=== PATIENT | female | born 1960 | race Caucasian/White ===

== ENCOUNTER → 2017-03-03 | Outpatient (CLI) | payer BC ==
--- NOTE | 2017-03-03 12:49 | XR ---
EXAMINATION TYPE: XR knee limited LT DATE OF EXAM: 03/03/2017 COMPARISON: NONE HISTORY: 56-year-old female acute left knee pain TECHNIQUE: 2 views FINDINGS: No acute fracture, subluxation, or dislocation seen. However, small knee joint effusion is present. E xtensor mechanism is intact. IMPRESSION: 1. No acute osseous abnormality seen. 2. However, there is a small knee joint effusion. This is nonspecific. If concern for internal derang ement, MRI can be performed.
== END | disposition home or self-care (01) ==
LOC: RADXRMAIN 10:08
PROVIDERS: ATTEND Internal Medicine
DX: M25.462 Effusion, left knee (principal); M25.562 Pain in left knee

== ENCOUNTER → 2017-07-07 | Outpatient (CLI) | payer BC | END | disposition home or self-care (01) | LOC: SLEEP 10:23 | PROVIDERS: ATTEND Internal Medicine | DX: Z53.9 Procedure and treatment not carried out, unspecified reason (principal) ==

== ENCOUNTER 2018-04-04 16:52 | Inpatient (IN) | payer BC, OTHER ==
[2018-04-04] MEDS ORDERED: NITROGLYCERIN-D5W PMX 50 MG in DEXTROSE/WATER 1 250ML.BAG IV ONE (17:01)
--- NOTE | 2018-04-04 17:03 | ED ---
General Adult HPI - General Chief complaint: Chest Pain Stated complaint: Poss STEMI Time Seen by Provider: 04/04/18 16:52 Source: patient, RN notes reviewed Mode of arrival: EMS Limitations: no limitations - History of Present Illness Initial comments: This a 57-year-old female with past medical history significant for an [place] with stents. Patient also has diabetes hypertension and high cholesterol. Patient comes in today because she's been is breathing chest pain since 3:30 70. Patient states the pain radiates to her left shoulder and arm as well as a little bit of pain in the right arm. Patient states she also some difficulty breathing and sweating. Patient denies any nausea vomiting. Patient states her nitroglycerin home didn't help the pain a little but the EMS gave her 2 more and it helped quite a bit. Patient states she also took aspirin on the way in. Patient is continuing to have chest pain at this time. Patient denies any lightheadedness dizziness or near syncopal episode. Patient denies any numbness weakness per patient denies any abdominal pain patient denies nausea vomiting diarrhea. Patient denies any back pain. - Related Data Home Medications Medication Instructions Recorded Confirmed Aspirin EC [Ecotrin Low Dose] 324 mg PO DAILY 04/04/18 04/04/18 Atorvastatin [Lipitor] 80 mg PO HS 04/04/18 04/04/18 Clopidogrel Bisulfate [Plavix] 75 mg PO DAILY 04/04/18 04/04/18 Empagliflozin [Jardiance] 10 mg PO DAILY 04/04/18 04/04/18 Insulin Aspart (Niacinamide) See Protocol SQ AC-TID 04/04/18 04/04/18 [Fiasp 100 Unit/ml Flextouch] Levothyroxine Sodium [Synthroid] 150 mcg PO DAILY 04/04/18 04/04/18 Metoprolol Tartrate [Lopressor] 25 mg PO BID 04/04/18 04/04/18 Nitroglycerin 0.1MG/Hr Patch 1 patch TRANSDERM DAILY 04/04/18 04/04/18 [Nitro-Dur 0.1MG/Hr Patch] Nitroglycerin Sl Tabs [Nitrostat] 0.4 mg SUBLINGUAL Q5M PRN 04/04/18 04/04/18 Venlafaxine HCl ER [Effexor Xr] 75 mg PO HS 04/04/18 04/04/18 amLODIPine [Norvasc] 10 mg PO DAILY 04/04/18 04/04/18 metFORMIN HCL [Glucophage] 1,000 mg PO BID 04/04/18 04/04/18 Allergies Allergy/AdvReac Type Severity Reaction Status Date / Time nickel Allergy Rash/Hives Verified 04/04/18 17:07 Review of Systems ROS Statement: Those systems with pertinent positive or pertinent negative responses have been documented in the HPI. ROS Other: All systems not noted in ROS Statement are negative. Past Medical History Past Medical History: Diabetes Mellitus, Hyperlipidemia, Hypertension, Thyroid Disorder Additional Past Medical History / Comment(s): hpv, cervical uterine ca History of Any Multi-Drug Resistant Organisms: None Reported Past Surgical History: Section, Hernia Repair, Hysterectomy Additional Past Surgical History / Comment(s): thryroidectomy Past Psychological History: Anxiety Smoking Status: Current every day smoker Past Alcohol Use History: None Reported Past Drug Use History: None Reported General Exam - General Exam Comments Initial Comments: GENERAL: Patient is well-developed and well-nourished. Patient is nontoxic and well- hydrated and is in mild distress. ENT: Neck is soft and supple. No significant lymphadenopathy is noted. Oropharynx is clear. Moist mucous membranes. Neck has full range of motion without eliciting any pain. EYES: The sclera were anicteric and conjunctiva were pink and moist. Extraocular movements were intact and pupils were equal round and reactive to light. Eyelids were unremarkable. PULMONARY: Unlabored respirations. Good breath sounds bilaterally. No audible rales rhonchi or wheezing was noted. CARDIOVASCULAR: There is a regular rate and rhythm without any murmurs gallops or rubs. ABDOMEN: Soft and nontender with normal bowel sounds. No palpable organomegaly was noted. There is no palpable pulsatile mass. SKIN: Skin is clear with no lesions or rashes and otherwise unremarkable. NEUROLOGIC: Patient is alert and oriented x3. Cranial nerves II through XII are grossly intact. Motor and sensory are also intact. Normal speech, volume and content. Symmetrical smile. MUSCULOSKELETAL: Normal extremities with adequate strength and full range of motion. No lower extremity swelling or edema. No calf tenderness. LYMPHATICS: No significant lymphadenopathy is noted PSYCHIATRIC: Normal psychiatric evaluation. Normal interpersonal interactions appears functionally intact in deals appropriately with others. No signs of depression. No signs of anxiety. Limitations: no limitations Course Vital Signs 04/04/18 04/04/18 04/04/18 16:52 16:58 17:04 Temperature 98.2 F Pulse Rate 71 72 71 Respiratory 18 18 Rate Blood Pressure 182/108 170/102 175/106 O2 Sat by Pulse 99 100 Oximetry 04/04/18 04/04/18 04/04/18 17:30 17:36 17:40 Temperature Pulse Rate 71 75 75 Respiratory 20 20 20 Rate Blood Pressure 179/106 170/83 168/88 O2 Sat by Pulse 96 98 Oximetry 04/04/18 17:44 Temperature Pulse Rate 71 Respiratory 16 Rate Blood Pressure 132/87 O2 Sat by Pulse 96 Oximetry Medical Decision Making - Medical Decision Making EKG was sent to us via the EMS and I sent that there Dr. Crespo he did not believe that this time it was concerning. I was in agreement with this. EKG shows normal sinus rhythm at 67 bpm NV interval 154 tresses 84 Q-T intervals 408 QTC is 431. EKG shows ST segment elevation in lead 3 and questionable elevation in aVF I spoke with Dr. Crespo and he agreed that that was questionable so he decided to call the team and and a STEMI was paged overhead. I started the patient on heparin. Patient also had a nitroglycerin drip. Patient received aspirin. EKG was repeated patient had a normal sinus rhythm at 72 bpm NV interval is 152 QRS is 86 QT interval 422 QTC is 462. Patient's EKG continues to show ST segment elevation in lead 3 patient also has some depression of ST segment in aVL. - Lab Data Result diagrams: 04/04/18 17:00 04/04/18 17:00 Lab Results 04/04/18 04/04/18 Range/Units 17:00 17:00 WBC 15.6 H (3.8-10.6) k/uL RBC 5.10 (3.80-5.40) m/uL Hgb 15.1 (11.4-16.0) gm/dL Hct 42.8 (34.0-46.0) % MCV 83.9 (80.0-100.0) fL MCH 29.5 (25.0-35.0) pg MCHC 35.2 (31.0-37.0) g/dL RDW 13.8 (11.5-15.5) % Plt Count 176 (150-450) k/uL Neutrophils % 60 % Lymphocytes % 31 % Monocytes % 7 % Eosinophils % 1 % Basophils % 1 % Neutrophils # 9.4 H (1.3-7.7) k/uL Lymphocytes # 4.8 (1.0-4.8) k/uL Monocytes # 1.1 H (0-1.0) k/uL Eosinophils # 0.1 (0-0.7) k/uL Basophils # 0.1 (0-0.2) k/uL Sodium 138 (137-145) mmol/L Potassium 3.9 (3.5-5.1) mmol/L Chloride 106 (98-107) mmol/L Carbon Dioxide 22 (22-30) mmol/L Anion Gap 10 mmol/L BUN 16 (7-17) mg/dL Creatinine 0.66 (0.52-1.04) mg/dL Est GFR (CKD-EPI)AfAm >90 (>60 ml/min/1.73 sqM) Est GFR (CKD-EPI)NonAf >90 (>60 ml/min/1.73 sqM) Glucose 335 H (74-99) mg/dL Calcium 9.2 (8.4-10.2) mg/dL Magnesium 1.8 (1.6-2.3) mg/dL Total Bilirubin 0.7 (0.2-1.3) mg/dL AST 27 (14-36) U/L ALT 44 (9-52) U/L Alkaline Phosphatase 122 (38-126) U/L Total Protein 7.1 (6.3-8.2) g/dL Albumin 3.8 (3.5-5.0) g/dL Critical Care Time Critical Care Time: Yes Total Critical Care Time: 35 Disposition Clinical Impression: ST elevation myocardial infarction (STEMI) Disposition: ADMITTED IP TO THIS HOSP Referrals: Marni Leon MD [Primary Care Provider] - 1-2 days Time of Disposition: 17:25
[2018-04-04 17:33] LABS: Basophils # (A) 0.1 k/uL (0-0.2); Basophils % (A) 1 %; Eosinophils # (A) 0.1 k/uL (0-0.7); Eosinophils % (A) 1 %; HCT 42.8 % (34.0-46.0); HGB 15.1 gm/dL (11.4-16.0); Lymphocytes # (A) 4.8 k/uL (1.0-4.8); Lymphocytes % (A) 31 %; MCH 29.5 pg (25.0-35.0); MCHC 35.2 g/dL (31.0-37.0); MCV 83.9 fL (80.0-100.0); Mean Platelet Volume 6.7; Monocytes # (A) 1.1 k/uL (0-1.0); Monocytes % (A) 7 %; Neutrophils # (A) 9.4 k/uL (1.3-7.7); Neutrophils % (A) 60 %; Platelet Count 176 k/uL (150-450); RDW 13.8 % (11.5-15.5); WBC 15.6 k/uL (3.8-10.6)
--- NOTE | 2018-04-04 17:35 | XR ---
EXAMINATION TYPE: XR chest 2V DATE OF EXAM: 04/04/2018 COMPARISON: Chest x-ray October 24, 2015 HISTORY: Chest pain into left arm. TECHNIQUE: Frontal and lateral views of the chest are obtained. FINDINGS: The cardiac silhouette size is now upper limits of normal with new mild to moderate centra l vascular congestion. Diminished inspiration is noted. No pleural effusion or pneumothorax is eviden t bilaterally. The osseous structures are intact. IMPRESSION: Correlate for CHF exacerbation as there is increased cardiac silhouette size with suspec karina new mild to moderate central vascular congestion though findings may be exaggerated by poor inspi ration.
[2018-04-04] MEDS ORDERED: MORPHINE SULFATE 4 MG/ML SYRINGE IM STA (17:37)
[2018-04-04 17:45] LABS: ALT 44 U/L (9-52); AST 27 U/L (14-36); Albumin 3.8 g/dL (3.5-5.0); Alkaline Phosphatase 122 U/L (38-126); Anion Gap 10 mmol/L; Blood Urea Nitrogen 16 mg/dL (7-17); Calcium 9.2 mg/dL (8.4-10.2); Carbon Dioxide 22 mmol/L (22-30); Chloride 106 mmol/L (98-107); Glucose 335 mg/dL (74-99); Magnesium 1.8 mg/dL (1.6-2.3); Potassium 3.9 mmol/L (3.5-5.1); Sodium 138 mmol/L (137-145); Total Bilirubin 0.7 mg/dL (0.2-1.3); Total Protein 7.1 g/dL (6.3-8.2)
[2018-04-04 18:00] LABS: Creatine Kinase MB 0.6 ng/mL (0.0-2.4)
[2018-04-04] MEDS ORDERED: LIDOCAINE 1% INJ 10MG/ML (20 ML MDV) ONE (18:00)
[2018-04-04] MEDS ORDERED: fentaNYL (PF) 50 MCG/ML 2 ML AMP ONE (18:00)
[2018-04-04] MEDS ORDERED: HEPARIN SODIUM 1,000 UN/ML (10ML VL) ONE (18:00)
[2018-04-04] MEDS ORDERED: MIDAZOLAM 2 MG/2 ML VIAL ONE (18:00)
[2018-04-04] MEDS ORDERED: MIDAZOLAM 2 MG/2 ML VIAL IVP ONE (18:06)
[2018-04-04] MEDS ORDERED: LIDOCAINE 1% (PF) 10MG/ML VIAL SQ ONE (18:06)
[2018-04-04] MEDS ORDERED: fentaNYL (PF) 50 MCG/ML 2 ML AMP IVP ONE (18:10)
[2018-04-04] MEDS ORDERED: SODIUM CHLORIDE 0.9% 500 ML 500 ML IV ONE (18:23)
[2018-04-04] MEDS ORDERED: BIVALIRUDIN BOLUS 250 MG/50 ML IV ONE (18:29)
[2018-04-04] MEDS ORDERED: BIVALIRUDIN 250 MG in SODIUM CHLORIDE 0.9% 50 ML IV ONE (18:30)
[2018-04-04] MEDS ORDERED: TICAGRELOR 90 MG TAB PO ONE (18:32)
[2018-04-04 18:36] LABS: Troponin I 0.054 ng/mL (0.000-0.034)
[2018-04-04] MEDS ORDERED: IOPAMIDOL-370 125ML BTL INJ ONE (18:39)
[2018-04-04] MEDS ORDERED: NITROGLYCERIN 1000MCG/10ML SYRINGE INTRACORON ONE (18:40)
[2018-04-04] MEDS ORDERED: NITROGLYCERIN SL TABS 0.4 MG TAB SUBLINGUAL PRN ×2 (18:50→18:51)
[2018-04-04] MEDS ORDERED: ATROPINE SULFATE 0.1 MG/ML 10ML SYRINGE IV PRN (18:51)
[2018-04-04] MEDS ORDERED: ZOLPIDEM 5 MG TAB PO PRN (18:51)
[2018-04-04] MEDS ORDERED: MAG HYDROX/AL HYDROX/SIMETH 30 ML CUP PO PRN (18:51)
[2018-04-04] MEDS ORDERED: RX INFO: IV CONTRAST WAS GIVEN 1 EACH MISC MISCELLANE PRN (18:51)
[2018-04-04] MEDS ORDERED: IOPAMIDOL-370 100ML BTL INJ ONE (18:58)
[2018-04-04] MEDS ORDERED: SODIUM CHLORIDE 0.9% 1,000 ML IV SCH (19:00)
--- NOTE | 2018-04-04 20:34 | CONS ---
CONSULTATION Mrs. Grant is a 57-year-old female who came to the emergency room with a complaint of chest discomfort. This patient had an episode of chest discomfort earlier this morning. She took a nitroglycerin and subsequently pain subsided. Then while she was shopping around 3:30 she started having discomfort in the chest, associated with some sweating and nausea. She took 4 nitroglycerin as the pain persisted, patient came to the emergency room. In the emergency room, patient had a pain 9/10 and the EKG was suggestive of inferior wall myocardial infarction. In view of that, the patient was advised urgent cardiac catheterization. This patient has a known history of coronary artery disease with a prior history of a stent done at [facility] about a year ago. The patient also has a history of diabetes and hypertension. The patient has been otherwise doing fairly well without any exertional chest discomfort. PAST MEDICAL HISTORY: Includes a history of diabetes. No history of any GI bleeding. 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 Blood pressure was 130/80 mmHg, heart rate is 90 per minute. HEENT examination is negative. Neck is supple. There is no increase in jugular venous pressure. Both the carotid pulses are felt. There is no bruit. Chest is symmetrical. HEART: the PMI is not felt. First and second heart sounds are heard. There is no evidence of murmur. Lungs are clinically clear to auscultation and percussion. Abdomen is soft. Liver and spleen are not enlarged. EXTREMITIES: Peripheral pulses are 2+. EKG is suggestive of minimal [address]-segment elevation in the inferior leads. FINAL IMPRESSION: 1. Acute inferior wall myocardial infarction. The patient has a prior history of stent. Details of which are not available at present. 2. The patient has a history of diabetes and hypertension. RECOMMENDATIONS: We will proceed with urgent catheterization and stent. MMODL / IJN: [id number] /
--- NOTE | 2018-04-04 20:40 | CC ---
CARDIAC CATHETERIZATION REPORT Mrs Grant is a 57-year-old female who came to the emergency room with a complaint of chest discomfort for about 3 hours. 2.5 hours prior to coming to the emergency room, patient took an aspirin at home. EKG showed mild ST-segment elevation in the inferior leads suggestive of acute ST-segment elevation myocardial infarction. In view of that, the patient was advised urgent cardiac catheterization and primary angioplasty. The patient has a prior history of a stent at [facility] about a year and half ago. Patient has a history of diabetes. She claims that she is taking her medications regularly. PROCEDURE: The right groin was prepped and draped in the usual manner and the skin was infiltrated with 2% Xylocaine. The right femoral artery was entered using Seldinger technique a #6- Latv[place] sheath was placed in. Selective coronary angiography was then performed in multiple projections and the left ventricular pressures were obtained. Moderate sedation was used. Sedation time was 20 minutes. HEMODYNAMICS: Left ventricular end-diastolic pressure is 20-22 mmHg prior to angiography. No gradient is noted across the aortic valve. SELECTIVE CORONARY ANGIOGRAPHY: Left main coronary artery is normal and patent. LAD is a good caliber blood vessel. There is a stent. There are multiple stents noted in the mid and distal LAD with a total occlusion of the distal part of the stent and distal LAD near the apex. The circumflex coronary artery is a good caliber blood vessel and gives rise to two good sized PLV branches. Beyond that the distal circumflex has a mild disease of about 40%. Right coronary artery is a good caliber blood vessel and dominant in distribution and gives rise to the PDA branch. There is a minimal irregularity noted in the right coronary artery. FINAL IMPRESSION: There is evidence of a total occlusion of the distal part of the stent in the distal LAD. There is a mild disease in the distal circumflex coronary artery about 40%. Right coronary artery is normal. RECOMMENDATIONS: We will proceed with angioplasty and stent to the distal LAD. MMODL / IJN: [id number] /
--- NOTE | 2018-04-04 20:40 | LTR ---
DATE OF SERVICE: April 04, [address] Leon: Mrs. Dea Grant presented to the emergency room at [facility] complaining of chest discomfort and was found to have an acute anterior ST-elevation myocardial infarction. She underwent heart catheterization and that revealed occluded LAD distally and she underwent successful stenting of the LAD. Thank you for allowing us to participate in her care and please do not hesitate to call if you have any questions or concerns. Sincerely, MATT / JUANN: [id number] /
[2018-04-04] MEDS: METOPROLOL TARTRATE 25 MG TAB PO SCH ×2 (20:45→23:24)
[2018-04-04] MEDS: ATORVASTATIN 80 MG TAB PO SCH (20:45)
[2018-04-04] MEDS: VENLAFAXINE HCL ER 75 MG CAP PO SCH (20:46)
[2018-04-05 06:19] LABS: HCT 42.2 % (34.0-46.0); HGB 14.5 gm/dL (11.4-16.0); MCH 29.5 pg (25.0-35.0); MCHC 34.3 g/dL (31.0-37.0); MCV 85.9 fL (80.0-100.0); Mean Platelet Volume 7.1; Platelet Count 183 k/uL (150-450); RBC 4.92 m/uL (3.80-5.40); RDW 13.9 % (11.5-15.5); WBC 16.7 k/uL (3.8-10.6)
[2018-04-05 06:28] LABS: Anion Gap 6 mmol/L; Blood Urea Nitrogen 12 mg/dL (7-17); Calcium 8.5 mg/dL (8.4-10.2); Carbon Dioxide 21 mmol/L (22-30); Chloride 110 mmol/L (98-107); Glucose 255 mg/dL (74-99); Magnesium 1.8 mg/dL (1.6-2.3); Phosphorus 3.4 mg/dL (2.5-4.5); Potassium 4.2 mmol/L (3.5-5.1); Sodium 137 mmol/L (137-145)
[2018-04-05 06:39] LABS: Partial Thromboplastin Time 23.3 sec (22.0-30.0); Prothrombin Time 10.1 sec (9.0-12.0)
[2018-04-05 06:57] LABS: Glucose,Whole Blood 272 mg/dL (75-99)
[2018-04-05] MEDS ORDERED: Magnesium Replacement Protocol 1 EACH MISC MISCELLANE PRN (06:59)
[2018-04-05] MEDS: LEVOTHYROXINE 75 MCG TAB PO SCH (07:03)
[2018-04-05] MEDS: INSULIN ASPART 100 UNIT/ML 1 ML 10 ML VIAL SQ SCH ×5 (07:06→21:30)
--- NOTE | 2018-04-05 07:30 | XR ---
EXAMINATION TYPE: XR chest 1V portable DATE OF EXAM: 04/05/2018 COMPARISON: 04/04/2018 HISTORY: Shortness of breath TECHNIQUE: Single portable view of the chest is obtained. FINDINGS: There is pulmonary venous congestion and cardiomegaly. No focal consolidation identified. Mediastinal structures are stable and grossly unremarkable. No evidence for hilar prominence. Degenerative changes dorsal spine. IMPRESSION: 1. There is pulmonary venous congestion and cardiomegaly. No focal consolidation identified.
--- NOTE | 2018-04-05 07:35 | PTCA ---
PERCUTANEOUSTRANS CORORONARY ANGIOGRAPHY PERCUTANEOUS CORONARY INTERVENTION: DATE OF SERVICE: 04/04/2018 PERFORMING PHYSICIAN: Shashi Velasquez MD, Desizing Machine Operator Head End. PROCEDURE PERFORMED: Successful stenting of the distal left anterior descending artery using 2.5 x 18 mm Xience LALI with good angiographic results and reduction of stenosis from 100% to 0%. INDICATION: This is a pleasant 57-year-old female patient who sees Dr. 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 She presented to the emergency room at [facility] with chest discomfort and underwent an EKG concerning for acute inferior ST-elevation myocardial infarction. She was seen and evaluated by Dr. Del Rio who did perform heart catheterization on the patient and that revealed occluded distal LAD just distal to the stent. The decision was made towards percutaneous coronary intervention. APPROACH: Right common femoral artery. COMPLICATION: None. LEVEL OF SEDATION: Moderate with a sedation length of 30 minutes. is 40 minutes. PROCEDURE DESCRIPTION: Diagnostic heart catheterization was performed by Dr. Rosy Del Rio. After that, we decided to intervene on the LAD. Anticoagulation was initiated using Angiomax. Subsequently, I took JL4 guide and the left main was engaged. A whisper wire was used to wire the left anterior descending artery and crossed the acute total occlusion distally. After that, I did balloon angioplasty of the LAD using 2.5 x 12 mm balloon before I deployed 2.5 x 18 mm Xience LALI where the stent was positioned under fluoroscopy guidance and deployed under 14 atmospheres for 20 seconds. I post-dilated the stent using 3 mm NC balloon which was inflated under 16 atmospheres for 20 seconds. The following angiogram showed good angiographic results and the procedure was completed without any complication. POSTPROCEDURE MANAGEMENT: 1. Dual anti-platelet therapy. 2. Risk factor modifications. 3. Follow up with the patient. MMODL / IJN: [id number] /
--- NOTE | 2018-04-05 08:14 | P.HPIM ---
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 Time she was visiting [place] when she started feeling some chest tightness while driving which progressed over few hours to more severe chest pain that is not relieved by 4 tablets of aspirin and nitro tablets. 2 she canceled the ambulance and came to the hospital. The patient describes the pain as sharp, steady on the left side radiating to both armpits and left arm and a little little bit to the stomach as well. Associated with little dyspnea. No nausea vomiting or sweating. She came to the emergency room and found to have acute anterior STEMI. Cardiology evaluated the patient and patient underwent cardiac cath which showed occluded LAD distally, patient underwent successful stenting of the LAD. Review of Systems CONSTITUTIONAL: No fever, no malaise, no fatigue. HEENT: No recent visual problems or hearing problems. Denied any sore throat. CARDIOVASCULAR: No orthopnea, PND, no palpitations, no syncope. PULMONARY: No shortness of breath, no cough, no hemoptysis. GASTROINTESTINAL: No diarrhea, no nausea, no vomiting, no abdominal pain. Normoactive bowel sounds. NEUROLOGICAL: No headaches, no weakness, no numbness. HEMATOLOGICAL: Denies any bleeding or petechiae. GENITOURINARY: Denies any burning micturition, frequency, or urgency. MUSCULOSKELETAL/RHEUMATOLOGICAL: Denies any joint pain, swelling, or any muscle pain. ENDOCRINE: Denies any polyuria or polydipsia. Past Medical History Past Medical History: Cancer, Diabetes Mellitus, Hyperlipidemia, Hypertension, Thyroid Disorder Additional Past Medical History / Comment(s): 04/04/18 stemi. other hx includes : rls, hpv, cervical uterine ca(sx only), anxiety History of Any Multi-Drug Resistant Organisms: None Reported Past Surgical History: Section, Heart Catheterization With Stent, Hernia Repair, Hysterectomy Additional Past Surgical History / Comment(s): 04/04/18 heart cath with stent to distal lad . past hx heart cath w/ stents apr 2018 at [facility] .thryroidectomy, leep rocedure, total hysterectomy, bladder supsension, rt knee sx Past Anesthesia/Blood Transfusion Reactions: No Reported Reaction Additional Past Anesthesia/Blood Transfusion Reaction / Comment(s): has never received blood. Date of Last Stent Placement:: 2016 Smoking Status: Current every day smoker - Past Family History Mother Family Medical History: Diabetes Mellitus, Hypertension Additional Family Medical History / Comment(s): diet controlled diabetic Father Family Medical History: Coronary Artery Disease (CAD), Myocardial Infarction (CO ) Additional Family Medical History / Comment(s): "at age 38 [address] bypass" then at age 48 [place] Medications and Allergies Home Medications Medication Instructions Recorded Confirmed Type Aspirin EC [Ecotrin Low Dose] 324 mg PO DAILY 04/04/18 04/04/18 History Atorvastatin [Lipitor] 80 mg PO HS 04/04/18 04/04/18 History Clopidogrel Bisulfate [Plavix] 75 mg PO DAILY 04/04/18 04/04/18 History Empagliflozin [Jardiance] 10 mg PO DAILY 04/04/18 04/04/18 History Insulin Aspart (Niacinamide) See Protocol SQ AC-TID 04/04/18 04/04/18 History [Fiasp 100 Unit/ml Flextouch] Levothyroxine Sodium [Synthroid] 150 mcg PO DAILY 04/04/18 04/04/18 History Metoprolol Tartrate [Lopressor] 25 mg PO BID 04/04/18 04/04/18 History Nitroglycerin 0.1MG/Hr Patch 1 patch TRANSDERM DAILY 04/04/18 04/04/18 History [Nitro-Dur 0.1MG/Hr Patch] Nitroglycerin Sl Tabs [Nitrostat] 0.4 mg SUBLINGUAL Q5M PRN 04/04/18 04/04/18 History Venlafaxine HCl ER [Effexor Xr] 75 mg PO HS 04/04/18 04/04/18 History amLODIPine [Norvasc] 10 mg PO DAILY 04/04/18 04/04/18 History metFORMIN HCL [Glucophage] 1,000 mg PO BID 04/04/18 04/04/18 History Allergies Allergy/AdvReac Type Severity Reaction Status Date / Time nickel Allergy Rash/Hives Verified 04/04/18 17:07 Physical Exam Vitals: Vital Signs Temp Pulse Resp BP Pulse Ox 04/05/18 06:30 50 L 16 162/92 96 04/05/18 06:00 68 17 159/94 95 04/05/18 05:30 55 L 16 95 04/05/18 05:00 61 15 157/83 95 04/05/18 04:30 54 L 17 157/94 96 04/05/18 04:00 97.8 F 57 L 16 149/87 96 04/05/18 03:30 57 L 17 148/88 97 04/05/18 03:00 55 L 17 159/85 96 04/05/18 02:30 55 L 15 173/90 96 04/05/18 02:00 54 L 18 148/87 96 04/05/18 01:30 61 16 152/87 96 04/05/18 01:00 58 L 15 156/88 96 04/05/18 00:30 61 16 158/90 96 04/05/18 00:00 98 F 51 L 18 163/96 95 04/04/18 23:30 63 18 150/91 97 04/04/18 23:00 57 L 17 145/88 96 04/04/18 22:30 58 L 17 146/86 98 04/04/18 22:23 54 L 16 146/86 98 04/04/18 22:15 60 15 134/86 98 04/04/18 22:00 56 L 16 142/82 97 04/04/18 21:45 57 L 18 153/87 97 04/04/18 21:30 61 16 144/78 97 04/04/18 21:15 58 L 16 138/81 96 04/04/18 21:00 58 L 18 152/90 93 L 04/04/18 20:45 70 18 154/96 96 04/04/18 20:30 66 16 95 04/04/18 20:15 74 18 155/90 95 04/04/18 20:00 98.3 F 75 18 140/81 95 04/04/18 19:45 70 19 155/90 94 L 04/04/18 19:30 74 18 142/76 95 04/04/18 19:18 76 17 142/76 93 L 04/04/18 17:49 71 20 155/84 97 04/04/18 17:44 71 16 132/87 96 04/04/18 17:40 75 20 168/88 98 04/04/18 17:36 75 20 170/83 04/04/18 17:30 71 20 179/106 96 04/04/18 17:25 69 18 170/135 97 04/04/18 17:13 67 18 191/104 96 04/04/18 17:04 71 18 175/106 100 04/04/18 16:58 72 170/102 04/04/18 16:52 98.2 F 71 18 182/108 99 Intake and Output 04/04/18 04/05/18 04/05/18 22:59 06:59 14:59 Intake Total 451.55 800 100 Output Total 400 Balance 51.55 800 100 Intake: IV 450 800 100 Sodium Chloride 0.9% 1, 300 800 100 000 ml @ 100 mls/hr IV . Q10H [facility] Rx#:[id number] Intake, IV Titration 1.55 Amount Nitroglycerin-D5w Pmx 50 1.55 mg In Dextrose/Water 1 250ml.bag @ 10 MCG/MIN 3 mls/hr IV .Q24H [facility] Rx#: [id number] Output: Urine 400 Other: Voiding Method Bedpan Bedpan # Voids 1 1 Weight 78.018 kg 85.3 kg GENERAL: The patient is alert and oriented x3, not in any acute distress. Well developed, well nourished. HEENT: Pupils are round and equally reacting to light. EOMI. No scleral icterus. No conjunctival pallor. Normocephalic, atraumatic. No pharyngeal erythema. No thyromegaly. CARDIOVASCULAR: S1 and S2 present. No murmurs, rubs, or gallops. PULMONARY: Chest is clear to auscultation, no wheezing or crackles. ABDOMEN: Soft, nontender, nondistended, normoactive bowel sounds. No palpable organomegaly. MUSCULOSKELETAL: No joint swelling or deformity. EXTREMITIES: No cyanosis, clubbing, or pedal edema. NEUROLOGICAL: Gross neurological examination did not reveal any focal deficits. SKIN: No rashes. Results CBC & Chem 7: 04/05/18 05:17 04/05/18 05:17 Labs: Abnormal Lab Results - Last 24 Hours (Table) 04/04/18 04/04/18 04/04/18 Range/Units 17:00 17:00 17:00 WBC 15.6 H (3.8-10.6) k/uL Neutrophils # 9.4 H (1.3-7.7) k/uL Monocytes # 1.1 H (0-1.0) k/uL Chloride (98-107) mmol/L Carbon Dioxide (22-30) mmol/L Creatinine (0.52-1.04) mg/dL Glucose 335 H (74-99) mg/dL POC Glucose (mg/dL) (75-99) mg/dL Troponin I 0.054 H* (0.000-0.034) ng/mL 04/05/18 04/05/18 04/05/18 Range/Units 05:17 05:17 06:55 WBC 16.7 H (3.8-10.6) k/uL Neutrophils # (1.3-7.7) k/uL Monocytes # (0-1.0) k/uL Chloride 110 H (98-107) mmol/L Carbon Dioxide 21 L (22-30) mmol/L Creatinine 0.42 L (0.52-1.04) mg/dL Glucose 255 H (74-99) mg/dL POC Glucose (mg/dL) 272 H (75-99) mg/dL Troponin I (0.000-0.034) ng/mL Thrombosis Risk Factor Assmnt - Choose All That Apply Each Factor Represents 1 point: Acute CO, Age 41-60 years Each Risk Factor Represents 2 Points: Central venous access Thrombosis Risk Factor Assessment Total Risk Factor Score: 4 Thrombosis Risk Factor Assessment Level: Moderate Risk Assessment and Plan Assessment: Acute anterior STEMI, status post cardiac cath: Stenting of the distal LAD 2 diabetes mellitus Essential hypertension Hyperlipidemia Hypothyroidism Plan: This is a pleasant 57 years old female who presents with acute anterior STEMI status post cardiac cath with stenting of the distal LAD. Cardiology evaluation is appreciated. Patient to continue with dual antiplatelet therapy with aspirin and Plavix. Continue with Lipitor. Pain management. Labs and medication were reviewed. Continue with the same treatment. Continue symptomatic treatment. Resume home medication. Monitor lytes and vitals. GI and DVT prophylaxis. Further recommendations based on the clinical course of the patient's Prognosis is guarded
--- NOTE | 2018-04-05 08:20 | PN ---
PROGRESS NOTE Mrs Grant is a 57-year-old female with known history of hypertension, hyperlipidemia, diabetes mellitus, prior history of coronary artery disease, status post multiple stent placement at [facility] about a year ago who presented with symptoms of chest discomfort with mild EKG changes, underwent a cardiac catheterization yesterday, was found to have totally occluded distal left anterior descending artery. She underwent stenting of that vessel. She is doing well this morning. Her breathing is stable. She denies any dizziness or palpitation. The patient has a known history of chronic tobacco use. She continued on aspirin once a day, amlodipine 10 mg daily, Brilinta 90 mg twice a day, metoprolol tartrate 25 mg twice a day. PHYSICAL EXAMINATION: Blood pressure 160/90 with a heart rate in the 60s. LUNGS: Clear. HEART: Regular rate and rhythm S1, S2. No S3. No rub. ABDOMEN: Soft, nontender. Positive bowel sounds. No organomegaly. Right groin, no hematoma. LAB DATA: Revealed a troponin presentation of 0.054. BUN and creatinine 12 and 0.42. Hemoglobin of 14.5. In summary, he had a white blood cell of 16.7. IMPRESSION: 1. Status post acute myocardial infarction and stenting of the distal left anterior descending artery. 2. Status post multiple stent in the left anterior descending artery about a year ago. 3. Chronic tobacco use. 4. Hypertension. 5. Hyperlipidemia. RECOMMENDATION: From the cardiac standpoint, I will add to her regimen an ELA inhibitor in view of her presentation, history of diabetes mellitus. Obtain echocardiogram. Follow her cardiac enzymes. Increase her activity and depending on her progress, further recommendation will be made. MMODL / IJN: [id number] /
[2018-04-05] MEDS: MAGNESIUM SULFATE-D5W PMX 1 GM in DEXTROSE/WATER 1 100ML.BAG IVPB SCH ×2 (08:57→14:54)
[2018-04-05] MEDS: LISINOPRIL 5 MG TAB PO SCH ×2 (08:58→21:22)
[2018-04-05] MEDS: METOPROLOL TARTRATE 25 MG TAB PO SCH ×2 (08:58→21:22)
[2018-04-05] MEDS: ASPIRIN 81 MG PO SCH (08:58)
[2018-04-05] MEDS: amLODIPine 10 MG TAB PO SCH (08:58)
[2018-04-05] MEDS ORDERED: NON-FORMULARY DRUG (Aspirin Ec 324 MG) PO SCH (09:00)
[2018-04-05] MEDS ORDERED: FAMOTIDINE 20 MG/2 ML VIAL IV SCH (09:00)
[2018-04-05] MEDS ORDERED: NITROGLYCERIN 0.1MG/HR PATCH TRANSDERM SCH (09:00)
[2018-04-05] MEDS: TICAGRELOR 90 MG TAB PO SCH ×2 (09:03→21:22)
[2018-04-05] MEDS: PANTOPRAZOLE 40 MG/10 ML VIAL IVP SCH (09:03)
--- NOTE | 2018-04-05 10:15 | ECHOF ---
Referral Reason:stemi MEASUREMENTS -------- HEIGHT: 162.6 cm WEIGHT: 78.0 kg BP: 148/87 RVIDd: 3.2 cm (< 3.3) IVSd: 1.5 cm (0.6 - 1.1) LVIDd: 3.8 cm (3.9 - 5.3) LVPWd: 1.2 cm (0.6 - 1.1) IVSs: 1.8 cm LVIDs: 2.6 cm LVPWs: 1.5 cm LA Diam: 3.1 cm (2.7 - 3.8) LAESV Index (A-L): 29.17 ml/m Ao Diam: 3.1 cm (2.0 - 3.7) AV Cusp: 2.0 cm (1.5 - 2.6) EPSS: 0.7 cm MV E Tate: 0.99 m/s MV DecT: 205 ms MV A Tate: 0.88 m/s MV E/A Ratio: 1.13 RAP: 5.00 mmHg RVSP: 30.59 mmHg MV EF SLOPE: 99.77 mm/s (70 - 150) MV EXCURSION: 1.64 cm (> 18.000) FINDINGS -------- Sinus rhythm. This was a technically adequate study. The left ventricular size is normal. There is moderate concentric left ventricular hypertrophy. O verall left ventricular systolic function is low-normal with, an EF between 50 - 55 %. Apical infer ior LV wall motion is hypokinetic. Apical septum LV wall motion is hypokinetic. Anterseptal Hyp okinesis The right ventricle is normal in size. LA is midly dilated 29-33ml/m2. The right atrium is normal in size. 5 ml of Lumason was utilized for enhancement of images. The aortic valve is trileaflet and appears structurally normal. The mitral valve is normal. Mild tricuspid regurgitation present. Right ventricular systolic pressure is normal at < 35 mmHg. Trace/mild (physiologic) pulmonic regurgitation. The aortic root size is normal. IVC Not well visulized. There is no pericardial effusion. CONCLUSIONS -------- 1. Sinus rhythm. 2. This was a technically adequate study. 3. The left ventricular size is normal. 4. There is moderate concentric left ventricular hypertrophy. 5. Overall left ventricular systolic function is low-normal with, an EF between 50 - 55 %. 6. Apical inferior LV wall motion is hypokinetic. 7. Apical septum LV wall motion is hypokinetic. 8. Anterseptal Hypokinesis 9. The right ventricle is normal in size. 10. LA is midly dilated 29-33ml/m2. 11. The right atrium is normal in size. 12. 5 ml of Lumason was utilized for enhancement of images. 13. The aortic valve is trileaflet and appears structurally normal. 14. The mitral valve is normal. 15. Mild tricuspid regurgitation present. 16. Right ventricular systolic pressure is normal at < 35 mmHg. 17. Trace/mild (physiologic) pulmonic regurgitation. 18. The aortic root size is normal. 19. IVC Not well visulized. 20. There is no pericardial effusion. JAVA USER INTERFACE DEVELOPER: SARINA Redmond
[2018-04-05 11:18] VITALS: BMI 32.3
[2018-04-05 11:51] LABS: Glucose,Whole Blood 325 mg/dL (75-99)
[2018-04-05] MEDS ORDERED: INSULIN ASPART 100 UNIT/ML 1 ML 10 ML VIAL SQ ONE ×2 (11:52→19:45)
[2018-04-05] MEDS: NON-FORMULARY DRUG (Empagliflozin [Jardiance] 10 MG) PO SCH (12:36)
[2018-04-05] MEDS: INSULIN DETEMIR 100 UNIT/ML 10 ML VIAL SQ SCH (12:41)
[2018-04-05 16:47] LABS: Glucose,Whole Blood 329 mg/dL (75-99)
[2018-04-05] MEDS ORDERED: INSULIN DETEMIR 100 UNIT/ML 10 ML VIAL SQ ONE (19:46)
[2018-04-05 20:15] LABS: Glucose,Whole Blood 279 mg/dL (75-99)
[2018-04-05] MEDS: ATORVASTATIN 80 MG TAB PO SCH (21:22)
[2018-04-05] MEDS: VENLAFAXINE HCL ER 75 MG CAP PO SCH (23:12)
[2018-04-06 00:03] LABS: Glucose,Whole Blood 186 mg/dL (75-99)
[2018-04-06 04:52] LABS: HCT 48.1 % (34.0-46.0); HGB 16.1 gm/dL (11.4-16.0); MCH 28.7 pg (25.0-35.0); MCHC 33.5 g/dL (31.0-37.0); MCV 85.7 fL (80.0-100.0); Mean Platelet Volume 6.4; Platelet Count 197 k/uL (150-450); RBC 5.62 m/uL (3.80-5.40); RDW 13.9 % (11.5-15.5); WBC 18.7 k/uL (3.8-10.6)
[2018-04-06 05:08] LABS: Anion Gap 7 mmol/L; Blood Urea Nitrogen 11 mg/dL (7-17); Calcium 8.9 mg/dL (8.4-10.2); Carbon Dioxide 24 mmol/L (22-30); Chloride 105 mmol/L (98-107); Glucose 216 mg/dL (74-99); Magnesium 2.1 mg/dL (1.6-2.3); Potassium 3.8 mmol/L (3.5-5.1); Sodium 136 mmol/L (137-145)
[2018-04-06] MEDS: LEVOTHYROXINE 75 MCG TAB PO SCH (07:09)
[2018-04-06 07:12] LABS: Glucose,Whole Blood 220 mg/dL (75-99)
[2018-04-06] MEDS: INSULIN ASPART 100 UNIT/ML 1 ML 10 ML VIAL SQ SCH ×4 (07:14→21:08)
--- NOTE | 2018-04-06 08:48 | PN ---
PROGRESS NOTE Mrs. Grant is a 57-year-old female who presented with an acute myocardial infarction, underwent stenting of her distal LAD. She is doing well this morning. She has no chest pain. Her breathing is stable. She denies any dizziness or palpitation. Hemodynamically, she is stable. She continued to be in sinus mechanism without any evidence of tachycardia or bradycardia. She continues on amlodipine 10 mg daily, aspirin once a day, Lipitor 80 mg daily, insulin, lisinopril 5 mg twice a day, metoprolol tartrate 25 mg twice a day, and Brilinta 90 mg twice a day. PHYSICAL EXAMINATION: Blood pressure running in the 140 and 150 with a heart in the 60s. LUNGS: Clear. HEART: Regular rate and rhythm. S1, S2. No S3. No rub. ABDOMEN: Soft, nontender. EXTREMITIES: No edema. LAB DATA: Revealed BUN and creatinine of 11 and 0.48, potassium 3.8, hemoglobin of 16.1. Her echocardiogram showed evidence of apical septal, anteroseptal and apical inferior wall hypokinesis, but her ejection fraction was estimated at 50%. IMPRESSION: 1. Status post myocardial infarction and stenting of the apical left anterior descending artery. 2. History of hypertension. 3. Prior history of stenting of the LAD. 4. History of hyperlipidemia. 5. History of chronic tobacco use. RECOMMENDATION: I will increase her level activity. I will increase the dose of Zestril to 10 mg twice a day. She should be able to be transferred to telemetry floor to increase her activity and if she remains stable, I am hopeful that she should be able to be discharged home in the next 24 to 48 hours. MMODL / IJN: [id number] /
[2018-04-06] MEDS: LISINOPRIL 10 MG TAB PO SCH ×2 (08:50→20:06)
[2018-04-06] MEDS: TICAGRELOR 90 MG TAB PO SCH ×2 (08:50→20:06)
[2018-04-06] MEDS: amLODIPine 10 MG TAB PO SCH (08:50)
[2018-04-06] MEDS: ASPIRIN 81 MG PO SCH (08:50)
[2018-04-06] MEDS: INSULIN DETEMIR 100 UNIT/ML 10 ML VIAL SQ SCH (08:51)
[2018-04-06] MEDS: METOPROLOL TARTRATE 25 MG TAB PO SCH ×2 (08:51→20:06)
[2018-04-06] MEDS: PANTOPRAZOLE 40 MG/10 ML VIAL IVP SCH (09:04)
[2018-04-06] MEDS: NON-FORMULARY DRUG (Empagliflozin [Jardiance] 10 MG) PO SCH (11:21)
[2018-04-06 12:59] LABS: Glucose,Whole Blood 417 mg/dL (75-99)
[2018-04-06 16:50] LABS: Glucose,Whole Blood 194 mg/dL (75-99)
[2018-04-06] MEDS: ATORVASTATIN 80 MG TAB PO SCH (20:06)
[2018-04-06 21:01] LABS: Glucose,Whole Blood 206 mg/dL (75-99)
[2018-04-06] MEDS: VENLAFAXINE HCL ER 75 MG CAP PO SCH (22:17)
--- NOTE | 2018-04-07 00:04 | P.PN ---
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, who presents with chest pain , she has pmh of type 2 diabetes mellitus, hypertension, hyperlipidemia, hypothyroidism, status post hysterectomy. Time she was visiting [place] when she started feeling some chest tightness while driving which progressed over few hours to more severe chest pain that is not relieved by 4 tablets of aspirin and nitro tablets. 2 she canceled the ambulance and came to the hospital. The patient describes the pain as sharp, steady on the left side radiating to both armpits and left arm and a little little bit to the stomach as well. Associated with little dyspnea. No nausea vomiting or sweating. She came to the emergency room and found to have acute anterior STEMI. Cardiology evaluated the patient and patient underwent cardiac cath which showed occluded LAD distally, patient underwent successful stenting of the LAD. 04/06/18 pt today was lying in bed comfortable , no chest pain, no dyspena, no change in urine or bowel habits , no fever. pt is status stenting , she continue with aspiring and brilinta. continue with insulin and antihypertensive therapy . pt is placed on lisinopril 10 mg daily. pt is improving Objective - Vital Signs Vital signs: Vital Signs Temp 97.7 F 04/06/18 12:00 Pulse 62 04/06/18 13:00 Resp 17 04/06/18 13:00 BP 137/85 04/06/18 12:00 Pulse Ox 95 04/06/18 12:00 Intake & Output 04/05/18 04/06/18 04/06/18 18:59 06:59 18:59 Intake Total 320 750 340 Output Total 1900 1550 1775 Balance -1580 800 -1435 Weight 85.3 kg 84 kg 84 kg Intake: IV 320 0 Sodium Chloride 0.9% 1, 320 0 000 ml @ 100 mls/hr IV . Q10H [facility] Rx#:[id number] Oral 750 340 Output: Urine 1900 1550 1775 Other: Voiding Method Toilet Toilet Toilet - Exam GENERAL: The patient is alert and oriented x3, not in any acute distress. Well developed, well nourished. HEENT: Pupils are round and equally reacting to light. EOMI. No scleral icterus. No conjunctival pallor. Normocephalic, atraumatic. No pharyngeal erythema. No thyromegaly. CARDIOVASCULAR: S1 and S2 present. No murmurs, rubs, or gallops. PULMONARY: Chest is clear to auscultation, no wheezing or crackles. ABDOMEN: Soft, nontender, nondistended, normoactive bowel sounds. No palpable organomegaly. MUSCULOSKELETAL: No joint swelling or deformity. EXTREMITIES: No cyanosis, clubbing, or pedal edema. NEUROLOGICAL: Gross neurological examination did not reveal any focal deficits. SKIN: No rashes. - Labs CBC & Chem 7: 04/06/18 04:33 04/06/18 04:33 Labs: Abnormal Lab Results - Last 24 Hours (Table) 04/05/18 04/05/18 04/05/18 Range/Units 12:55 16:45 20:14 WBC (3.8-10.6) k/uL RBC (3.80-5.40) m/uL Hgb (11.4-16.0) gm/dL Hct (34.0-46.0) % Sodium (137-145) mmol/L Creatinine (0.52-1.04) mg/dL Glucose (74-99) mg/dL POC Glucose (mg/dL) 329 H 279 H (75-99) mg/dL Troponin I 5.760 H* (0.000-0.034) ng/mL 04/06/18 04/06/18 04/06/18 Range/Units 00:01 04:33 04:33 WBC 18.7 H (3.8-10.6) k/uL RBC 5.62 H (3.80-5.40) m/uL Hgb 16.1 H (11.4-16.0) gm/dL Hct 48.1 H (34.0-46.0) % Sodium 136 L (137-145) mmol/L Creatinine 0.48 L (0.52-1.04) mg/dL Glucose 216 H (74-99) mg/dL POC Glucose (mg/dL) 186 H (75-99) mg/dL Troponin I (0.000-0.034) ng/mL 04/06/18 04/06/18 Range/Units 07:11 12:57 WBC (3.8-10.6) k/uL RBC (3.80-5.40) m/uL Hgb (11.4-16.0) gm/dL Hct (34.0-46.0) % Sodium (137-145) mmol/L Creatinine (0.52-1.04) mg/dL Glucose (74-99) mg/dL POC Glucose (mg/dL) 220 H 417 H (75-99) mg/dL Troponin I (0.000-0.034) ng/mL Assessment and Plan Assessment: Acute anterior STEMI, status post cardiac cath: Stenting of the distal LAD 2 diabetes mellitus Essential hypertension Hyperlipidemia Hypothyroidism Plan: This is a pleasant 57 years old female who presents with acute anterior STEMI status post cardiac cath with stenting of the distal LAD. Cardiology evaluation is appreciated. Patient to continue with dual antiplatelet therapy with aspirin and Plavix. Continue with Lipitor. Pain management. Labs and medication were reviewed. Continue with the same treatment. Continue symptomatic treatment. Resume home medication. Monitor lytes and vitals. GI and DVT prophylaxis. Further recommendations based on the clinical course of the patient's Prognosis is guarded
[2018-04-07 05:56] LABS: Glucose,Whole Blood 238 mg/dL (75-99)
[2018-04-07] MEDS: LEVOTHYROXINE 75 MCG TAB PO SCH (06:20)
[2018-04-07] MEDS: INSULIN ASPART 100 UNIT/ML 1 ML 10 ML VIAL SQ SCH ×2 (06:21→13:09)
[2018-04-07 06:33] LABS: Anion Gap 8 mmol/L; Blood Urea Nitrogen 14 mg/dL (7-17); Calcium 9.1 mg/dL (8.4-10.2); Carbon Dioxide 23 mmol/L (22-30); Chloride 105 mmol/L (98-107); Glucose 202 mg/dL (74-99); Potassium 3.9 mmol/L (3.5-5.1); Sodium 136 mmol/L (137-145)
[2018-04-07] MEDS ORDERED: PANTOPRAZOLE 40 MG TABLET PO SCH (07:30)
[2018-04-07] MEDS: ASPIRIN 81 MG PO SCH (08:06)
[2018-04-07] MEDS: LISINOPRIL 10 MG TAB PO SCH (08:06)
[2018-04-07] MEDS: amLODIPine 10 MG TAB PO SCH (08:06)
[2018-04-07] MEDS: TICAGRELOR 90 MG TAB PO SCH (08:06)
[2018-04-07] MEDS: METOPROLOL TARTRATE 25 MG TAB PO SCH (08:06)
[2018-04-07] MEDS: NON-FORMULARY DRUG (Empagliflozin [Jardiance] 10 MG) PO SCH (08:07)
[2018-04-07 11:13] LABS: Glucose,Whole Blood 231 mg/dL (75-99)
--- NOTE | 2018-04-07 12:04 | PN ---
PROGRESS NOTE Mrs. Grant is a 57-year-old female who presented with an acute myocardial infarction, underwent stenting of her distal LAD. She is doing well this morning, ambulating without difficulty. Denying any chest pain. Denying any dizziness, palpitation. She denies any nausea. Overall she is feeling better. She continues to be at this time on aspirin once a day, Lipitor 80 mg daily, lisinopril 10 mg twice a day, metoprolol tartrate 25 mg twice a day, Brilinta 90 mg twice a day. PHYSICAL EXAMINATION: Blood pressure 116/60 with a heart rate in the 60s. LUNGS: Clear. HEART: Regular rate and rhythm. S1, S2. No S3. No rub. ABDOMEN: Soft, nontender. EXTREMITIES: No edema. LAB DATA: Revealed BUN and creatinine 14 and 0.49. Potassium is 3.9. IMPRESSION: 1. Status post myocardial infarction and stenting of the LAD. 2. History of prior stenting in the LAD. 3. Hypertension. 4. Diabetes. RECOMMENDATION: Patient should be able to be discharged home today and followed in one week. MMODL / IJN: [id number] /
[2018-04-07 13:02] VITALS: RESP 16
[2018-04-07] MEDS: INSULIN DETEMIR 100 UNIT/ML 10 ML VIAL SQ SCH (13:05)
[2018-04-07 14:24] VITALS: BP 128/68; PULSE 16; TEMP 97
--- NOTE | 2018-04-07 14:27 | P.DS ---
Providers Date of admission: 04/04/18 18:23 Expected date of discharge: 04/07/18 Attending physician: Tyrell Montilla Consults: 04/04/18 18:51 Consult Physician Routine Consulting Provider: [facility] Consult Reason/Comments: Post Interventional patient Do you want consulting provider notified?: Already Contacted Primary care physician: Marni [facility] Course: Ms. 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 Time she was visiting [place] when she started feeling some chest tightness while driving which progressed over few hours to more severe chest pain that is not relieved by 4 tablets of aspirin and nitro tablets. She called the ambulance and came to the hospital. The patient describes the pain as sharp, steady on the left side radiating to both armpits and left arm and a little little bit to the stomach as well. Associated with little dyspnea. No nausea vomiting or sweating. She came to the emergency room and found to have acute anterior STEMI. Cardiology evaluated the patient and patient underwent cardiac cath which showed occluded LAD distally, patient underwent successful stenting of the LAD. And is lying in bed appears to be in acute distress. Patient denies having any chest pain dizziness or palpitations. She denies having nausea vomiting or abdominal pain. Patient states that she has small bruises at the site of cath. Patient denies having any pain or bleeding at the cath site. On physical examination Patient's blood pressure is 1 16 x 60 with heart rate in 60s. Saturating at 98 % on room air. Gen. examination patient appears to be no acute distress Cardiac S1-S2 heard no additional sounds Lungs clear to auscultation Abdomen soft and nontender Examination of the cath site showing small bruises, no hematoma or bleeding. DISCHARGE DIAGNOSIS Acute ST elevation [place] status post stenting of LAD Previous history of myocardial infarction and stenting to LAD Hypertension Type 2 diabetes mellitus Hyperlipidemia Hypothyroidism Plan- patient had stenting of the LAD and post cath doing fine. She has been cleared by cardiology to be discharged home. Patient has been started on Enbrel and the and also lisinopril 10 mg. She is advised to continue with 81 mg of aspirin and Plavix has been discontinued. Continue with Lipitor at 80 mg daily dose. The changes in her medication has been discussed with the patient. She is advised to follow up with her primary care physician Dr. Leon and cardiology- appointments provided. More than 35 minutes spent towards the discharge of the patient. Patient Condition at Discharge: Stable Plan - Discharge Summary Discharge Rx Participant: No New Discharge Prescriptions: New Aspirin 81 mg PO DAILY chew Lisinopril [Zestril] 10 mg PO BID #60 tab Ticagrelor [Brilinta] 90 mg PO BID #60 tab Insulin Detemir [Levemir] 15 unit SQ DAILY syr Continue Venlafaxine HCl ER [Effexor XR] 75 mg PO HS Nitroglycerin Sl Tabs [Nitrostat] 0.4 mg SUBLINGUAL Q5M PRN PRN Reason: Chest Pain Nitroglycerin 0.1MG/Hr Patch [Nitro-Dur 0.1MG/Hr Patch] 1 patch TRANSDERM DAILY Levothyroxine Sodium [Synthroid] 150 mcg PO DAILY metFORMIN HCL [Glucophage] 1,000 mg PO BID Metoprolol Tartrate [Lopressor] 25 mg PO BID Insulin Aspart (Niacinamide) [Fiasp 100 Unit/ml Flextouch] See Protocol SQ AC -TID Empagliflozin [Jardiance] 10 mg PO DAILY amLODIPine [Norvasc] 10 mg PO DAILY Atorvastatin [Lipitor] 80 mg PO HS Discontinued Clopidogrel Bisulfate [Plavix] 75 mg PO DAILY Aspirin EC [Ecotrin Low Dose] 324 mg PO DAILY Discharge Medication List Atorvastatin [Lipitor] 80 mg PO HS 04/04/18 [History] Empagliflozin [Jardiance] 10 mg PO DAILY 04/04/18 [History] Insulin Aspart (Niacinamide) [Fiasp 100 Unit/ml Flextouch] See Protocol SQ AC- TID 04/04/18 [History] Levothyroxine Sodium [Synthroid] 150 mcg PO DAILY 04/04/18 [History] Metoprolol Tartrate [Lopressor] 25 mg PO BID 04/04/18 [History] Nitroglycerin 0.1MG/Hr Patch [Nitro-Dur 0.1MG/Hr Patch] 1 patch TRANSDERM DAILY 04/04/18 [History] Nitroglycerin Sl Tabs [Nitrostat] 0.4 mg SUBLINGUAL Q5M PRN 04/04/18 [History] Venlafaxine HCl ER [Effexor XR] 75 mg PO HS 04/04/18 [History] amLODIPine [Norvasc] 10 mg PO DAILY 04/04/18 [History] metFORMIN HCL [Glucophage] 1,000 mg PO BID 04/04/18 [History] Aspirin 81 mg PO DAILY chew 04/07/18 [Rx] Insulin Detemir [Levemir] 15 unit SQ DAILY syr 04/07/18 [Rx] Lisinopril [Zestril] 10 mg PO BID #60 tab 04/07/18 [Rx] Ticagrelor [Brilinta] 90 mg PO BID #60 tab 04/07/18 [Rx] Follow up Appointment(s)/Referral(s): Marni Leon MD [Primary Care Provider] - 04/12/18 12:30 pm Nati Del Rio MD [STAFF PHYSICIAN] - 04/14/18 9:45 am (Tuesday) Patient Instructions/Handouts: *Surgery [facility] - After Heart Catheterization - Wellness Educator Instructions, Left Heart Catheterization (DC) Discharge Disposition: HOME SELF-CARE
== END 2018-04-07 16:37 | disposition home or self-care (01) | DRG 247 ==
LOC: EC 16:52 → 2SICU 18:23 → 3SCARD 04-06 19:11
PROVIDERS: ADMIT Internal Medicine; ATTEND Internal Medicine
PROC: 4A023N7 Measurement of Cardiac Sampling and Pressure, Left Heart, Percutaneous Approach (ICD-10-PCS; 2018-04-04)
PROC: 027034Z Dilation of Coronary Artery, One Artery with Drug-eluting Intraluminal Device, Percutaneous Approach (ICD-10-PCS; principal; 2018-04-04 17:49)
PROC: B211YZZ Fluoroscopy of Multiple Coronary Arteries using Other Contrast (ICD-10-PCS; 2018-04-04 17:49)
DX: I21.09 ST elevation (STEMI) myocardial infarction involving other coronary artery of anterior wall (principal); E11.9 Type 2 diabetes mellitus without complications; I25.10 Atherosclerotic heart disease of native coronary artery without angina pectoris; I10 Essential (primary) hypertension; E78.5 Hyperlipidemia, unspecified; E89.0 Postprocedural hypothyroidism; F17.210 Nicotine dependence, cigarettes, uncomplicated; Z71.6 Tobacco abuse counseling; Z79.02 Long term (current) use of antithrombotics/antiplatelets; Z79.82 Long term (current) use of aspirin; Z79.890 Hormone replacement therapy; Z79.4 Long term (current) use of insulin; Z79.899 Other long term (current) drug therapy; Z95.5 Presence of coronary angioplasty implant and graft; Z90.710 Acquired absence of both cervix and uterus; Z85.41 Personal history of malignant neoplasm of cervix uteri; Z98.891 History of uterine scar from previous surgery; Z91.048 Other nonmedicinal substance allergy status; Z82.49 Family history of ischemic heart disease and other diseases of the circulatory system; Z83.3 Family history of diabetes mellitus; F32.9 Major depressive disorder, single episode, unspecified; G25.81 Restless legs syndrome
CPT/HCPCS: 36415; 71045; 71046; 80048; 80053; 82550; 82553; 83735; 84100; 84484; 85025; 85027; 85610; 85730; 93005; 93306; 93458; 96365; 96372; 99291; C1874

== ENCOUNTER → 2019-02-21 | Outpatient (CLI) | payer OTHER ==
--- NOTE | 2019-02-21 11:59 | MR ---
MRI CERVICAL SPINE: CLINICAL HISTORY: Cervical spondylosis, lightheadedness, tremor TECHNIQUE: Multiplanar, multisequence imaging of the cervical spine and brain is performed without in travenous contrast. COMPARISON: MR cervical spine 10/20/2015 FINDINGS: Brain MRI: Corpus callosum, pituitary, cervical medullary junction, cerebellopontine angles are danae l. There is no restricted diffusion. No hemorrhage or hydrocephalus. There are normal vascular flow v oids. Brain volume is normal for age, orbits show symmetric appearance. Mild periventricular increase d signal on inversion recovery T2-weighted sequences is present. There is a focus of mixed intermedia te, increased signal on T1 and T2-weighted sequences with peripheral low attenuation compatible with vascular malformation in the left occipital lobe measuring 12 mm in dimension. Some inflammatory wolf ge noted in the maxillary sinuses, sphenoid and ethmoid air cells. 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 Sinus disease. Cervical spine MRI: Findings are similar to prior exam. There is multilevel spondylosis. Loss of disc height and signal is present especially at C5-6, C6-7. Posterior extension of endplate disc complexe s greater at C5-6 causes anterior lateral mass effect on the thecal sac, there is left greater than r ight foraminal encroachment due to uncovertebral joint hypertrophy and facet arthropathy at C5-6, C6- 7 shows posterior extension endplate disc complex causing mild anterior mass effect on the thecal sac . Mild foraminal encroachment is present. C7-T1 shows a small central disc protrusion. There is mild spinal stenosis at C5-6. Remaining levels are unremarkable. Cervical cord signal is stable. Low signal on T2, intermediate signal on T1 within the third thoracic vertebral body is a stable find ing. IMPRESSION: Stable degenerative disc disease in the cervical spine. Indeterminate signal within the t hird thoracic vertebral body, consider bone scan.
== END | disposition home or self-care (01) ==
LOC: RADMRIMAIN 09:16
PROVIDERS: ATTEND Psychiatry & Neurology Neurology
DX: M47.812 Spondylosis without myelopathy or radiculopathy, cervical region (principal); G25.2 Other specified forms of tremor
CPT/HCPCS: 70551; 72141

== ENCOUNTER 2019-08-08 07:25 | Emergency (ER) | payer OTHER ==
[2019-08-08 07:29] VITALS: TEMP 97.5
[2019-08-08] MEDS ORDERED: SODIUM CHLORIDE 0.9% 500 ML 500 ML IV STA (07:51)
[2019-08-08] MEDS ORDERED: MECLIZINE 12.5 MG TAB PO STA ×2 (07:51→09:27)
[2019-08-08] MEDS ORDERED: SODIUM CHLORIDE 0.9% 1,000 ML IV STA (07:51)
--- NOTE | 2019-08-08 07:58 | ED ---
Dizziness HPI - General Chief Complaint: Dizziness Stated Complaint: medication reaction Time Seen by Provider: 08/08/19 07:35 Source: patient, RN notes reviewed Mode of arrival: wheelchair Limitations: no limitations - History of Present Illness Initial Comments: This is a 59-year-old female history of heart disease as well as history of a brain mass which she's thinks is a meningioma who presents with complaints of dizziness which started yesterday when she woke up she had dizziness. Balanced had nausea vomiting she states is worse when she sits up or stands up versus lying down she also states she has Vital pressure-like headache. No focal weakness or arms or legs she states she just started Steglatro the day before the symptoms started. She denies any fevers chills sweats no cough rhinorrhea sore throat no dysuria hematuria patient states that she has cervical spine fusion of C5 through 7 this past fall she states that the dizziness seems to get worse with head turning and eye movement he also some blurriness of vision with moving her eyes. No other current modifying factors MD Complaint: dizziness, lightheadedness, other - Related Data Home Medications Medication Instructions Recorded Confirmed Atorvastatin [Lipitor] 80 mg PO HS 04/04/18 08/08/19 Metoprolol Tartrate [Lopressor] 25 mg PO BID 04/04/18 08/08/19 Nitroglycerin 0.1MG/Hr Patch 1 patch TRANSDERM DAILY 04/04/18 08/08/19 [Nitro-Dur 0.1MG/Hr Patch] Nitroglycerin Sl Tabs [Nitrostat] 0.4 mg SUBLINGUAL Q5M PRN 04/04/18 08/08/19 Venlafaxine HCl ER [Effexor XR] 75 mg PO DAILY 04/04/18 08/08/19 amLODIPine [Norvasc] 10 mg PO DAILY 04/04/18 08/08/19 Clopidogrel [Plavix] 75 mg PO DAILY 08/08/19 08/08/19 Ertugliflozin Pidolate [Steglatro] 15 mg PO DAILY 08/08/19 08/08/19 INSULIN LISPRO (humaLOG) [humaLOG] 15 units SQ AC-TID 08/08/19 08/08/19 Insulin Glargine/Lixisenatide 40 units SQ HS 08/08/19 08/08/19 [Soliqua 100 Unit-33 Mcg/ml Pen] Levothyroxine Sodium [Synthroid] 175 mcg PO DAILY 08/08/19 08/08/19 metFORMIN HCL [metFORMIN HCL ER] 750 mg PO BID 08/08/19 08/08/19 Previous Rx's Medication Instructions Recorded Aspirin 81 mg PO DAILY chew 04/07/18 Diazepam [Valium] 2 mg PO BID #10 tab 08/08/19 Furosemide [Lasix] 10 mg PO DAILY #7 dose 08/08/19 Meclizine [Antivert] 25 mg PO TID #20 tab 08/08/19 predniSONE [Deltasone] 20 mg PO BID #10 tab 08/08/19 Allergies Allergy/AdvReac Type Severity Reaction Status Date / Time nickel Allergy Rash/Hives Verified 08/08/19 10:11 Review of Systems ROS Statement: Those systems with pertinent positive or pertinent negative responses have been documented in the HPI. ROS Other: All systems not noted in ROS Statement are negative. Past Medical History Past Medical History: Cancer, Diabetes Mellitus, Hyperlipidemia, Hypertension, Thyroid Disorder Additional Past Medical History / Comment(s): 04/04/18 stemi. other hx includes: rls, hpv, cervical uterine ca(sx only), anxiety History of Any Multi-Drug Resistant Organisms: None Reported Past Surgical History: Section, Heart Catheterization With Stent, Hernia Repair, Hysterectomy Additional Past Surgical History / Comment(s): 04/04/18 heart cath with stent to distal lad . past hx heart cath w/ stents apr 2018 at [facility] .thryroidectomy, leep rocedure, total hysterectomy, bladder supsension, rt knee sx Past Anesthesia/Blood Transfusion Reactions: No Reported Reaction Additional Past Anesthesia/Blood Transfusion Reaction / Comment(s): has never received blood. Date of Last Stent Placement:: 04/04/18 Past Psychological History: Anxiety Smoking Status: Current every day smoker Past Alcohol Use History: None Reported Past Drug Use History: None Reported - Past Family History Mother Family Medical History: Diabetes Mellitus, Hypertension Additional Family Medical History / Comment(s): diet controlled diabetic Father Family Medical History: Coronary Artery Disease (CAD), Myocardial Infarction (IA) Additional Family Medical History / Comment(s): "at age 40 had [address] bypass" then [place] age 48 [place] General Exam - General Exam Comments Initial Comments: This is a well-developed well-nourished awake alert oriented 3 female Limitations: no limitations General appearance: alert, in no apparent distress Head exam: Present: other (Some tenderness palpation of the occipital scalp bilaterally stay down to the paraspinous muscles of the neck) Eye exam: Present: normal appearance, PERRL, EOMI. Absent: scleral icterus, conjunctival injection, periorbital swelling ENT exam: Present: mucous membranes dry Neck exam: Present: normal inspection. Absent: tenderness, meningismus, lymphadenopathy Respiratory exam: Present: normal lung sounds bilaterally. Absent: respiratory distress, wheezes, rales, rhonchi, stridor Cardiovascular Exam: Present: regular rate, normal rhythm, normal heart sounds. Absent: systolic murmur, diastolic murmur, rubs, gallop, clicks GI/Abdominal exam: Present: soft, normal bowel sounds. Absent: distended, tenderness, guarding, rebound, rigid Extremities exam: Present: normal inspection, full ROM, normal capillary refill. Absent: tenderness, pedal edema, joint swelling, calf tenderness Back exam: Present: normal inspection Neurological exam: Present: alert, oriented X3, CN II-XII intact Psychiatric exam: Present: normal affect, normal mood Skin exam: Present: warm, dry, intact, normal color. Absent: rash Course Vital Signs 08/08/19 08/08/19 07:26 09:14 Temperature 97.5 F L Pulse Rate 79 80 Respiratory 16 18 Rate Blood Pressure 159/89 147/85 O2 Sat by Pulse 99 98 Oximetry - Reevaluation(s) Reevaluation #1: 08/08/19 07:59 I did review the MRI report from 02/21/19 which does show a focus of mixed intermediate, increased signal T1 and T2-weighted sequences with peripheral low attenuation compatible with vascular malformation in the left occipital lobe measuring 12 mm in diameter additionally there is some inflammatory changes noted in the maxillary sinuses sphenoid and ethmoid air cells Reevaluation #2: 08/08/19 09:28 She states she's getting minimal no improvement thus far in her dizziness. CAT scan was reviewed no evidence of acute findings. Initial medication will be tried Medical Decision Making - Medical Decision Making Patient is feeling improved after the additional medication given the presentation is consistent with benign positional vertigo. Patient be discharged to follow-up with her doctor also referral we did discuss the findings in depth as suspected diagnosis she will follow-up with her doctor and return if is any problems. - Lab Data Result diagrams: 08/08/19 08:14 08/08/19 08:14 Lab Results 08/08/19 08/08/19 08/08/19 Range/Units 08:14 08:14 08:14 WBC 15.9 H (3.8-10.6) k/uL RBC 5.98 H (3.80-5.40) m/uL Hgb 17.5 H (11.4-16.0) gm/dL Hct 51.9 H (34.0-46.0) % MCV 86.7 (80.0-100.0) fL MCH 29.3 (25.0-35.0) pg MCHC 33.8 (31.0-37.0) g/dL RDW 13.6 (11.5-15.5) % Plt Count 222 (150-450) k/uL Neutrophils % 66 % Lymphocytes % 24 % Monocytes % 6 % Eosinophils % 1 % Basophils % 1 % Neutrophils # 10.5 H (1.3-7.7) k/uL Lymphocytes # 3.8 (1.0-4.8) k/uL Monocytes # 1.0 (0-1.0) k/uL Eosinophils # 0.2 (0-0.7) k/uL Basophils # 0.1 (0-0.2) k/uL Sodium 139 (137-145) mmol/L Potassium 4.4 (3.5-5.1) mmol/L Chloride 108 H (98-107) mmol/L Carbon Dioxide 22 (22-30) mmol/L Anion Gap 9 mmol/L BUN 14 (7-17) mg/dL Creatinine 0.51 L (0.52-1.04) mg/dL Est GFR (CKD-EPI)AfAm >90 (>60 ml/min/1.73 sqM) Est GFR (CKD-EPI)NonAf >90 (>60 ml/min/1.73 sqM) Glucose 222 H (74-99) mg/dL Calcium 9.3 (8.4-10.2) mg/dL Magnesium (1.6-2.3) mg/dL Total Bilirubin 0.6 (0.2-1.3) mg/dL AST 28 (14-36) U/L ALT 30 (4-34) U/L Alkaline Phosphatase 112 (38-126) U/L Total Protein 7.3 (6.3-8.2) g/dL Albumin 4.2 (3.5-5.0) g/dL Urine Color Yellow Urine Appearance Clear (Clear) Urine pH 5.5 (5.0-8.0) Ur Specific [place] 1.032 (1.001-1.035) Urine Protein Trace H (Negative) Urine Glucose (UA) 4+ H (Negative) Urine Ketones Negative (Negative) Urine Blood Negative (Negative) Urine Nitrite Negative (Negative) Urine Bilirubin Negative (Negative) Urine Urobilinogen <2.0 (<2.0) mg/dL Ur Leukocyte Esterase Negative (Negative) 08/08/19 Range/Units 08:14 WBC (3.8-10.6) k/uL RBC (3.80-5.40) m/uL Hgb (11.4-16.0) gm/dL Hct (34.0-46.0) % MCV (80.0-100.0) fL MCH (25.0-35.0) pg MCHC (31.0-37.0) g/dL RDW (11.5-15.5) % Plt Count (150-450) k/uL Neutrophils % % Lymphocytes % % Monocytes % % Eosinophils % % Basophils % % Neutrophils # (1.3-7.7) k/uL Lymphocytes # (1.0-4.8) k/uL Monocytes # (0-1.0) k/uL Eosinophils # (0-0.7) k/uL Basophils # (0-0.2) k/uL Sodium (137-145) mmol/L Potassium (3.5-5.1) mmol/L Chloride (98-107) mmol/L Carbon Dioxide (22-30) mmol/L Anion Gap mmol/L BUN (7-17) mg/dL Creatinine (0.52-1.04) mg/dL Est GFR (CKD-EPI)AfAm (>60 ml/min/1.73 sqM) Est GFR (CKD-EPI)NonAf (>60 ml/min/1.73 sqM) Glucose (74-99) mg/dL Calcium (8.4-10.2) mg/dL Magnesium 2.2 (1.6-2.3) mg/dL Total Bilirubin (0.2-1.3) mg/dL AST (14-36) U/L ALT (4-34) U/L Alkaline Phosphatase (38-126) U/L Total Protein (6.3-8.2) g/dL Albumin (3.5-5.0) g/dL Urine Color Urine Appearance (Clear) Urine pH (5.0-8.0) Ur Specific [place] (1.001-1.035) Urine Protein (Negative) Urine Glucose (UA) (Negative) Urine Ketones (Negative) Urine Blood (Negative) Urine Nitrite (Negative) Urine Bilirubin (Negative) Urine Urobilinogen (<2.0) mg/dL Ur Leukocyte Esterase (Negative) - EKG Data -: EKG Interpreted by Me EKG shows normal: sinus rhythm (Sinus rhythm a 67) EKG Comments: Sinus rhythm a 67 VA interval 158 QRS 86 QT since QTC 444/469 poor R-wave progression no acute ST-T wave changes - Radiology Data Radiology results: report reviewed (I did review the imaging and report no acute findings.), image reviewed Disposition Clinical Impression: Benign paroxysmal vertigo Disposition: HOME SELF-CARE Condition: Good Instructions (If sedation given, give patient instructions): Dizziness (ED), Vertigo (ED) Prescriptions: Meclizine [Antivert] 25 mg PO TID #20 tab predniSONE [Deltasone] 20 mg PO BID #10 tab Furosemide [Lasix] 10 mg PO DAILY #7 dose Diazepam [Valium] 2 mg PO BID #10 tab Is patient prescribed a controlled substance at d/c from ED?: No Referrals: Marni Leon MD [Primary Care Provider] - 1-2 days
[2019-08-08 08:40] LABS: Basophils # (A) 0.1 k/uL (0-0.2); Basophils % (A) 1 %; Eosinophils # (A) 0.2 k/uL (0-0.7); Eosinophils % (A) 1 %; HCT 51.9 % (34.0-46.0); HGB 17.5 gm/dL (11.4-16.0); Lymphocytes # (A) 3.8 k/uL (1.0-4.8); Lymphocytes % (A) 24 %; MCH 29.3 pg (25.0-35.0); MCHC 33.8 g/dL (31.0-37.0); MCV 86.7 fL (80.0-100.0); Monocytes % (A) 6 %; Neutrophils # (A) 10.5 k/uL (1.3-7.7); Neutrophils % (A) 66 %; Platelet Count 222 k/uL (150-450); RBC 5.98 m/uL (3.80-5.40); RDW 13.6 % (11.5-15.5); WBC 15.9 k/uL (3.8-10.6)
--- NOTE | 2019-08-08 08:44 | CT ---
EXAMINATION TYPE: CT brain wo con DATE OF EXAM: 08/08/2019 HISTORY: dizziness, loss of balance CT DLP: 1024.4 mGycm. Automated Exposure Control for Dose Reduction was Utilized. TECHNIQUE: CT scan of the head is performed without contrast. COMPARISON: MRI brain February 21, 2019. FINDINGS: There is no acute intracranial hemorrhage or midline shift identified. There is diffuse v entricular and sulcal prominence consistent with diffuse age-related cerebral atrophy. Barclay-white mat ter differentiation fairly well-maintained. Roughly 1 cm hypodense focus left occipital lobe axial im age 24 corresponds to susceptibility artifact from MRI suggesting vascular malformation favoring cere bral cavernous venous malformation [id number] mucosal thickening involving the sphenoid sinuses bilaterally is redemonstrated. Remainder paranasal sinuses are clear. Globes are intact bilaterally. No suspicious opacification mastoid air cells is seen bilaterally. Some vascular calcifications dist al internal carotid arteries is noted. IMPRESSION: No acute intracranial hemorrhage or midline shift. There is mild diffuse age-related ce rebral atrophy and stable roughly 1 cm left occipital cerebral cavernous venous malformation redemons trated.
[2019-08-08 08:47] LABS: Appearance,Urine Clear (Clear); Bilirubin,Urine Negative (Negative); Blood,Urine Negative (Negative); Color,Urine Yellow; Glucose,Urine (UA) 4+ (Negative); Ketones,Urine Negative (Negative); Leukocyte Esterase,Urine Negative (Negative); Nitrite,Urine Negative (Negative); PH, Urine 5.5 (5.0-8.0); Protein,Urine Trace (Negative); Specific Gravity,Urine 1.032 (1.001-1.035); Urobilinogen,Urine <2.0 mg/dL (<2.0)
[2019-08-08 08:51] LABS: ALT 30 U/L (4-34); AST 28 U/L (14-36); African American GFR (CKD) >90 (>60 ml/min/1.73 sqM); Albumin 4.2 g/dL (3.5-5.0); Alkaline Phosphatase 112 U/L (38-126); Anion Gap 9 mmol/L; Blood Urea Nitrogen 14 mg/dL (7-17); Calcium 9.3 mg/dL (8.4-10.2); Carbon Dioxide 22 mmol/L (22-30); Chloride 108 mmol/L (98-107); Glucose 222 mg/dL (74-99); Non-African American GFR(CKD) >90 (>60 ml/min/1.73 sqM); Potassium 4.4 mmol/L (3.5-5.1); Sodium 139 mmol/L (137-145); Total Bilirubin 0.6 mg/dL (0.2-1.3); Total Protein 7.3 g/dL (6.3-8.2)
[2019-08-08 09:15] VITALS: RESP 18
[2019-08-08] MEDS ORDERED: methylPREDNISolone SOD SUCCI 125 MG/2 ML VIAL IV STA (09:28)
[2019-08-08] MEDS ORDERED: LORazepam 2 MG/ML INJ IV STA (09:29)
[2019-08-08 11:01] VITALS: BP 150/81; PULSE 73
== END 2019-08-08 10:56 | disposition home or self-care (01) ==
LOC: EC 07:25
DX: H81.10 Benign paroxysmal vertigo, unspecified ear (principal); Q27.9 Congenital malformation of peripheral vascular system, unspecified; J32.4 Chronic pansinusitis; E11.9 Type 2 diabetes mellitus without complications; E78.5 Hyperlipidemia, unspecified; F41.9 Anxiety disorder, unspecified; I10 Essential (primary) hypertension; I25.2 Old myocardial infarction; G25.81 Restless legs syndrome; E07.9 Disorder of thyroid, unspecified; F17.200 Nicotine dependence, unspecified, uncomplicated; Z79.02 Long term (current) use of antithrombotics/antiplatelets; Z79.4 Long term (current) use of insulin; Z79.82 Long term (current) use of aspirin; Z79.890 Hormone replacement therapy; Z79.899 Other long term (current) drug therapy; Z91.048 Other nonmedicinal substance allergy status; Z85.41 Personal history of malignant neoplasm of cervix uteri; Z95.5 Presence of coronary angioplasty implant and graft; Z90.89 Acquired absence of other organs
CPT/HCPCS: 36415; 93005; 80053; 83735; 85025; 81003; 70450; 99284; 96374; 96375; 96361 ×3; J2060; J2930

== ENCOUNTER 2020-12-13 21:54 | Observation (INO) | payer MEDICARE, OTHER ==
[2020-12-13] MEDS ORDERED: SODIUM CHLORIDE 0.9% 1,000 ML IV STA ×2 (22:12)
[2020-12-13] MEDS ORDERED: ONDANSETRON 4 MG/2 ML VIAL IVP STA (22:12)
[2020-12-13 22:34] LABS: Basophils # (A) 0.2 k/uL (0-0.2); Basophils % (A) 1 %; Eosinophils # (A) 0.3 k/uL (0-0.7); Eosinophils % (A) 2 %; HCT 47.9 % (34.0-46.0); HGB 17.5 gm/dL (11.4-16.0); Lymphocytes # (A) 4.2 k/uL (1.0-4.8); Lymphocytes % (A) 26 %; MCH 30.4 pg (25.0-35.0); MCHC 36.4 g/dL (31.0-37.0); MCV 83.5 fL (80.0-100.0); Mean Platelet Volume 6.5; Monocytes # (A) 1.1 k/uL (0-1.0); Monocytes % (A) 7 %; Neutrophils # (A) 10.3 k/uL (1.3-7.7); Neutrophils % (A) 64 %; Platelet Count 244 k/uL (150-450); RBC 5.74 m/uL (3.80-5.40); RDW 13.3 % (11.5-15.5); WBC 16.2 k/uL (3.8-10.6)
[2020-12-13 22:43] LABS: Partial Thromboplastin Time 22.1 sec (22.0-30.0); Prothrombin Time 10.6 sec (9.0-12.0)
[2020-12-13 22:44] LABS: ALT 25 U/L (4-34); AST 26 U/L (14-36); African American GFR (CKD) >90 (>60 ml/min/1.73 sqM); Albumin 4.2 g/dL (3.5-5.0); Alkaline Phosphatase 139 U/L (38-126); Anion Gap 10 mmol/L; Blood Urea Nitrogen 14 mg/dL (7-17); Calcium 9.7 mg/dL (8.4-10.2); Carbon Dioxide 24 mmol/L (22-30); Chloride 102 mmol/L (98-107); Creatine Kinase 32 U/L (30-135); Glucose 290 mg/dL (74-99); Magnesium 1.6 mg/dL (1.6-2.3); Non-African American GFR(CKD) >90 (>60 ml/min/1.73 sqM); Phosphorus 3.6 mg/dL (2.5-4.5); Potassium 3.4 mmol/L (3.5-5.1); Sodium 136 mmol/L (137-145); Total Bilirubin 0.9 mg/dL (0.2-1.3)
--- NOTE | 2020-12-13 23:14 | XR ---
EXAMINATION TYPE: XR chest 2V DATE OF EXAM: 12/13/2020 COMPARISON: 04/05/2018 HISTORY: Weakness TECHNIQUE: FINDINGS: Heart and mediastinum are normal. There is some mild interstitial density in the lower lung brown. There is no pulmonary consolidation. There is no heart failure. There is cervical spine fusi on surgery. There are chest leads. IMPRESSION: Slight increased interstitial markings similar to old exam. No heart failure seen. No ple ural fluid.
--- NOTE | 2020-12-13 23:39 | ED ---
Nausea/Vomiting/Diarrhea HPI - General Chief complaint: Nausea/Vomiting/Diarrhea Stated complaint: N/V/D Time Seen by Provider: 12/13/20 22:12 Source: patient, RN notes reviewed, old records reviewed Mode of arrival: ambulatory Limitations: no limitations - History of Present Illness Initial comments: This is a 58-year-old female to the ER for evaluation. Patient comes in for one week of nausea and vomiting also belly pain. Weakness dehydration can eat or drink. No recent travel history or sick contacts no fevers. Patient does have a medical history diabetes heart disease. No pain currently here in the ER. MD complaint: nausea, vomiting, diarrhea -: week(s) Description of Vomiting: watery Description of Diarrhea: water Location: diffuse, RUQ Radiation: none Severity: moderate Severity scale (1-10): 6 Quality: cramping Consistency: constant Improves with: none Worsens with: none Associated Symptoms: loss of appetite, malaise, nausea/vomiting, weakness - Related Data Home Medications Medication Instructions Recorded Confirmed Atorvastatin [Lipitor] 80 mg PO HS 04/04/18 08/08/19 Metoprolol Tartrate [Lopressor] 25 mg PO BID 04/04/18 08/08/19 Nitroglycerin 0.1MG/Hr Patch 1 patch TRANSDERM DAILY 04/04/18 08/08/19 [Nitro-Dur 0.1MG/Hr Patch] Nitroglycerin Sl Tabs [Nitrostat] 0.4 mg SUBLINGUAL Q5M PRN 04/04/18 08/08/19 Venlafaxine HCl ER [Effexor XR] 75 mg PO DAILY 04/04/18 08/08/19 amLODIPine [Norvasc] 10 mg PO DAILY 04/04/18 08/08/19 Clopidogrel [Plavix] 75 mg PO DAILY 08/08/19 08/08/19 Ertugliflozin Pidolate [Steglatro] 15 mg PO DAILY 08/08/19 08/08/19 INSULIN LISPRO (humaLOG) [humaLOG] 15 units SQ AC-TID 08/08/19 08/08/19 Insulin Glargine/Lixisenatide 40 units SQ HS 08/08/19 08/08/19 [Soliqua 100 Unit-33 Mcg/ml Pen] Levothyroxine Sodium [Synthroid] 175 mcg PO DAILY 08/08/19 08/08/19 metFORMIN HCL [metFORMIN HCL ER] 750 mg PO BID 08/08/19 08/08/19 Previous Rx's Medication Instructions Recorded Aspirin 81 mg PO DAILY chew 04/07/18 Furosemide [Lasix] 10 mg PO DAILY #7 dose 08/08/19 Meclizine [Antivert] 25 mg PO TID #20 tab 08/08/19 diazePAM [Valium] 2 mg PO BID #10 tab 08/08/19 predniSONE [Deltasone] 20 mg PO BID #10 tab 08/08/19 Allergies Allergy/AdvReac Type Severity Reaction Status Date / Time nickel Allergy Rash/Hives Verified 12/13/20 22:01 Review of Systems ROS Statement: Those systems with pertinent positive or pertinent negative responses have been documented in the HPI. ROS Other: All systems not noted in ROS Statement are negative. Past Medical History Past Medical History: Coronary Artery Disease (CAD), Cancer, Diabetes Mellitus, Hyperlipidemia, Hypertension, Thyroid Disorder Additional Past Medical History / Comment(s): 04/04/18 stemi. other hx includes: rls, hpv, cervical uterine ca(sx only), anxiety History of Any Multi-Drug Resistant Organisms: None Reported Past Surgical History: Section, Heart Catheterization With Stent, He rnia Repair, Hysterectomy Additional Past Surgical History / Comment(s): 04/04/18 heart cath with stent to distal lad . past hx heart cath w/ stents apr 2018 at [facility] .thryroidectomy, leep rocedure, total hysterectomy, bladder supsension, rt knee sx Past Anesthesia/Blood Transfusion Reactions: No Reported Reaction Additional Past Anesthesia/Blood Transfusion Reaction / Comment(s): has never received blood. Date of Last Stent Placement:: 04/04/18 Past Psychological History: Anxiety Smoking Status: Current every day smoker Past Alcohol Use History: None Reported Past Drug Use History: None Reported - Past Family History Mother Family Medical History: Diabetes Mellitus, Hypertension Additional Family Medical History / Comment(s): diet controlled diabetic Father Family Medical History: Coronary Artery Disease (CAD), Myocardial Infarction ([place]) Additional Family Medical History / Comment(s): "at age 38 had [address] bypass" then at age 48 [place] General Exam Limitations: no limitations Course Vital Signs 07/10/21 07/10/21 07/11/21 21:57 23:01 00:55 Temperature 98.0 F Pulse Rate 84 71 80 Respiratory 16 18 16 Rate Blood Pressure 166/81 136/83 128/72 O2 Sat by Pulse 97 96 96 Oximetry - Reevaluation(s) Reevaluation #1: 12/14/20 01:29 Medical records reviewed Reevaluation #2: 12/14/20 01:29 Patient does have persistent nausea vomiting here in the ER Reevaluation #3: 12/14/20 01:29 Patient feels improved although still weak and dizzy Reevaluation #4: 12/14/20 01:29 Spoke with patient regarding findings, questions answered Medical Decision Making - Medical Decision Making 60 female to the ER for evaluation patient will place observation for persistent symptoms of nausea vomiting and diarrhea. Elevated white count dehydration. Electrolyte - Lab Data Result diagrams: 12/13/20 22:22 12/13/20 22:22 Lab Results 12/13/20 12/13/20 12/13/20 Range/Units 22:22 22:22 22:22 WBC 16.2 H (3.8-10.6) k/uL RBC 5.74 H (3.80-5.40) m/uL Hgb 17.5 H (11.4-16.0) gm/dL Hct 47.9 H (34.0-46.0) % MCV 83.5 (80.0-100.0) fL MCH 30.4 (25.0-35.0) pg MCHC 36.4 (31.0-37.0) g/dL RDW 13.3 (11.5-15.5) % Plt Count 244 (150-450) k/uL MPV 6.5 Neutrophils % 64 % Lymphocytes % 26 % Monocytes % 7 % Eosinophils % 2 % Basophils % 1 % Neutrophils # 10.3 H (1.3-7.7) k/uL Lymphocytes # 4.2 (1.0-4.8) k/uL Monocytes # 1.1 H (0-1.0) k/uL Eosinophils # 0.3 (0-0.7) k/uL Basophils # 0.2 (0-0.2) k/uL PT 10.6 (9.0-12.0) sec INR 1.0 (<1.2) APTT 22.1 (22.0-30.0) sec Sodium 136 L (137-145) mmol/L Potassium 3.4 L (3.5-5.1) mmol/L Chloride 102 (98-107) mmol/L Carbon Dioxide 24 (22-30) mmol/L Anion Gap 10 mmol/L BUN 14 (7-17) mg/dL Creatinine 0.71 (0.52-1.04) mg/dL Est GFR (CKD-EPI)AfAm >90 (>60 ml/min/1.73 sqM) Est GFR (CKD-EPI)NonAf >90 (>60 ml/min/1.73 sqM) Glucose 290 H (74-99) mg/dL Lactic Ac Sepsis Rflx Plasma Lactic Acid Javier (0.7-2.0) mmol/L Calcium 9.7 (8.4-10.2) mg/dL Phosphorus 3.6 (2.5-4.5) mg/dL Magnesium 1.6 (1.6-2.3) mg/dL Total Bilirubin 0.9 (0.2-1.3) mg/dL AST 26 (14-36) U/L ALT 25 (4-34) U/L Alkaline Phosphatase 139 H (38-126) U/L Creatine Kinase 32 (30-135) U/L Troponin I (0.000-0.034) ng/mL Total Protein 7.0 (6.3-8.2) g/dL Albumin 4.2 (3.5-5.0) g/dL Urine Color Urine Appearance (Clear) Urine pH (5.0-8.0) Ur Specific [place] (1.001-1.035) Urine Protein (Negative) Urine Glucose (UA) (Negative) Urine Ketones (Negative) Urine Blood (Negative) Urine Nitrite (Negative) Urine Bilirubin (Negative) Urine Urobilinogen (<2.0) mg/dL Ur Leukocyte Esterase (Negative) Urine RBC (0-5) /hpf Urine WBC (0-5) /hpf Ur Squamous Epith Cells (0-4) /hpf Urine Bacteria (None) /hpf Hyaline Casts (0-2) /lpf Urine Mucus (None) /hpf 12/13/20 12/13/20 12/13/20 Range/Units 22:22 22:22 22:49 WBC (3.8-10.6) k/uL RBC (3.80-5.40) m/uL Hgb (11.4-16.0) gm/dL Hct (34.0-46.0) % MCV (80.0-100.0) fL MCH (25.0-35.0) pg MCHC (31.0-37.0) g/dL RDW (11.5-15.5) % Plt Count (150-450) k/uL MPV Neutrophils % % Lymphocytes % % Monocytes % % Eosinophils % % Basophils % % Neutrophils # (1.3-7.7) k/uL Lymphocytes # (1.0-4.8) k/uL Monocytes # (0-1.0) k/uL Eosinophils # (0-0.7) k/uL Basophils # (0-0.2) k/uL PT (9.0-12.0) sec INR (<1.2) APTT (22.0-30.0) sec Sodium (137-145) mmol/L Potassium (3.5-5.1) mmol/L Chloride (98-107) mmol/L Carbon Dioxide (22-30) mmol/L Anion Gap mmol/L BUN (7-17) mg/dL Creatinine (0.52-1.04) mg/dL Est GFR (CKD-EPI)AfAm (>60 ml/min/1.73 sqM) Est GFR (CKD-EPI)NonAf (>60 ml/min/1.73 sqM) Glucose (74-99) mg/dL Lactic Ac Sepsis Rflx Y Plasma Lactic Acid Javier 2.1 H* (0.7-2.0) mmol/L Calcium (8.4-10.2) mg/dL Phosphorus (2.5-4.5) mg/dL Magnesium (1.6-2.3) mg/dL Total Bilirubin (0.2-1.3) mg/dL AST (14-36) U/L ALT (4-34) U/L Alkaline Phosphatase (38-126) U/L Creatine Kinase (30-135) U/L Troponin I <0.012 (0.000-0.034) ng/mL Total Protein (6.3-8.2) g/dL Albumin (3.5-5.0) g/dL Urine Color Urine Appearance (Clear) Urine pH (5.0-8.0) Ur Specific [place] (1.001-1.035) Urine Protein (Negative) Urine Glucose (UA) (Negative) Urine Ketones (Negative) Urine Blood (Negative) Urine Nitrite (Negative) Urine Bilirubin (Negative) Urine Urobilinogen (<2.0) mg/dL Ur Leukocyte Esterase (Negative) Urine RBC (0-5) /hpf Urine WBC (0-5) /hpf Ur Squamous Epith Cells (0-4) /hpf Urine Bacteria (None) /hpf Hyaline Casts (0-2) /lpf Urine Mucus (None) /hpf 12/14/20 12/14/20 Range/Units 00:13 01:01 WBC (3.8-10.6) k/uL RBC (3.80-5.40) m/uL Hgb (11.4-16.0) gm/dL Hct (34.0-46.0) % MCV (80.0-100.0) fL MCH (25.0-35.0) pg MCHC (31.0-37.0) g/dL RDW (11.5-15.5) % Plt Count (150-450) k/uL MPV Neutrophils % % Lymphocytes % % Monocytes % % Eosinophils % % Basophils % % Neutrophils # (1.3-7.7) k/uL Lymphocytes # (1.0-4.8) k/uL Monocytes # (0-1.0) k/uL Eosinophils # (0-0.7) k/uL Basophils # (0-0.2) k/uL PT (9.0-12.0) sec INR (<1.2) APTT (22.0-30.0) sec Sodium (137-145) mmol/L Potassium (3.5-5.1) mmol/L Chloride (98-107) mmol/L Carbon Dioxide (22-30) mmol/L Anion Gap mmol/L BUN (7-17) mg/dL Creatinine (0.52-1.04) mg/dL Est GFR (CKD-EPI)AfAm (>60 ml/min/1.73 sqM) Est GFR (CKD-EPI)NonAf (>60 ml/min/1.73 sqM) Glucose (74-99) mg/dL Lactic Ac Sepsis Rflx Plasma Lactic Acid Javier 1.0 (0.7-2.0) mmol/L Calcium (8.4-10.2) mg/dL Phosphorus (2.5-4.5) mg/dL Magnesium (1.6-2.3) mg/dL Total Bilirubin (0.2-1.3) mg/dL AST (14-36) U/L ALT (4-34) U/L Alkaline Phosphatase (38-126) U/L Creatine Kinase (30-135) U/L Troponin I (0.000-0.034) ng/mL Total Protein (6.3-8.2) g/dL Albumin (3.5-5.0) g/dL Urine Color Yellow Urine Appearance Cloudy H (Clear) Urine pH 5.5 (5.0-8.0) Ur Specific [place] 1.014 (1.001-1.035) Urine Protein 2+ H (Negative) Urine Glucose (UA) 3+ H (Negative) Urine Ketones Negative (Negative) Urine Blood Negative (Negative) Urine Nitrite Negative (Negative) Urine Bilirubin Negative (Negative) Urine Urobilinogen <2.0 (<2.0) mg/dL Ur Leukocyte Esterase Negative (Negative) Urine RBC 2 (0-5) /hpf Urine WBC 13 H (0-5) /hpf Ur Squamous Epith Cells 7 H (0-4) /hpf Urine Bacteria Many H (None) /hpf Hyaline Casts 16 H (0-2) /lpf Urine Mucus Moderate H (None) /hpf - EKG Data -: EKG Interpreted by Me (EKG shows sinus rhythm 81 OH 144 QRS 82 QTC 473) Disposition Clinical Impression: Dehydration, Gastroenteritis, Hypokalemia Disposition: ADMITTED IP TO THIS HOSP Condition: Fair Is patient prescribed a controlled substance at d/c from ED?: No Referrals: Marni Leon MD [Primary Care Provider] - 1-2 days
--- NOTE | 2020-12-13 23:50 | US ---
EXAMINATION TYPE: US gallbladder DATE OF EXAM: 12/13/2020 COMPARISON: NONE CLINICAL HISTORY: nv. Abdomen pain and N/V/D x 2 weeks EXAM MEASUREMENTS: Liver Length: 18.2 cm Gallbladder Wall: 0.2 cm CBD: 0.4 cm Right Kidney: 10.7 x 5.1 x 4.7 cm Difficult and limited study due to patient body habitus Pancreas: visualized portions wnl, mostly obscured by overlying midline bowel gas Liver: mildly enlarged, attenuating, mildly heterogeneous Gallbladder: wnl Evidence for sonographic Melendez's sign: no CBD: visualized portions wnl, partially obscured by overlying bowel gas Right Kidney: wnl IMPRESSION: No gallstones or dilated ducts. no focal liver defect.
[2020-12-14 00:49] LABS: Appearance,Urine Cloudy (Clear); Bacteria,Urine Many /hpf; Bilirubin,Urine Negative (Negative); Blood,Urine Negative (Negative); Color,Urine Yellow; Glucose,Urine (UA) 3+ (Negative); Hyaline Casts,Urine 16 /lpf (0-2); Ketones,Urine Negative (Negative); Leukocyte Esterase,Urine Negative (Negative); Mucus,Urine Moderate /hpf; Nitrite,Urine Negative (Negative); PH, Urine 5.5 (5.0-8.0); Protein,Urine 2+ (Negative); RBC,Urine 2 /hpf (0-5); Specific Gravity,Urine 1.014 (1.001-1.035); Squamous Epithelial Cell,Urine 7 /hpf (0-4); Urobilinogen,Urine <2.0 mg/dL (<2.0); WBC,Urine 13 /hpf (0-5)
--- NOTE | 2020-12-14 01:13 | CT ---
EXAMINATION TYPE: CT abdomen pelvis w con DATE OF EXAM: 12/14/2020 COMPARISON: None HISTORY: Abdomainl pain NVD CT DLP: 940.1 mGycm Automated exposure control for dose reduction was used. CONTRAST: Performed with IV Contrast, patient injected with 100 mL of Isovue 300. Images obtained from the diaphragm to the floor the pelvis with IV contrast. Lung bases are clear. There is no pleural effusion. There is some fatty infiltration of the liver. Sp lilian is intact. Liver has normal size. There is no focal liver defect. There is no pancreatic mass. S tomach appears intact. Gallbladder has normal size. There is no adrenal mass. Kidneys show satisfactory contrast opacification. There is no hydronephrosi s. Ureters are not dilated. Delayed images show normal renal excretion. There is no retroperitoneal a denopathy. Bladder distends smoothly. There is no inguinal hernia. Appendix appears normal. There are some sigmoid diverticula. I see no sign of diverticulitis. There is no free fluid in the pelvis. The re is no evidence of pelvic mass. There is hysterectomy. There are anterior right sided surgical clip s, consistent with hernia surgery. The lumbar vertebra have normal alignment. There is no compression fracture. The bony pelvis is intac t. The hip joints are intact. There is no hip dysplasia. IMPRESSION: Normal appendix. Mild fatty infiltration of the liver. There is some sigmoid diverticulosis without d iverticulitis.
[2020-12-14] MEDS ORDERED: MORPHINE SULFATE 4 MG/ML SYRINGE IV PRN (01:27)
[2020-12-14] MEDS ORDERED: ONDANSETRON 4 MG/2 ML VIAL IVP PRN (01:27)
[2020-12-14] MEDS ORDERED: NALOXONE 0.4 MG/ML 1 ML VIAL IV PRN (01:27)
[2020-12-14] MEDS: SODIUM CHLORIDE 0.9% 1,000 ML IV SCH ×2 (01:38→08:07)
[2020-12-14] MEDS ORDERED: PROCHLORPERAZINE 5 MG TAB PO PRN (01:45)
[2020-12-14] MEDS ORDERED: POTASSIUM BICARBONATE/CIT AC 20 MEQ TABLET.EFF PO ONE (01:45)
[2020-12-14] MEDS ORDERED: ACETAMINOPHEN TAB 325 MG TAB PO PRN (03:27)
[2020-12-14 07:25] VITALS: RESP 16
[2020-12-14] MEDS ORDERED: PANTOPRAZOLE 40 MG/10 ML VIAL IV SCH (09:00)
[2020-12-14] MEDS ORDERED: NITROGLYCERIN SL TABS 0.4 MG TAB SUBLINGUAL PRN (11:34)
[2020-12-14] MEDS ORDERED: SODIUM CHLORIDE 0.9% 1,000 ML with POTASSIUM CHLORIDE 20 MEQ IV SCH ×2 (11:45)
[2020-12-14 12:01] LABS: Glucose,Whole Blood 175 mg/dL (75-99)
[2020-12-14] MEDS: NON FORMULARY DRUG (Semaglutide [Rybelsus] 3 MG Tablet) PO SCH (13:00)
[2020-12-14] MEDS: INSULIN ASPART (NovoLOG) 100 UNIT/ML VIAL SQ SCH ×3 (13:06→20:23)
[2020-12-14] MEDS: CLOPIDOGREL 75 MG TAB PO SCH (13:06)
[2020-12-14] MEDS: GABAPENTIN 300 MG CAP PO SCH ×3 (13:06→20:25)
[2020-12-14] MEDS: LEVOTHYROXINE 100 MCG TAB PO SCH (13:06)
[2020-12-14] MEDS: METOPROLOL TARTRATE 25 MG TAB PO SCH ×2 (13:07→20:27)
[2020-12-14] MEDS: LEVOTHYROXINE 75 MCG TAB PO SCH (13:11)
--- NOTE | 2020-12-14 13:21 | P.HPIM ---
History of Present Illness Patient wasn't a 60-year-old female came in with a comments of epigastric abdominal pain. Patient is not clearly able to characterize the pain associated nausea and vomiting. Patient had occasional diarrhea only 1 episode a day pa tient last bowel movement was about the today's ago. Patient denied any recent sick contacts denied any food poisoning. Patient was treated for gastritis or peptic ulcer disease in the past with some improvement in symptoms. Patient ER found to have a elevated white blood cell count 16,200 CT of the abdomen and pelvis did not show any significant abnormality. Patient lipase was within normal limits. Troponins were negative magnesium is low at 1.6 which will be replaced. Doesn't epigastric abdominal pain improved but patient has bilateral lower abdominal cramping. REVIEW OF SYSTEMS: CONSTITUTIONAL: No fever, no malaise, no fatigue. HEENT: No recent visual problems or hearing problems. Denied any sore throat. CARDIOVASCULAR: No chest pain, orthopnea, PND, no palpitations, no syncope. PULMONARY: No shortness of breath, no cough, no hemoptysis. GASTROINTESTINAL: As mentioned in HPI NEUROLOGICAL: No headaches, no weakness, no numbness. HEMATOLOGICAL: Denies any bleeding or petechiae. GENITOURINARY: Denies any burning micturition, frequency, or urgency. MUSCULOSKELETAL/RHEUMATOLOGICAL: Denies any joint pain, swelling, or any muscle pain. ENDOCRINE: Denies any polyuria or polydipsia. The rest of the 14-point review of systems is negative. PHYSICAL EXAMINATION: GENERAL: The patient is alert and oriented x3, not in any acute distress. Well developed, well nourished. HEENT: Pupils are round and equally reacting to light. EOMI. No scleral icterus. No conjunctival pallor. Normocephalic, atraumatic. No pharyngeal erythema. No thyromegaly. CARDIOVASCULAR: S1 and S2 present. No murmurs, rubs, or gallops. PULMONARY: Chest is clear to auscultation, no wheezing or crackles. ABDOMEN: Soft, nontender, nondistended, normoactive bowel sounds. No palpable organomegaly. MUSCULOSKELETAL: No joint swelling or deformity. EXTREMITIES: No cyanosis, clubbing, or pedal edema. NEUROLOGICAL: Gross neurological examination did not reveal any focal deficits. SKIN: No rashes. Assessment and plan -Epigastric abdominal pain: Probably peptic ulcer disease, patient will be started on Protonix IV twice a day considering that patient was treated for peptic ulcer disease in the past with only marginal improvement in her symptoms patient may benefit from upper GI endoscopy either outpatient or inpatient, gastroneurology will be consulted -Leukocytosis reactive in nature -Lactic acidosis secondary to dehydration and metformin and metformin is being held -Mild hypovolemic hyponatremia which is on IV fluids -Mild dehydration secondary to poor by mouth intake from nausea -Hypokalemia secondary to poor. Intake potassium will be replaced -Hypoglycemia magnesium will be replaced as well -Type 2 diabetes mellitus with uncontrolled elevated blood sugars patient will b e resumed on home regimen along with sliding scale hold off on metformin -Coronary artery disease with the cardiac catheterization and stents in the past -Hyperlipidemia -Hypertension -Hypothyroidism -Anxiety disorder -Continue nicotine use: Counseling was provided DVT prophylaxis: Early ambulation Past Medical History Past Medical History: Coronary Artery Disease (CAD), Cancer, Diabetes Mellitus, Hyperlipidemia, Hypertension, Thyroid Disorder Additional Past Medical History / Comment(s): 04/04/18 stemi. other hx includes: rls, hpv, cervical uterine ca(sx only), anxiety History of Any Multi-Drug Resistant Organisms: None Reported Past Surgical History: Section, Heart Catheterization With Stent, Hernia Repair, Hysterectomy Additional Past Surgical History / Comment(s): 04/04/18 heart cath with stent to distal lad . past hx heart cath w/ stents apr 2018 at [facility] .thryroidectomy, leep rocedure, total hysterectomy, bladder supsension, rt knee sx Past Anesthesia/Blood Transfusion Reactions: No Reported Reaction Additional Past Anesthesia/Blood Transfusion Reaction / Comment(s): has never received blood. Date of Last Stent Placement:: 04/04/18 Past Psychological History: Anxiety Smoking Status: Current every day smoker Past Alcohol Use History: None Reported Additional Past Alcohol Use History / Comment(s): started smoking at age 23,smokes 1 ppd Past Drug Use History: None Reported - Past Family History Mother Family Medical History: Diabetes Mellitus, Hypertension Additional Family Medical History / Comment(s): diet controlled diabetic Father Family Medical History: Coronary Artery Disease (CAD), Myocardial Infarction ([place]) Additional Family Medical History / Comment(s): "at age 40 had [address] bypass" then [place] age 48 [place] Medications and Allergies Home Medications Medication Instructions Recorded Confirmed Type Atorvastatin [Lipitor] 80 mg PO HS 04/04/18 12/14/20 History Metoprolol Tartrate [Lopressor] 25 mg PO BID 04/04/18 12/14/20 History Nitroglycerin 0.1MG/Hr Patch 1 patch TRANSDERM DAILY 04/04/18 12/14/20 History [Nitro-Dur 0.1MG/Hr Patch] Nitroglycerin Sl Tabs [Nitrostat] 0.4 mg SUBLINGUAL Q5M PRN 04/04/18 12/14/20 History Venlafaxine HCl ER [Effexor XR] 75 mg PO DAILY 04/04/18 12/14/20 History amLODIPine [Norvasc] 10 mg PO DAILY 04/04/18 12/14/20 History Aspirin 81 mg PO DAILY chew 04/07/18 12/14/20 Rx Clopidogrel [Plavix] 75 mg PO DAILY 08/08/19 12/14/20 History Levothyroxine Sodium [Synthroid] 175 mcg PO DAILY 08/08/19 12/14/20 History metFORMIN HCL [metFORMIN HCL ER] 750 mg PO BID 08/08/19 12/14/20 History Gabapentin [Neurontin] 300 mg PO QID 12/14/20 12/14/20 History Insulin Glargine [Lantus] 30 unit SQ HS 12/14/20 12/14/20 History Pantoprazole Sodium [Protonix] 40 mg PO DAILY 12/14/20 12/14/20 History Semaglutide [Rybelsus] 3 mg PO DAILY 12/14/20 12/14/20 History Allergies Allergy/AdvReac Type Severity Reaction Status Date / Time nickel Allergy Rash/Hives Verified 12/14/20 10:29 Physical Exam Vitals: Vital Signs Temp Pulse Pulse Resp BP BP Pulse Ox 12/14/20 06:55 98.0 F 71 16 131/73 97 12/14/20 03:05 70 18 12/14/20 01:58 97.7 F 70 18 168/80 96 12/14/20 00:55 80 16 128/72 96 12/13/20 23:01 71 18 136/83 96 12/13/20 21:57 98.0 F 84 16 166/81 97 Intake and Output 12/13/20 12/14/20 12/14/20 22:59 06:59 14:59 Other: Voiding Method Toilet # Voids 2 Weight 74.843 kg 74.843 kg Results CBC & Chem 7: 12/13/20 22:22 12/13/20 22:22 Labs: Abnormal Lab Results - Last 24 Hours (Table) 12/13/20 12/13/20 12/13/20 Range/Units 22:22 22:22 22:22 WBC 16.2 H (3.8-10.6) k/uL RBC 5.74 H (3.80-5.40) m/uL Hgb 17.5 H (11.4-16.0) gm/dL Hct 47.9 H (34.0-46.0) % Neutrophils # 10.3 H (1.3-7.7) k/uL Monocytes # 1.1 H (0-1.0) k/uL Sodium 136 L (137-145) mmol/L Potassium 3.4 L (3.5-5.1) mmol/L Glucose 290 H (74-99) mg/dL POC Glucose (mg/dL) (75-99) mg/dL Plasma Lactic Acid Javier 2.1 H* (0.7-2.0) mmol/L Alkaline Phosphatase 139 H (38-126) U/L Urine Appearance (Clear) Urine Protein (Negative) Urine Glucose (UA) (Negative) Urine WBC (0-5) /hpf Ur Squamous Epith Cells (0-4) /hpf Urine Bacteria (None) /hpf Hyaline Casts (0-2) /lpf Urine Mucus (None) /hpf 12/14/20 12/14/20 Range/Units 00:13 12:00 WBC (3.8-10.6) k/uL RBC (3.80-5.40) m/uL Hgb (11.4-16.0) gm/dL Hct (34.0-46.0) % Neutrophils # (1.3-7.7) k/uL Monocytes # (0-1.0) k/uL Sodium (137-145) mmol/L Potassium (3.5-5.1) mmol/L Glucose (74-99) mg/dL POC Glucose (mg/dL) 175 H (75-99) mg/dL Plasma Lactic Acid Javier (0.7-2.0) mmol/L Alkaline Phosphatase (38-126) U/L Urine Appearance Cloudy H (Clear) Urine Protein 2+ H (Negative) Urine Glucose (UA) 3+ H (Negative) Urine WBC 13 H (0-5) /hpf Ur Squamous Epith Cells 7 H (0-4) /hpf Urine Bacteria Many H (None) /hpf Hyaline Casts 16 H (0-2) /lpf Urine Mucus Moderate H (None) /hpf Thrombosis Risk Factor Assmnt - Choose All That Apply Each Factor Represents 1 point: Obesity (BMI >25) Each Risk Factor Represents 2 Points: Age 61-74 years Other congenital or acquired thrombophilia - If yes, enter type in comment: No Thrombosis Risk Factor Assessment Total Risk Factor Score: 3 Thrombosis Risk Factor Assessment Level: Moderate Risk
[2020-12-14] MEDS: 0.9% NACL WITH KCL 20 MEQ/L 1,000 ML IV SCH ×2 (13:38→23:19)
[2020-12-14] MEDS: MAGNESIUM SULFATE-D5W PMX 1 GM in DEXTROSE/WATER 1 100ML.BAG IVPB SCH ×2 (13:40→14:53)
[2020-12-14 14:16] LABS: Hemoglobin A1C 13.1 % (4.0-6.0)
[2020-12-14 17:12] LABS: Glucose,Whole Blood 202 mg/dL (75-99)
[2020-12-14 20:17] LABS: Glucose,Whole Blood 266 mg/dL (75-99)
[2020-12-14] MEDS: PANTOPRAZOLE 40 MG/10 ML VIAL IV SCH (20:24)
[2020-12-14] MEDS ORDERED: ATORVASTATIN 80 MG TAB PO SCH (21:00)
[2020-12-14] MEDS ORDERED: INSULIN DETEMIR (LEVEMIR) 100 UNIT/ML SYR SQ SCH (21:00)
[2020-12-15] MEDS: LEVOTHYROXINE 75 MCG TAB PO SCH (05:27)
[2020-12-15] MEDS: LEVOTHYROXINE 100 MCG TAB PO SCH (05:27)
[2020-12-15 05:41] LABS: Basophils # (A) 0.1 k/uL (0-0.2); Basophils % (A) 1 %; Eosinophils # (A) 0.2 k/uL (0-0.7); Eosinophils % (A) 2 %; HGB 15.7 gm/dL (11.4-16.0); Lymphocytes # (A) 3.8 k/uL (1.0-4.8); Lymphocytes % (A) 28 %; MCH 28.9 pg (25.0-35.0); MCV 84.8 fL (80.0-100.0); Mean Platelet Volume 6.4; Monocytes # (A) 0.8 k/uL (0-1.0); Monocytes % (A) 6 %; Neutrophils # (A) 8.4 k/uL (1.3-7.7); Neutrophils % (A) 62 %; Platelet Count 231 k/uL (150-450); RBC 5.43 m/uL (3.80-5.40); RDW 13.8 % (11.5-15.5); WBC 13.5 k/uL (3.8-10.6)
[2020-12-15 06:00] LABS: ALT 25 U/L (4-34); AST 29 U/L (14-36); African American GFR (CKD) >90 (>60 ml/min/1.73 sqM); Albumin 3.3 g/dL (3.5-5.0); Albumin/Globulin Ratio 1.2; Alkaline Phosphatase 103 U/L (38-126); Anion Gap 7 mmol/L; Blood Urea Nitrogen 10 mg/dL (7-17); Calcium 8.7 mg/dL (8.4-10.2); Carbon Dioxide 24 mmol/L (22-30); Chloride 108 mmol/L (98-107); Globulin 2.7 g/dL; Glucose 163 mg/dL (74-99); Magnesium 2.1 mg/dL (1.6-2.3); Non-African American GFR(CKD) >90 (>60 ml/min/1.73 sqM); Phosphorus 3.3 mg/dL (2.5-4.5); Potassium 3.7 mmol/L (3.5-5.1); Sodium 139 mmol/L (137-145); Total Bilirubin 0.5 mg/dL (0.2-1.3)
[2020-12-15 07:10] LABS: Glucose,Whole Blood 188 mg/dL (75-99)
[2020-12-15 07:21] VITALS: TEMP 98.2
[2020-12-15] MEDS ORDERED: amLODIPine 10 MG TAB PO SCH (09:00)
[2020-12-15] MEDS ORDERED: VENLAFAXINE HCL ER 75 MG CAP PO SCH (09:00)
[2020-12-15] MEDS ORDERED: NITROGLYCERIN 0.1MG/HR PATCH TRANSDERM SCH (09:00)
[2020-12-15] MEDS: METOPROLOL TARTRATE 25 MG TAB PO SCH (09:25)
[2020-12-15] MEDS: GABAPENTIN 300 MG CAP PO SCH ×2 (09:25→13:46)
[2020-12-15] MEDS: CLOPIDOGREL 75 MG TAB PO SCH (09:25)
[2020-12-15] MEDS: NON FORMULARY DRUG (Semaglutide [Rybelsus] 3 MG Tablet) PO SCH (09:28)
[2020-12-15] MEDS: INSULIN ASPART (NovoLOG) 100 UNIT/ML VIAL SQ SCH ×3 (09:29→17:49)
[2020-12-15] MEDS: PANTOPRAZOLE 40 MG/10 ML VIAL IV SCH (09:40)
[2020-12-15] MEDS: 0.9% NACL WITH KCL 20 MEQ/L 1,000 ML IV SCH ×2 (10:24→10:50)
[2020-12-15 12:02] LABS: Glucose,Whole Blood 240 mg/dL (75-99)
--- NOTE | 2020-12-15 12:51 | P.DS ---
Providers Date of admission: 12/14/20 01:27 Attending physician: Erin Guillen Consults: 12/14/20 11:37 Consult Physician Routine Consulting Provider: Chery Canseco Consult Reason/Comments: GERD Do you want consulting provider notified?: Yes Primary care physician: Marni Leon [place] [facility] Course: 60-year-old female came in with a comments of epigastric abdominal pain. Patient is not clearly able to characterize the pain associated nausea and vomiting. Patient had occasional diarrhea only 1 episode a day patient last bowel movement was about the today's ago. Patient denied any recent sick contacts denied any food poisoning. Patient was treated for gastritis or peptic ulcer disease in the past with some improvement in symptoms. Patient ER found to have a elevated white blood cell count 16,200 CT of the abdomen and pelvis did not show any significant abnormality. Patient lipase was within normal limits. Troponins were negative magnesium is low at 1.6 which will be replaced. Doesn't epigastric abdominal pain improved but patient has bilateral lower abdominal cramping. 12/15/2020 Patient's abdominal pain significantly resolved and is around 2 at 2/10. Patient improved significantly with the IV Protonix twice a day patient already takes on Protonix 40 daily which will be switched to twice a day for 14 days and patient will need an upper GI endoscopy but not emergently as soon as possible as an outpatient. Discussed with gastro-oncology plan as if he can get the upper GI endoscopy pretty soon than the patient will be discharged today after setting up outpatient and upper GI endoscopy, if not patient will stay overnight here. Endoscopy tomorrow morning. PHYSICAL EXAMINATION: GENERAL: The patient is alert and oriented x3, not in any acute distress. Well developed, well nourished. HEENT: Pupils are round and equally reacting to light. EOMI. No scleral icterus. No conjunctival pallor. Normocephalic, atraumatic. No pharyngeal erythema. No thyromegaly. CARDIOVASCULAR: S1 and S2 present. No murmurs, rubs, or gallops. PULMONARY: Chest is clear to auscultation, no wheezing or crackles. ABDOMEN: Soft, nontender, nondistended, normoactive bowel sounds. No palpable o rganomegaly. MUSCULOSKELETAL: No joint swelling or deformity. EXTREMITIES: No cyanosis, clubbing, or pedal edema. NEUROLOGICAL: Gross neurological examination did not reveal any focal deficits. SKIN: No rashes. Assessment and plan -Epigastric abdominal pain: Probably peptic ulcer disease, improved with Protonix plan as mentioned above -Leukocytosis reactive in nature -Lactic acidosis secondary to dehydration and metformin ,metformin probably Can be resumed as lactic acidosis improved but if patient can use to have lactic acidosis down the length this need to be discontinued -Mild hypovolemic hyponatremia improved with IV fluids, IV fluids will be discontinued -Mild dehydration secondary to poor by mouth intake from nausea -Hypokalemia secondary to poor. Intake potassium will be replaced -Hypoglycemia magnesium will be replaced as well -Type 2 diabetes mellitus with uncontrolled elevated blood sugars patient will be resumed on home regimen -Coronary artery disease with the cardiac catheterization and stents in the past -Hyperlipidemia -Hypertension -Hypothyroidism -Anxiety disorder -Continue nicotine use: Counseling was provided Patient Condition at Discharge: Fair Plan - Discharge Summary Discharge Rx Participant: No New Discharge Prescriptions: Continue Venlafaxine HCl ER [Effexor XR] 75 mg PO DAILY Nitroglycerin Sl Tabs [Nitrostat] 0.4 mg SUBLINGUAL Q5M PRN PRN Reason: Chest Pain Nitroglycerin 0.1MG/Hr Patch [Nitro-Dur 0.1MG/Hr Patch] 1 patch TRANSDERM DAILY Metoprolol Tartrate [Lopressor] 25 mg PO BID amLODIPine [Norvasc] 10 mg PO DAILY Atorvastatin [Lipitor] 80 mg PO HS Aspirin 81 mg PO DAILY chew Clopidogrel [Plavix] 75 mg PO DAILY metFORMIN HCL [metFORMIN HCL ER] 750 mg PO BID Levothyroxine Sodium [Synthroid] 175 mcg PO DAILY Gabapentin [Neurontin] 300 mg PO QID Insulin Glargine [Lantus] 30 unit SQ HS Semaglutide [Rybelsus] 3 mg PO DAILY Changed Pantoprazole Sodium [Protonix] 40 mg PO BID #30 tab Discharge Medication List Atorvastatin [Lipitor] 80 mg PO HS 04/04/18 [History] Metoprolol Tartrate [Lopressor] 25 mg PO BID 04/04/18 [History] Nitroglycerin 0.1MG/Hr Patch [Nitro-Dur 0.1MG/Hr Patch] 1 patch TRANSDERM DAILY 04/04/18 [History] Nitroglycerin Sl Tabs [Nitrostat] 0.4 mg SUBLINGUAL Q5M PRN 04/04/18 [History] Venlafaxine HCl ER [Effexor XR] 75 mg PO DAILY 04/04/18 [History] amLODIPine [Norvasc] 10 mg PO DAILY 04/04/18 [History] Aspirin 81 mg PO DAILY chew 04/07/18 [Rx] Clopidogrel [Plavix] 75 mg PO DAILY 08/08/19 [History] Levothyroxine Sodium [Synthroid] 175 mcg PO DAILY 08/08/19 [History] metFORMIN HCL [metFORMIN HCL ER] 750 mg PO BID 08/08/19 [History] Gabapentin [Neurontin] 300 mg PO QID 12/14/20 [History] Insulin Glargine [Lantus] 30 unit SQ HS 12/14/20 [History] Semaglutide [Rybelsus] 3 mg PO DAILY 12/14/20 [History] Pantoprazole Sodium [Protonix] 40 mg PO BID #30 tab 12/15/20 [Rx] Follow up Appointment(s)/Referral(s): Marni Leon MD [Primary Care Provider] - 3 Days Discharge Disposition: HOME SELF-CARE
[2020-12-15 13:22] VITALS: BMI 28.3
[2020-12-15 14:07] VITALS: BP 138/72; PULSE 67
--- NOTE | 2020-12-15 16:16 | P.CONS ---
History of Present Illness - Reason for Consult Consult date: 12/15/20 GERD Requesting physician: Josselyn Soto - Chief Complaint Nausea, vomiting, abdominal pain - History of Present Illness A pleasant 60-year-old white female who presented to the emergency department with complaints of nausea, vomiting, epigastric pain and diarrhea has started 9 days ago. States the first 3-4 days she had nausea and vomiting along with diarrhea. She states since then she's just had some nausea and epigastric pain. She states she still having loose bowel movements but they're every 2-3 days and only once per day. She denies any recent traveling, no sick contacts and no fevers or chills. She denies any history of peptic ulcer disease, however recently was put on Protonix 40 mg a day in August which she states she had some improvement in her epigastric discomfort however has worsened since this latest episode. She denies using any NSAIDs. She's never had an upper endoscopy before, states her last colonoscopy was in 2015 which she states was normal on of [facility]. She states that her nausea has improved and is eating a regular diet without any vomiting, she is still having some mild epigastric pain which she rates a 1-06/07/09. She had C. difficile toxin stool study which was negative. Today's labs show WBC 13.5, hemoglobin 15.7, hematocrit 46, platelet count 231,000, total bilirubin 0.5, alkaline phosphatase 103, AST 29, ALT 25 Review of Systems REVIEW OF SYSTEMS: CARDIOPULMONARY: No chest pain or shortness of breath. Gastrointestinal: Epigastric pain. Nausea, no further vomiting. No hematemesis, coffee-ground emesis. No rectal bleeding, or melena. Loose stools , every 2-3 days. GENITOURINARY: No dysuria or hematuria. MUSCULOSKELETAL: Reports normal range of motion., Joint pain. SKIN: No rashes. No jaundice. ENDOCRINE: No chills, fevers. No excessive weight gain or loss. No polydipsia or polyuria. PSYCHIATRIC: Unremarkable. NEUROLOGY: No change in mental status. Denies dizziness, headache. ENT: Vision unremarkable. CONSTITUTIONAL: No recent weight loss. No fever, chills, night sweats. Past Medical History Past Medical History: Coronary Artery Disease (CAD), Cancer, Diabetes Mellitus, Hyperlipidemia, Hypertension, Thyroid Disorder Additional Past Medical History / Comment(s): 04/04/18 stemi. other hx includes: rls, hpv, cervical uterine ca(sx only), anxiety History of Any Multi-Drug Resistant Organisms: None Reported Past Surgical History: Section, Heart Catheterization With Stent, Hernia Repair, Hysterectomy Additional Past Surgical History / Comment(s): 04/04/18 heart cath with stent to distal lad . past hx heart cath w/ stents apr 2018 at [facility] .thryroidectomy, leep rocedure, total hysterectomy, bladder supsension, rt knee sx Past Anesthesia/Blood Transfusion Reactions: No Reported Reaction Additional Past Anesthesia/Blood Transfusion Reaction / Comm: has never received blood. Date of Last Stent Placement:: 04/04/18 Past Psychological History: Anxiety Smoking Status: Current every day smoker Past Alcohol Use History: None Reported Additional Past Alcohol Use History / Comment(s): started smoking at age 23,smokes 1 ppd Past Drug Use History: None Reported - Past Family History Mother Family Medical History: Diabetes Mellitus, Hypertension Additional Family Medical History / Comment(s): diet controlled diabetic Father Family Medical History: Coronary Artery Disease (CAD), Myocardial Infarction (OR) Additional Family Medical History / Comment(s): "at age 38 had [address] bypass" then at age 48 [place] Medications and Allergies Home Medications Medication Instructions Recorded Confirmed Type Atorvastatin [Lipitor] 80 mg PO HS 04/04/18 12/14/20 History Metoprolol Tartrate [Lopressor] 25 mg PO BID 04/04/18 12/14/20 History Nitroglycerin 0.1MG/Hr Patch 1 patch TRANSDERM DAILY 04/04/18 12/14/20 History [Nitro-Dur 0.1MG/Hr Patch] Nitroglycerin Sl Tabs [Nitrostat] 0.4 mg SUBLINGUAL Q5M PRN 04/04/18 12/14/20 History Venlafaxine HCl ER [Effexor XR] 75 mg PO DAILY 04/04/18 12/14/20 History amLODIPine [Norvasc] 10 mg PO DAILY 04/04/18 12/14/20 History Aspirin 81 mg PO DAILY chew 04/07/18 12/14/20 Rx Clopidogrel [Plavix] 75 mg PO DAILY 08/08/19 12/14/20 History Levothyroxine Sodium [Synthroid] 175 mcg PO DAILY 08/08/19 12/14/20 History metFORMIN HCL [metFORMIN HCL ER] 750 mg PO BID 08/08/19 12/14/20 History Gabapentin [Neurontin] 300 mg PO QID 12/14/20 12/14/20 History Insulin Glargine [Lantus] 30 unit SQ HS 12/14/20 12/14/20 History Semaglutide [Rybelsus] 3 mg PO DAILY 12/14/20 12/14/20 History Pantoprazole Sodium [Protonix] 40 mg PO BID #30 tab 12/15/20 Rx Allergies Allergy/AdvReac Type Severity Reaction Status Date / Time nickel Allergy Rash/Hives Verified 12/14/20 10:29 Physical Exam Vitals: Vital Signs Temp Pulse Resp BP Pulse Ox 12/15/20 08:00 62 16 12/15/20 06:55 98.2 F 62 16 151/78 94 L 12/15/20 02:08 65 16 12/15/20 00:56 98.1 F 65 16 109/65 94 L 12/14/20 20:23 64 16 12/14/20 19:32 97.6 F 64 16 122/74 93 L 12/14/20 13:55 98.0 F 62 16 154/72 95 Intake and Output 12/14/20 12/15/20 12/15/20 22:59 06:59 14:59 Output Total 0 Balance 0 Output: Stool 0 Other: Voiding Method Toilet Toilet Toilet # Voids 2 2 3 # Bowel Movements 0 0 General appearance: The patient is alert, oriented, appears in no acute distress. HET: Head is normocephalic and atraumatic. Conjunctiva pink. Sclera anicteric. Neck: Supple without lymphadenopathy. Trachea midline. Heart: S1 S2. Regular rate and rhythm. Lungs: Clear to auscultation. Abdomen: Soft, epigastric tenderness with some diffuse tenderness, nondistended with bowel sounds. No guarding or rigidity. Skin: No rashes. No jaundice. Extremities: Normal skin color and turgor. No pedal edema. Neurological: No focal deficits. Alert and oriented 3.. Results CBC & Chem 7: 12/15/20 05:10 12/15/20 05:10 Labs: Abnormal Lab Results - Last 24 Hours (Table) 12/13/20 12/14/20 12/14/20 Range/Units 22:22 12:00 17:11 WBC (3.8-10.6) k/uL RBC (3.80-5.40) m/uL Neutrophils # (1.3-7.7) k/uL Chloride (98-107) mmol/L Glucose (74-99) mg/dL POC Glucose (mg/dL) 175 H 202 H (75-99) mg/dL Hemoglobin A1c 13.1 H (4.0-6.0) % Total Protein (6.3-8.2) g/dL Albumin (3.5-5.0) g/dL 12/14/20 12/15/20 12/15/20 Range/Units 20:13 05:10 05:10 WBC 13.5 H (3.8-10.6) k/uL RBC 5.43 H (3.80-5.40) m/uL Neutrophils # 8.4 H (1.3-7.7) k/uL Chloride 108 H (98-107) mmol/L Glucose 163 H (74-99) mg/dL POC Glucose (mg/dL) 266 H (75-99) mg/dL Hemoglobin A1c (4.0-6.0) % Total Protein 6.0 L (6.3-8.2) g/dL Albumin 3.3 L (3.5-5.0) g/dL 12/15/20 Range/Units 06:57 WBC (3.8-10.6) k/uL RBC (3.80-5.40) m/uL Neutrophils # (1.3-7.7) k/uL Chloride (98-107) mmol/L Glucose (74-99) mg/dL POC Glucose (mg/dL) 188 H (75-99) mg/dL Hemoglobin A1c (4.0-6.0) % Total Protein (6.3-8.2) g/dL Albumin (3.5-5.0) g/dL Microbiology - Last 24 Hours (Table) 12/14/20 00:13 Urine Culture - Preliminary Urine,Voided Comments: Gallbladder ultrasound: Findings include no gallstones or dilated ducts. No focal liver defect. CT abdomen and pelvis shows a normal appendix. Mild fatty infiltration of the liver. There is some sigmoid diverticulosis without diverticulitis. Assessment and Plan (1) Nausea and vomiting Narrative/Plan: 60-year-old female who presented to the emergency department with complaints of nausea vomiting and diarrhea that began 9 days ago lasting for 3-4 days. Symptoms have improved and patient is has mild nausea and some mild epigastric discomfort. States she is still having loose bowel movements but they're every 2-3 days not daily. She denies any previous history of peptic ulcer disease, however was started on Protonix in August due to epigastric discomfort. States it did work in the beginning but has worsened over the last few days. She riddhi es any coffee-ground emesis or hematemesis. Denies any black stools or blood in her stools. She's not had a previous upper endoscopy, prior colonoscopy was in 2015 which she states was normal done through [place]. She is tolerating a regular diet. Likely dealing with some gastroenteritis. There is no urgency for upper endoscopy, however due to patient's previous and recent symptoms would recommend outpatient colonoscopy within a few weeks. Patient is agreeable to this plan of care, and patient may be discharged home. Current Visit: Yes Status: Acute Code(s): R11.2 - NAUSEA WITH VOMITING, UNSPECIFIED SNOMED Code(s): 08302147 (2) Epigastric pain Current Visit: Yes Status: Acute Code(s): R10.13 - EPIGASTRIC PAIN SNOMED Code(s): 40858898 Plan: 1. Continue Protonix 40 mg daily 2. Diabetes tolerated 3. Patient may be discharged home from a gastroenterology standpoint, patient will be scheduled for outpatient EGD Thank you for this consultation, patient may be discharged home from a gastroenterology standpoint Dr. Greg Canseco I agree with the dictator's note, documented as a scribe by Iris Gunter.
[2020-12-15] MEDS ORDERED: PANTOPRAZOLE 40 MG TABLET PO SCH (17:30)
[2020-12-15 17:48] LABS: Glucose,Whole Blood 215 mg/dL (75-99)
== END 2020-12-15 18:06 | disposition home or self-care (01) ==
LOC: EC 21:54 → 6NMEDSUR 12-14 01:27
PROVIDERS: ADMIT Hospitalist; ATTEND Hospitalist
DX: R10.13 Epigastric pain (principal); D72.829 Elevated white blood cell count, unspecified; R11.2 Nausea with vomiting, unspecified; R19.7 Diarrhea, unspecified; Z87.11 Personal history of peptic ulcer disease; E87.2 Acidosis; E86.0 Dehydration; E86.1 Hypovolemia; E87.1 Hypo-osmolality and hyponatremia; E87.6 Hypokalemia; E11.65 Type 2 diabetes mellitus with hyperglycemia; R63.0 Anorexia; E11.649 Type 2 diabetes mellitus with hypoglycemia without coma; E78.5 Hyperlipidemia, unspecified; E83.42 Hypomagnesemia; I25.10 Atherosclerotic heart disease of native coronary artery without angina pectoris; I10 Essential (primary) hypertension; F41.9 Anxiety disorder, unspecified; F17.200 Nicotine dependence, unspecified, uncomplicated; K21.9 Gastro-esophageal reflux disease without esophagitis; I25.2 Old myocardial infarction; G25.81 Restless legs syndrome; E89.0 Postprocedural hypothyroidism; Z91.048 Other nonmedicinal substance allergy status; E66.9 Obesity, unspecified; Z68.28 Body mass index [BMI] 28.0-28.9, adult; Z95.5 Presence of coronary angioplasty implant and graft; Z79.899 Other long term (current) drug therapy; Z79.82 Long term (current) use of aspirin; Z79.02 Long term (current) use of antithrombotics/antiplatelets; Z79.890 Hormone replacement therapy; Z79.4 Long term (current) use of insulin; Z90.710 Acquired absence of both cervix and uterus; Z85.41 Personal history of malignant neoplasm of cervix uteri; Z82.49 Family history of ischemic heart disease and other diseases of the circulatory system; Z83.3 Family history of diabetes mellitus
CPT/HCPCS: 96376 ×2; 96361 ×3; 96365; 96366; 96375 ×2; 99285; 36415; 93005; 80053 ×2; 82550; 83605 ×2; 83690; 83735 ×2; 84100 ×2; 84484; 85025 ×2; 85610; 85730; 81001; 87324; 87086; 83036; 71046; 76705; 74177; G0378 ×2; J2405; J3475; C9113 ×2; Q9967

== ENCOUNTER 2021-01-12 09:46 | Day surgery (SDC) | payer MEDICARE ==
[2021-01-07 15:11] VITALS: BMI 28.3
[~2021-01-12 09:46] MED LIST: LACTATED RINGERS 1,000 ML IV SCH; LIDOCAINE 1% (10MG/ML) FOR IV START INTRADERMA PRN
[2021-01-12 10:09] VITALS: TEMP 97
[2021-01-12 10:24] LABS: Glucose,Whole Blood 288 mg/dL (75-99)
[2021-01-12] MEDS ORDERED: INSULIN ASPART (NovoLOG) 100 UNIT/ML VIAL SQ ONE (10:29)
[2021-01-12] MEDS ORDERED: PROPOFOL 10 MG/ML 20 ML VIAL IV ONE (10:30)
[2021-01-12] MEDS ORDERED: LIDOCAINE 1% INJ 10MG/ML (20 ML MDV) ONE (10:30)
--- NOTE | 2021-01-12 10:52 | P.PCN ---
Date of Procedure: 01/12/21 Description of Procedure: BRIEF HISTORY: Patient is a 60-year-old female presenting for outpatient esophagogastroduodenoscopy for evaluation of epigastric abdominal pain. Patient recently hospitalized with complaints of epigastric abdominal pain, bloating, gas and diarrhea. Currently on Protonix twice daily. No signs or symptoms of GI bleeding. She reports evaluation of the gallbladder were negative. PROCEDURE PERFORMED: Esophagogastroduodenoscopy with biopsy. PREOPERATIVE DIAGNOSIS: Epigastric abdominal pain, bloating and gas. ESTIMATED BLOOD LOSS: Minimal. IV sedation per anesthesia. PROCEDURE: After informed consent was obtained, the patient was brought into the endoscopy unit. IV sedation was administered by Anesthesia under continuous monitoring. Initially the Olympus GIF-190 video endoscope was inserted into the mouth. Esophagus intubated without any difficulty. It was gradually advanced into the stomach and duodenum and carefully examined. The bulb and the second part of the duodenum appeared normal, With biopsies taken. The scope at this time was withdrawn to the stomach, adequately insufflated with air, and upon careful examination, mucosa of the antrum, body, cardia and the fundus appeared normal, Except for some mild punctate erythema suggestive of mild gastritis with biopsies taken. The scope was then withdrawn into the esophagus. The GE junction was located at 37 cm from the incisors, With lower esophageal biopsies taken. The esophagus appeared normal. There were no erosions or ulcerations seen and the patient tolerated the procedure well. IMPRESSION: 1. Mild gastritis . 2. Biopsies of the duodenum, antrum body and lower esophagus. RECOMMENDATIONS: The findings of this examination were discussed with the patient and her family. Okay to resume diet. Okay to resume medications today. Continue current acid suppression regimen. Extensive discussion with the patient regarding dietary modifications including a FODMAP diet.
[2021-01-12 11:05] VITALS: RESP 18
[2021-01-12 11:07] LABS: Glucose,Whole Blood 252 mg/dL (75-99)
[2021-01-12 11:32] VITALS: BP 157/88; PULSE 78
== END 2021-01-12 11:32 | disposition home or self-care (01) ==
LOC: ORWHC2ENDO 09:46
PROVIDERS: ATTEND Internal Medicine
DX: K29.70 Gastritis, unspecified, without bleeding (principal); I25.10 Atherosclerotic heart disease of native coronary artery without angina pectoris; E11.9 Type 2 diabetes mellitus without complications; E07.9 Disorder of thyroid, unspecified; F32.9 Major depressive disorder, single episode, unspecified; F17.200 Nicotine dependence, unspecified, uncomplicated; Z79.4 Long term (current) use of insulin; Z79.890 Hormone replacement therapy; Z79.82 Long term (current) use of aspirin
CPT/HCPCS: 43239; 88305; J2001; J2704

== ENCOUNTER 2021-04-17 20:19 | Emergency (ER) | payer MEDICARE, OTHER ==
[2021-04-17 20:29] VITALS: RESP 18
[2021-04-17 21:05] LABS: ALT 21 U/L (4-34); AST 26 U/L (14-36); African American GFR (CKD) >90 (>60 ml/min/1.73 sqM); Albumin 4.3 g/dL (3.5-5.0); Alkaline Phosphatase 119 U/L (38-126); Amylase 55 U/L (30-110); Anion Gap 10 mmol/L; Blood Urea Nitrogen 11 mg/dL (7-17); Calcium 10.6 mg/dL (8.4-10.2); Carbon Dioxide 22 mmol/L (22-30); Chloride 101 mmol/L (98-107); Glucose 211 mg/dL (74-99); Lipase 51 U/L (23-300); Non-African American GFR(CKD) >90 (>60 ml/min/1.73 sqM); Potassium 3.9 mmol/L (3.5-5.1); Sodium 133 mmol/L (137-145); Total Bilirubin 0.7 mg/dL (0.2-1.3); Total Protein 7.6 g/dL (6.3-8.2)
[2021-04-17 21:28] LABS: HCT 51.2 % (34.0-46.0); HGB 17.7 gm/dL (11.4-16.0); MCH 29.6 pg (25.0-35.0); MCHC 34.6 g/dL (31.0-37.0); MCV 85.4 fL (80.0-100.0); Platelet Count 235 k/uL (150-450); WBC 15.9 k/uL (3.8-10.6)
--- NOTE | 2021-04-17 21:37 | XR ---
EXAMINATION TYPE: XR KUB DATE OF EXAM: 04/17/2021 COMPARISON: NONE HISTORY: Abdominal pain TECHNIQUE: 2 views FINDINGS: There is no heart failure nor confluent pneumonic infiltrate. Costophrenic angles are clear . There are no pathologic calcifications over the kidneys. There is dense coronary artery calcificati on. IMPRESSION: Nonacute abdomen.
[2021-04-17 21:39] LABS: Appearance,Urine Clear (Clear); Bacteria,Urine Many /hpf; Bilirubin,Urine Negative (Negative); Blood,Urine Negative (Negative); Color,Urine Yellow; Glucose,Urine (UA) 1+ (Negative); Ketones,Urine Negative (Negative); Leukocyte Esterase,Urine Negative (Negative); Mucus,Urine Few /hpf; Nitrite,Urine Positive (Negative); Protein,Urine Negative (Negative); RBC,Urine 1 /hpf (0-5); Specific Gravity,Urine 1.018 (1.001-1.035); Squamous Epithelial Cell,Urine <1 /hpf (0-4); Urobilinogen,Urine <2.0 mg/dL (<2.0); WBC,Urine 12 /hpf (0-5)
[2021-04-17 22:16] LABS: Eosinophils # (M) 0.32 k/uL (0-0.7); Lymphocytes # (M) 5.09 k/uL (1.0-4.8); Monocytes # (M) 1.43 k/uL (0-1.0); Neutrophils # (M) 9.06 k/uL (1.3-7.7); Neutrophils % (M) 57 %; Nucleated Red Blood Cells 0 /100 WBC (0-0); Total Cells Counted 100
[2021-04-17] MEDS ORDERED: SODIUM CHLORIDE 0.9% 1,000 ML IV STA (23:24)
[2021-04-17] MEDS ORDERED: MORPHINE SULFATE 4 MG/ML SYRINGE IVP STA (23:24)
[2021-04-17] MEDS ORDERED: ONDANSETRON 4 MG/2 ML VIAL IVP STA (23:24)
--- NOTE | 2021-04-17 23:31 | ED ---
Abdominal Pain HPI - General Chief Complaint: Abdominal Pain Stated Complaint: R side abd/chest pain Time Seen by Provider: 04/17/21 23:10 Source: patient, RN notes reviewed Mode of arrival: ambulatory Limitations: no limitations - History of Present Illness Initial Comments: Patient is a 60-year-old female with history of diabetes, heart disease, hyper tension, presenting to emergency Department with complaints of right sided abdominal pain for the last 3 days. She's had associated nausea and vomiting. She denies any diarrhea. She states the pain started in her right lower quadrant and now has some radiation up towards her right upper quadrant and into her chest and back. She has history of hysterectomy, hernia repair, bladder suspension. She also has history of diverticulitis. No known fevers but has been having chills and sweats. She denies any chest pain at this time, no shortness of breath. She states she has some "tingling and burning sensation on the right side of her abdomen as well as the pain." She denies any rashes on he r skin. Denies any dysuria. She has no further complaints. Upon arrival to the ER, her vital signs are stable. - Related Data Home Medications Medication Instructions Recorded Confirmed Atorvastatin [Lipitor] 80 mg PO HS 04/04/18 01/12/21 Metoprolol Tartrate [Lopressor] 25 mg PO BID 04/04/18 01/12/21 Nitroglycerin 0.1MG/Hr Patch 1 patch TRANSDERM DAILY 04/04/18 01/12/21 [Nitro-Dur 0.1MG/Hr Patch] Nitroglycerin Sl Tabs [Nitrostat] 0.4 mg SUBLINGUAL Q5M PRN 04/04/18 01/12/21 Venlafaxine HCl ER [Effexor XR] 75 mg PO DAILY 04/04/18 01/12/21 amLODIPine [Norvasc] 10 mg PO DAILY 04/04/18 01/12/21 Clopidogrel [Plavix] 75 mg PO DAILY 08/08/19 01/12/21 Levothyroxine Sodium [Synthroid] 175 mcg PO DAILY 08/08/19 01/12/21 metFORMIN HCL [Glucophage XR] 750 mg PO BID 08/08/19 01/12/21 Gabapentin [Neurontin] 300 mg PO QID 12/14/20 01/12/21 Insulin Glargine [Lantus Vial] 30 unit SQ HS 12/14/20 01/12/21 Previous Rx's Medication Instructions Recorded Aspirin 81 mg PO DAILY chew 04/07/18 Pantoprazole Sodium [Protonix] 40 mg PO BID #30 tab 12/15/20 Cephalexin [Keflex] 500 mg PO Q6HR 10 Days #40 cap 04/18/21 Allergies Allergy/AdvReac Type Severity Reaction Status Date / Time nickel Allergy Rash/Hives Verified 01/12/21 10:04 Review of Systems ROS Statement: Those systems with pertinent positive or pertinent negative responses have been documented in the HPI. ROS Other: All systems not noted in ROS Statement are negative. Past Medical History Past Medical History: Coronary Artery Disease (CAD), Cancer, Diabetes Mellitus, GERD/Reflux, Hyperlipidemia, Hypertension, Myocardial Infarction ([place]), Thyroid Disorder Additional Past Medical History / Comment(s): rls, hpv, cervical uterine ca(sx only), OBV 12/14-12/15/20 N/V/D Last Myocardial Infarction Date:: 04/04/2018 History of Any Multi-Drug Resistant Organisms: None Reported Past Surgical History: Bladder Surgery, Section, Heart Catheterization With Stent, Hernia Repair, Hysterectomy, Orthopedic Surgery Additional Past Surgical History / Comment(s): 04/04/18 heart cath with stent to distal lad . past hx heart cath w/ stents apr 2018 at [facility] .thry roidectomy, leep Procedure, , bladder supsension, rt knee sx, COLONOSCOPY 2015 Past Anesthesia/Blood Transfusion Reactions: No Reported Reaction Additional Past Anesthesia/Blood Transfusion Reaction / Comment(s): has never received blood. Date of Last Stent Placement:: 04/04/18 Past Psychological History: Anxiety Smoking Status: Current every day smoker Past Alcohol Use History: None Reported Past Drug Use History: None Reported - Past Family History Mother Family Medical History: Diabetes Mellitus, Hypertension Additional Family Medical History / Comment(s): diet controlled diabetic Father Family Medical History: Coronary Artery Disease (CAD), Myocardial Infarction ([place]) Additional Family Medical History / Comment(s): "at age 38 [address] bypass" then [place] age 48 [place] General Exam - General Exam Comments Initial Comments: GENERAL: Patient is well-developed and well-nourished. Patient is nontoxic and in no acute distress. HEAD: Atraumatic, normocephalic. EYES: Pupils equal round and reactive to light, extraocular movements intact, sclera a nicteric, conjunctiva are normal. Eyelids were unremarkable. ENT: Oropharynx clear without exudates. Moist mucous membranes. NECK: Normal range of motion, supple without lymphadenopathy or JVD. LUNGS: Unlabored respirations. Breath sounds clear to auscultation bilaterally and equal. No wheezes rales or rhonchi. HEART: Regular rate and rhythm without murmurs, rubs or gallops. ABDOMEN: Soft, tender to palpation of the right lower quadrant and some mild tenderness in the right upper quadrant, normoactive bowel sounds. No guarding, no rebound. No masses appreciated. : Deferred MUSCULOSKELETAL: Normal extremities with adequate strength and normal range of motion, no pitting or edema. No clubbing or cyanosis. NEUROLOGICAL: Patient is alert and oriented x 3. Symmetrical smile. Normal speech, normal gait. PSYCH: Normal mood, normal affect. SKIN: Warm, Dry, normal turgor, no rashes or lesions noted. Limitations: no limitations Course Vital Signs 04/17/21 04/17/21 04/18/21 20:24 23:11 00:05 Temperature 97.0 F L Pulse Rate 93 74 73 Respiratory 18 18 18 Rate Blood Pressure 187/77 183/96 198/102 O2 Sat by Pulse 99 96 Oximetry Medical Decision Making - Medical Decision Making Patient is a 60-year-old female with history of heart disease, diabetes, presenting for right-sided abdominal pain increasing over the past 3 days. She has had nausea and vomiting, no diarrhea, no fevers. History of diverticulitis, hysterectomy, bladder suspension and hernia repair. Labs show a slight white count 15.9 however patient states this is around her normal. Rest of labs are within normal limits. A urine shows positive nitrates, many bacteria. Urine culture is pending. CT of the abdomen shows sigmoid diverticulosis without an acute diverticulitis, normal appendix, no other acute findings. Patient given IV fluids and pain control, she is resting comfortably. I discussed these findings with her. I will give her 1 g Rocephin and continue on Keflex outpatient. She is stable for discharge. She is agreeable to this plan of care, return parameters were discussed with her and she verbalized understanding. Case discussed with Dr. High. - Lab Data Result diagrams: 04/17/21 20:52 04/17/21 20:52 Lab Results 04/17/21 04/17/21 04/17/21 Range/Units 20:52 20:52 20:54 WBC 15.9 H (3.8-10.6) k/uL RBC 6.00 H (3.80-5.40) m/uL Hgb 17.7 H (11.4-16.0) gm/dL Hct 51.2 H (34.0-46.0) % MCV 85.4 (80.0-100.0) fL MCH 29.6 (25.0-35.0) pg MCHC 34.6 (31.0-37.0) g/dL RDW 13.0 (11.5-15.5) % Plt Count 235 (150-450) k/uL MPV 7.0 Neutrophils % Not Reportable Neutrophils % (Manual) 57 % Lymphocytes % Not Reportable Lymphocytes % (Manual) 32 % Monocytes % Not Reportable Monocytes % (Manual) 9 % Eosinophils % Not Reportable Eosinophils % (Manual) 2 % Basophils % Not Reportable Neutrophils # Not Reportable Neutrophils # (Manual) 9.06 H (1.3-7.7) k/uL Lymphocytes # Not Reportable Lymphocytes # (Manual) 5.09 H (1.0-4.8) k/uL Monocytes # Not Reportable Monocytes # (Manual) 1.43 H (0-1.0) k/uL Eosinophils # Not Reportable Eosinophils # (Manual) 0.32 (0-0.7) k/uL Basophils # Not Reportable Nucleated RBCs 0 (0-0) /100 WBC Manual Slide Review Performed Sodium 133 L (137-145) mmol/L Potassium 3.9 (3.5-5.1) mmol/L Chloride 101 (98-107) mmol/L Carbon Dioxide 22 (22-30) mmol/L Anion Gap 10 mmol/L BUN 11 (7-17) mg/dL Creatinine 0.53 (0.52-1.04) mg/dL Est GFR (CKD-EPI)AfAm >90 (>60 ml/min/1.73 sqM) Est GFR (CKD-EPI)NonAf >90 (>60 ml/min/1.73 sqM) Glucose 211 H (74-99) mg/dL Calcium 10.6 H (8.4-10.2) mg/dL Total Bilirubin 0.7 (0.2-1.3) mg/dL AST 26 (14-36) U/L ALT 21 (4-34) U/L Alkaline Phosphatase 119 (38-126) U/L Troponin I <0.012 (0.000-0.034) ng/mL Total Protein 7.6 (6.3-8.2) g/dL Albumin 4.3 (3.5-5.0) g/dL Amylase 55 (30-110) U/L Lipase 51 (23-300) U/L Urine Color Urine Appearance (Clear) Urine pH (5.0-8.0) Ur Specific Rentz (1.001-1.035) Urine Protein (Negative) Urine Glucose (UA) (Negative) Urine Ketones (Negative) Urine Blood (Negative) Urine Nitrite (Negative) Urine Bilirubin (Negative) Urine Urobilinogen (<2.0) mg/dL Ur Leukocyte Esterase (Negative) Urine RBC (0-5) /hpf Urine WBC (0-5) /hpf Ur Squamous Epith Cells (0-4) /hpf Urine Bacteria (None) /hpf Urine Mucus (None) /hpf 04/17/21 Range/Units 21:11 WBC (3.8-10.6) k/uL RBC (3.80-5.40) m/uL Hgb (11.4-16.0) gm/dL Hct (34.0-46.0) % MCV (80.0-100.0) fL MCH (25.0-35.0) pg MCHC (31.0-37.0) g/dL RDW (11.5-15.5) % Plt Count (150-450) k/uL MPV Neutrophils % Neutrophils % (Manual) % Lymphocytes % Lymphocytes % (Manual) % Monocytes % Monocytes % (Manual) % Eosinophils % Eosinophils % (Manual) % Basophils % Neutrophils # Neutrophils # (Manual) (1.3-7.7) k/uL Lymphocytes # Lymphocytes # (Manual) (1.0-4.8) k/uL Monocytes # Monocytes # (Manual) (0-1.0) k/uL Eosinophils # Eosinophils # (Manual) (0-0.7) k/uL Basophils # Nucleated RBCs (0-0) /100 WBC Manual Slide Review Sodium (137-145) mmol/L Potassium (3.5-5.1) mmol/L Chloride (98-107) mmol/L Carbon Dioxide (22-30) mmol/L Anion Gap mmol/L BUN (7-17) mg/dL Creatinine (0.52-1.04) mg/dL Est GFR (CKD-EPI)AfAm (>60 ml/min/1.73 sqM) Est GFR (CKD-EPI)NonAf (>60 ml/min/1.73 sqM) Glucose (74-99) mg/dL Calcium (8.4-10.2) mg/dL Total Bilirubin (0.2-1.3) mg/dL AST (14-36) U/L ALT (4-34) U/L Alkaline Phosphatase (38-126) U/L Troponin I (0.000-0.034) ng/mL Total Protein (6.3-8.2) g/dL Albumin (3.5-5.0) g/dL Amylase (30-110) U/L Lipase (23-300) U/L Urine Color Yellow Urine Appearance Clear (Clear) Urine pH 6.0 (5.0-8.0) Ur Specific Rentz 1.018 (1.001-1.035) Urine Protein Negative (Negative) Urine Glucose (UA) 1+ H (Negative) Urine Ketones Negative (Negative) Urine Blood Negative (Negative) Urine Nitrite Positive H (Negative) Urine Bilirubin Negative (Negative) Urine Urobilinogen <2.0 (<2.0) mg/dL Ur Leukocyte Esterase Negative (Negative) Urine RBC 1 (0-5) /hpf Urine WBC 12 H (0-5) /hpf Ur Squamous Epith Cells <1 (0-4) /hpf Urine Bacteria Many H (None) /hpf Urine Mucus Few H (None) /hpf - EKG Data EKG Comments: Normal sinus rhythm, anteroseptal infarct, age undetermined, no signs of acute ST segment elevation. This is similar to her previous on 12/13/2020. Ventricular rate 75, NJ interval 146, QTC 416. Disposition Clinical Impression: UTI (urinary tract infection), Abdominal pain Disposition: HOME SELF-CARE Condition: Stable Instructions (If sedation given, give patient instructions): Urinary Tract Infection in Women (ED) Additional Instructions: Please return to the Emergency Department if symptoms worsen or any other concerns. Take antibiotic as prescribed. Finish entire course. May alternate between Tylenol and Motrin for discomfort, may take prescribed medications for more severe pain. Follow up with your primary care in 1-3 days. Prescriptions: Cephalexin [Keflex] 500 mg PO Q6HR 10 Days #40 cap Is patient prescribed a controlled substance at d/c from ED?: No Referrals: Marni Leon MD [Primary Care Provider] - 1-2 days Time of Disposition: 01:07
--- NOTE | 2021-04-18 00:35 | CT ---
EXAMINATION TYPE: CT abdomen pelvis w con DATE OF EXAM: 04/18/2021 COMPARISON: None HISTORY: RLQ pain CT DLP: 965.4 mGycm Automated exposure control for dose reduction was used. CONTRAST: Performed with IV Contrast, patient injected with 100ml mL of Isovue 300. Lung bases are clear of consolidation. There is no pleural effusion. Heart size is normal. There is m inimal subsegmental atelectasis at the lung bases. There is diffuse fatty infiltration of the liver. Bile ducts are not dilated. Gallbladder appears nor mal. Spleen stomach pancreas appear normal. There is no adrenal mass. Kidneys show satisfactory contrast opacification. There is no hydronephrosi s. Appendix is posterior and appears normal. Bladder distends smoothly. There is no inguinal hernia. There is no free fluid in the pelvis. There are numerous sigmoid diverticula. There is no diverticuli tis. There is no mesenteric edema. There is no ascites or free air. There is no bowel obstruction. There a re clips over the anterior right lower quadrant consistent with hernia surgery. No evidence of a eddie ia. The lumbar vertebra have normal alignment. Disc spaces are fairly normal. There is no compression fra cture. There is some spurring at L1 to. Posterior elements are intact. Bony pelvis is intact. Hip dominic nts are intact. IMPRESSION: Sigmoid diverticulosis without definite sign of diverticulitis. Normal appendix. I do not see a cause for right lower quadrant pain.
[2021-04-18] MEDS ORDERED: ACET/COD 300 MG/30 MG STARTER PACK 6 TAB BTL PO STA (01:05)
[2021-04-18] MEDS ORDERED: traMADol 50 MG STARTER PACK 3 TAB BTL PO STA (01:05)
[2021-04-18] MEDS ORDERED: cefTRIAXone IN SWFI 1,000 MG/10 ML SYRINGE IVP ONE (01:15)
[2021-04-18 01:49] VITALS: BP 187/91; PULSE 66; TEMP 97.8
== END 2021-04-18 01:49 | disposition home or self-care (01) ==
LOC: EC 20:19
DX: N39.0 Urinary tract infection, site not specified (principal); I11.9 Hypertensive heart disease without heart failure; I25.10 Atherosclerotic heart disease of native coronary artery without angina pectoris; E11.9 Type 2 diabetes mellitus without complications; K21.9 Gastro-esophageal reflux disease without esophagitis; E78.5 Hyperlipidemia, unspecified; I25.2 Old myocardial infarction; E07.9 Disorder of thyroid, unspecified; F41.9 Anxiety disorder, unspecified; F17.200 Nicotine dependence, unspecified, uncomplicated; Z79.84 Long term (current) use of oral hypoglycemic drugs; Z79.4 Long term (current) use of insulin; Z79.82 Long term (current) use of aspirin; Z90.710 Acquired absence of both cervix and uterus; Z79.899 Other long term (current) drug therapy; Z95.5 Presence of coronary angioplasty implant and graft; Z85.41 Personal history of malignant neoplasm of cervix uteri; Z79.02 Long term (current) use of antithrombotics/antiplatelets
CPT/HCPCS: 99284; 96374; 96375 ×2; 36415; 93005; 80053; 82150; 83690; 84484; 85025; 81001; 87086; 87077; 87186; 74018; 74177; J2270; J2405; J0696; Q9967

== ENCOUNTER 2022-04-02 16:22 | Inpatient (IN) | payer MEDICARE, OTHER ==
[2022-04-02] MEDS ORDERED: ONDANSETRON 4 MG/2 ML VIAL IVP STA (20:08)
[2022-04-02] MEDS ORDERED: SODIUM CHLORIDE 0.9% 500 ML 500 ML IV STA (20:08)
--- NOTE | 2022-04-02 20:12 | ED ---
General Adult HPI - General Chief complaint: Nausea/Vomiting/Diarrhea Stated complaint: Fever/Flu Time Seen by Provider: 04/02/22 19:48 Source: patient, RN notes reviewed Mode of arrival: EMS Limitations: no limitations - History of Present Illness Initial comments: 61-year-old female presents to the emergency department via EMS accompanied by her spouse for evaluation of generalized weakness. Patient's spouse states the patient has been complaining of feeling poorly for the past 2 days. Patient reports lack of appetite and generalized body aches. Complaints of intermittent nausea and frequent headache. Has had episodes of intermittent midsternal, nonradiating chest pain. No aggravating or alleviating factors. Has been taking her medications as prescribed. Has been unable to check her temperature at home but does feel warm to the touch. No dizziness, shortness of breath, abdominal pain, vomiting, diarrhea, dysuria, hematuria, or lower extremity edema. - Related Data Home Medications Medication Instructions Recorded Confirmed Atorvastatin [Lipitor] 80 mg PO HS 04/04/18 01/12/21 Metoprolol Tartrate [Lopressor] 25 mg PO BID 04/04/18 01/12/21 Nitroglycerin 0.1MG/Hr Patch 1 patch TRANSDERM DAILY 04/04/18 01/12/21 [Nitro-Dur 0.1MG/Hr Patch] Nitroglycerin Sl Tabs [Nitrostat] 0.4 mg SUBLINGUAL Q5M PRN 04/04/18 01/12/21 Venlafaxine HCl ER [Effexor XR] 75 mg PO DAILY 04/04/18 01/12/21 amLODIPine [Norvasc] 10 mg PO DAILY 04/04/18 01/12/21 Clopidogrel [Plavix] 75 mg PO DAILY 08/08/19 01/12/21 Levothyroxine Sodium [Synthroid] 175 mcg PO DAILY 08/08/19 01/12/21 metFORMIN HCL [Glucophage XR] 750 mg PO BID 08/08/19 01/12/21 Gabapentin [Neurontin] 300 mg PO QID 12/14/20 01/12/21 Insulin Glargine [Lantus Vial] 30 unit SQ HS 12/14/20 01/12/21 Previous Rx's Medication Instructions Recorded Aspirin 81 mg PO DAILY chew 04/07/18 Pantoprazole Sodium [Protonix] 40 mg PO BID #30 tab 12/15/20 Cephalexin [Keflex] 500 mg PO Q6HR 10 Days #40 cap 04/18/21 Allergies Allergy/AdvReac Type Severity Reaction Status Date / Time nickel Allergy Rash/Hives Verified 04/02/22 17:13 Review of Systems ROS Statement: Those systems with pertinent positive or pertinent negative responses have been documented in the HPI. ROS Other: All systems not noted in ROS Statement are negative. Past Medical History Past Medical History: Coronary Artery Disease (CAD), Cancer, Diabetes Mellitus, GERD/Reflux, Hyperlipidemia, Hypertension, Myocardial Infarction ([place]), Thyroid Disorder Additional Past Medical History / Comment(s): rls, hpv, cervical uterine ca(sx only), OBV 12/14-12/15/20 N/V/D Last Myocardial Infarction Date:: 04/04/2018 History of Any Multi-Drug Resistant Organisms: None Reported Past Surgical History: Bladder Surgery, Section, Heart Catheterization With Stent, Hernia Repair, Hysterectomy, Orthopedic Surgery Additional Past Surgical History / Comment(s): 04/04/18 heart cath with stent to distal lad . past hx heart cath w/ stents apr 2018 at [facility] .thryroidectomy, leep Procedure, , bladder supsension, rt knee sx, COLONOSCOPY 2015 Past Anesthesia/Blood Transfusion Reactions: No Reported Reaction Additional Past Anesthesia/Blood Transfusion Reaction / Comment(s): has never received blood. Date of Last Stent Placement:: 04/04/18 Past Psychological History: Anxiety Smoking Status: Current every day smoker Past Alcohol Use History: None Reported Past Drug Use History: None Reported - Past Family History Mother Family Medical History: Diabetes Mellitus, Hypertension Additional Family Medical History / Comment(s): diet controlled diabetic Father Family Medical History: Coronary Artery Disease (CAD), Myocardial Infarction ([place]) Additional Family Medical History / Comment(s): "at age 38 had [address] bypass" [place] age 48 [place] General Exam - General Exam Comments Initial Comments: This is an ill-appearing female with complaints of generalized body aches and feeling poorly. Limitations: no limitations General appearance: alert, in distress (Well-developed, well-nourished female in mild distress due to generalized discomfort. Initial temperature 99.4, pulse 103, respirations 18, blood pressure 144/74, pulse ox 96% on room air.) Eye exam: Present: normal appearance, PERRL, EOMI. Absent: scleral icterus, conjunctival injection, periorbital swelling ENT exam: Present: normal oropharynx, mucous membranes moist Respiratory exam: Present: normal lung sounds bilaterally. Absent: respiratory distress, wheezes, rales, rhonchi, stridor Cardiovascular Exam: Present: normal rhythm, tachycardia, normal heart sounds GI/Abdominal exam: Present: soft, normal bowel sounds. Absent: distended, tenderness, guarding, rebound, rigid Extremities exam: Present: normal inspection, full ROM, normal capillary refill. Absent: tenderness, pedal edema, joint swelling, calf tenderness Back exam: Absent: CVA tenderness (R), CVA tenderness (L) Neurological exam: Present: alert, oriented X3 Psychiatric exam: Present: flat affect Skin exam: Present: warm, dry, intact, normal color Course Vital Signs 04/02/22 04/02/22 04/02/22 17:10 20:08 22:51 Temperature 99.4 F 101.6 F H 100.5 F H Pulse Rate 103 H 98 Respiratory 18 20 Rate Blood Pressure 144/74 141/73 O2 Sat by Pulse 96 95 Oximetry 04/02/22 23:25 Temperature 98.7 F Pulse Rate 92 Respiratory 20 Rate Blood Pressure 127/62 O2 Sat by Pulse 97 Oximetry - Reevaluation(s) Reevaluation #1: 04/02/22 22:00 Upon reevaluation, patient continues to feel poorly. Discussed results from laboratory studies and imaging. Patient is agreeable to hospital admission for treatment of pneumonia. She will be given Tylenol for fever. Denies shortness of breath, difficulty breathing, cough, or congestion. 04/02/22 23:16 I spoke with MARISSA Lawrence, who agrees to accept this admission. Medical Decision Making - Medical Decision Making This is an ill-appearing 61-year-old female who presents to the emergency department for evaluation of a 2- day history of generalized weakness, body aches, and feeling poorly. Upon exam, patient is febrile, though not tachycardic nor tachypneic. Room air sat 95% or greater. Chest x-ray was obtained and shows right middle lobe pneumonia. Laboratory studies were reviewed showing significant leukocytosis and hyponatremia. Cepheid is negative. Patient was given IV fluids, Tylenol for fever, and pain medicine with some improvement. Zithromax and Rocephin were given in the ED. Results were discussed with patient and spouse; they are agreeable to hospital admission for further evaluation and treatment. I spoke with Caroline Mcarthur NP for [facility], who agrees to accept this patient. This patient's care was discussed with my attending, Dr. High. - Lab Data Result diagrams: 04/02/22 20:35 04/02/22 20:35 Lab Results 04/02/22 04/02/22 04/02/22 Range/Units 17:15 20:35 20:35 WBC 28.2 H (3.8-10.6) k/uL RBC 5.16 (3.80-5.40) m/uL Hgb 15.4 (11.4-16.0) gm/dL Hct 43.4 (34.0-46.0) % MCV 84.1 (80.0-100.0) fL MCH 29.9 (25.0-35.0) pg MCHC 35.5 (31.0-37.0) g/dL RDW 13.3 (11.5-15.5) % Plt Count 190 (150-450) k/uL MPV 7.6 Neutrophils % 84 % Lymphocytes % 6 % Monocytes % 7 % Eosinophils % 0 % Basophils % 1 % Neutrophils # 23.7 H (1.3-7.7) k/uL Lymphocytes # 1.6 (1.0-4.8) k/uL Monocytes # 1.9 H (0-1.0) k/uL Eosinophils # 0.1 (0-0.7) k/uL Basophils # 0.2 (0-0.2) k/uL PT 11.4 (9.0-12.0) sec INR 1.1 (<1.2) APTT 21.4 L (22.0-30.0) sec Sodium (137-145) mmol/L Potassium (3.5-5.1) mmol/L Chloride (98-107) mmol/L Carbon Dioxide (22-30) mmol/L Anion Gap mmol/L BUN (7-17) mg/dL Creatinine (0.52-1.04) mg/dL Est GFR (CKD-EPI)AfAm (>60 ml/min/1.73 sqM) Est GFR (CKD-EPI)NonAf (>60 ml/min/1.73 sqM) Glucose (74-99) mg/dL Plasma Lactic Acid Javier (0.7-2.0) mmol/L Calcium (8.4-10.2) mg/dL Magnesium (1.6-2.3) mg/dL Total Bilirubin (0.2-1.3) mg/dL AST (14-36) U/L ALT (4-34) U/L Alkaline Phosphatase (38-126) U/L Troponin I (0.000-0.034) ng/mL NT-Pro-B Natriuret Pep pg/mL Total Protein (6.3-8.2) g/dL Albumin (3.5-5.0) g/dL Influenza Type A (PCR) Not Detected (Not Detectd) Influenza Type B (PCR) Not Detected (Not Detectd) RSV (PCR) Not Detected (Not Detectd) SARS-CoV-2 (PCR) Not Detected (Not Detectd) 04/02/22 04/02/22 04/02/22 Range/Units 20:35 20:35 20:35 WBC (3.8-10.6) k/uL RBC (3.80-5.40) m/uL Hgb (11.4-16.0) gm/dL Hct (34.0-46.0) % MCV (80.0-100.0) fL MCH (25.0-35.0) pg MCHC (31.0-37.0) g/dL RDW (11.5-15.5) % Plt Count (150-450) k/uL MPV Neutrophils % % Lymphocytes % % Monocytes % % Eosinophils % % Basophils % % Neutrophils # (1.3-7.7) k/uL Lymphocytes # (1.0-4.8) k/uL Monocytes # (0-1.0) k/uL Eosinophils # (0-0.7) k/uL Basophils # (0-0.2) k/uL PT (9.0-12.0) sec INR (<1.2) APTT (22.0-30.0) sec Sodium 131 L (137-145) mmol/L Potassium 4.0 (3.5-5.1) mmol/L Chloride 97 L (98-107) mmol/L Carbon Dioxide 21 L (22-30) mmol/L Anion Gap 13 mmol/L BUN 13 (7-17) mg/dL Creatinine 0.53 (0.52-1.04) mg/dL Est GFR (CKD-EPI)AfAm >90 (>60 ml/min/1.73 sqM) Est GFR (CKD-EPI)NonAf >90 (>60 ml/min/1.73 sqM) Glucose 252 H (74-99) mg/dL Plasma Lactic Acid Javier 2.0 (0.7-2.0) mmol/L Calcium 8.4 (8.4-10.2) mg/dL Magnesium 1.7 (1.6-2.3) mg/dL Total Bilirubin 1.3 (0.2-1.3) mg/dL AST 20 (14-36) U/L ALT 18 (4-34) U/L Alkaline Phosphatase 93 (38-126) U/L Troponin I 0.023 (0.000-0.034) ng/mL NT-Pro-B Natriuret Pep pg/mL Total Protein 6.6 (6.3-8.2) g/dL Albumin 3.7 (3.5-5.0) g/dL Influenza Type A (PCR) (Not Detectd) Influenza Type B (PCR) (Not Detectd) RSV (PCR) (Not Detectd) SARS-CoV-2 (PCR) (Not Detectd) 04/02/22 Range/Units 20:35 WBC (3.8-10.6) k/uL RBC (3.80-5.40) m/uL Hgb (11.4-16.0) gm/dL Hct (34.0-46.0) % MCV (80.0-100.0) fL MCH (25.0-35.0) pg MCHC (31.0-37.0) g/dL RDW (11.5-15.5) % Plt Count (150-450) k/uL MPV Neutrophils % % Lymphocytes % % Monocytes % % Eosinophils % % Basophils % % Neutrophils # (1.3-7.7) k/uL Lymphocytes # (1.0-4.8) k/uL Monocytes # (0-1.0) k/uL Eosinophils # (0-0.7) k/uL Basophils # (0-0.2) k/uL PT (9.0-12.0) sec INR (<1.2) APTT (22.0-30.0) sec Sodium (137-145) mmol/L Potassium (3.5-5.1) mmol/L Chloride (98-107) mmol/L Carbon Dioxide (22-30) mmol/L Anion Gap mmol/L BUN (7-17) mg/dL Creatinine (0.52-1.04) mg/dL Est GFR (CKD-EPI)AfAm (>60 ml/min/1.73 sqM) Est GFR (CKD-EPI)NonAf (>60 ml/min/1.73 sqM) Glucose (74-99) mg/dL Plasma Lactic Acid Javier (0.7-2.0) mmol/L Calcium (8.4-10.2) mg/dL Magnesium (1.6-2.3) mg/dL Total Bilirubin (0.2-1.3) mg/dL AST (14-36) U/L ALT (4-34) U/L Alkaline Phosphatase (38-126) U/L Troponin I (0.000-0.034) ng/mL NT-Pro-B Natriuret Pep 705 pg/mL Total Protein (6.3-8.2) g/dL Albumin (3.5-5.0) g/dL Influenza Type A (PCR) (Not Detectd) Influenza Type B (PCR) (Not Detectd) RSV (PCR) (Not Detectd) SARS-CoV-2 (PCR) (Not Detectd) - Radiology Data Radiology results: report reviewed, image reviewed Two-view chest x-ray was obtained. Report was reviewed in its entirety. Impression per Dr. Casiano is there is moderate right middle lobe pneumonia which is new compared to old exam. Normal heart. Disposition Clinical Impression: Fever, Pneumonia, Generalized weakness, Hyponatremia Disposition: ADMITTED IP TO THIS HOSP Condition: Serious Is patient prescribed a controlled substance at d/c from ED?: No Decision Date: 04/02/22 Decision Time: 23:24
[2022-04-02 20:51] LABS: Basophils # (A) 0.2 k/uL (0-0.2); Basophils % (A) 1 %; Eosinophils # (A) 0.1 k/uL (0-0.7); Eosinophils % (A) 0 %; HCT 43.4 % (34.0-46.0); HGB 15.4 gm/dL (11.4-16.0); Lymphocytes # (A) 1.6 k/uL (1.0-4.8); Lymphocytes % (A) 6 %; MCH 29.9 pg (25.0-35.0); MCHC 35.5 g/dL (31.0-37.0); MCV 84.1 fL (80.0-100.0); Mean Platelet Volume 7.6; Monocytes # (A) 1.9 k/uL (0-1.0); Monocytes % (A) 7 %; Neutrophils # (A) 23.7 k/uL (1.3-7.7); Neutrophils % (A) 84 %; Platelet Count 190 k/uL (150-450); RBC 5.16 m/uL (3.80-5.40); RDW 13.3 % (11.5-15.5); WBC 28.2 k/uL (3.8-10.6)
--- NOTE | 2022-04-02 20:59 | XR ---
EXAMINATION TYPE: XR chest 2V DATE OF EXAM: 04/02/2022 COMPARISON: 12/13/2020 HISTORY: Weakness TECHNIQUE: 2 views FINDINGS: There is some airspace infiltrate in the right middle lobe. The left lung is fairly clear. Heart size is normal. No heart failure. There are no hilar masses. IMPRESSION: There is moderate right middle lobe pneumonia which is new compared to old exam. Normal h eart.
[2022-04-02 21:12] LABS: ALT 18 U/L (4-34); AST 20 U/L (14-36); African American GFR (CKD) >90 (>60 ml/min/1.73 sqM); Albumin 3.7 g/dL (3.5-5.0); Alkaline Phosphatase 93 U/L (38-126); Anion Gap 13 mmol/L; Blood Urea Nitrogen 13 mg/dL (7-17); Calcium 8.4 mg/dL (8.4-10.2); Carbon Dioxide 21 mmol/L (22-30); Chloride 97 mmol/L (98-107); Glucose 252 mg/dL (74-99); Magnesium 1.7 mg/dL (1.6-2.3); Non-African American GFR(CKD) >90 (>60 ml/min/1.73 sqM); Sodium 131 mmol/L (137-145); Total Bilirubin 1.3 mg/dL (0.2-1.3); Total Protein 6.6 g/dL (6.3-8.2)
[2022-04-02 21:15] LABS: INR 1.1 (<1.2); Prothrombin Time 11.4 sec (9.0-12.0)
[2022-04-02] MEDS ORDERED: AZITHROMYCIN 500 MG in SODIUM CHLORIDE 0.9% 250 ML IVPB STA (21:37)
[2022-04-02 21:39] LABS: Partial Thromboplastin Time 21.4 sec (22.0-30.0)
[2022-04-02] MEDS ORDERED: MORPHINE SULFATE 2 MG/ML SYRINGE IVP ONE (21:45)
[2022-04-02] MEDS ORDERED: ACETAMINOPHEN SUPPOSITORY 650 MG SUPP RECTAL STA (21:46)
[2022-04-02] MEDS ORDERED: ACETAMINOPHEN TAB 500 MG TAB PO STA (22:04)
[2022-04-02] MEDS ORDERED: SODIUM CHLORIDE 0.9% 1,000 ML IV STA (23:08)
[2022-04-02] MEDS ORDERED: ONDANSETRON 4 MG/2 ML VIAL IVP PRN (23:08)
[2022-04-02] MEDS ORDERED: NALOXONE 0.4 MG/ML 1 ML VIAL IV PRN (23:08)
[2022-04-02] MEDS ORDERED: HYDROmorphone 0.5 MG/0.5 ML SYRINGE IVP STA (23:08)
[2022-04-02] MEDS: SODIUM CHLORIDE 0.9% 1,000 ML IV SCH (23:24)
[2022-04-03 00:08] LABS: Glucose,Whole Blood 248 mg/dL (70-110)
[2022-04-03 06:07] LABS: Glucose,Whole Blood 205 mg/dL (70-110)
[2022-04-03] MEDS: HYDROmorphone 0.5 MG/0.5 ML SYRINGE IVP PRN (06:08)
[2022-04-03] MEDS: ACETAMINOPHEN TAB 325 MG TAB PO PRN ×3 (06:08→21:36)
[2022-04-03] MEDS ORDERED: DEXTROSE 50% SYRINGE 50 ML IVP PRN ×2 (06:59)
[2022-04-03 07:08] LABS: Appearance,Urine Cloudy (Clear); Bacteria,Urine Occasional /hpf; Bilirubin,Urine Negative (Negative); Blood,Urine Trace (Negative); Color,Urine Yellow; Glucose,Urine (UA) Trace (Negative); Ketones,Urine Negative (Negative); Leukocyte Esterase,Urine Small (Negative); Mucus,Urine Few /hpf; Nitrite,Urine Positive (Negative); PH, Urine 5.5 (5.0-8.0); Protein,Urine 1+ (Negative); RBC,Urine 1 /hpf (0-5); Specific Gravity,Urine 1.023 (1.001-1.035); Squamous Epithelial Cell,Urine 1 /hpf (0-4); Urobilinogen,Urine <2.0 mg/dL (<2.0); WBC,Urine 12 /hpf (0-5)
[2022-04-03] MEDS: INSULIN ASPART (NovoLOG) 100 UNIT/ML VIAL SQ SCH ×4 (07:40→21:37)
[2022-04-03] MEDS: FAMOTIDINE 20 MG TAB PO SCH ×2 (07:41→21:37)
[2022-04-03] MEDS: SODIUM CHLORIDE 0.9% 1,000 ML IV SCH ×3 (07:43→21:47)
[2022-04-03 08:15] LABS: Basophils # (A) 0.1 k/uL (0-0.2); Basophils % (A) 0 %; Eosinophils % (A) 0 %; HCT 39.9 % (34.0-46.0); HGB 13.6 gm/dL (11.4-16.0); Lymphocytes # (A) 1.4 k/uL (1.0-4.8); Lymphocytes % (A) 7 %; MCH 29.4 pg (25.0-35.0); MCHC 34.2 g/dL (31.0-37.0); MCV 86.2 fL (80.0-100.0); Mean Platelet Volume 7.3; Monocytes # (A) 1.8 k/uL (0-1.0); Monocytes % (A) 8 %; Neutrophils % (A) 83 %; Platelet Count 197 k/uL (150-450); RBC 4.63 m/uL (3.80-5.40); RDW 13.3 % (11.5-15.5); WBC 21.7 k/uL (3.8-10.6)
[2022-04-03 08:38] LABS: ALT 16 U/L (4-34); AST 22 U/L (14-36); African American GFR (CKD) >90 (>60 ml/min/1.73 sqM); Albumin 3.1 g/dL (3.5-5.0); Alkaline Phosphatase 85 U/L (38-126); Anion Gap 10 mmol/L; Blood Urea Nitrogen 12 mg/dL (7-17); Carbon Dioxide 21 mmol/L (22-30); Chloride 100 mmol/L (98-107); Glucose 203 mg/dL (74-99); Non-African American GFR(CKD) >90 (>60 ml/min/1.73 sqM); Potassium 3.7 mmol/L (3.5-5.1); Sodium 131 mmol/L (137-145); Total Bilirubin 0.8 mg/dL (0.2-1.3); Total Protein 5.7 g/dL (6.3-8.2)
[2022-04-03] MEDS: GABAPENTIN 300 MG CAP PO SCH ×3 (12:20→21:44)
[2022-04-03] MEDS: IBUPROFEN 600 MG TAB PO PRN (15:32)
[2022-04-03 16:33] LABS: Glucose,Whole Blood 159 mg/dL (70-110)
--- NOTE | 2022-04-03 17:02 | P.HPIM ---
History of Present Illness H&P Date: 04/03/22 Chief Complaint: Nausea/vomiting/diarrhea 61-year-old female presents to the emergency department via EMS accompanied by her spouse for evaluation of generalized weakness. Patient's spouse states the patient has been complaining of feeling poorly for the past 2 days. Patient reports lack of appetite and generalized body aches. Complaints of intermittent nausea and frequent headache. Has had episodes of intermittent midsternal, nonradiating chest pain. No aggravating or alleviating factors. Has been taking her medications as prescribed. Has been unable to check her temperature at home but does feel warm to the touch. No dizziness, shortness of breath, abdominal pain, vomiting, diarrhea, dysuria, hematuria, or lower extremity edema. Chest x-ray was obtained and shows right middle lobe pneumonia. Laboratory studies were reviewed showing significant leukocytosis with a white blood count of 28.2 and hyponatremia. COVID is negative. Patient was given IV fluids, Tylenol for fever, and pain medicine with some improvement. Zithromax and Rocephin were given in the ED. Results were discussed with patient and spouse; they are agreeable to hospital admission for further evaluation and treatment. Review of Systems REVIEW OF SYSTEMS: CONSTITUTIONAL: No fever, no malaise, no fatigue. HEENT: No recent visual problems or hearing problems. Denied any sore throat. CARDIOVASCULAR: No chest pain, orthopnea, PND, no palpitations, no syncope. PULMONARY: No shortness of breath, no cough, no hemoptysis. GASTROINTESTINAL: No diarrhea, no nausea, no vomiting, no abdominal pain. NEUROLOGICAL: No headaches, no weakness, no numbness. HEMATOLOGICAL: Denies any bleeding or petechiae. GENITOURINARY: Denies any burning micturition, frequency, or urgency. MUSCULOSKELETAL/RHEUMATOLOGICAL: Denies any joint pain, swelling, or any muscle pain. ENDOCRINE: Denies any polyuria or polydipsia. The rest of the 14-point review of systems is negative. Past Medical History Past Medical History: Coronary Artery Disease (CAD), Cancer, Diabetes Mellitus, GERD/Reflux, Hyperlipidemia, Hypertension, Myocardial Infarction ([place]), Thyroid Disorder Additional Past Medical History / Comment(s): rls, hpv, cervical uterine ca(sx only), OBV 12/14-12/15/20 N/V/D Last Myocardial Infarction Date:: 04/04/2018 History of Any Multi-Drug Resistant Organisms: None Reported Past Surgical History: Bladder Surgery, Section, Heart Catheterization With Stent, Hernia Repair, Hysterectomy, Orthopedic Surgery Additional Past Surgical History / Comment(s): 04/04/18 heart cath with stent to distal lad . past hx heart cath w/ stents apr 2018 at [facility] .thryroidectomy, leep Procedure, , bladder supsension, rt knee sx, COLONOSCOPY 2015 Past Anesthesia/Blood Transfusion Reactions: No Reported Reaction Additional Past Anesthesia/Blood Transfusion Reaction / Comment(s): has never received blood. Date of Last Stent Placement:: 04/04/18 Past Psychological History: Anxiety Smoking Status: Current every day smoker Past Alcohol Use History: None Reported Past Drug Use History: None Reported - Past Family History Mother Family Medical History: Diabetes Mellitus, Hypertension Additional Family Medical History / Comment(s): diet controlled diabetic Father Family Medical History: Coronary Artery Disease (CAD), Myocardial Infarction ([place]) Additional Family Medical History / Comment(s): "at age 38 [address] bypass" then at age 50 [place] Medications and Allergies Home Medications Medication Instructions Recorded Confirmed Type Atorvastatin [Lipitor] 80 mg PO HS 04/04/18 04/03/22 History Metoprolol Tartrate [Lopressor] 25 mg PO BID 04/04/18 04/03/22 History Nitroglycerin 0.1MG/Hr Patch 1 patch TRANSDERM DIRECTED 04/04/18 01/12/21 History [Nitro-Dur 0.1MG/Hr Patch] Nitroglycerin Sl Tabs [Nitrostat] 0.4 mg SUBLINGUAL Q5M PRN 04/04/18 04/03/22 History Venlafaxine HCl ER [Effexor XR] 75 mg PO DIRECTED 04/04/18 01/12/21 History amLODIPine [Norvasc] 10 mg PO DAILY 04/04/18 04/03/22 History Aspirin 81 mg PO DAILY chew 04/07/18 04/03/22 Rx Clopidogrel [Plavix] 75 mg PO DAILY 08/08/19 04/03/22 History Levothyroxine Sodium [Synthroid] 175 mcg PO DAILY 08/08/19 04/03/22 History metFORMIN HCL [Glucophage XR] 750 mg PO BID 08/08/19 04/03/22 History Gabapentin [Neurontin] 600 mg PO BID PRN 12/14/20 04/03/22 History Insulin Glargine [Lantus Vial] 30 unit SQ DIRECTED 12/14/20 01/12/21 History Pantoprazole Sodium [Protonix] 40 mg PO BID #30 tab 12/15/20 01/12/21 Rx Allergies Allergy/AdvReac Type Severity Reaction Status Date / Time nickel Allergy Rash/Hives Verified 04/03/22 14:12 Physical Exam Vitals: Vital Signs Temp Pulse Pulse Resp BP BP Pulse Ox 04/03/22 10:29 100.4 F H 04/03/22 08:04 99.7 F H 04/03/22 07:40 100.6 F H 98 17 146/76 92 L 04/03/22 00:05 97.9 F 86 18 108/65 92 L 04/02/22 23:25 98.7 F 92 20 127/62 97 04/02/22 22:51 100.5 F H 98 20 141/73 95 04/02/22 20:08 101.6 F H 04/02/22 17:10 99.4 F 103 H 18 144/74 96 Intake and Output 04/02/22 04/03/22 04/03/22 22:59 06:59 14:59 Intake Total 910 Balance 910 Intake: Intake, IV Titration 910 Amount Sodium Chloride 0.9% 1, 910 000 ml @ 130 mls/hr IV . Q7H42M [facility] Rx#:[id number] Other: # Voids 1 Weight 74.843 kg 74.843 kg General appearance: alert, in distress (Well-developed, well-nourished female in mild distress due to generalized discomfort. Initial temperature 99.4, pulse 103, respirations 18, blood pressure 144/74, pulse ox 96% on room air.) Eye exam: Present: normal appearance, PERRL, EOMI. Absent: scleral icterus, conjunctival injection, periorbital swelling ENT exam: Present: normal oropharynx, mucous membranes moist Respiratory exam: Present: normal lung sounds bilaterally. Absent: respiratory distress, wheezes, rales, rhonchi, stridor Cardiovascular Exam: Present: normal rhythm, tachycardia, normal heart sounds GI/Abdominal exam: Present: soft, normal bowel sounds. Absent: distended, tenderness, guarding, rebound, rigid Extremities exam: Present: normal inspection, full ROM, normal capillary refill. Absent: tenderness, pedal edema, joint swelling, calf tenderness Back exam: Absent: CVA tenderness (R), CVA tenderness (L) Neurological exam: Present: alert, oriented X3 Psychiatric exam: Present: flat affect Skin exam: Present: warm, dry, intact, normal color Results CBC & Chem 7: 04/03/22 07:45 04/03/22 07:45 Labs: Abnormal Lab Results - Last 24 Hours (Table) 04/02/22 04/02/22 04/02/22 Range/Units 20:35 20:35 20:35 WBC 28.2 H (3.8-10.6) k/uL Neutrophils # 23.7 H (1.3-7.7) k/uL Monocytes # 1.9 H (0-1.0) k/uL APTT 21.4 L (22.0-30.0) sec Sodium 131 L (137-145) mmol/L Chloride 97 L (98-107) mmol/L Carbon Dioxide 21 L (22-30) mmol/L Creatinine (0.52-1.04) mg/dL Glucose 252 H (74-99) mg/dL POC Glucose (mg/dL) (70-110) mg/dL Calcium (8.4-10.2) mg/dL Total Protein (6.3-8.2) g/dL Albumin (3.5-5.0) g/dL Urine Appearance (Clear) Urine Protein (Negative) Urine Glucose (UA) (Negative) Urine Blood (Negative) Urine Nitrite (Negative) Ur Leukocyte Esterase (Negative) Urine WBC (0-5) /hpf Urine Bacteria (None) /hpf Urine Mucus (None) /hpf 04/03/22 04/03/22 04/03/22 Range/Units 00:00 06:04 06:15 WBC (3.8-10.6) k/uL Neutrophils # (1.3-7.7) k/uL Monocytes # (0-1.0) k/uL APTT (22.0-30.0) sec Sodium (137-145) mmol/L Chloride (98-107) mmol/L Carbon Dioxide (22-30) mmol/L Creatinine (0.52-1.04) mg/dL Glucose (74-99) mg/dL POC Glucose (mg/dL) 248 H 205 H (70-110) mg/dL Calcium (8.4-10.2) mg/dL Total Protein (6.3-8.2) g/dL Albumin (3.5-5.0) g/dL Urine Appearance Cloudy H (Clear) Urine Protein 1+ H (Negative) Urine Glucose (UA) Trace H (Negative) Urine Blood Trace H (Negative) Urine Nitrite Positive H (Negative) Ur Leukocyte Esterase Small H (Negative) Urine WBC 12 H (0-5) /hpf Urine Bacteria Occasional H (None) /hpf Urine Mucus Few H (None) /hpf 04/03/22 04/03/22 Range/Units 07:45 07:45 WBC 21.7 H (3.8-10.6) k/uL Neutrophils # 18.0 H (1.3-7.7) k/uL Monocytes # 1.8 H (0-1.0) k/uL APTT (22.0-30.0) sec Sodium 131 L (137-145) mmol/L Chloride (98-107) mmol/L Carbon Dioxide 21 L (22-30) mmol/L Creatinine 0.50 L (0.52-1.04) mg/dL Glucose 203 H (74-99) mg/dL POC Glucose (mg/dL) (70-110) mg/dL Calcium 8.0 L (8.4-10.2) mg/dL Total Protein 5.7 L (6.3-8.2) g/dL Albumin 3.1 L (3.5-5.0) g/dL Urine Appearance (Clear) Urine Protein (Negative) Urine Glucose (UA) (Negative) Urine Blood (Negative) Urine Nitrite (Negative) Ur Leukocyte Esterase (Negative) Urine WBC (0-5) /hpf Urine Bacteria (None) /hpf Urine Mucus (None) /hpf Assessment and Plan Assessment: 1. Right lower lobe pneumonia - Patient has been placed on IV Rocephin and azithromycin; we will monitor CBC, CRP and pro-calcitonin; obtain sputum and blood cultures - Symptomatic treatment of pneumonia 2. Hyponatremia; slow IV fluid hydration with normal saline; monitor electrolytes and make further adjustments as needed 3. Marked leukocytosis/sepsis; likely related to pneumonia; we will continue to monitor CBC, CMP calcitonin; consult ID 4. Hyperglycemia/uncontrolled diabetes mellitus; we will monitor Accu-Cheks Before meals and at bedtime with insulin sliding scale 5. Hypertension; metoprolol 25 mg twice a day amlodipine 10 mg daily; 6. Hyperlipidemia; Lipitor 80 mg by mouth daily at bedtime 7. Hypothyroidism; levothyroxine 175 MCG daily 8. Coronary artery disease; continue with aspirin, beta blockers, statin and nitroglycerin
[2022-04-03] MEDS: PANTOPRAZOLE 40 MG TABLET PO SCH (17:16)
[2022-04-03 20:46] LABS: Glucose,Whole Blood 152 mg/dL (70-110)
[2022-04-03] MEDS: METOPROLOL TARTRATE 25 MG TAB PO SCH (21:36)
[2022-04-03] MEDS: metFORMIN 500 MG TAB PO SCH (21:36)
[2022-04-03] MEDS: ATORVASTATIN 80 MG TAB PO SCH (21:37)
[2022-04-03] MEDS: INSULIN DETEMIR (LEVEMIR) 100 UNIT/ML SYR SQ SCH (21:44)
--- NOTE | 2022-04-04 00:37 | P.CONS ---
History of Present Illness - Reason for Consult Consult date: 04/03/22 - History of Present Illness Patient is a 61-year-old female with a past medical history difficult for diabetes mellitus hypertension hyperlipidemia history of cervical cancer was brought into the ER for evaluation of generalized weakness body aches patient also have a cough moderate intensity with occasional sputum production Demazin hemoptysis patient did have some nausea but no vomiting no abdominal pain no diarrhea patient on presentation to the hospital have a fever of 101 Fahrenheit and the patient did have a fever of 100.2 this afternoon patient did have a white count of 28.2 with a left shift kidney function has been normal liver enzymes are normal urine mildly positive patient did have a negative COVID RSV and influenza PCR blood culture prevention currently pending patient did have a chest x-ray concerning for moderate right middle lobe pneumonia patient was given a dose of Rocephin azithromycin in the ER has been admitted to the hospital infectious disease was consulted for further management of antibiotic therapy Past Medical History Past Medical History: Coronary Artery Disease (CAD), Cancer, Diabetes Mellitus, GERD/Reflux, Hyperlipidemia, Hypertension, Myocardial Infarction ([place]), Thyroid Disorder Additional Past Medical History / Comment(s): rls, hpv, cervical uterine ca(sx only), OBV 12/14-12/15/20 N/V/D Last Myocardial Infarction Date:: 04/04/2018 History of Any Multi-Drug Resistant Organisms: None Reported Past Surgical History: Bladder Surgery, Section, Heart Catheterization With Stent, Hernia Repair, Hysterectomy, Orthopedic Surgery Additional Past Surgical History / Comment(s): 04/04/18 heart cath with stent to distal lad . past hx heart cath w/ stents apr 2018 at [facility] .thryroidectomy, leep Procedure, , bladder supsension, rt knee sx, COLONOSCOPY 2015 Past Anesthesia/Blood Transfusion Reactions: No Reported Reaction Additional Past Anesthesia/Blood Transfusion Reaction / Comm: has never received blood. Date of Last Stent Placement:: 04/04/18 Past Psychological History: Anxiety Smoking Status: Current every day smoker Past Alcohol Use History: None Reported Past Drug Use History: None Reported - Past Family History Mother Family Medical History: Diabetes Mellitus, Hypertension Additional Family Medical History / Comment(s): diet controlled diabetic Father Family Medical History: Coronary Artery Disease (CAD), Myocardial Infarction ([place]) Additional Family Medical History / Comment(s): "at age 38 [address] bypass" then at age 50 [place] Medications and Allergies Home Medications Medication Instructions Recorded Confirmed Type Atorvastatin [Lipitor] 80 mg PO HS 04/04/18 04/03/22 History Metoprolol Tartrate [Lopressor] 25 mg PO BID 04/04/18 04/03/22 History Nitroglycerin 0.1MG/Hr Patch 1 patch TRANSDERM DIRECTED 04/04/18 01/12/21 History [Nitro-Dur 0.1MG/Hr Patch] Nitroglycerin Sl Tabs [Nitrostat] 0.4 mg SUBLINGUAL Q5M PRN 04/04/18 04/03/22 History Venlafaxine HCl ER [Effexor XR] 75 mg PO DIRECTED 04/04/18 01/12/21 History amLODIPine [Norvasc] 10 mg PO DAILY 04/04/18 04/03/22 History Aspirin 81 mg PO DAILY chew 04/07/18 04/03/22 Rx Clopidogrel [Plavix] 75 mg PO DAILY 08/08/19 04/03/22 History Levothyroxine Sodium [Synthroid] 175 mcg PO DAILY 08/08/19 04/03/22 History metFORMIN HCL [Glucophage XR] 750 mg PO BID 08/08/19 04/03/22 History Gabapentin [Neurontin] 600 mg PO BID PRN 12/14/20 04/03/22 History Insulin Glargine [Lantus Vial] 30 unit SQ DIRECTED 12/14/20 01/12/21 History Pantoprazole Sodium [Protonix] 40 mg PO BID #30 tab 12/15/20 01/12/21 Rx Allergies Allergy/AdvReac Type Severity Reaction Status Date / Time nickel Allergy Rash/Hives Verified 04/03/22 14:12 Physical Exam Vitals: Vital Signs Temp Pulse Pulse Resp BP BP Pulse Ox 04/03/22 13:42 102.0 F H 96 20 155/73 94 L 04/03/22 12:24 99.5 F 04/03/22 10: 100.4 F H 04/03/22 08:04 99.7 F H 04/03/22 07:40 100.6 F H 98 17 146/76 92 L 04/03/22 00:05 97.9 F 86 18 108/65 92 L 04/02/22 23:25 98.7 F 92 20 127/62 97 04/02/22 22:51 100.5 F H 98 20 141/73 95 04/02/22 20:08 101.6 F H 04/02/22 17:10 99.4 F 103 H 18 144/74 96 Intake and Output 04/02/22 04/03/22 04/03/22 22:59 06:59 14:59 Intake Total 910 Balance 910 Intake: Intake, IV Titration 910 Amount Sodium Chloride 0.9% 1, 910 000 ml @ 130 mls/hr IV . Q7H42M [facility] Rx#:[id number] Other: # Voids 1 Weight 74.843 kg 74.843 kg Results CBC & Chem 7: 04/03/22 07:45 04/03/22 07:45 Labs: Abnormal Lab Results - Last 24 Hours (Table) 04/02/22 04/02/22 04/02/22 Range/Units 20:35 20:35 20:35 WBC 28.2 H (3.8-10.6) k/uL Neutrophils # 23.7 H (1.3-7.7) k/uL Monocytes # 1.9 H (0-1.0) k/uL APTT 21.4 L (22.0-30.0) sec Sodium 131 L (137-145) mmol/L Chloride 97 L (98-107) mmol/L Carbon Dioxide 21 L (22-30) mmol/L Creatinine (0.52-1.04) mg/dL Glucose 252 H (74-99) mg/dL POC Glucose (mg/dL) (70-110) mg/dL Calcium (8.4-10.2) mg/dL Total Protein (6.3-8.2) g/dL Albumin (3.5-5.0) g/dL Urine Appearance (Clear) Urine Protein (Negative) Urine Glucose (UA) (Negative) Urine Blood (Negative) Urine Nitrite (Negative) Ur Leukocyte Esterase (Negative) Urine WBC (0-5) /hpf Urine Bacteria (None) /hpf Urine Mucus (None) /hpf 04/03/22 04/03/22 04/03/22 Range/Units 00:00 06:04 06:15 WBC (3.8-10.6) k/uL Neutrophils # (1.3-7.7) k/uL Monocytes # (0-1.0) k/uL APTT (22.0-30.0) sec Sodium (137-145) mmol/L Chloride (98-107) mmol/L Carbon Dioxide (22-30) mmol/L Creatinine (0.52-1.04) mg/dL Glucose (74-99) mg/dL POC Glucose (mg/dL) 248 H 205 H (70-110) mg/dL Calcium (8.4-10.2) mg/dL Total Protein (6.3-8.2) g/dL Albumin (3.5-5.0) g/dL Urine Appearance Cloudy H (Clear) Urine Protein 1+ H (Negative) Urine Glucose (UA) Trace H (Negative) Urine Blood Trace H (Negative) Urine Nitrite Positive H (Negative) Ur Leukocyte Esterase Small H (Negative) Urine WBC 12 H (0-5) /hpf Urine Bacteria Occasional H (None) /hpf Urine Mucus Few H (None) /hpf 04/03/22 04/03/22 Range/Units 07:45 07:45 WBC 21.7 H (3.8-10.6) k/uL Neutrophils # 18.0 H (1.3-7.7) k/uL Monocytes # 1.8 H (0-1.0) k/uL APTT (22.0-30.0) sec Sodium 131 L (137-145) mmol/L Chloride (98-107) mmol/L Carbon Dioxide 21 L (22-30) mmol/L Creatinine 0.50 L (0.52-1.04) mg/dL Glucose 203 H (74-99) mg/dL POC Glucose (mg/dL) (70-110) mg/dL Calcium 8.0 L (8.4-10.2) mg/dL Total Protein 5.7 L (6.3-8.2) g/dL Albumin 3.1 L (3.5-5.0) g/dL Urine Appearance (Clear) Urine Protein (Negative) Urine Glucose (UA) (Negative) Urine Blood (Negative) Urine Nitrite (Negative) Ur Leukocyte Esterase (Negative) Urine WBC (0-5) /hpf Urine Bacteria (None) /hpf Urine Mucus (None) /hpf Assessment and Plan Plan: 1patient presented to hospital with sepsis in this patient had fever tachycardia elevated white count source likely right middle lobe pneumonia community-acquired. 2we will obtain a sputum for gram stain culture and sensitivity and check urine for Legionella antigen. 3Rocephin 2 g daily and Zithromax while waiting for the culture to finalize. We will follow on clinical condition and cultures to further adjust medication i f needed Thank you for this consultation will follow this patient along with you Time with Patient: Greater than 30
[2022-04-04] MEDS: HYDROmorphone 0.5 MG/0.5 ML SYRINGE IVP PRN (03:08)
[2022-04-04] MEDS: IBUPROFEN 600 MG TAB PO PRN ×2 (05:33→13:40)
[2022-04-04] MEDS: SODIUM CHLORIDE 0.9% 1,000 ML IV SCH ×3 (06:19→22:45)
[2022-04-04 06:26] LABS: Glucose,Whole Blood 92 mg/dL (70-110)
[2022-04-04 06:38] LABS: Glucose,Whole Blood 88 mg/dL (70-110)
[2022-04-04] MEDS: INSULIN ASPART (NovoLOG) 100 UNIT/ML VIAL SQ SCH ×4 (06:39→22:21)
[2022-04-04] MEDS: LEVOTHYROXINE 88 MCG TAB PO SCH (06:42)
[2022-04-04] MEDS: PANTOPRAZOLE 40 MG TABLET PO SCH ×2 (06:42→16:57)
[2022-04-04] MEDS: ACETAMINOPHEN TAB 325 MG TAB PO PRN ×3 (08:29→22:19)
[2022-04-04] MEDS: amLODIPine 10 MG TAB PO SCH (08:30)
[2022-04-04] MEDS: AZITHROMYCIN 250 MG TAB PO SCH (08:30)
[2022-04-04] MEDS: METOPROLOL TARTRATE 25 MG TAB PO SCH ×2 (08:31→22:20)
[2022-04-04] MEDS: CLOPIDOGREL 75 MG TAB PO SCH (08:31)
[2022-04-04] MEDS: FAMOTIDINE 20 MG TAB PO SCH ×2 (08:31→22:21)
[2022-04-04] MEDS: VENLAFAXINE HCL ER 75 MG CAP PO SCH (08:31)
[2022-04-04] MEDS: metFORMIN 500 MG TAB PO SCH ×2 (08:31→22:19)
[2022-04-04] MEDS: ASPIRIN 81 MG PO SCH (08:31)
[2022-04-04] MEDS: GABAPENTIN 300 MG CAP PO SCH ×4 (08:31→22:20)
[2022-04-04] MEDS: NITROGLYCERIN 0.1MG/HR PATCH TRANSDERM SCH (08:34)
[2022-04-04 09:18] LABS: HCT 38.2 % (37.2-46.3); HGB 12.7 g/dL (12.0-15.0); MCH 28.9 pg (27.0-32.0); MCHC 33.2 g/dL (32.0-37.0); Mean Platelet Volume 9.5 fL (9.5-12.2); NRBC Per 100 WBC 0 /100 WBCS (0.0-0.0); Platelet Count 184 X 10*3/uL (140-440); RBC 4.39 X 10*6/uL (4.10-5.20); RDW 13.6 % (11.5-14.5); WBC 17.55 X 10*3/uL (4.50-10.00)
[2022-04-04 09:55] LABS: Basophils # (A) 0.07 X 10*3/uL (0.00-0.10); Basophils % (A) 0.4 %; Eosinophils # (A) 0.14 X 10*3/uL (0.04-0.35); Eosinophils % (A) 0.8 %; Immature Grans, Automated 0.9 %; Lymphocytes # (A) 2.12 X 10*3/uL (0.90-5.00); Lymphocytes % (A) 12.1 %; Monocytes # (A) 1.96 X 10*3/uL (0.20-1.00); Monocytes % (A) 11.2 %; Neutrophils # (A) 13.11 X 10*3/uL (1.80-7.70); Neutrophils % (A) 74.6 %; RBC Morphology NORMAL
[2022-04-04 11:11] LABS: Glucose,Whole Blood 84 mg/dL (70-110)
[2022-04-04 11:12] LABS: African American GFR (CKD) 120.7 (60.0-200.0); BUN/Creat Ratio 18.16 Ratio (12.00-20.00); Blood Urea Nitrogen 8.8 mg/dL (9.0-27.0); Calcium 7.8 mg/dL (8.7-10.3); Carbon Dioxide 22.9 mmol/L (20.0-27.5); Non-African American GFR(CKD) 104.1 (60.0-200.0); Potassium 3.5 mmol/L (3.5-5.5)
[2022-04-04] MEDS: TAMSULOSIN 0.4 MG CAP.ER.24H PO SCH (14:47)
[2022-04-04 16:30] LABS: Glucose,Whole Blood 92 mg/dL (70-110)
--- NOTE | 2022-04-04 18:38 | P.PN ---
Subjective Progress Note Date: 04/04/22 Principal diagnosis: Right lower lobe pneumonia Hyponatremia Marked leukocytosis/sepsis Hyperglycemia/uncontrolled diabetes mellitus 61-year-old female presents to the emergency department via EMS accompanied by her spouse for evaluation of generalized weakness. Patient's spouse states the patient has been complaining of feeling poorly for the past 2 days. Patient reports lack of appetite and generalized body aches. Complaints of intermittent nausea and frequent headache. Has had episodes of intermittent midsternal, nonradiating chest pain. No aggravating or alleviating factors. Has been taking her medications as prescribed. Has been unable to check her temperature at home but does feel warm to the touch. No dizziness, shortness of breath, abdominal pain, vomiting, diarrhea, dysuria, hematuria, or lower extremity edema. Chest x-ray was obtained and shows right middle lobe pneumonia. Laboratory studies were reviewed showing significant leukocytosis with a white blood count of 28.2 and hyponatremia. COVID is negative. Patient was given IV fluids, Tylenol for fever, and pain medicine with some improvement. Zithromax and Rocephin were given in the ED. Results were discussed with patient and spouse; they are agreeable to hospital admission for further evaluation and treatment. Objective - Vital Signs Vital signs: Vital Signs Temp 98.3 F 04/04/22 10:52 Pulse 85 04/04/22 10:52 Resp 16 04/04/22 07:53 BP 119/63 04/04/22 10:52 Pulse Ox 95 04/04/22 10:52 FiO2 Intake & Output 04/03/22 04/04/22 04/04/22 18:59 06:59 18:59 Intake Total 1340 Output Total 800 Balance 1340 -800 Intake: Intake, IV Titration 1340 Amount Azithromycin 500 mg In 250 Sodium Chloride 0.9% 250 ml @ 250 mls/hr IV[facility] Rx#:[id number] Sodium Chloride 0.9% 1, 1040 000 ml @ 130 mls/hr IV . Q7H42M [facility] Rx#:[id number] cefTRIAXone 2 gm In 50 Sodium Chloride 0.9% 50 ml @ 100 mls/hr [facility] Rx#:[id number] Output: Urine 800 Straight 800 Other: Voiding Method Bedpan - Exam PHYSICAL EXAMINATION: GENERAL: The patient is alert and oriented x3, not in any acute distress. Well developed, well nourished. HEENT: Pupils are round and equally reacting to light. EOMI. No scleral icterus. No conjunctival pallor. Normocephalic, atraumatic. No pharyngeal erythema. No thyromegaly. CARDIOVASCULAR: S1 and S2 present. No murmurs, rubs, or gallops. PULMONARY: Chest is clear to auscultation, no wheezing or crackles. ABDOMEN: Soft, nontender, nondistended, normoactive bowel sounds. No palpable organomegaly. MUSCULOSKELETAL: No joint swelling or deformity. EXTREMITIES: No cyanosis, clubbing, or pedal edema. NEUROLOGICAL: Gross neurological examination did not reveal any focal deficits. SKIN: No rashes. - Labs CBC & Chem 7: 04/04/22 04:23 04/04/22 04:23 Labs: Abnormal Lab Results - Last 24 Hours (Table) 04/03/22 04/03/22 04/03/22 Range/Units 07:45 16:31 20:45 WBC (4.50-10.00) X 10*3/uL Immature Gran # (0.00-0.04) X 10*3/uL Neutrophils # (1.80-7.70) X 10*3/uL Monocytes # (0.20-1.00) X 10*3/uL Anion Gap (10.00-18.00) mmol/L BUN (9.0-27.0) mg/dL Creatinine (0.6-1.5) mg/dL POC Glucose (mg/dL) 159 H 152 H (70-110) mg/dL Hemoglobin A1c 8.7 H (0.0-6.0) % Calcium (8.7-10.3) mg/dL Procalcitonin (0.02-0.09) ng/mL 04/04/22 04/04/22 04/04/22 Range/Units 04:23 04:23 04:23 WBC 17.55 H (4.50-10.00) X 10*3/uL Immature Gran # 0.15 H (0.00-0.04) X 10*3/uL Neutrophils # 13.11 H (1.80-7.70) X 10*3/uL Monocytes # 1.96 H (0.20-1.00) X 10*3/uL Anion Gap 9.00 L (10.00-18.00) mmol/L BUN 8.8 L (9.0-27.0) mg/dL Creatinine 0.5 L (0.6-1.5) mg/dL POC Glucose (mg/dL) (70-110) mg/dL Hemoglobin A1c (0.0-6.0) % Calcium 7.8 L (8.7-10.3) mg/dL Procalcitonin 0.60 H (0.02-0.09) ng/mL Microbiology - Last 24 Hours (Table) 04/02/22 20:15 Blood Culture - Preliminary Blood No Growth after 24 hours 04/02/22 20:34 Blood Culture - Preliminary Blood No Growth after 24 hours 04/03/22 06:15 Urine Culture - Preliminary Urine,Voided Assessment and Plan Assessment: 1. Right lower lobe pneumonia - Patient has been placed on IV Rocephin and azithromycin; we will monitor CBC, CRP and pro-calcitonin; obtain sputum and blood cultures - Symptomatic treatment of pneumonia 2. Hyponatremia; slow IV fluid hydration with normal saline; monitor electrolytes and make further adjustments as needed 3. Marked leukocytosis/sepsis; likely related to pneumonia; we will continue to monitor CBC, CMP calcitonin; consult ID 4. Hyperglycemia/uncontrolled diabetes mellitus; we will monitor Accu-Cheks Before meals and at bedtime with insulin sliding scale 5. Hypertension; metoprolol 25 mg twice a day amlodipine 10 mg daily; 6. Hyperlipidemia; Lipitor 80 mg by mouth daily at bedtime 7. Hypothyroidism; levothyroxine 175 MCG daily 8. Coronary artery disease; continue with aspirin, beta blockers, statin and nitroglycerin
--- NOTE | 2022-04-04 20:58 | P.GSCN ---
History of Present Illness Consult date: 04/04/22 Reason for Consult: Urinary retention Requesting physician: Kaylen George History of present illness: The patient is a 61-year-old white female admitted with a 2 day history of nonspecific symptoms such as generalized weakness, nausea, diminished appetite, and headache. She has a fairly unremarkable urologic history. She underwent a MADISON in 1995, and subsequently a "bladder suspension" in 1999. She has been treated for sporadic UTIs, most recently in November 2021. She denies any prior history of urolithiasis. For the past year, she has experienced urinary hesitancy and straining. She denies dysuria and hematuria. She reports nocturia 1. While hospitalized today, she has been found to be in urinary retention. A Vegas catheter was placed, with return of 800 mL of urine. Review of Systems - Constitutional Reports poor appetite, Reports weakness - Respiratory Denies dyspnea - Gastrointestinal Reports nausea, Denies abdominal pain - Genitourinary Genitourinary: Denies dysuria, Denies hematuria Past Medical History Past Medical History: Coronary Artery Disease (CAD), Cancer, Diabetes Mellitus, GERD/Reflux, Hyperlipidemia, Hypertension, Myocardial Infarction ([place]), Thyroid Disorder Additional Past Medical History / Comment(s): rls, hpv, cervical uterine ca(sx only), OBV 12/14-12/15/20 N/V/D Last Myocardial Infarction Date:: 04/04/2018 History of Any Multi-Drug Resistant Organisms: None Reported Past Surgical History: Bladder Surgery, Section, Heart Catheterization With Stent, Hernia Repair, Hysterectomy, Orthopedic Surgery Additional Past Surgical History / Comment(s): 04/04/18 heart cath with stent to distal lad . past hx heart cath w/ stents apr 2018 at formerly [facility] . thryroidectomy, leep Procedure, , bladder supsension, rt knee sx, COLONOSCOPY 2015 Past Anesthesia/Blood Transfusion Reactions: No Reported Reaction Additional Past Anesthesia/Blood Transfusion Reaction / Comm: has never received blood. Date of Last Stent Placement:: 04/04/18 Past Psychological History: Anxiety Smoking Status: Current every day smoker Past Alcohol Use History: None Reported Past Drug Use History: None Reported - Past Family History Mother Family Medical History: Diabetes Mellitus, Hypertension Additional Family Medical History / Comment(s): diet controlled diabetic Father Family Medical History: Coronary Artery Disease (CAD), Myocardial Infarction ([place]) Additional Family Medical History / Comment(s): "at age 38 [address] bypass" then at age 48 from [place] Medications and Allergies Home Medications Medication Instructions Recorded Confirmed Type Atorvastatin [Lipitor] 80 mg PO HS 04/04/18 04/03/22 History Metoprolol Tartrate [Lopressor] 25 mg PO BID 04/04/18 04/03/22 History Nitroglycerin 0.1MG/Hr Patch 1 patch TRANSDERM DIRECTED 04/04/18 01/12/21 History [Nitro-Dur 0.1MG/Hr Patch] Nitroglycerin Sl Tabs [Nitrostat] 0.4 mg SUBLINGUAL Q5M PRN 04/04/18 04/03/22 History Venlafaxine HCl ER [Effexor XR] 75 mg PO DIRECTED 04/04/18 01/12/21 History amLODIPine [Norvasc] 10 mg PO DAILY 04/04/18 04/03/22 History Aspirin 81 mg PO DAILY chew 04/07/18 04/03/22 Rx Clopidogrel [Plavix] 75 mg PO DAILY 08/08/19 04/03/22 History Levothyroxine Sodium [Synthroid] 175 mcg PO DAILY 08/08/19 04/03/22 History metFORMIN HCL [Glucophage XR] 750 mg PO BID 08/08/19 04/03/22 History Gabapentin [Neurontin] 600 mg PO BID PRN 12/14/20 04/03/22 History Insulin Glargine [Lantus Vial] 30 unit SQ DIRECTED 12/14/20 01/12/21 History Pantoprazole Sodium [Protonix] 40 mg PO BID #30 tab 12/15/20 01/12/21 Rx Allergies Allergy/AdvReac Type Severity Reaction Status Date / Time nickel Allergy Rash/Hives Verified 04/03/22 14:12 Surgical - Exam Vital Signs Temp Pulse Resp BP Pulse Ox 99.4 F 103 H 18 144/74 96 04/02/22 17:10 04/02/22 17:10 04/02/22 17:10 04/02/22 17:10 04/02/22 17:10 - General well developed, well nourished, no distress - Respiratory normal respiratory effort - Abdomen Abdomen: soft, non tender, no guarding, no rigid, no rebound - Psychiatric oriented to time, oriented to person, oriented to place, speech is normal, memory intact Results - Labs 04/04/22 04:23 04/04/22 04:23 Abnormal Lab Results - Last 24 Hours (Table) 04/03/22 04/04/22 04/04/22 Range/Units 20:45 04:23 04:23 WBC 17.55 H (4.50-10.00) X 10*3/uL Immature Gran # 0.15 H (0.00-0.04) X 10*3/uL Neutrophils # 13.11 H (1.80-7.70) X 10*3/uL Monocytes # 1.96 H (0.20-1.00) X 10*3/uL Anion Gap (10.00-18.00) mmol/L BUN (9.0-27.0) mg/dL Creatinine (0.6-1.5) mg/dL POC Glucose (mg/dL) 152 H (70-110) mg/dL Calcium (8.7-10.3) mg/dL Procalcitonin 0.60 H (0.02-0.09) ng/mL 04/04/22 Range/Units 04:23 WBC (4.50-10.00) X 10*3/uL Immature Gran # (0.00-0.04) X 10*3/uL Neutrophils # (1.80-7.70) X 10*3/uL Monocytes # (0.20-1.00) X 10*3/uL Anion Gap 9.00 L (10.00-18.00) mmol/L BUN 8.8 L (9.0-27.0) mg/dL Creatinine 0.5 L (0.6-1.5) mg/dL POC Glucose (mg/dL) (70-110) mg/dL Calcium 7.8 L (8.7-10.3) mg/dL Procalcitonin (0.02-0.09) ng/mL Microbiology - Last 24 Hours (Table) 04/02/22 20:15 Blood Culture - Preliminary Blood No Growth after 24 hours 04/02/22 20:34 Blood Culture - Preliminary Blood No Growth after 24 hours 04/03/22 06:15 Urine Culture - Preliminary Urine,Voided Diabetes panel 04/04/22 Range/Units 04:23 Sodium 135 (135-145) mmol/L Potassium 3.5 (3.5-5.5) mmol/L Chloride 103 (96-109) mmol/L Carbon Dioxide 22.9 (20.0-27.5) mmol/L BUN 8.8 L (9.0-27.0) mg/dL Creatinine 0.5 L (0.6-1.5) mg/dL Glucose 89 (70-110) mg/dL Calcium 7.8 L (8.7-10.3) mg/dL Calcium panel 04/04/22 Range/Units 04:23 Calcium 7.8 L (8.7-10.3) mg/dL Pituitary panel 04/04/22 Range/Units 04:23 Sodium 135 (135-145) mmol/L Potassium 3.5 (3.5-5.5) mmol/L Chloride 103 (96-109) mmol/L Carbon Dioxide 22.9 (20.0-27.5) mmol/L BUN 8.8 L (9.0-27.0) mg/dL Creatinine 0.5 L (0.6-1.5) mg/dL Glucose 89 (70-110) mg/dL Calcium 7.8 L (8.7-10.3) mg/dL Adrenal panel 04/04/22 Range/Units 04:23 Sodium 135 (135-145) mmol/L Potassium 3.5 (3.5-5.5) mmol/L Chloride 103 (96-109) mmol/L Carbon Dioxide 22.9 (20.0-27.5) mmol/L BUN 8.8 L (9.0-27.0) mg/dL Creatinine 0.5 L (0.6-1.5) mg/dL Glucose 89 (70-110) mg/dL Calcium 7.8 L (8.7-10.3) mg/dL Assessment and Plan (1) UTI (urinary tract infection) Current Visit: Yes Status: Acute Code(s): N39.0 - URINARY TRACT INFECTION, SITE NOT SPECIFIED SNOMED Code(s): 57438294 (2) Urinary retention Current Visit: Yes Status: Acute Code(s): R33.9 - RETENTION OF URINE, UNSPECIFIED SNOMED Code(s): 586439498 Plan: As stated, a Vegas catheter was placed for urinary retention. Urinalysis is consistent with a UTI. A urine culture is pending. In the meantime, she is being treated with Rocephin. It would be reasonable to remove the Vegas catheter in several days for a voiding trial. If she is discharged home prior to this, this can be done as an outpatient. Time with Patient: Greater than 30
[2022-04-04 21:08] LABS: Glucose,Whole Blood 81 mg/dL (70-110)
[2022-04-04] MEDS: ATORVASTATIN 80 MG TAB PO SCH (22:20)
[2022-04-04] MEDS: INSULIN DETEMIR (LEVEMIR) 100 UNIT/ML SYR SQ SCH (22:21)
[2022-04-05 06:32] LABS: Glucose,Whole Blood 61 mg/dL (70-110)
[2022-04-05] MEDS: SODIUM CHLORIDE 0.9% 1,000 ML IV SCH ×3 (06:41→21:55)
[2022-04-05] MEDS: INSULIN ASPART (NovoLOG) 100 UNIT/ML VIAL SQ SCH ×4 (06:41→21:47)
[2022-04-05] MEDS: PANTOPRAZOLE 40 MG TABLET PO SCH ×2 (06:44→17:31)
[2022-04-05] MEDS: LEVOTHYROXINE 88 MCG TAB PO SCH (06:44)
[2022-04-05 06:50] LABS: Glucose,Whole Blood 73 mg/dL (70-110)
[2022-04-05] MEDS: ACETAMINOPHEN TAB 325 MG TAB PO PRN (08:13)
[2022-04-05] MEDS: TAMSULOSIN 0.4 MG CAP.ER.24H PO SCH (08:14)
[2022-04-05] MEDS: VENLAFAXINE HCL ER 75 MG CAP PO SCH (08:14)
[2022-04-05] MEDS: CLOPIDOGREL 75 MG TAB PO SCH (08:14)
[2022-04-05] MEDS: FAMOTIDINE 20 MG TAB PO SCH ×2 (08:14→21:56)
[2022-04-05] MEDS: METOPROLOL TARTRATE 25 MG TAB PO SCH ×2 (08:14→21:56)
[2022-04-05] MEDS: AZITHROMYCIN 250 MG TAB PO SCH (08:14)
[2022-04-05] MEDS: metFORMIN 500 MG TAB PO SCH ×2 (08:15→21:56)
[2022-04-05] MEDS: ASPIRIN 81 MG PO SCH (08:15)
[2022-04-05] MEDS: amLODIPine 10 MG TAB PO SCH (08:15)
[2022-04-05] MEDS: IBUPROFEN 600 MG TAB PO PRN ×2 (08:15→21:56)
[2022-04-05] MEDS: GABAPENTIN 300 MG CAP PO SCH ×4 (08:15→21:56)
[2022-04-05 08:58] LABS: Glucose,Whole Blood 192 mg/dL (70-110)
[2022-04-05 09:36] LABS: African American GFR (CKD) 128.5 (60.0-200.0); Anion Gap 12.6 mmol/L (10.00-18.00); BUN/Creat Ratio 16.75 Ratio (12.00-20.00); Blood Urea Nitrogen 6.7 mg/dL (9.0-27.0); Calcium 8.1 mg/dL (8.7-10.3); Carbon Dioxide 22.4 mmol/L (20.0-27.5); Non-African American GFR(CKD) 110.8 (60.0-200.0)
[2022-04-05] MEDS: NITROGLYCERIN 0.1MG/HR PATCH TRANSDERM SCH (09:48)
[2022-04-05] MEDS: BUTALB/APAP/CAFF 50-325-40MG TAB PO PRN ×2 (09:48→19:55)
[2022-04-05 10:18] LABS: Basophils # (A) 0.06 X 10*3/uL (0.00-0.10); Basophils % (A) 0.3 %; Eosinophils # (A) 0.08 X 10*3/uL (0.04-0.35); Eosinophils % (A) 0.4 %; HCT 41.4 % (37.2-46.3); HGB 13.7 g/dL (12.0-15.0); Immature Grans, Automated 0.8 %; Lymphocytes # (A) 1.89 X 10*3/uL (0.90-5.00); Lymphocytes % (A) 9.7 %; MCH 28.3 pg (27.0-32.0); MCHC 33.1 g/dL (32.0-37.0); MCV 85.5 fL (80.0-97.0); Mean Platelet Volume 9.9 fL (9.5-12.2); Monocytes # (A) 1.74 X 10*3/uL (0.20-1.00); Monocytes % (A) 8.9 %; NRBC Per 100 WBC 0 /100 WBCS (0.0-0.0); Neutrophils # (A) 15.62 X 10*3/uL (1.80-7.70); Neutrophils % (A) 79.9 %; Platelet Count 206 X 10*3/uL (140-440); RBC 4.84 X 10*6/uL (4.10-5.20); RDW 13.6 % (11.5-14.5); WBC 19.54 X 10*3/uL (4.50-10.00)
[2022-04-05 11:04] LABS: Glucose,Whole Blood 118 mg/dL (70-110)
[2022-04-05] MEDS ORDERED: Potassium Replacement Protocol 1 EACH MISC MISCELLANE PRN (13:33)
[2022-04-05 16:40] LABS: Glucose,Whole Blood 66 mg/dL (70-110)
[2022-04-05 17:01] LABS: Glucose,Whole Blood 71 mg/dL (70-110)
[2022-04-05] MEDS ORDERED: INSULIN DETEMIR (LEVEMIR) 100 UNIT/ML SYR SQ SCH ×2 (21:00→21:04)
--- NOTE | 2022-04-05 21:26 | P.PN ---
Subjective 61-year-old female presents to the emergency department via EMS accompanied by her spouse for evaluation of generalized weakness. Patient's spouse states the patient has been complaining of feeling poorly for the past 2 days. Patient reports lack of appetite and generalized body aches. Complaints of intermittent nausea and frequent headache. Has had episodes of intermittent midsternal, nonradiating chest pain. No aggravating or alleviating factors. Has been taking her medications as prescribed. Has been unable to check her temperature at home but does feel warm to the touch. No dizziness, shortness of breath, abdominal pain, vomiting, diarrhea, dysuria, hematuria, or lower extremity edema. Chest x-ray was obtained and shows right middle lobe pneumonia. Laboratory studies were reviewed showing significant leukocytosis with a white blood count of 28.2 and hyponatremia. COVID is negative. Patient was given IV fluids, Tylenol for fever, and pain medicine with some improvement. Zithromax and Rocephin were given in the ED. Results were discussed with patient and spouse; they are agreeable to hospital admission for further evaluation and treatment. 04/05/2022 pt breathing is stable at rest she is saturating 95 % on ra, she is still on antibiotics as per ID team of ceftriaxone and zithromax, also she is s/p payne catheter and flomax for urinary retension and urologsit recommened outpatient follow up- this morning pt is complained from sever headache , 9/10 that is resolved with fiorocet, no neurological deficit and exam non focal with strenght 5/5 and senstation is intact she is hypoglycemic this mornign and through the day around 60-70, so lowered her levemir ( 30 u down to 15) and then helo it tonight lower iv fluid to 100 ml per hr Objective - Vital Signs Vital signs: Vital Signs Temp 97.8 F 04/05/22 07:48 Pulse 83 04/05/22 07:48 Resp 18 04/05/22 07:48 BP 132/68 04/05/22 07:48 Pulse Ox 96 04/05/22 07:48 FiO2 Intake & Output 04/04/22 04/05/22 04/05/22 18:59 06:59 18:59 Intake Total 1560 1560 Output Total 1120 2700 Balance 440 -1140 Intake: IV 1560 1560 Sodium Chloride 0.9% 1, 1560 1560 000 ml @ 130 mls/hr IV . Q7H42M [facility] Rx#:[id number] Output: Urine 1120 2700 Straight 800 Uretheral (Payne) 320 Other: Voiding Method Bedpan Indwelling Catheter - Exam GENERAL: The patient is alert and oriented x3, not in any acute distress. Well developed, well nourished. HEENT: Pupils are round and equally reacting to light. EOMI. No scleral icterus. No conjunctival pallor. Normocephalic, atraumatic. No pharyngeal erythema. No thyromegaly. CARDIOVASCULAR: S1 and S2 present. No murmurs, rubs, or gallops. PULMONARY: Chest is clear to auscultation, no wheezing or crackles. ABDOMEN: Soft, nontender, nondistended, normoactive bowel sounds. No palpable organomegaly. MUSCULOSKELETAL: No joint swelling or deformity. EXTREMITIES: No cyanosis, clubbing, or pedal edema. NEUROLOGICAL: Gross neurological examination did not reveal any focal deficits. SKIN: No rashes. no petechiae. - Labs CBC & Chem 7: 04/05/22 03:59 04/05/22 03:59 Labs: Abnormal Lab Results - Last 24 Hours (Table) 04/03/22 04/04/22 04/04/22 Range/Units 11:15 04:23 04:23 WBC (4.50-10.00) X 10*3/uL Immature Gran # (0.00-0.04) X 10*3/uL Neutrophils # (1.80-7.70) X 10*3/uL Monocytes # (0.20-1.00) X 10*3/uL Potassium (3.5-5.5) mmol/L Anion Gap 9.00 L (10.00-18.00) mmol/L BUN 8.8 L (9.0-27.0) mg/dL Creatinine 0.5 L (0.6-1.5) mg/dL Glucose (70-110) mg/dL POC Glucose (mg/dL) 192 H (70-110) mg/dL Calcium 7.8 L (8.7-10.3) mg/dL Procalcitonin 0.60 H (0.02-0.09) ng/mL 04/05/22 04/05/22 04/05/22 Range/Units 03:59 03:59 06:29 WBC 19.54 H (4.50-10.00) X 10*3/uL Immature Gran # 0.15 H (0.00-0.04) X 10*3/uL Neutrophils # 15.62 H (1.80-7.70) X 10*3/uL Monocytes # 1.74 H (0.20-1.00) X 10*3/uL Potassium 3.0 L (3.5-5.5) mmol/L Anion Gap (10.00-18.00) mmol/L BUN 6.7 L (9.0-27.0) mg/dL Creatinine 0.4 L (0.6-1.5) mg/dL Glucose 57 L (70-110) mg/dL POC Glucose (mg/dL) 61 L (70-110) mg/dL Calcium 8.1 L (8.7-10.3) mg/dL Procalcitonin (0.02-0.09) ng/mL Microbiology - Last 24 Hours (Table) 04/03/22 06:15 Urine Culture - Final Urine,Voided 04/02/22 20:15 Blood Culture - Preliminary Blood No Growth after 48 hours 04/02/22 20:34 Blood Culture - Preliminary Blood No Growth after 48 hours Assessment and Plan Assessment: 1. Right lower lobe pneumonia - Patient has been placed on IV Rocephin and azithromycin; we will monitor CBC, CRP and pro-calcitonin; obtain sputum and blood cultures - Symptomatic treatment of pneumonia 2. Hyponatremia; resolved 3. sever escobar, improved with fiorocet prn 4. diabetes mellitus with hypoglycemia; we will monitor Accu-Cheks Before meals and at bedtime with insulin sliding scale 5. Hypertension; metoprolol 25 mg twice a day amlodipine 10 mg daily; 6. Hyperlipidemia; Lipitor 80 mg by mouth daily at bedtime 7. Hypothyroidism; levothyroxine 175 MCG daily 8. Coronary artery disease; continue with aspirin, beta blockers, statin and nitroglycerin
[2022-04-05 21:47] LABS: Glucose,Whole Blood 153 mg/dL (70-110)
[2022-04-05] MEDS: ATORVASTATIN 80 MG TAB PO SCH (21:55)
[2022-04-06 06:22] LABS: Glucose,Whole Blood 186 mg/dL (70-110)
[2022-04-06] MEDS: LEVOTHYROXINE 88 MCG TAB PO SCH (06:26)
[2022-04-06] MEDS: INSULIN ASPART (NovoLOG) 100 UNIT/ML VIAL SQ SCH ×4 (06:26→21:29)
[2022-04-06] MEDS: PANTOPRAZOLE 40 MG TABLET PO SCH ×2 (06:26→17:18)
[2022-04-06] MEDS: ASPIRIN 81 MG PO SCH (07:46)
[2022-04-06] MEDS: METOPROLOL TARTRATE 25 MG TAB PO SCH ×2 (07:46→21:29)
[2022-04-06] MEDS: amLODIPine 10 MG TAB PO SCH (07:46)
[2022-04-06] MEDS: VENLAFAXINE HCL ER 75 MG CAP PO SCH (07:46)
[2022-04-06] MEDS: FAMOTIDINE 20 MG TAB PO SCH ×2 (07:46→21:29)
[2022-04-06] MEDS: TAMSULOSIN 0.4 MG CAP.ER.24H PO SCH (07:46)
[2022-04-06] MEDS: AZITHROMYCIN 250 MG TAB PO SCH (07:47)
[2022-04-06] MEDS: CLOPIDOGREL 75 MG TAB PO SCH (07:47)
[2022-04-06] MEDS: GABAPENTIN 300 MG CAP PO SCH ×4 (07:47→21:29)
[2022-04-06] MEDS: metFORMIN 500 MG TAB PO SCH ×2 (07:47→21:28)
[2022-04-06] MEDS: NITROGLYCERIN 0.1MG/HR PATCH TRANSDERM SCH (07:48)
[2022-04-06] MEDS: BUTALB/APAP/CAFF 50-325-40MG TAB PO PRN ×4 (07:53→21:28)
--- NOTE | 2022-04-06 08:30 | P.PN ---
Subjective Progress Note Date: 04/04/22 Principal diagnosis: Fever/Pneumonia Patient is a 61-year-old female with multiple comorbidities including cervical cancer present hospitalized weakness did have a cough patient did have a evidence of right middle lobe pneumonia, patient has developed urinary retention requiring Vegas catheter placement. On today's evaluation that is 04/04/2022 the patient fever has resolved and the patient is afebrile this morning, the patient still complaining of feeling weak but denies having any chest pain patient did have a cough not bring up any sputum no nausea no vomiting no abdominal pain no diarrhea Objective - Vital Signs Vital signs: Vital Signs Temp 98.3 F 04/04/22 10:52 Pulse 85 04/04/22 10:52 Resp 16 04/04/22 07:53 BP 119/63 04/04/22 10:52 Pulse Ox 95 04/04/22 10:52 FiO2 Intake & Output 04/03/22 04/04/22 04/04/22 18:59 06:59 18:59 Intake Total 1340 Output Total 800 Balance 1340 -800 Intake: Intake, IV Titration 1340 Amount Azithromycin 500 mg In 250 Sodium Chloride 0.9% 250 ml @ 250 mls/hr IVPB ONCE STA Rx#:[id number] Sodium Chloride 0.9% 1, 1040 000 ml @ 130 mls/hr IV . Q7H42M [facility] Rx#:[id number] cefTRIAXone 2 gm In 50 Sodium Chloride 0.9% 50 ml @ 100 mls/hr IVPB ONCE STA Rx#:[id number] Output: Urine 800 Straight 800 Other: Voiding Method Bedpan - Exam GENERAL DESCRIPTION: Middle-aged female lying in bed, no distress. No tachypnea or accessory muscle of respiration use. LUNGS: Unlabored breathing. Decrease intensity of breath sounds HEART: S1, S2, regular rate and rhythm. No loud murmur ABDOMEN: Soft, no tenderness , guarding or rigidity, no organomegaly EXTREMITIES: No edema of feet. - Labs CBC & Chem 7: 04/05/22 03:59 04/05/22 03:59 Labs: Abnormal Lab Results - Last 24 Hours (Table) 04/03/22 04/03/22 04/03/22 Range/Units 07:45 16:31 20:45 WBC (4.50-10.00) X 10*3/uL Immature Gran # (0.00-0.04) X 10*3/uL Neutrophils # (1.80-7.70) X 10*3/uL Monocytes # (0.20-1.00) X 10*3/uL Anion Gap (10.00-18.00) mmol/L BUN (9.0-27.0) mg/dL Creatinine (0.6-1.5) mg/dL POC Glucose (mg/dL) 159 H 152 H (70-110) mg/dL Hemoglobin A1c 8.7 H (0.0-6.0) % Calcium (8.7-10.3) mg/dL Procalcitonin (0.02-0.09) ng/mL 04/04/22 04/04/22 04/04/22 Range/Units 04:23 04:23 04:23 WBC 17.55 H (4.50-10.00) X 10*3/uL Immature Gran # 0.15 H (0.00-0.04) X 10*3/uL Neutrophils # 13.11 H (1.80-7.70) X 10*3/uL Monocytes # 1.96 H (0.20-1.00) X 10*3/uL Anion Gap 9.00 L (10.00-18.00) mmol/L BUN 8.8 L (9.0-27.0) mg/dL Creatinine 0.5 L (0.6-1.5) mg/dL POC Glucose (mg/dL) (70-110) mg/dL Hemoglobin A1c (0.0-6.0) % Calcium 7.8 L (8.7-10.3) mg/dL Procalcitonin 0.60 H (0.02-0.09) ng/mL Microbiology - Last 24 Hours (Table) 04/02/22 20:15 Blood Culture - Preliminary Blood No Growth after 24 hours 04/02/22 20:34 Blood Culture - Preliminary Blood No Growth after 24 hours 04/03/22 06:15 Urine Culture - Preliminary Urine,Voided Assessment and Plan (1) Fever Current Visit: Yes Status: Acute Code(s): R50.9 - FEVER, UNSPECIFIED SNOMED Code(s): 896758263 (2) Pneumonia Current Visit: Yes Status: Acute Code(s): J18.9 - PNEUMONIA, UNSPECIFIED ORGANISM SNOMED Code(s): 437691161 (3) UTI (urinary tract infection) Current Visit: Yes Status: Acute Code(s): N39.0 - URINARY TRACT INFECTION, SITE NOT SPECIFIED SNOMED Code(s): 07654597 Plan: 1patient presented to hospital with sepsis in this patient had fever tachycardia elevated white count source likely right middle lobe pneumonia community-acquired. 2The patient blood culture has been negative so far urine for Legionella antigen negative sputum has not been collected. 3patient to continue with Rocephin and Zithromax in view of resolution of the fever and monitor clinical course closely
--- NOTE | 2022-04-06 08:32 | P.PN ---
Subjective Progress Note Date: 04/05/22 Principal diagnosis: Fever/Pneumonia Patient is a 61-year-old female with multiple comorbidities including cervical cancer present hospitalized weakness did have a cough patient did have a evidence of right middle lobe pneumonia, patient has developed urinary retention requiring Vegas catheter placement. On today's evaluation that is 04/05/2022 the patient remains to be afebrile, the patient is currently breathing comfortably on room air the patient denies having any chest pain no worsening cough or sputum production abdominal pain no diarrhea Objective - Vital Signs Vital signs: Vital Signs Temp 97.8 F 04/05/22 07:48 Pulse 83 04/05/22 07:48 Resp 18 04/05/22 07:48 BP 132/68 04/05/22 07:48 Pulse Ox 96 04/05/22 07:48 FiO2 Intake & Output 04/04/22 04/05/22 04/05/22 18:59 06:59 18:59 Intake Total 1560 1560 Output Total 1120 2700 Balance 440 -1140 Intake: IV 1560 1560 Sodium Chloride 0.9% 1, 1560 1560 000 ml @ 130 mls/hr IV . Q7H42M [facility] Rx#:[id number] Output: Urine 1120 2700 Straight 800 Uretheral (Vegas) 320 Other: Voiding Method Bedpan Indwelling Catheter Indwelling Catheter - Exam GENERAL DESCRIPTION: Middle-aged female lying in bed, no distress. No tachypnea or accessory muscle of respiration use. LUNGS: Unlabored breathing. Decrease intensity of breath sounds HEART: S1, S2, regular rate and rhythm. No loud murmur ABDOMEN: Soft, no tenderness , guarding or rigidity, no organomegaly EXTREMITIES: No edema of feet. - Labs CBC & Chem 7: 04/05/22 03:59 04/05/22 03:59 Labs: Abnormal Lab Results - Last 24 Hours (Table) 04/03/22 04/05/22 04/05/22 Range/Units 11:15 03:59 03:59 WBC 19.54 H (4.50-10.00) X 10*3/uL Immature Gran # 0.15 H (0.00-0.04) X 10*3/uL Neutrophils # 15.62 H (1.80-7.70) X 10*3/uL Monocytes # 1.74 H (0.20-1.00) X 10*3/uL Potassium 3.0 L (3.5-5.5) mmol/L BUN 6.7 L (9.0-27.0) mg/dL Creatinine 0.4 L (0.6-1.5) mg/dL Glucose 57 L (70-110) mg/dL POC Glucose (mg/dL) 192 H (70-110) mg/dL Calcium 8.1 L (8.7-10.3) mg/dL 04/05/22 04/05/22 Range/Units 06:29 11:02 WBC (4.50-10.00) X 10*3/uL Immature Gran # (0.00-0.04) X 10*3/uL Neutrophils # (1.80-7.70) X 10*3/uL Monocytes # (0.20-1.00) X 10*3/uL Potassium (3.5-5.5) mmol/L BUN (9.0-27.0) mg/dL Creatinine (0.6-1.5) mg/dL Glucose (70-110) mg/dL POC Glucose (mg/dL) 61 L 118 H (70-110) mg/dL Calcium (8.7-10.3) mg/dL Microbiology - Last 24 Hours (Table) 04/03/22 06:15 Urine Culture - Final Urine,Voided 04/02/22 20:15 Blood Culture - Preliminary Blood No Growth after 48 hours 04/02/22 20:34 Blood Culture - Preliminary Blood No Growth after 48 hours Assessment and Plan (1) Fever Current Visit: Yes Status: Acute Code(s): R50.9 - FEVER, UNSPECIFIED SNOMED Code(s): 398343991 (2) Pneumonia Current Visit: Yes Status: Acute Code(s): J18.9 - PNEUMONIA, UNSPECIFIED ORGANISM SNOMED Code(s): 727373328 Plan: 1patient presented to hospital with sepsis in this patient had fever tachycardia elevated white count source likely right middle lobe pneumonia community-acquired. 2The patient blood culture has been negative so far urine for Legionella antigen negative sputum has not been collected. 3Patient has shown some clinical improvement with resolution of the fever however the white count is still elevated and need to be monitored closely we will continue with Rocephin and Zithromax try to obtain a sputum and continue supportive care
--- NOTE | 2022-04-06 09:08 | XR ---
EXAMINATION TYPE: XR chest 1V DATE OF EXAM: 04/06/2022 COMPARISON: 03/25/2022 INDICATION: Short of breath TECHNIQUE: Single frontal view of the chest is obtained. FINDINGS: The heart size is normal. The pulmonary vasculature is prominent. Right lower lobe infiltrate is present. Correlate for pneumonia. IMPRESSION: 1. Right lower lobe infiltrate. Correlate for pneumonia. Follow-up is recommended.
[2022-04-06 09:26] LABS: Basophils # (A) 0.1 k/uL (0-0.2); Basophils % (A) 0 %; Eosinophils # (A) 0.2 k/uL (0-0.7); Eosinophils % (A) 2 %; HCT 37.2 % (34.0-46.0); HGB 12.9 gm/dL (11.4-16.0); Lymphocytes # (A) 1.5 k/uL (1.0-4.8); Lymphocytes % (A) 10 %; MCH 29.7 pg (25.0-35.0); MCHC 34.7 g/dL (31.0-37.0); MCV 85.6 fL (80.0-100.0); Monocytes # (A) 1.3 k/uL (0-1.0); Monocytes % (A) 9 %; Neutrophils # (A) 11.4 k/uL (1.3-7.7); Neutrophils % (A) 78 %; Platelet Count 252 k/uL (150-450); RBC 4.35 m/uL (3.80-5.40); RDW 13.7 % (11.5-15.5); WBC 14.6 k/uL (3.8-10.6)
[2022-04-06 09:33] LABS: African American GFR (CKD) >90 (>60 ml/min/1.73 sqM); Anion Gap 9 mmol/L; Blood Urea Nitrogen 4 mg/dL (7-17); Calcium 7.6 mg/dL (8.4-10.2); Carbon Dioxide 26 mmol/L (22-30); Chloride 98 mmol/L (98-107); Glucose 160 mg/dL (74-99); Non-African American GFR(CKD) >90 (>60 ml/min/1.73 sqM); Sodium 133 mmol/L (137-145)
[2022-04-06] MEDS: SODIUM CHLORIDE 0.9% 1,000 ML IV SCH ×2 (11:29→17:12)
[2022-04-06 11:33] LABS: Glucose,Whole Blood 146 mg/dL (70-110)
--- NOTE | 2022-04-06 15:54 | CDI ---
Documentation Clarification Form Date: 04/06/2022 03:37:33 PM From: Kristin Castro RN CCDS Admit Date: 04/02/2022 11:05:00 PM Patient Name: Dea Grant Visit Number: [id number] Discharge Date: ATTENTION: The Clinical Documentation Specialists (CDI) and [facility] Coding Staff appreciate your assistance in clarifying documentation. Please respond to the clarification below the line at the bottom and electronically sign. The CDI & [facility] Coding staff will review the response and follow-up if needed. Please note: Queries are made part of the Legal Health Record. If you have any questions, please contact the author of this message via ITS. Dr. Alejo Gracia Sepsis is documented H&P, 04/03 and Medicine note, 04/04, but is not noted in subsequent documentation. Clarification is requested. History/Risk Factors:61-year-old female presents to the ED via EMS for generalized weakness, body aches and chest pain . Medical History: DM, CAD and HTN. 04/03, H&P. Clinical Indicators: 04/03, H&P: Marked leukocytosis / sepsis; likely related to pneumonia VSS, 04/02: B/P 144/74; HR 103; Temp 99.4 F Oral; RR 18; SpO2 96% room air CXR, 04/02: Moderate right middle lobe pneumonia which is new compared to old exam. Labs, 04/02: Wbc 28.2; Neutrophils 23.7 Treatment: 04/02 0.9NS 500cc bolus; 04/02 Ceftriaxone IVPB x 1; 04/04 Ceftriaxone IVPB Q24HR; 04/04 Zithromax 250mg po daily x 3 doses. Please clarify if the Sepsis is: [ ] Sepsis confirmed, remains under treatment [ ] Sepsis confirmed, resolved [ ] Sepsis ruled out [ ] Other condition, please specify [ ] Unable to determine (Template Last Revised: August 2020) Sepsis confirmed, remains under treatment MTDD
[2022-04-06 16:51] LABS: Glucose,Whole Blood 138 mg/dL (70-110)
--- NOTE | 2022-04-06 18:15 | P.CNNES ---
History of Present Illness Consult date: 04/06/22 Requesting physician: Alejo Gracia Reason for Consult: Severe headache History of Present Illness: Patient is a 61-year-old female, who came to the hospital on 04/02/2022 at 4:22 PM for nausea, vomiting, diarrhea, fever, flu and generalized weakness, body aches of 2 days duration. Patient was diagnosed with fever, pneumonia, generalized weakness and hyponatremia. Chest x-ray revealed moderate right middle lobe pneumonia. Patient was also found to have urinary retention. Neurology was consulted for headache. Patient states the headache started on the day of admission on 04/02/2022. It is an awful headache, piercing headache like a lightning and gets throbbing. Pain is constant at 7/10 which is a dull pain. Sometimes it's get bad which she relates it to 9/10 once in a while, shooting pain. She has to hold her head as it hurts so bad. The headache involves bifrontal region. Patient denies any Raynaud's, or postnasal drip in. Patient has nausea but no vomiting. Light bothers but not the noise. Patient's WBC count was 28.2, hemoglobin 15.4, platelets 190. PT/PTT normal, sodium 131 potassium 4.0, normal renal and hepatic panel. Troponin negative. UA was showed positive nitrite, small amount of leukocyte Estrace. Influenza screen, RSV and coronavirus PCR negative. Patient's last hemoglobin A1c 8.7 on 04/03/2022. Patient states that she does not get headaches in general. Never has any history of migraines. Patient has history of vaginal cancer for which she underwent LEEP procedure. Then she had diagnosis of cervical cancer, early stage for which she underwent hysterectomy in 1995. Patient has history of diabetes since 2011, which she claims is controlled. Patient has smoked 1 pack per day for last 40 years (started since age 18). She denies any alcohol use. She has been using CBT oil recently for pain. Patient has been receiving Fioricet for headache since she has been in the hospital. She drinks one cup of coffee a day. She does not overdo on caffeine otherwise. Review of Systems Constitutional: Reports chills, Reports fever, Reports night sweats Eyes: bilateral photophobia, denies blurred vision, denies loss of vision Ears: deny: decreased hearing Ears, nose, mouth and throat: Reports headache, Denies sore throat Cardiovascular: Reports chest pain, Reports shortness of breath Respiratory: Reports cough, Reports excessive sputum Musculoskeletal: Reports myalgias Neurological: Reports as per HPI Psychiatric: Denies anxiety, Denies depression Past Medical History Past Medical History: Coronary Artery Disease (CAD), Cancer, Diabetes Mellitus, GERD/Reflux, Hyperlipidemia, Hypertension, Myocardial Infarction (CO), Thyroid Disorder Additional Past Medical History / Comment(s): rls, hpv, cervical uterine ca(sx only), OBV 12/14-12/15/20 N/V/D Last Myocardial Infarction Date:: 04/04/2018 History of Any Multi-Drug Resistant Organisms: None Reported Past Surgical History: Bladder Surgery, Section, Heart Catheterization With Stent, Hernia Repair, Hysterectomy, Orthopedic Surgery Additional Past Surgical History / Comment(s): 04/04/18 heart cath with stent to distal lad . past hx heart cath w/ stents apr 2018 at [facility] .thryroidectomy, leep Procedure, , bladder supsension, rt knee sx, COLONOSCOPY 2015 Past Anesthesia/Blood Transfusion Reactions: No Reported Reaction Additional Past Anesthesia/Blood Transfusion Reaction / Comment(s): has never received blood. Date of Last Stent Placement:: 04/04/18 Past Psychological History: Anxiety Smoking Status: Current every day smoker Past Alcohol Use History: None Reported Past Drug Use History: None Reported - Past Family History Mother Family Medical History: Diabetes Mellitus, Hypertension Additional Family Medical History / Comment(s): diet controlled diabetic Father Family Medical History: Coronary Artery Disease (CAD), Myocardial Infarction (CO) Additional Family Medical History / Comment(s): "at age 38 [address] bypass" then at age 50 from [place] Medications and Allergies Home Medications Medication Instructions Recorded Confirmed Type Atorvastatin [Lipitor] 80 mg PO HS 04/04/18 04/03/22 History Metoprolol Tartrate [Lopressor] 25 mg PO BID 04/04/18 04/03/22 History Nitroglycerin Sl Tabs [Nitrostat] 0.4 mg SUBLINGUAL Q5M PRN 04/04/18 04/03/22 History Venlafaxine HCl ER [Effexor XR] 75 mg PO DAILY 04/04/18 04/05/22 History amLODIPine [Norvasc] 10 mg PO DAILY 04/04/18 04/03/22 History Aspirin 81 mg PO DAILY chew 04/07/18 04/03/22 Rx Clopidogrel [Plavix] 75 mg PO DAILY 08/08/19 04/03/22 History Levothyroxine Sodium [Synthroid] 175 mcg PO DAILY 08/08/19 04/03/22 History metFORMIN HCL [Glucophage XR] 750 mg PO BID 08/08/19 04/03/22 History Gabapentin [Neurontin] 600 mg PO BID PRN 12/14/20 04/03/22 History Semaglutide [Rybelsus] 3 mg PO DIRECTED 04/05/22 04/05/22 History Allergies Allergy/AdvReac Type Severity Reaction Status Date / Time nickel Allergy Rash/Hives Verified 04/03/22 14:12 Physical Examination - Vital Signs Vital Signs: Vital Signs Temp Pulse Resp BP Pulse Ox 04/06/22 15:12 98.9 F 83 16 117/68 90 L 04/06/22 07:34 98.2 F 82 17 150/76 95 04/06/22 02:00 97.7 F 73 18 117/69 94 L 04/05/22 20:00 83 17 04/05/22 19:31 98.9 F 83 17 127/67 95 Intake and Output 04/06/22 04/06/22 04/06/22 06:59 14:59 22:59 Output Total 2600 Balance -2600 Output: Urine 2600 Patient is an elderly female, appears to be in distress because of headache. Patient is otherwise alert awake oriented to time place and person. Speech and language functions are normal. Patient can name and repeat very well. No aphasia or dysarthria. Attention, concentration and fund of knowledge is adequate. On cranial nerve examination, pupils are equal, round and reacting to light, visual brown are full on confrontation, with no neglect on double simultaneous stimulation. Extraocular muscles are intact with no nystagmus. Face is symmetric, tongue protrudes to the midline. Palatal elevation and sensation normal, hearing and shoulder shrug normal, facial sensation normal. On muscle strength testing, there is no pronator drift and the strength is normal in arms and legs distally and proximally. Deep tendon reflexes are symmetric 2 at the biceps, 2 brachioradialis, 2 at the knees, 1 at ankles and plantars downgoing bilaterally. Sensory to touch is equal with no neglect on double simultaneous stimulation. Cerebellar function showed no ataxia for [id number] testing. No dysdiadochokinesia. No ataxia for [id number] testing on either side. Tone and bulk of muscles normal. Gait deferred.. On general examination, there is no carotid bruit or murmur, S1-S2 audible. Chest is clear on consultation. Abdomen is soft nontender. No organomegaly, bowel sounds present. Peripheral pulses are present. No edema. Results - Laboratory Findings CBC and BMP: 04/06/22 08:32 04/06/22 08:32 Abnormal Lab Findings: Abnormal Labs 04/02/22 04/02/22 04/02/22 20:35 20:35 20:35 WBC 28.2 H Immature Gran # Neutrophils # 23.7 H Monocytes # 1.9 H APTT 21.4 L Sodium 131 L Potassium Chloride 97 L Carbon Dioxide 21 L Anion Gap BUN Creatinine Glucose 252 H POC Glucose (mg/dL) Hemoglobin A1c Calcium Total Protein Albumin Procalcitonin Urine Appearance Urine Protein Urine Glucose (UA) Urine Blood Urine Nitrite Ur Leukocyte Esterase Urine WBC Urine Bacteria Urine Mucus 04/03/22 04/03/22 04/03/22 00:00 06:04 06:15 WBC Immature Gran # Neutrophils # Monocytes # APTT Sodium Potassium Chloride Carbon Dioxide Anion Gap BUN Creatinine Glucose POC Glucose (mg/dL) 248 H 205 H Hemoglobin A1c Calcium Total Protein Albumin Procalcitonin Urine Appearance Cloudy H Urine Protein 1+ H Urine Glucose (UA) Trace H Urine Blood Trace H Urine Nitrite Positive H Ur Leukocyte Esterase Small H Urine WBC 12 H Urine Bacteria Occasional H Urine Mucus Few H 04/03/22 04/03/22 04/03/22 07:45 07:45 07:45 WBC 21.7 H Immature Gran # Neutrophils # 18.0 H Monocytes # 1.8 H APTT Sodium 131 L Potassium Chloride Carbon Dioxide 21 L Anion Gap BUN Creatinine 0.50 L Glucose 203 H POC Glucose (mg/dL) Hemoglobin A1c 8.7 H Calcium 8.0 L Total Protein 5.7 L Albumin 3.1 L Procalcitonin Urine Appearance Urine Protein Urine Glucose (UA) Urine Blood Urine Nitrite Ur Leukocyte Esterase Urine WBC Urine Bacteria Urine Mucus 04/03/22 04/03/22 04/03/22 11:15 16:31 20:45 WBC Immature Gran # Neutrophils # Monocytes # APTT Sodium Potassium Chloride Carbon Dioxide Anion Gap BUN Creatinine Glucose POC Glucose (mg/dL) 192 H 159 H 152 H Hemoglobin A1c Calcium Total Protein Albumin Procalcitonin Urine Appearance Urine Protein Urine Glucose (UA) Urine Blood Urine Nitrite Ur Leukocyte Esterase Urine WBC Urine Bacteria Urine Mucus 04/04/22 04/04/22 04/04/22 04:23 04:23 04:23 WBC 17.55 H Immature Gran # 0.15 H Neutrophils # 13.11 H Monocytes # 1.96 H APTT Sodium Potassium Chloride Carbon Dioxide Anion Gap 9.00 L BUN 8.8 L Creatinine 0.5 L Glucose POC Glucose (mg/dL) Hemoglobin A1c Calcium 7.8 L Total Protein Albumin Procalcitonin 0.60 H Urine Appearance Urine Protein Urine Glucose (UA) Urine Blood Urine Nitrite Ur Leukocyte Esterase Urine WBC Urine Bacteria Urine Mucus 04/05/22 04/05/22 04/05/22 03:59 03:59 03:59 WBC 19.54 H Immature Gran # 0.15 H Neutrophils # 15.62 H Monocytes # 1.74 H APTT Sodium Potassium 3.0 L Chloride Carbon Dioxide Anion Gap BUN 6.7 L Creatinine 0.4 L Glucose 57 L POC Glucose (mg/dL) Hemoglobin A1c Calcium 8.1 L Total Protein Albumin Procalcitonin 0.50 H Urine Appearance Urine Protein Urine Glucose (UA) Urine Blood Urine Nitrite Ur Leukocyte Esterase Urine WBC Urine Bacteria Urine Mucus 04/05/22 04/05/22 04/05/22 06:29 11:02 16:38 WBC Immature Gran # Neutrophils # Monocytes # APTT Sodium Potassium Chloride Carbon Dioxide Anion Gap BUN Creatinine Glucose POC Glucose (mg/dL) 61 L 118 H 66 L Hemoglobin A1c Calcium Total Protein Albumin Procalcitonin Urine Appearance Urine Protein Urine Glucose (UA) Urine Blood Urine Nitrite Ur Leukocyte Esterase Urine WBC Urine Bacteria Urine Mucus 04/05/22 04/06/22 04/06/22 21:46 06:17 08:32 WBC 14.6 H Immature Gran # Neutrophils # 11.4 H Monocytes # 1.3 H APTT Sodium Potassium Chloride Carbon Dioxide Anion Gap BUN Creatinine Glucose POC Glucose (mg/dL) 153 H 186 H Hemoglobin A1c Calcium Total Protein Albumin Procalcitonin Urine Appearance Urine Protein Urine Glucose (UA) Urine Blood Urine Nitrite Ur Leukocyte Esterase Urine WBC Urine Bacteria Urine Mucus 04/06/22 04/06/22 04/06/22 08:32 11:32 16:50 WBC Immature Gran # Neutrophils # Monocytes # APTT Sodium 133 L Potassium 3.0 L Chloride Carbon Dioxide Anion Gap BUN 4 L Creatinine 0.42 L Glucose 160 H POC Glucose (mg/dL) 146 H 138 H Hemoglobin A1c Calcium 7.6 L Total Protein Albumin Procalcitonin Urine Appearance Urine Protein Urine Glucose (UA) Urine Blood Urine Nitrite Ur Leukocyte Esterase Urine WBC Urine Bacteria Urine Mucus Assessment and Plan Assessment: * New onset bifrontal headache, unclear etiology. Rule out sinusitis, or other structural abnormality. * Pneumonia * Diabetes * Hypertension * Tobacco use Plan: * CT head rule out mass, sinusitis, or other structural abnormality * ESR, CRP, TSH * Continue Fioricet for now. * If no obvious answers, may need an MRI of the brain and LP. ID on board. * Neurology will follow. Thank you for the consult.
[2022-04-06 19:39] LABS: Glucose,Whole Blood 177 mg/dL (70-110)
--- NOTE | 2022-04-06 20:55 | CT ---
EXAMINATION TYPE: CT brain wo con CT DLP: 1119.4 mGycm, Automated exposure control for dose reduction was used. DATE OF EXAM: 04/06/2022 8:41 PM COMPARISON: . CLINICAL INDICATION:Female, 61 years old with history of Cephalgia, rule out sinusitis, mass., Rule o ut sinusitis TECHNIQUE: Brain: Axial CT images of the brain were obtained with coronal and sagittal reformats created and rev iewed. Contrast used: None. Oral contrast used: None. FINDINGS: Brain: Extra-axial spaces: No abnormal extra-axial fluid collections. Ventricular system: Within normal limits Cerebral parenchyma: No acute intraparenchymal hemorrhage or mass effect. The triana-white junction is well differentiated. Cerebellum: Unremarkable. Mass effect: No evidence of midline shift. Intracranial vasculature: Atherosclerotic calcifications of the intracranial vessels. Soft tissues: Normal. Calvarium/osseous structures: No depressed skull fracture. Paranasal sinuses and mastoid air cells: Mild sphenoid sinus mucosal thickening with secretions. Visualized orbits: Orbital contents are intact. IMPRESSION: 1. No acute intracranial process. 2. Minimal mucosal thickening/secretions most pronounced in the sphenoid sinuses.
[2022-04-06] MEDS: ATORVASTATIN 80 MG TAB PO SCH (21:29)
--- NOTE | 2022-04-06 23:31 | P.PN ---
Subjective 61-year-old female presents to the emergency department via EMS accompanied by her spouse for evaluation of generalized weakness. Patient's spouse states the patient has been complaining of feeling poorly for the past 2 days. Patient reports lack of appetite and generalized body aches. Complaints of intermittent nausea and frequent headache. Has had episodes of intermittent midsternal, nonradiating chest pain. No aggravating or alleviating factors. Has been taking her medications as prescribed. Has been unable to check her temperature at home but does feel warm to the touch. No dizziness, shortness of breath, abdominal pain, vomiting, diarrhea, dysuria, hematuria, or lower extremity edema. Chest x-ray was obtained and shows right middle lobe pneumonia. Laboratory studies were reviewed showing significant leukocytosis with a white blood count of 28.2 and hyponatremia. COVID is negative. Patient was given IV fluids, Tylenol for fever, and pain medicine with some improvement. Zithromax and Rocephin were given in the ED. Results were discussed with patient and spouse; they are agreeable to hospital admission for further evaluation and treatment. 04/05/2022 pt breathing is stable at rest she is saturating 95 % on ra, she is still on antibiotics as per ID team of ceftriaxone and zithromax, also she is s/p payne catheter and flomax for urinary retension and urologsit recommened outpatient follow up- this morning pt is complained from sever headache , 9/10 that is resolved with fiorocet, no neurological deficit and exam non focal with strenght 5/5 and senstation is intact she is hypoglycemic this mornign and through the day around 60-70, so lowered her levemir ( 30 u down to 15) and then helo it tonight lower iv fluid to 100 ml per hr 04/06/2022 Yesterday we added furosemide but still has severe headache today 8-9/10 in severity with no focal neurological deficit. CT of the brain is negative, ESR is pending. Neurology input is appreciated Also she remains on ceftriaxone And Zithromax for her pneumonia, she is saturating 90% on room air. We will keep monitoring Objective - Vital Signs Vital signs: Vital Signs Temp 98.2 F 04/06/22 07:34 Pulse 82 04/06/22 07:34 Resp 17 04/06/22 07:34 BP 150/76 04/06/22 07:34 Pulse Ox 95 04/06/22 07:34 FiO2 Intake & Output 04/05/22 04/06/22 04/06/22 18:59 06:59 18:59 Intake Total 2700 Output Total 1650 2600 Balance 1050 -2600 Intake: IV 1300 Sodium Chloride 0.9% 1, 1300 000 ml @ 100 mls/hr IV . Q10H LILIYA Rx#:[id number] Intake, IV Titration 1400 Amount Sodium Chloride 0.9% 1, 1300 000 ml @ 100 mls/hr IV . Q10H LILIYA Rx#:[id number] cefTRIAXone 2 gm In 100 Sodium Chloride 0.9% 50 ml @ 100 mls/hr IVPB Q24HR@1200 LILIYA Rx#: [id number] Output: Urine 1650 2600 Other: Voiding Method Indwelling Catheter Indwelling Catheter - Exam GENERAL: The patient is alert and oriented x3, not in any acute distress. Well developed, well nourished. HEENT: Pupils are round and equally reacting to light. EOMI. No scleral icterus. No conjunctival pallor. Normocephalic, atraumatic. No pharyngeal erythema. No thyromegaly. CARDIOVASCULAR: S1 and S2 present. No murmurs, rubs, or gallops. PULMONARY: Chest is clear to auscultation, no wheezing or crackles. ABDOMEN: Soft, nontender, nondistended, normoactive bowel sounds. No palpable organomegaly. MUSCULOSKELETAL: No joint swelling or deformity. EXTREMITIES: No cyanosis, clubbing, or pedal edema. NEUROLOGICAL: Gross neurological examination did not reveal any focal deficits. SKIN: No rashes. no petechiae. - Labs CBC & Chem 7: 04/06/22 08:32 04/06/22 08:32 Labs: Abnormal Lab Results - Last 24 Hours (Table) 04/05/22 04/05/22 04/05/22 Range/Units 03:59 16:38 21:46 WBC (3.8-10.6) k/uL Neutrophils # (1.3-7.7) k/uL Monocytes # (0-1.0) k/uL Sodium (137-145) mmol/L Potassium (3.5-5.1) mmol/L BUN (7-17) mg/dL Creatinine (0.52-1.04) mg/dL Glucose (74-99) mg/dL POC Glucose (mg/dL) 66 L 153 H (70-110) mg/dL Calcium (8.4-10.2) mg/dL Procalcitonin 0.50 H (0.02-0.09) ng/mL 04/06/22 04/06/22 04/06/22 Range/Units 06:17 08:32 08:32 WBC 14.6 H (3.8-10.6) k/uL Neutrophils # 11.4 H (1.3-7.7) k/uL Monocytes # 1.3 H (0-1.0) k/uL Sodium 133 L (137-145) mmol/L Potassium 3.0 L (3.5-5.1) mmol/L BUN 4 L (7-17) mg/dL Creatinine 0.42 L (0.52-1.04) mg/dL Glucose 160 H (74-99) mg/dL POC Glucose (mg/dL) 186 H (70-110) mg/dL Calcium 7.6 L (8.4-10.2) mg/dL Procalcitonin (0.02-0.09) ng/mL 04/06/22 Range/Units 11:32 WBC (3.8-10.6) k/uL Neutrophils # (1.3-7.7) k/uL Monocytes # (0-1.0) k/uL Sodium (137-145) mmol/L Potassium (3.5-5.1) mmol/L BUN (7-17) mg/dL Creatinine (0.52-1.04) mg/dL Glucose (74-99) mg/dL POC Glucose (mg/dL) 146 H (70-110) mg/dL Calcium (8.4-10.2) mg/dL Procalcitonin (0.02-0.09) ng/mL Microbiology - Last 24 Hours (Table) 04/02/22 20:34 Blood Culture - Preliminary Blood No Growth after 72 hours 04/02/22 20:15 Blood Culture - Preliminary Blood No Growth after 72 hours Assessment and Plan Assessment: 1. Right lower lobe pneumonia - Patient has been placed on IV Rocephin and azithromycin; we will monitor CBC, CRP and pro-calcitonin; obtain sputum and blood cultures - Symptomatic treatment of pneumonia 2. Hyponatremia; resolved 3. sever escobar, on fiorocet prn. Neurologist on the case, follow-up ESR. Patient may need MRI/LP if no improvement. No focal neurological deficit. No confusion 4. diabetes mellitus with hypoglycemia; we will monitor Accu-Cheks Before meals and at bedtime with insulin sliding scale 5. Hypertension; metoprolol 25 mg twice a day amlodipine 10 mg daily; 6. Hyperlipidemia; Lipitor 80 mg by mouth daily at bedtime 7. Hypothyroidism; levothyroxine 175 MCG daily 8. Coronary artery disease; continue with aspirin, beta blockers, statin and nitroglycerin
[2022-04-07 06:16] LABS: Glucose,Whole Blood 99 mg/dL (70-110)
[2022-04-07] MEDS: INSULIN ASPART (NovoLOG) 100 UNIT/ML VIAL SQ SCH ×4 (06:20→20:49)
[2022-04-07] MEDS: SODIUM CHLORIDE 0.9% 1,000 ML IV SCH ×2 (06:23→12:35)
[2022-04-07] MEDS: PANTOPRAZOLE 40 MG TABLET PO SCH ×2 (06:23→17:13)
[2022-04-07] MEDS: LEVOTHYROXINE 88 MCG TAB PO SCH (06:23)
[2022-04-07 07:15] LABS: Glucose,Whole Blood 135 mg/dL (70-110)
[2022-04-07] MEDS: TAMSULOSIN 0.4 MG CAP.ER.24H PO SCH (10:02)
[2022-04-07] MEDS: VENLAFAXINE HCL ER 75 MG CAP PO SCH (10:02)
[2022-04-07] MEDS: amLODIPine 10 MG TAB PO SCH (10:02)
[2022-04-07] MEDS: FAMOTIDINE 20 MG TAB PO SCH ×2 (10:02→20:49)
[2022-04-07] MEDS: ASPIRIN 81 MG PO SCH (10:02)
[2022-04-07] MEDS: METOPROLOL TARTRATE 25 MG TAB PO SCH ×2 (10:02→20:49)
[2022-04-07] MEDS: GABAPENTIN 300 MG CAP PO SCH ×4 (10:02→20:49)
[2022-04-07] MEDS: NITROGLYCERIN 0.1MG/HR PATCH TRANSDERM SCH (10:03)
[2022-04-07] MEDS: CLOPIDOGREL 75 MG TAB PO SCH (10:03)
[2022-04-07 10:40] LABS: Basophils # (A) 0.06 X 10*3/uL (0.00-0.10); Basophils % (A) 0.4 %; Eosinophils # (A) 0.19 X 10*3/uL (0.04-0.35); Eosinophils % (A) 1.2 %; HCT 39.1 % (37.2-46.3); Immature Grans, Automated 1.2 %; Lymphocytes # (A) 2.51 X 10*3/uL (0.90-5.00); Lymphocytes % (A) 16.4 %; MCH 28.3 pg (27.0-32.0); MCHC 33.2 g/dL (32.0-37.0); MCV 85.2 fL (80.0-97.0); Mean Platelet Volume 9.5 fL (9.5-12.2); Monocytes # (A) 1.82 X 10*3/uL (0.20-1.00); Monocytes % (A) 11.9 %; NRBC Per 100 WBC 0 /100 WBCS (0.0-0.0); Neutrophils # (A) 10.56 X 10*3/uL (1.80-7.70); Neutrophils % (A) 68.9 %; Platelet Count 300 X 10*3/uL (140-440); RBC 4.59 X 10*6/uL (4.10-5.20); RDW 13.8 % (11.5-14.5); WBC 15.33 X 10*3/uL (4.50-10.00)
[2022-04-07 10:58] LABS: C Reactive Protein 25.2 mg/dL (0.00-0.80); Magnesium 2.1 mg/dL (1.5-2.4)
[2022-04-07 11:00] LABS: African American GFR (CKD) 128.5 (60.0-200.0); Anion Gap 11.3 mmol/L (10.00-18.00); BUN/Creat Ratio 14.5 Ratio (12.00-20.00); Blood Urea Nitrogen 5.8 mg/dL (9.0-27.0); Calcium 8.3 mg/dL (8.7-10.3); Carbon Dioxide 27.7 mmol/L (20.0-27.5); Non-African American GFR(CKD) 110.8 (60.0-200.0); Potassium 2.8 mmol/L (3.5-5.5)
[2022-04-07 11:59] LABS: Glucose,Whole Blood 158 mg/dL (70-110)
[2022-04-07 12:53] LABS: Erythrocyte Sedimentation Rate 96 mm/Hr (0-30)
[2022-04-07 16:48] LABS: Glucose,Whole Blood 122 mg/dL (70-110)
[2022-04-07 20:26] LABS: Glucose,Whole Blood 175 mg/dL (70-110)
[2022-04-07] MEDS: ATORVASTATIN 80 MG TAB PO SCH (20:49)
[2022-04-07] MEDS: BUTALB/APAP/CAFF 50-325-40MG TAB PO PRN (20:57)
[2022-04-07] MEDS ORDERED: Magnesium Replacement Protocol 1 EACH MISC MISCELLANE PRN (21:07)
--- NOTE | 2022-04-07 21:14 | P.PN ---
Subjective 61-year-old female presents to the emergency department via EMS accompanied by her spouse for evaluation of generalized weakness. Patient's spouse states the patient has been complaining of feeling poorly for the past 2 days. Patient reports lack of appetite and generalized body aches. Complaints of intermittent nausea and frequent headache. Has had episodes of intermittent midsternal, nonradiating chest pain. No aggravating or alleviating factors. Has been taking her medications as prescribed. Has been unable to check her temperature at home but does feel warm to the touch. No dizziness, shortness of breath, abdominal pain, vomiting, diarrhea, dysuria, hematuria, or lower extremity edema. Chest x-ray was obtained and shows right middle lobe pneumonia. Laboratory studies were reviewed showing significant leukocytosis with a white blood count of 28.2 and hyponatremia. COVID is negative. Patient was given IV fluids, Tylenol for fever, and pain medicine with some improvement. Zithromax and Rocephin were given in the ED. Results were discussed with patient and spouse; they are agreeable to hospital admission for further evaluation and treatment. 04/05/2022 pt breathing is stable at rest she is saturating 95 % on ra, she is still on antibiotics as per ID team of ceftriaxone and zithromax, also she is s/p payne catheter and flomax for urinary retension and urologsit recommened outpatient follow up- this morning pt is complained from sever headache , 9/10 that is resolved with fiorocet, no neurological deficit and exam non focal with strenght 5/5 and senstation is intact she is hypoglycemic this mornign and through the day around 60-70, so lowered her levemir ( 30 u down to 15) and then helo it tonight lower iv fluid to 100 ml per hr 04/06/2022 Yesterday we added furosemide but still has severe headache today 8-9/10 in severity with no focal neurological deficit. CT of the brain is negative, ESR is pending. Neurology input is appreciated Also she remains on ceftriaxone And Zithromax for her pneumonia, she is saturating 90% on room air. We will keep monitoring 04-07-22 Patient still complained of from severe headache although this morning she reports improvement, in the morning and her headache was 5-6/10 in severity. No blurred vision or neurological deficits, no weakness or confusion or numbness. Vitals stable, afebrile, WBC is trending down to 15,000 She remains on ceftriaxone and Zithromax and aspirin and Plavix She confirms at home she takes metformin 750 mg and rybelsus , she confirms she was not on insulin at home. We stopped Levemir, also her diabetes pills are on hold for hypoglycemia, glucose currently is controlled. Hyperglycemia may be contributed to her headache. I discussed the case with neurology service today Dr. Burger, patient has elevated ESR and CRP, temporal artery biopsy is recommended, vascular surgery consult is placed, we made the patient nothing by mouth after midnight, I discussed the case with the bedside nurse to contact vascular surgery to see if hold antiplatelet in the morning, patient is an aspirin and Plavix. Also patient may need LP down the road if no improvement. As per recommendation from neurologist, we will hold for steroids until further workup. Objective - Vital Signs Vital signs: Vital Signs Temp 98.3 F 04/07/22 07:53 Pulse 74 04/07/22 07:53 Resp 18 04/07/22 07:53 BP 120/68 04/07/22 07:53 Pulse Ox 95 04/07/22 07:53 FiO2 Intake & Output 04/06/22 04/07/22 04/07/22 18:59 06:59 18:59 Output Total 2400 1800 Balance -2400 -1800 Output: Urine 2400 1800 Other: Voiding Method Indwelling Catheter Indwelling Catheter # Bowel Movements 0 - Exam GENERAL: The patient is alert and oriented x3, not in any acute distress. Well developed, well nourished. HEENT: Pupils are round and equally reacting to light. EOMI. No scleral icterus. No conjunctival pallor. Normocephalic, atraumatic. No pharyngeal erythema. No thyromegaly. CARDIOVASCULAR: S1 and S2 present. No murmurs, rubs, or gallops. PULMONARY: Chest is clear to auscultation, no wheezing or crackles. ABDOMEN: Soft, nontender, nondistended, normoactive bowel sounds. No palpable organomegaly. MUSCULOSKELETAL: No joint swelling or deformity. EXTREMITIES: No cyanosis, clubbing, or pedal edema. NEUROLOGICAL: Gross neurological examination did not reveal any focal deficits. SKIN: No rashes. no petechiae. - Labs CBC & Chem 7: 04/07/22 06:41 04/07/22 06:41 Labs: Abnormal Lab Results - Last 24 Hours (Table) 04/06/22 04/06/22 04/07/22 Range/Units 16:50 19:37 06:41 WBC 15.33 H (4.50-10.00) X 10*3/uL Immature Gran # 0.19 H (0.00-0.04) X 10*3/uL Neutrophils # 10.56 H (1.80-7.70) X 10*3/uL Monocytes # 1.82 H (0.20-1.00) X 10*3/uL Potassium (3.5-5.5) mmol/L Carbon Dioxide (20.0-27.5) mmol/L BUN (9.0-27.0) mg/dL Creatinine (0.6-1.5) mg/dL POC Glucose (mg/dL) 138 H 177 H (70-110) mg/dL Calcium (8.7-10.3) mg/dL C-Reactive Protein (0.00-0.80) mg/dL 04/07/22 04/07/22 Range/Units 06:41 07:13 WBC (4.50-10.00) X 10*3/uL Immature Gran # (0.00-0.04) X 10*3/uL Neutrophils # (1.80-7.70) X 10*3/uL Monocytes # (0.20-1.00) X 10*3/uL Potassium 2.8 L (3.5-5.5) mmol/L Carbon Dioxide 27.7 H (20.0-27.5) mmol/L BUN 5.8 L (9.0-27.0) mg/dL Creatinine 0.4 L (0.6-1.5) mg/dL POC Glucose (mg/dL) 135 H (70-110) mg/dL Calcium 8.3 L (8.7-10.3) mg/dL C-Reactive Protein 25.20 H (0.00-0.80) mg/dL Microbiology - Last 24 Hours (Table) 04/02/22 20:15 Blood Culture - Preliminary Blood No Growth after 96 hours 04/02/22 20:34 Blood Culture - Preliminary Blood No Growth after 96 hours Assessment and Plan Assessment: 1. Right lower lobe pneumonia - Patient has been placed on IV Rocephin and azithromycin; we will monitor CBC, CRP and pro-calcitonin; obtain sputum and blood cultures - Symptomatic treatment of pneumonia 2. Hyponatremia; resolved 3. sever escobar, on fiorocet prn. Neurologist on the case, follow-up ESR. Patient may need MRI/LP if no improvement. No focal neurological deficit. No confusion. Temporal artery biopsy, consult vascular surgery, follow-up with the neurology for further recommendation. Steroids will be deferred to neurology service 4. diabetes mellitus with hypoglycemia; we will monitor Accu-Cheks Before meals and at bedtime with insulin sliding scale 5. Hypertension; metoprolol 25 mg twice a day amlodipine 10 mg daily; 6. Hyperlipidemia; Lipitor 80 mg by mouth daily at bedtime 7. Hypothyroidism; levothyroxine 175 MCG daily 8. Coronary artery disease; continue with aspirin, beta blockers, statin and nitroglycerin
[2022-04-08 00:05] LABS: Magnesium 2.2 mg/dL (1.6-2.3); Potassium 2.8 mmol/L (3.5-5.1)
[2022-04-08] MEDS ORDERED: Potassium Replacement Protocol 1 EACH MISC MISCELLANE PRN (00:17)
[2022-04-08] MEDS: POTASSIUM CHLORIDE ER 20 MEQ TAB.ER PO SCH ×3 (01:15→03:37)
[2022-04-08] MEDS: SODIUM CHLORIDE 0.9% 1,000 ML IV SCH ×3 (02:22→11:54)
[2022-04-08 06:12] LABS: Glucose,Whole Blood 119 mg/dL (70-110)
[2022-04-08] MEDS: LEVOTHYROXINE 88 MCG TAB PO SCH (06:19)
[2022-04-08] MEDS: INSULIN ASPART (NovoLOG) 100 UNIT/ML VIAL SQ SCH ×4 (06:19→22:39)
--- NOTE | 2022-04-08 07:52 | P.PN ---
Subjective Progress Note Date: 04/07/22 Patient was seen for a follow-up. Patient continues to have headache which is constant 4-5/10 involving bifrontal region, which extends to the temporal region, shooting pain. The shooting component is much more intense, which she rates 8/10. She denies any visual symptoms. Patient believes the headache is worse at night. She denies any weight loss, no jaw claudication. Denies any new neurological symptoms. Objective - Vital Signs Vital signs: Vital Signs Temp 98.6 F 04/07/22 14:00 Pulse 72 04/07/22 14:00 Resp 17 04/07/22 14:00 BP 110/63 04/07/22 14:00 Pulse Ox 95 04/07/22 14:00 FiO2 Intake & Output 04/06/22 04/07/22 04/07/22 18:59 06:59 18:59 Output Total 2400 1800 Balance -2400 -1800 Output: Urine 2400 1800 Other: Voiding Method Indwelling Catheter Indwelling Catheter # Bowel Movements 0 - Exam Patient appears to be in mild to moderate distress because of headache. Mental status, speech and language functions are normal. Cranial nerves are normal. Muscle strength is normal. Her neck appears supple, although she personally feels stiffness in the back of the neck with passive movement. Patient does have present temporal artery pulsations bilaterally. No obvious thickening of the arteries. Patient's temperature has been afebrile. T-max was 102.0 on 04/03/2022 at 1:42 PM. - Labs CBC & Chem 7: 04/07/22 06:41 04/07/22 23:11 Labs: Abnormal Lab Results - Last 24 Hours (Table) 04/06/22 04/06/22 04/07/22 Range/Units 16:50 19:37 06:41 WBC 15.33 H (4.50-10.00) X 10*3/uL Immature Gran # 0.19 H (0.00-0.04) X 10*3/uL Neutrophils # 10.56 H (1.80-7.70) X 10*3/uL Monocytes # 1.82 H (0.20-1.00) X 10*3/uL ESR 96 H (0-30) mm/Hr Potassium (3.5-5.5) mmol/L Carbon Dioxide (20.0-27.5) mmol/L BUN (9.0-27.0) mg/dL Creatinine (0.6-1.5) mg/dL POC Glucose (mg/dL) 138 H 177 H (70-110) mg/dL Calcium (8.7-10.3) mg/dL C-Reactive Protein (0.00-0.80) mg/dL 04/07/22 04/07/22 04/07/22 Range/Units 06:41 07:13 11:57 WBC (4.50-10.00) X 10*3/uL Immature Gran # (0.00-0.04) X 10*3/uL Neutrophils # (1.80-7.70) X 10*3/uL Monocytes # (0.20-1.00) X 10*3/uL ESR (0-30) mm/Hr Potassium 2.8 L (3.5-5.5) mmol/L Carbon Dioxide 27.7 H (20.0-27.5) mmol/L BUN 5.8 L (9.0-27.0) mg/dL Creatinine 0.4 L (0.6-1.5) mg/dL POC Glucose (mg/dL) 135 H 158 H (70-110) mg/dL Calcium 8.3 L (8.7-10.3) mg/dL C-Reactive Protein 25.20 H (0.00-0.80) mg/dL Microbiology - Last 24 Hours (Table) 04/02/22 20:15 Blood Culture - Preliminary Blood No Growth after 96 hours 04/02/22 20:34 Blood Culture - Preliminary Blood No Growth after 96 hours Assessment and Plan Assessment: * New onset bifrontal headache, unclear etiology. No evidence of sinusitis or any intracranial process. Rule out temporal arteritis. Rule out intracranial infection. * Pneumonia * Diabetes * Hypertension * Tobacco use Plan: * CT head without contrast showed no acute intracranial process. Minimal mucosal thickening/secretions most pronounced in the sphenoid sinuses. It does not appear very significant on my review of CT head. No obvious source of headache identified. * ESR 96 , CRP 25.20, TSH 1.050. With persistent headache, recommend temporal artery biopsy rule out temporal arteritis. * lumbar puncture to rule out intracranial infection. Also recommend checking opening pressure as well. * Hold off on empiric steroids, until intracranial infections ruled out with lumbar puncture. * Discussed with primary physician.
[2022-04-08] MEDS: VENLAFAXINE HCL ER 75 MG CAP PO SCH (09:32)
[2022-04-08] MEDS: amLODIPine 10 MG TAB PO SCH (09:32)
[2022-04-08] MEDS: ASPIRIN 81 MG PO SCH ×2 (09:32→09:39)
[2022-04-08] MEDS: METOPROLOL TARTRATE 25 MG TAB PO SCH ×2 (09:32→22:39)
[2022-04-08] MEDS: FAMOTIDINE 20 MG TAB PO SCH ×2 (09:32→22:39)
[2022-04-08] MEDS: CLOPIDOGREL 75 MG TAB PO SCH ×2 (09:32→09:39)
[2022-04-08] MEDS: PANTOPRAZOLE 40 MG TABLET PO SCH ×2 (09:32→17:13)
[2022-04-08] MEDS: TAMSULOSIN 0.4 MG CAP.ER.24H PO SCH (09:32)
[2022-04-08] MEDS: GABAPENTIN 300 MG CAP PO SCH ×4 (09:32→22:39)
[2022-04-08] MEDS: NITROGLYCERIN 0.1MG/HR PATCH TRANSDERM SCH (09:33)
[2022-04-08 10:51] LABS: African American GFR (CKD) 128.5 (60.0-200.0); Anion Gap 11.6 mmol/L (10.00-18.00); BUN/Creat Ratio 15.75 Ratio (12.00-20.00); Basophils # (A) 0.07 X 10*3/uL (0.00-0.10); Basophils % (A) 0.6 %; Blood Urea Nitrogen 6.3 mg/dL (9.0-27.0); Calcium 8.1 mg/dL (8.7-10.3); Carbon Dioxide 26.4 mmol/L (20.0-27.5); Eosinophils # (A) 0.34 X 10*3/uL (0.04-0.35); Eosinophils % (A) 2.9 %; HCT 38.2 % (37.2-46.3); HGB 12.8 g/dL (12.0-15.0); Immature Grans, Automated 1.9 %; Lymphocytes # (A) 3.12 X 10*3/uL (0.90-5.00); Lymphocytes % (A) 26.4 %; MCH 28.6 pg (27.0-32.0); MCHC 33.5 g/dL (32.0-37.0); MCV 85.3 fL (80.0-97.0); Magnesium 2.2 mg/dL (1.5-2.4); Mean Platelet Volume 9.2 fL (9.5-12.2); Monocytes # (A) 1.52 X 10*3/uL (0.20-1.00); Monocytes % (A) 12.8 %; NRBC Per 100 WBC 0 /100 WBCS (0.0-0.0); Neutrophils # (A) 6.55 X 10*3/uL (1.80-7.70); Neutrophils % (A) 55.4 %; Non-African American GFR(CKD) 110.8 (60.0-200.0); Platelet Count 352 X 10*3/uL (140-440); Potassium 3.7 mmol/L (3.5-5.5); RBC 4.48 X 10*6/uL (4.10-5.20); WBC 11.83 X 10*3/uL (4.50-10.00)
[2022-04-08 11:48] LABS: Glucose,Whole Blood 112 mg/dL (70-110)
[2022-04-08 13:05] VITALS: BMI 28.3
--- NOTE | 2022-04-08 14:51 | P.CNPUL ---
History of Present Illness Consult date: 04/08/22 Requesting physician: Erin Guillen Reason for consult: dyspnea, cough, COPD, hypoxemia, pneumonia, abnormal CXR/CT Chief complaint: Shortness of breath. History of present illness: Pulmonary consult dated 04/08/2022. 61-year-old female who presented to the emergency department on April 02, with complaints of generalized weakness, cough, shortness of breath, and generally just feeling poorly for 2 days prior to admission. She was evaluated in the emergency room, and found to have a right lower lobe ammonia. In addition, the patient has smoked for 40 years, and likely has some underlying COPD. Her primary care provider is Dr. Leon in [place], [place]. Currently, the patient's on 2 L of oxygen. She received azithromycin and Rocephin as initiating antibiotics. The patient apparently is going to have a temporal artery biopsy, and they needed preoperative clearance by me. Again she's been in the hospital since the , and I was just consulted today. She has history of coronary disease, with previous heart catheterization and stent, diabetes, GERD, hyperlipidemia, hypertension, myocardial infarction, cervical cancer, and hypothyroidism. White count 11.83, hemoglobin 12.8, hematocrit 38.2, and platelet count 352,000 sodium, potassium, chloride, CO2, and anion gap are all normal. BUN is 6.3 with a creatinine of 0.4. Pro-calcitonin level is 0.6 in 0.5. TSH is normal. Urinary Legionella antigen is negative. Chest x-ray shows a right lower lobe/right middle lobe infiltrate. Review of Systems REVIEW OF SYSTEMS: CONSTITUTIONAL: Weakness. NEUROLOGIC: [ Negative.] HEENT: [ Negative.] CARDIAC: [Negative.] PULMONARY: Shortness of breath and cough. GI: Poor appetite. : [Negative.] RHEUMATOLOGIC: [ Negative.] IMMUNOLOGIC: [ Negative.] ENDOCRINE: [Negative. ] DERMATOLOGIC: [Negative.] Past Medical History Past Medical History: Coronary Artery Disease (CAD), Cancer, Diabetes Mellitus, GERD/Reflux, Hyperlipidemia, Hypertension, Myocardial Infarction ([place]), Thyroid Disorder Additional Past Medical History / Comment(s): rls, hpv, cervical uterine ca(sx only), OBV 12/14-12/15/20 N/V/D Last Myocardial Infarction Date:: 04/04/2018 History of Any Multi-Drug Resistant Organisms: None Reported Past Surgical History: Bladder Surgery, Section, Heart Catheterization With Stent, Hernia Repair, Hysterectomy, Orthopedic Surgery Additional Past Surgical History / Comment(s): 04/04/18 heart cath with stent to distal lad . past hx heart cath w/ stents apr [address] [facility] .thryroidectomy, leep Procedure, , bladder supsension, rt knee sx, COLONOSCOPY 2015 Past Anesthesia/Blood Transfusion Reactions: No Reported Reaction Additional Past Anesthesia/Blood Transfusion Reaction / Comment(s): has never received blood. Date of Last Stent Placement:: 04/04/18 Past Psychological History: Anxiety Smoking Status: Current every day smoker Past Alcohol Use History: None Reported Past Drug Use History: None Reported - Past Family History Mother Family Medical History: Diabetes Mellitus, Hypertension Additional Family Medical History / Comment(s): diet controlled diabetic Father Family Medical History: Coronary Artery Disease (CAD), Myocardial Infarction ([place]) Additional Family Medical History / Comment(s): "at age 40 had [address] bypass" the n at age 50 from [place] Medications and Allergies Home Medications Medication Instructions Recorded Confirmed Type Atorvastatin [Lipitor] 80 mg PO HS 04/04/18 04/03/22 History Metoprolol Tartrate [Lopressor] 25 mg PO BID 04/04/18 04/03/22 History Nitroglycerin Sl Tabs [Nitrostat] 0.4 mg SUBLINGUAL Q5M PRN 04/04/18 04/03/22 History Venlafaxine HCl ER [Effexor XR] 75 mg PO DAILY 04/04/18 04/05/22 History amLODIPine [Norvasc] 10 mg PO DAILY 04/04/18 04/03/22 History Aspirin 81 mg PO DAILY chew 04/07/18 04/03/22 Rx Clopidogrel [Plavix] 75 mg PO DAILY 08/08/19 04/03/22 History Levothyroxine Sodium [Synthroid] 175 mcg PO DAILY 08/08/19 04/03/22 History metFORMIN HCL [Glucophage XR] 750 mg PO BID 08/08/19 04/03/22 History Gabapentin [Neurontin] 600 mg PO BID PRN 12/14/20 04/03/22 History Semaglutide [Rybelsus] 3 mg PO DIRECTED 04/05/22 04/05/22 History Allergies Allergy/AdvReac Type Severity Reaction Status Date / Time nickel Allergy Rash/Hives Verified 04/03/22 14:12 Physical Exam Osteopathic Statement: *. No significant issues noted on an osteopathic structural exam other than those noted in the History and Physical/Consult. Vitals: Vital Signs Temp Pulse Resp BP Pulse Ox 04/08/22 14:00 97.6 F 61 16 103/62 98 04/08/22 08:12 97.9 F 69 18 124/71 96 04/08/22 01:20 98.3 F 60 18 113/63 97 04/07/22 18:58 99.1 F 76 17 119/62 96 Intake and Output 04/07/22 04/08/22 04/08/22 22:59 06:59 14:59 Output Total 1075 2425 1500 Balance -1075 -2425 -1500 Output: Urine 1075 2425 1500 Uretheral ([place]) 1500 Other: Voiding Method Indwelling Catheter Indwelling Catheter Weight 74.843 kg No acute distress, oriented 3. Currently on 2 L. No respiratory difficulty, conversational dyspnea, or use of accessory muscles. HEENT examination is grossly unremarkable. Neck supple. Full range of motion. No adenopathy thyromegaly or neck vein distention. Cardiovascular examination reveals regular rhythm rate. S1-S2 normal. No S3 or S4. No discernible murmur noted. Heart sounds are distant. Heart rate 61 bpm. Lungs reveal bibasilar crackles, right greater than left. A few scattered rhonchi. No wheezes. Breath sounds are equal bilaterally. 2 L is 98 %. Abdomen soft bowel sounds are heard. No masses or tenderness. Extremities are intact. No cyanosis clubbing or edema. Skin is without rash or lesion. Neurologic examination is brief but nonfocal. Results - Laboratory Findings CBC and BMP: 04/08/22 06:34 04/08/22 06:34 PT/INR, D-dimer PT 11.4 sec (9.0-12.0) 04/02/22 20:35 INR 1.1 (<1.2) 04/02/22 20:35 Abnormal lab findings: Abnormal Labs 04/02/22 04/02/22 04/02/22 20:35 20:35 20:35 WBC 28.2 H MPV Immature Gran # Neutrophils # 23.7 H Monocytes # 1.9 H ESR APTT 21.4 L Sodium 131 L Potassium Chloride 97 L Carbon Dioxide 21 L Anion Gap BUN Creatinine Glucose 252 H POC Glucose (mg/dL) Hemoglobin A1c Calcium C-Reactive Protein Total Protein Albumin Procalcitonin Urine Appearance Urine Protein Urine Glucose (UA) Urine Blood Urine Nitrite Ur Leukocyte Esterase Urine WBC Urine Bacteria Urine Mucus 04/03/22 04/03/22 04/03/22 00:00 06:04 06:15 WBC MPV Immature Gran # Neutrophils # Monocytes # ESR APTT Sodium Potassium Chloride Carbon Dioxide Anion Gap BUN Creatinine Glucose POC Glucose (mg/dL) 248 H 205 H Hemoglobin A1c Calcium C-Reactive Protein Total Protein Albumin Procalcitonin Urine Appearance Cloudy H Urine Protein 1+ H Urine Glucose (UA) Trace H Urine Blood Trace H Urine Nitrite Positive H Ur Leukocyte Esterase Small H Urine WBC 12 H Urine Bacteria Occasional H Urine Mucus Few H 04/03/22 04/03/22 04/03/22 07:45 07:45 07:45 WBC 21.7 H MPV Immature Gran # Neutrophils # 18.0 H Monocytes # 1.8 H ESR APTT Sodium 131 L Potassium Chloride Carbon Dioxide 21 L Anion Gap BUN Creatinine 0.50 L Glucose 203 H POC Glucose (mg/dL) Hemoglobin A1c 8.7 H Calcium 8.0 L C-Reactive Protein Total Protein 5.7 L Albumin 3.1 L Procalcitonin Urine Appearance Urine Protein Urine Glucose (UA) Urine Blood Urine Nitrite Ur Leukocyte Esterase Urine WBC Urine Bacteria Urine Mucus 04/03/22 04/03/22 04/03/22 11:15 16:31 20:45 WBC MPV Immature Gran # Neutrophils # Monocytes # ESR APTT Sodium Potassium Chloride Carbon Dioxide Anion Gap BUN Creatinine Glucose POC Glucose (mg/dL) 192 H 159 H 152 H Hemoglobin A1c Calcium C-Reactive Protein Total Protein Albumin Procalcitonin Urine Appearance Urine Protein Urine Glucose (UA) Urine Blood Urine Nitrite Ur Leukocyte Esterase Urine WBC Urine Bacteria Urine Mucus 04/04/22 04/04/22 04/04/22 04:23 04:23 04:23 WBC 17.55 H MPV Immature Gran # 0.15 H Neutrophils # 13.11 H Monocytes # 1.96 H ESR APTT Sodium Potassium Chloride Carbon Dioxide Anion Gap 9.00 L BUN 8.8 L Creatinine 0.5 L Glucose POC Glucose (mg/dL) Hemoglobin A1c Calcium 7.8 L C-Reactive Protein Total Protein Albumin Procalcitonin 0.60 H Urine Appearance Urine Protein Urine Glucose (UA) Urine Blood Urine Nitrite Ur Leukocyte Esterase Urine WBC Urine Bacteria Urine Mucus 04/05/22 04/05/22 04/05/22 03:59 03:59 03:59 WBC 19.54 H MPV Immature Gran # 0.15 H Neutrophils # 15.62 H Monocytes # 1.74 H ESR APTT Sodium Potassium 3.0 L Chloride Carbon Dioxide Anion Gap BUN 6.7 L Creatinine 0.4 L Glucose 57 L POC Glucose (mg/dL) Hemoglobin A1c Calcium 8.1 L C-Reactive Protein Total Protein Albumin Procalcitonin 0.50 H Urine Appearance Urine Protein Urine Glucose (UA) Urine Blood Urine Nitrite Ur Leukocyte Esterase Urine WBC Urine Bacteria Urine Mucus 04/05/22 04/05/22 04/05/22 06:29 11:02 16:38 WBC MPV Immature Gran # Neutrophils # Monocytes # ESR APTT Sodium Potassium Chloride Carbon Dioxide Anion Gap BUN Creatinine Glucose POC Glucose (mg/dL) 61 L 118 H 66 L Hemoglobin A1c Calcium C-Reactive Protein Total Protein Albumin Procalcitonin Urine Appearance Urine Protein Urine Glucose (UA) Urine Blood Urine Nitrite Ur Leukocyte Esterase Urine WBC Urine Bacteria Urine Mucus 04/05/22 04/06/22 04/06/22 21:46 06:17 08:32 WBC 14.6 H MPV Immature Gran # Neutrophils # 11.4 H Monocytes # 1.3 H ESR APTT Sodium Potassium Chloride Carbon Dioxide Anion Gap BUN Creatinine Glucose POC Glucose (mg/dL) 153 H 186 H Hemoglobin A1c Calcium C-Reactive Protein Total Protein Albumin Procalcitonin Urine Appearance Urine Protein Urine Glucose (UA) Urine Blood Urine Nitrite Ur Leukocyte Esterase Urine WBC Urine Bacteria Urine Mucus 04/06/22 04/06/22 04/06/22 08:32 11:32 16:50 WBC MPV Immature Gran # Neutrophils # Monocytes # ESR APTT Sodium 133 L Potassium 3.0 L Chloride Carbon Dioxide Anion Gap BUN 4 L Creatinine 0.42 L Glucose 160 H POC Glucose (mg/dL) 146 H 138 H Hemoglobin A1c Calcium 7.6 L C-Reactive Protein Total Protein Albumin Procalcitonin Urine Appearance Urine Protein Urine Glucose (UA) Urine Blood Urine Nitrite Ur Leukocyte Esterase Urine WBC Urine Bacteria Urine Mucus 04/06/22 04/07/22 04/07/22 19:37 06:41 06:41 WBC 15.33 H MPV Immature Gran # 0.19 H Neutrophils # 10.56 H Monocytes # 1.82 H ESR 96 H APTT Sodium Potassium 2.8 L Chloride Carbon Dioxide 27.7 H Anion Gap BUN 5.8 L Creatinine 0.4 L Glucose POC Glucose (mg/dL) 177 H Hemoglobin A1c Calcium 8.3 L C-Reactive Protein 25.20 H Total Protein Albumin Procalcitonin Urine Appearance Urine Protein Urine Glucose (UA) Urine Blood Urine Nitrite Ur Leukocyte Esterase Urine WBC Urine Bacteria Urine Mucus 04/07/22 04/07/22 04/07/22 07:13 11:57 16:47 WBC MPV Immature Gran # Neutrophils # Monocytes # ESR APTT Sodium Potassium Chloride Carbon Dioxide Anion Gap BUN Creatinine Glucose POC Glucose (mg/dL) 135 H 158 H 122 H Hemoglobin A1c Calcium C-Reactive Protein Total Protein Albumin Procalcitonin Urine Appearance Urine Protein Urine Glucose (UA) Urine Blood Urine Nitrite Ur Leukocyte Esterase Urine WBC Urine Bacteria Urine Mucus 04/07/22 04/07/22 04/08/22 20:24 23:11 06:10 WBC MPV Immature Gran # Neutrophils # Monocytes # ESR APTT Sodium Potassium 2.8 L Chloride Carbon Dioxide Anion Gap BUN Creatinine Glucose POC Glucose (mg/dL) 175 H 119 H Hemoglobin A1c Calcium C-Reactive Protein Total Protein Albumin Procalcitonin Urine Appearance Urine Protein Urine Glucose (UA) Urine Blood Urine Nitrite Ur Leukocyte Esterase Urine WBC Urine Bacteria Urine Mucus 04/08/22 04/08/22 04/08/22 06:34 06:34 11:44 WBC 11.83 H MPV 9.2 L Immature Gran # 0.23 H Neutrophils # Monocytes # 1.52 H ESR APTT Sodium Potassium Chloride Carbon Dioxide Anion Gap BUN 6.3 L Creatinine 0.4 L Glucose 115 H POC Glucose (mg/dL) 112 H Hemoglobin A1c Calcium 8.1 L C-Reactive Protein Total Protein Albumin Procalcitonin Urine Appearance Urine Protein Urine Glucose (UA) Urine Blood Urine Nitrite Ur Leukocyte Esterase Urine WBC Urine Bacteria Urine Mucus - Diagnostic Findings Chest x-ray: image reviewed Assessment and Plan Assessment: Right lower lobe pneumonia, community-acquired. Anticipated temporal artery biopsy, 04/09/2022. Probable COPD from heavy tobacco use, for 40 years. CAD, with previous PCI, and stenting. History of uterine cancer. Diabetes mellitus. Gastroesophageal reflux disease. History of hyperlipidemia. History of hypertension. Prior history of myocardial infarction. Hypothyroidism. Plan: Plan dated 04/08/2022. The patient appears stable to me. She does have a significant consolidation in the right lower lobe/right middle lobe. She's on appropriate antibiotics. Labs, x-rays, medications are reviewed. The patient's on 2 L, and saturations are 98%. I will add some breathing treatments, and Symbicort. She will need outpatient evaluation once discharged. Additional recommendations and suggestions are forthcoming. Time with Patient: Greater than 30
[2022-04-08 16:52] LABS: Glucose,Whole Blood 182 mg/dL (70-110)
[2022-04-08] MEDS: IPRATROPIUM-ALBUTEROL 3 ML NEB INHALATION SCH ×2 (17:15→21:06)
[2022-04-08 20:21] LABS: Glucose,Whole Blood 180 mg/dL (70-110)
--- NOTE | 2022-04-08 20:48 | CONS ---
CONSULTATION HISTORY OF PRESENT ILLNESS: This is a 61-year-old white female. I was consulted for the patient having history of temporal headache, ESR of 96. The patient also has a history of nausea, vomiting, and headaches. PAST MEDICAL HISTORY: History of coronary artery disease, history of diabetes mellitus, hyperlipidemia, hypertension, myocardial infarction, and thyroid disorder. PAST SURGICAL HISTORY: The patient had a bladder surgery, , heart catheterization with stent placement in the past, hysterectomy, and oophorectomy surgery in the past. LABORATORY DATA: Her white cell count is 21.7. X-ray of her chest showed right lower lobe pneumonia. The patient also has hyponatremia. The patient is on IV hydration with normal saline. PHYSICAL EXAMINATION: NECK: Supple. No bruit appreciated. ASSESSMENT AND PLAN: The patient has headaches bilateral, more on the left than on the right. Discussed with Neurology and Internal Medicine. They recommend to have a temporal artery biopsy since the patient has a history of pneumonia. Requested consult for Pulmonology to clear for surgery. We will keep her n.p.o. at midnight and schedule for left temporal artery biopsy. Risks and complications were discussed. MMODL / IJN: [id number] /
[2022-04-08] MEDS: SYMBICORT 160-4.5 MCG INHALER INHALATION SCH (21:06)
[2022-04-08] MEDS: ATORVASTATIN 80 MG TAB PO SCH (22:39)
--- NOTE | 2022-04-09 00:53 | P.PN ---
Subjective Progress Note Date: 04/08/22 Patient was seen for a follow-up. Patient appears much better today. She is sitting in the recliner. Patient states that her headache pain is 4-5/10. She feels overall 40-50% better. She has not been started on any steroids as yet. The headache involves bifrontal region, which extends to the temporal region, shooting pain. She denies any visual symptoms. Patient believes the headache is worse at night. She denies any weight loss, no jaw claudication. Denies any new neurological symptoms. Objective - Vital Signs Vital signs: Vital Signs Temp 97.6 F 04/08/22 14:00 Pulse 61 04/08/22 14:00 Resp 18 04/08/22 16:14 BP 103/62 04/08/22 14:00 Pulse Ox 98 04/08/22 14:00 FiO2 Intake & Output 04/07/22 04/08/22 04/08/22 18:59 06:59 18:59 Output Total 1075 2425 1500 Balance -1075 -2425 -1500 Weight 74.843 kg Output: Urine 1075 2425 1500 Uretheral ([place]) 1500 Other: Voiding Method Indwelling Catheter Indwelling Catheter Indwelling Catheter - Exam Patient appears much more comfortable today. No distress. Mental status, speech and language functions are normal. Cranial nerves are normal. Muscle strength is normal. Her neck appears supple, Patient does have present temporal artery pulsations bilaterally. No obvious thickening of the arteries. Patient's temperature has been afebrile. - Labs CBC & Chem 7: 04/08/22 06:34 04/08/22 06:34 Labs: Abnormal Lab Results - Last 24 Hours (Table) 04/07/22 04/07/22 04/07/22 Range/Units 16:47 20:24 23:11 WBC (4.50-10.00) X 10*3/uL MPV (9.5-12.2) fL Immature Gran # (0.00-0.04) X 10*3/uL Monocytes # (0.20-1.00) X 10*3/uL Potassium 2.8 L (3.5-5.1) mmol/L BUN (9.0-27.0) mg/dL Creatinine (0.6-1.5) mg/dL Glucose (70-110) mg/dL POC Glucose (mg/dL) 122 H 175 H (70-110) mg/dL Calcium (8.7-10.3) mg/dL 04/08/22 04/08/22 04/08/22 Range/Units 06:10 06:34 06:34 WBC 11.83 H (4.50-10.00) X 10*3/uL MPV 9.2 L (9.5-12.2) fL Immature Gran # 0.23 H (0.00-0.04) X 10*3/uL Monocytes # 1.52 H (0.20-1.00) X 10*3/uL Potassium (3.5-5.1) mmol/L BUN 6.3 L (9.0-27.0) mg/dL Creatinine 0.4 L (0.6-1.5) mg/dL Glucose 115 H (70-110) mg/dL POC Glucose (mg/dL) 119 H (70-110) mg/dL Calcium 8.1 L (8.7-10.3) mg/dL 04/08/22 Range/Units 11:44 WBC (4.50-10.00) X 10*3/uL MPV (9.5-12.2) fL Immature Gran # (0.00-0.04) X 10*3/uL Monocytes # (0.20-1.00) X 10*3/uL Potassium (3.5-5.1) mmol/L BUN (9.0-27.0) mg/dL Creatinine (0.6-1.5) mg/dL Glucose (70-110) mg/dL POC Glucose (mg/dL) 112 H (70-110) mg/dL Calcium (8.7-10.3) mg/dL Microbiology - Last 24 Hours (Table) 04/02/22 20:34 Blood Culture - Preliminary Blood No Growth after 120 hours 04/02/22 20:15 Blood Culture - Preliminary Blood No Growth after 120 hours Assessment and Plan Assessment: * New onset bifrontal headache, unclear etiology. No evidence of sinusitis or any intracranial process. Rule out temporal arteritis. No clinical evidence of intracranial infection. Neck is supple, white cells improving, no fever. * Pneumonia * Diabetes * Hypertension * Tobacco use Plan: * CT head without contrast showed no acute intracranial process. Minimal mucosal thickening/secretions most pronounced in the sphenoid sinuses. It does not appear very significant on my review of CT head. No obvious source of headache identified. * ESR 96 , CRP 25.20, TSH 1.050. With persistent headache, recommend temporal artery biopsy rule out temporal arteritis. Patient to undergo left temporal artery biopsy in the morning. * Cancel lumbar puncture, as patient is on Plavix, cannot be performed for 5 days. Her symptoms are not suggestive of intracranial infection. ID also on board. * May start steroids, and the headache persist. Repeat ESR in morning. * Discussed wvascular surgery.
[2022-04-09] MEDS: LEVOTHYROXINE 88 MCG TAB PO SCH (04:50)
[2022-04-09] MEDS: PANTOPRAZOLE 40 MG TABLET PO SCH ×2 (04:50→17:29)
[2022-04-09] MEDS: SODIUM CHLORIDE 0.9% 1,000 ML IV SCH ×2 (04:51→17:16)
[2022-04-09] MEDS: ASPIRIN 81 MG PO SCH (04:51)
[2022-04-09] MEDS: CLOPIDOGREL 75 MG TAB PO SCH (04:51)
[2022-04-09 06:15] LABS: Glucose,Whole Blood 137 mg/dL (70-110)
[2022-04-09] MEDS: INSULIN ASPART (NovoLOG) 100 UNIT/ML VIAL SQ SCH ×4 (06:20→21:36)
[2022-04-09] MEDS: SYMBICORT 160-4.5 MCG INHALER INHALATION SCH ×2 (07:39→21:23)
[2022-04-09] MEDS: IPRATROPIUM-ALBUTEROL 3 ML NEB INHALATION SCH ×4 (07:40→21:23)
[2022-04-09] MEDS: GABAPENTIN 300 MG CAP PO SCH ×4 (09:55→21:24)
[2022-04-09] MEDS: TAMSULOSIN 0.4 MG CAP.ER.24H PO SCH (09:55)
[2022-04-09] MEDS: VENLAFAXINE HCL ER 75 MG CAP PO SCH (09:55)
[2022-04-09] MEDS: NITROGLYCERIN 0.1MG/HR PATCH TRANSDERM SCH (09:55)
[2022-04-09] MEDS: amLODIPine 10 MG TAB PO SCH (09:56)
[2022-04-09] MEDS: FAMOTIDINE 20 MG TAB PO SCH ×2 (09:56→21:24)
[2022-04-09] MEDS: METOPROLOL TARTRATE 25 MG TAB PO SCH ×2 (10:22→21:24)
[2022-04-09 11:02] LABS: Basophils # (A) 0.14 X 10*3/uL (0.00-0.10); Basophils % (A) 1.3 %; Eosinophils # (A) 0.45 X 10*3/uL (0.04-0.35); Eosinophils % (A) 4.1 %; HCT 41.2 % (37.2-46.3); HGB 13.3 g/dL (12.0-15.0); Immature Grans, Automated 3.1 %; Lymphocytes # (A) 3.04 X 10*3/uL (0.90-5.00); Lymphocytes % (A) 27.5 %; MCH 28.3 pg (27.0-32.0); MCHC 32.3 g/dL (32.0-37.0); MCV 87.7 fL (80.0-97.0); Mean Platelet Volume 8.8 fL (9.5-12.2); Monocytes # (A) 1.23 X 10*3/uL (0.20-1.00); Monocytes % (A) 11.1 %; NRBC Per 100 WBC 0 /100 WBCS (0.0-0.0); Neutrophils # (A) 5.84 X 10*3/uL (1.80-7.70); Neutrophils % (A) 52.9 %; Platelet Count 412 X 10*3/uL (140-440); RDW 14.1 % (11.5-14.5); WBC 11.04 X 10*3/uL (4.50-10.00)
[2022-04-09 11:12] LABS: African American GFR (CKD) 119.4 (60.0-200.0); Anion Gap 9.5 mmol/L (10.00-18.00); Blood Urea Nitrogen 11.5 mg/dL (9.0-27.0); Calcium 8.2 mg/dL (8.7-10.3); Carbon Dioxide 26.5 mmol/L (20.0-27.5); Potassium 3.5 mmol/L (3.5-5.5)
[2022-04-09 11:12] LABS: Glucose,Whole Blood 135 mg/dL (70-110)
--- NOTE | 2022-04-09 12:09 | P.PN ---
Subjective Progress Note Date: 04/09/22 Principal diagnosis: Pneumonia. Pulmonary consult dated 04/08/2022. 61-year-old female who presented to the emergency department on April 02, with complaints of generalized weakness, cough, shortness of breath, and generally just feeling poorly for 2 days prior to admission. She was evaluated in the emergency room, and found to have a right lower lobe ammonia. In addition, the patient has smoked for 40 years, and likely has some underlying COPD. Her primary care provider is Dr. Leon in [place], [place]. Currently, the patient's on 2 L of oxygen. She received azithromycin and Rocephin as initiating antibiotics. The patient apparently is going to have a temporal artery biopsy, and they needed preoperative clearance by me. Again she's been in the hospital since the , and I was just consulted today. She has history of coronary disease, with previous heart catheterization and stent, diabetes, GERD, hyperlipidemia, hypertension, myocardial infarction, cervical cancer, and hypothyroidism. White count 11.83, hemoglobin 12.8, hematocrit 38.2, and platelet count 352,000 sodium, potassium, chloride, CO2, and anion gap are all normal. BUN is 6.3 with a creatinine of 0.4. Pro-calcitonin level is 0.6 in 0.5. TSH is normal. Urinary Legionella antigen is negative. Chest x-ray shows a right lower lobe/right middle lobe infiltrate. Progress note dated 04/09/2022. The patient was seen yesterday in consultation. She was admitted with a diagnosis of pneumonia. She is on 2 L. She's not receiving any IV fluids. The patient was scheduled to have a temporal artery biopsy. I did clear her for surgery yesterday. She did smoke a pack a day for 40 years. Clinically she is very stable. Currently, white count 11.04, hemoglobin 13.3, hematocrit 41.2, with a normal platelet count. Sodium 139, potassium 3.5, chlorides 103, CO2 27, BUN 11.5, with a creatinine of 0.5. Calcium is 8.2. Blood and urine cultures are thus far negative. Objective - Vital Signs Vital signs: Vital Signs Temp 97.6 F 04/09/22 08:16 Pulse 58 L 04/09/22 08:16 Resp 15 04/09/22 08:16 BP 130/74 04/09/22 08:16 Pulse Ox 99 04/09/22 08:16 FiO2 Intake & Output 04/08/22 04/09/22 04/09/22 18:59 06:59 18:59 Intake Total 1400 Output Total 1500 1500 Balance -100 -1500 Weight 74.843 kg Intake: IV 1000 Sodium Chloride 0.9% 1, 1000 000 ml @ 100 mls/hr IV . Q10H [facility] Rx#:[id number] Intake, IV Titration 50 Amount cefTRIAXone 2 gm In 50 Sodium Chloride 0.9% 50 ml @ 100 mls/hr IVPB Q24HR@1200 [facility] Rx#: [id number] Oral 350 Output: Urine 1500 1500 Uretheral ([place]) 1500 Other: Voiding Method Indwelling Catheter # Bowel Movements 0 - Exam No acute distress, oriented 3. Currently on 2 L. No respiratory difficulty, conversational dyspnea, or use of accessory muscles. HEENT examination is grossly unremarkable. Neck supple. Full range of motion. No adenopathy thyromegaly or neck vein distention. Cardiovascular examination reveals regular rhythm rate. S1-S2 normal. No S3 or S4. No discernible murmur noted. Heart sounds are distant. Heart rate 70 bpm. Lungs reveal bibasilar crackles, right greater than left. A few scattered rhonchi. No wheezes. Breath sounds are equal bilaterally. 2 L is 99 %. Abdomen soft bowel sounds are heard. No masses or tenderness. Extremities are intact. No cyanosis clubbing or edema. Skin is without rash or lesion. Neurologic examination is brief but nonfocal. - Labs CBC & Chem 7: 04/09/22 07:03 04/09/22 07:03 Labs: Abnormal Lab Results - Last 24 Hours (Table) 04/08/22 04/08/22 04/09/22 Range/Units 16:50 20:19 06:13 WBC (4.50-10.00) X 10*3/uL MPV (9.5-12.2) fL Immature Gran # (0.00-0.04) X 10*3/uL Monocytes # (0.20-1.00) X 10*3/uL Eosinophils # (0.04-0.35) X 10*3/uL Basophils # (0.00-0.10) X 10*3/uL Anion Gap (10.00-18.00) mmol/L Creatinine (0.6-1.5) mg/dL BUN/Creatinine Ratio (12.00-20.00) Ratio Glucose (70-110) mg/dL POC Glucose (mg/dL) 182 H 180 H 137 H (70-110) mg/dL Calcium (8.7-10.3) mg/dL 04/09/22 04/09/22 04/09/22 Range/Units 07:03 07:03 11:11 WBC 11.04 H (4.50-10.00) X 10*3/uL MPV 8.8 L (9.5-12.2) fL Immature Gran # 0.34 H (0.00-0.04) X 10*3/uL Monocytes # 1.23 H (0.20-1.00) X 10*3/uL Eosinophils # 0.45 H (0.04-0.35) X 10*3/uL Basophils # 0.14 H (0.00-0.10) X 10*3/uL Anion Gap 9.50 L (10.00-18.00) mmol/L Creatinine 0.5 L (0.6-1.5) mg/dL BUN/Creatinine Ratio 23.00 H (12.00-20.00) Ratio Glucose 148 H (70-110) mg/dL POC Glucose (mg/dL) 135 H (70-110) mg/dL Calcium 8.2 L (8.7-10.3) mg/dL Microbiology - Last 24 Hours (Table) 04/02/22 20:34 Blood Culture - Final Blood No Growth after 144 hours 04/02/22 20:15 Blood Culture - Final Blood No Growth after 144 hours Assessment and Plan Assessment: Right lower lobe pneumonia, community-acquired. Anticipated temporal artery biopsy, 04/09/2022. Probable COPD from heavy tobacco use, for 40 years. CAD, with previous PCI, and stenting. History of uterine cancer. Diabetes mellitus. Gastroesophageal reflux disease. History of hyperlipidemia. History of hypertension. Prior history of myocardial infarction. Hypothyroidism. Plan: Plan dated 04/08/2022. The patient appears stable to me. She does have a significant consolidation in the right lower lobe/right middle lobe. She's on appropriate antibiotics. Labs, x-rays, medications are reviewed. The patient's on 2 L, and saturations are 98%. I will add some breathing treatments, and Symbicort. She will need outpatient evaluation once discharged. Additional recommendations and suggestions are forthcoming. Plan dated 04/09/2022. The patient was cleared for surgery. I relayed that to the nurse yesterday. Clinically, she is stable. She's on 2 L of oxygen with saturations of 99%. I did add some breathing treatments and Symbicort to her regimen. No additional recommendations are made. We will continue to follow. Prognosis is guarded. She's counseled about the importance of smoking cessation. Time with Patient: Less than 30
[2022-04-09] MEDS ORDERED: IV FLUID CONTINUATION 1,000 ML IV ONE (13:20)
[2022-04-09] MEDS ORDERED: ONDANSETRON 4 MG/2 ML VIAL IVP ONE (13:30)
[2022-04-09] MEDS ORDERED: DEXAMETHASONE SOD PHOSPHATE 4 MG/ML 1 ML VIAL IVP ONE (13:30)
[2022-04-09] MEDS ORDERED: fentaNYL (PF) 50 MCG/ML 2 ML AMP ONE (14:57)
[2022-04-09] MEDS ORDERED: MIDAZOLAM 2 MG/2 ML VIAL ONE (14:57)
[2022-04-09] MEDS ORDERED: LIDOCAINE 2% INJ 20 MG/ML (2 ML VIAL) ONE (14:57)
[2022-04-09] MEDS ORDERED: SUCCINYLCHOLINE CHLORIDE 200 MG/10 ML VIAL IV ONE (14:57)
[2022-04-09] MEDS ORDERED: ETOMIDATE 2 MG/ML 10 ML VIAL ONE (14:57)
[2022-04-09] MEDS ORDERED: LACTATED RINGERS 1,000 ML IV ONE (15:00)
[2022-04-09] MEDS ORDERED: LIDOCAINE 1% INJ 10MG/ML (5 ML VIAL-PF) SQ ONE ×2 (15:23)
[2022-04-09 16:50] LABS: Glucose,Whole Blood 164 mg/dL (70-110)
[2022-04-09] MEDS ORDERED: SODIUM CHLORIDE 0.9% 1,000 ML IV ONE (16:56)
[2022-04-09 21:01] LABS: Glucose,Whole Blood 248 mg/dL (70-110)
[2022-04-09] MEDS: ATORVASTATIN 80 MG TAB PO SCH (21:24)
--- NOTE | 2022-04-09 22:41 | P.PN ---
Subjective Progress Note Date: 04/09/22 Patient was seen for a follow-up. Patient is laying comfortably in the bed. States her headache has improved, rates it at 4/10. Denies any visual symptoms. The headache involves bifrontal region, which extends to the temporal region, shooting pain. She denies any visual symptoms. She denies any weight loss, no jaw claudication. Denies any new neurological symptoms. Objective - Vital Signs Vital signs: Vital Signs Temp 97.6 F 04/09/22 08:16 Pulse 58 L 04/09/22 08:16 Resp 15 04/09/22 08:16 BP 130/74 04/09/22 08:16 Pulse Ox 99 04/09/22 08:16 FiO2 Intake & Output 04/08/22 04/09/22 04/09/22 18:59 06:59 18:59 Intake Total 1400 Output Total 1500 1500 Balance -100 -1500 Weight 74.843 kg Intake: IV 1000 Sodium Chloride 0.9% 1, 1000 000 ml @ 100 mls/hr IV . Q10H [facility] Rx#:[id number] Intake, IV Titration 50 Amount cefTRIAXone 2 gm In 50 Sodium Chloride 0.9% 50 ml @ 100 mls/hr IVPB Q24HR@1200 [facility] Rx#: [id number] Oral 350 Output: Urine 1500 1500 Uretheral ([place]) 1500 Other: Voiding Method Indwelling Catheter # Bowel Movements 0 - Exam Patient appears much more comfortable today. No distress. Mental status, speech and language functions are normal. Cranial nerves are normal. Muscle strength is normal. Her neck appears supple, Patient does have present temporal artery pulsations bilaterally. No obvious t hickening of the arteries. - Labs CBC & Chem 7: 04/09/22 07:03 04/09/22 07:03 Labs: Abnormal Lab Results - Last 24 Hours (Table) 04/08/22 04/08/22 04/08/22 Range/Units 11:44 16:50 20:19 WBC (4.50-10.00) X 10*3/uL MPV (9.5-12.2) fL Immature Gran # (0.00-0.04) X 10*3/uL Monocytes # (0.20-1.00) X 10*3/uL Eosinophils # (0.04-0.35) X 10*3/uL Basophils # (0.00-0.10) X 10*3/uL Anion Gap (10.00-18.00) mmol/L Creatinine (0.6-1.5) mg/dL BUN/Creatinine Ratio (12.00-20.00) Ratio Glucose (70-110) mg/dL POC Glucose (mg/dL) 112 H 182 H 180 H (70-110) mg/dL Calcium (8.7-10.3) mg/dL 04/09/22 04/09/22 04/09/22 Range/Units 06:13 07:03 07:03 WBC 11.04 H (4.50-10.00) X 10*3/uL MPV 8.8 L (9.5-12.2) fL Immature Gran # 0.34 H (0.00-0.04) X 10*3/uL Monocytes # 1.23 H (0.20-1.00) X 10*3/uL Eosinophils # 0.45 H (0.04-0.35) X 10*3/uL Basophils # 0.14 H (0.00-0.10) X 10*3/uL Anion Gap 9.50 L (10.00-18.00) mmol/L Creatinine 0.5 L (0.6-1.5) mg/dL BUN/Creatinine Ratio 23.00 H (12.00-20.00) Ratio Glucose 148 H (70-110) mg/dL POC Glucose (mg/dL) 137 H (70-110) mg/dL Calcium 8.2 L (8.7-10.3) mg/dL 04/09/22 Range/Units 11:11 WBC (4.50-10.00) X 10*3/uL MPV (9.5-12.2) fL Immature Gran # (0.00-0.04) X 10*3/uL Monocytes # (0.20-1.00) X 10*3/uL Eosinophils # (0.04-0.35) X 10*3/uL Basophils # (0.00-0.10) X 10*3/uL Anion Gap (10.00-18.00) mmol/L Creatinine (0.6-1.5) mg/dL BUN/Creatinine Ratio (12.00-20.00) Ratio Glucose (70-110) mg/dL POC Glucose (mg/dL) 135 H (70-110) mg/dL Calcium (8.7-10.3) mg/dL Microbiology - Last 24 Hours (Table) 04/02/22 20:34 Blood Culture - Final Blood No Growth after 144 hours 04/02/22 20:15 Blood Culture - Final Blood No Growth after 144 hours Assessment and Plan Assessment: * New onset bifrontal headache, unclear etiology. No evidence of sinusitis or any intracranial process. Rule out temporal arteritis. No clinical evidence of intracranial infection. Neck is supple, white cells improving, no fever. * Pneumonia * Diabetes * Hypertension * Tobacco use Plan: * Patient's headache has improved. We will repeat ESR and CRP. Repeat CRP is 12.3 (previously 25.2). Repeat ESR pending. (Previous ESR 96) * Await temporal artery biopsy. * CT head without contrast showed no acute intracranial process. Minimal mucosal thickening/secretions most pronounced in the sphenoid sinuses. It does not appear very significant on my review of CT head. No obvious source of headache identified. * Cancel lumbar puncture, as patient is on Plavix, cannot be performed for 5 days. Her symptoms are not suggestive of intracranial infection. ID also on board. * May start steroids, if the headache persist, and if the repeat ESR is still elevated. * Dr. Johnathan Dean to resume neurology service in the morning.
[2022-04-10] MEDS: ACETAMINOPHEN TAB 325 MG TAB PO PRN (00:37)
[2022-04-10] MEDS: SYMBICORT 160-4.5 MCG INHALER INHALATION SCH ×2 (09:00→20:45)
[2022-04-10] MEDS: IPRATROPIUM-ALBUTEROL 3 ML NEB INHALATION SCH ×4 (09:00→20:45)
--- NOTE | 2022-04-10 11:10 | P.PN ---
Subjective Progress Note Date: 04/10/22 Principal diagnosis: Pneumonia. Pulmonary consult dated 04/08/2022. 61-year-old female who presented to the emergency department on April 02, with complaints of generalized weakness, cough, shortness of breath, and generally just feeling poorly for 2 days prior to admission. She was evaluated in the emergency room, and found to have a right lower lobe ammonia. In addition, the patient has smoked for 40 years, and likely has some underlying COPD. Her primary care provider is Dr. Leon in [place], [place]. Currently, the patient's on 2 L of oxygen. She received azithromycin and Rocephin as initiating antibiotics. The patient apparently is going to have a temporal artery biopsy, and they needed preoperative clearance by me. Again she's been in the hospital since the , and I was just consulted today. She has history of coronary disease, with previous heart catheterization and stent, diabetes, GERD, hyperlipidemia, hypertension, myocardial infarction, cervical cancer, and hypothyroidism. White count 11.83, hemoglobin 12.8, hematocrit 38.2, and platelet count 352,000 sodium, potassium, chloride, CO2, and anion gap are all normal. BUN is 6.3 with a creatinine of 0.4. Pro-calcitonin level is 0.6 in 0.5. TSH is normal. Urinary Legionella antigen is negative. Chest x-ray shows a right lower lobe/right middle lobe infiltrate. Progress note dated 04/09/2022. The patient was seen yesterday in consultation. She was admitted with a diagnosis of pneumonia. She is on 2 L. She's not receiving any IV fluids. The patient was scheduled to have a temporal artery biopsy. I did clear her for surgery yesterday. She did smoke a pack a day for 40 years. Clinically she is very stable. Currently, white count 11.04, hemoglobin 13.3, hematocrit 41.2, with a normal platelet count. Sodium 139, potassium 3.5, chlorides 103, CO2 27, BUN 11.5, with a creatinine of 0.5. Calcium is 8.2. Blood and urine cultures are thus far negative. Progress note dated 04/10/2022. 61-year-old female seen in room 464. She currently is on 2 L. She's getting saline at 100 mL an hour. She did have her temporal artery biopsy done on the left side yesterday, April 09. From the pulmonary standpoint, she is doing well. She states that her breathing is stable. She denies any cough, wheezing, or phlegm production. No new labs today. I did order a follow-up chest x-ray, which is yet to be done. Objective - Vital Signs Vital signs: Vital Signs Temp 97.5 F L 04/09/22 19: Pulse 78 04/10/22 09:10 Resp 16 04/09/22 19:22 BP 108/64 04/09/22 19:22 Pulse Ox 98 04/09/22 19:22 FiO2 Intake & Output 04/09/22 04/10/22 04/10/22 18:59 06:59 18:59 Intake Total 3300 Output Total 1655 Balance 1645 Weight 74.843 kg Intake: IV 2950 Sodium Chloride 0.9% 1, 1000 000 ml @ 100 mls/hr IV . Q10H [facility] Rx#:[id number] Intake, IV Titration 250 Amount IV Fluid Continuation 1, 0 000 ml @ 0 mls/hr IV .[facility] Rx#:[id number] Lactated Ringers 1,000 ml 0 @ 0 mls/hr IV .[facility] Rx#:[id number] Sodium Chloride 0.9% 1, 0 000 ml @ 0 mls/hr IV .[facility] Rx#:[id number] Sodium Chloride 0.9% 1, 200 000 ml @ 100 mls/hr IV . Q10H [facility] Rx#:[id number] cefTRIAXone 2 gm In 50 Sodium Chloride 0.9% 50 ml @ 100 mls/hr IVPB Q24HR@1200 [facility] Rx#: [id number] Oral 100 Output: Urine 1650 Estimated Blood Loss 5 Other: Voiding Method Indwelling Catheter Indwelling Catheter - Exam No acute distress, oriented 3. Currently on 2 L. No respiratory difficulty, conversational dyspnea, or use of accessory muscles. HEENT examination is grossly unremarkable. Neck supple. Full range of motion. No adenopathy thyromegaly or neck vein distention. Cardiovascular examination reveals regular rhythm rate. S1-S2 normal. No S3 or S4. No discernible murmur noted. Heart sounds are distant. Heart rate 78 bpm. Lungs reveal bibasilar crackles, right greater than left. A few scattered rhonchi. No wheezes. Breath sounds are equal bilaterally. 2 L is 98 %. Abdomen soft bowel sounds are heard. No masses or tenderness. Extremities are intact. No cyanosis clubbing or edema. Skin is without rash or lesion. Neurologic examination is brief but nonfocal. - Labs CBC & Chem 7: 04/09/22 07:03 04/09/22 07:03 Labs: Abnormal Lab Results - Last 24 Hours (Table) 04/09/22 04/09/22 04/09/22 Range/Units 07:03 07:03 11:11 Anion Gap 9.50 L (10.00-18.00) mmol/L Creatinine 0.5 L (0.6-1.5) mg/dL BUN/Creatinine Ratio 23.00 H (12.00-20.00) Ratio Glucose 148 H (70-110) mg/dL POC Glucose (mg/dL) 135 H (70-110) mg/dL Calcium 8.2 L (8.7-10.3) mg/dL C-Reactive Protein 12.30 H (0.00-0.80) mg/dL 04/09/22 04/09/22 Range/Units 16:48 21:00 Anion Gap (10.00-18.00) mmol/L Creatinine (0.6-1.5) mg/dL BUN/Creatinine Ratio (12.00-20.00) Ratio Glucose (70-110) mg/dL POC Glucose (mg/dL) 164 H 248 H (70-110) mg/dL Calcium (8.7-10.3) mg/dL C-Reactive Protein (0.00-0.80) mg/dL Assessment and Plan Assessment: Right lower lobe pneumonia, community-acquired. S/P left temporal artery biopsy, 04/09/2022. Probable COPD from heavy tobacco use, for 40 years. CAD, with previous PCI, and stenting. History of uterine cancer. Diabetes mellitus. Gastroesophageal reflux disease. History of hyperlipidemia. History of hypertension. Prior history of myocardial infarction. Hypothyroidism. Plan: Plan dated 04/08/2022. The patient appears stable to me. She does have a significant consolidation in the right lower lobe/right middle lobe. She's on appropriate antibiotics. Labs, x-rays, medications are reviewed. The patient's on 2 L, and saturations are 98%. I will add some breathing treatments, and Symbicort. She will need outpatient evaluation once discharged. Additional recommendations and suggestions are forthcoming. Plan dated 04/09/2022. The patient was cleared for surgery. I relayed that to the nurse yesterday. Clinically, she is stable. She's on 2 L of oxygen with saturations of 99%. I did add some breathing treatments and Symbicort to her regimen. No additional recommendations are made. We will continue to follow. Prognosis is guarded. She's counseled about the importance of smoking cessation. Plan dated 04/10/2022. The patient is currently on 2 L of oxygen. She's getting saline at 100 mL an hour. Her left temporal artery biopsy was done yesterday, April 09. A repeat chest x-ray has been ordered. She is currently on Symbicort, ceftriaxone, and updrafts with albuterol sulfate and ipratropium bromide. We will continue to follow make recommendations along the way. Labs, x-rays, and medications are a ll reviewed. Time with Patient: Less than 30
[2022-04-10 11:36] LABS: Glucose,Whole Blood 111 mg/dL (70-110)
--- NOTE | 2022-04-10 11:36 | OP ---
OPERATIVE REPORT PREOPERATIVE DIAGNOSIS: Temporal arteritis. POSTOPERATIVE DIAGNOSIS: Temporal arteritis. PROCEDURE PERFORMED: Left temporal artery biopsy. ANESTHESIA: General. DESCRIPTION OF PROCEDURE: This patient was brought to the operating room. Left temporal area was prepped and draped in the usual sterile manner. Under general anesthesia, incision was made on the temporal area, deepened through skin, fat and fascia. Dissection was carried out until we identified the temporal artery, which was dissected. There were some side branches which were ligated, proximal and distal control was obtained and temporal artery biopsy was performed and electrocoagulated and ligated with 5-0 nylon dressing and incision was closed with 5-0 Vicryl subcuticularly and Steri-Strips were applied. The patient tolerated the procedure well and transferred to the recovery room in satisfactory condition. MMCHING / JUANN: [id number] /
--- NOTE | 2022-04-10 11:36 | XR ---
EXAMINATION TYPE: XR chest 2V DATE OF EXAM: 04/10/2022 9:42 AM COMPARISON: Chest radiographs from 04/06/2022 TECHNIQUE: XR chest 2V Frontal and lateral views of the chest. CLINICAL INDICATION:Female, 61 years old with history of pneumonia; FINDINGS: Lungs/Pleura: Multifocal airspace opacities with improved aeration of the right lung base.. No eviden ce of pneumothorax or pleural effusion. Pulmonary vascularity: Unremarkable. Heart/mediastinum: Cardiomediastinal silhouette is enlarged and stable. Musculoskeletal: No acute osseous pathology. IMPRESSION: Increased aeration of the lungs with persistent multifocal airspace opacities.
[2022-04-10 11:37] LABS: Glucose,Whole Blood 209 mg/dL (70-110)
[2022-04-10] MEDS: LEVOTHYROXINE 88 MCG TAB PO SCH (12:03)
[2022-04-10] MEDS: CLOPIDOGREL 75 MG TAB PO SCH (12:03)
[2022-04-10] MEDS: ASPIRIN 81 MG PO SCH (12:03)
[2022-04-10] MEDS: PANTOPRAZOLE 40 MG TABLET PO SCH ×2 (12:03→16:52)
[2022-04-10] MEDS: INSULIN ASPART (NovoLOG) 100 UNIT/ML VIAL SQ SCH ×4 (12:03→21:03)
[2022-04-10] MEDS: amLODIPine 10 MG TAB PO SCH (12:03)
[2022-04-10] MEDS: GABAPENTIN 300 MG CAP PO SCH ×4 (12:04→21:03)
[2022-04-10] MEDS: TAMSULOSIN 0.4 MG CAP.ER.24H PO SCH (12:04)
[2022-04-10] MEDS: METOPROLOL TARTRATE 25 MG TAB PO SCH ×2 (12:04→21:03)
[2022-04-10] MEDS: VENLAFAXINE HCL ER 75 MG CAP PO SCH (12:04)
[2022-04-10] MEDS: NITROGLYCERIN 0.1MG/HR PATCH TRANSDERM SCH (12:04)
[2022-04-10] MEDS: FAMOTIDINE 20 MG TAB PO SCH ×2 (12:04→21:03)
[2022-04-10] MEDS: predniSONE 20 MG TAB PO SCH (12:10)
[2022-04-10 16:33] LABS: Glucose,Whole Blood 304 mg/dL (70-110)
[2022-04-10 19:28] LABS: Glucose,Whole Blood 320 mg/dL (70-110)
[2022-04-10 20:11] LABS: Glucose,Whole Blood 292 mg/dL (70-110)
[2022-04-10] MEDS: ATORVASTATIN 80 MG TAB PO SCH (21:03)
[2022-04-10] MEDS: INSULIN DETEMIR (LEVEMIR) 100 UNIT/ML SYR SQ SCH (21:45)
--- NOTE | 2022-04-10 23:35 | P.PN ---
Subjective Progress Note Date: 04/06/22 Principal diagnosis: Fever/Pneumonia Patient is a 61-year-old female with multiple comorbidities including cervical cancer present hospitalized weakness did have a cough patient did have a evidence of right middle lobe pneumonia, patient has developed urinary retention requiring Vegas catheter placement. On today's evaluation that is 04/06/2022 the patient continues to be afebrile, the patient is breathing comfortably on room air the patient denies having any chest pain no worsening cough or sputum production, the patient denies abdominal pain no diarrhea Objective - Vital Signs Vital signs: Vital Signs Temp 98.2 F 04/06/22 07:34 Pulse 82 04/06/22 07:34 Resp 17 04/06/22 07:34 BP 150/76 04/06/22 07:34 Pulse Ox 95 04/06/22 07:34 FiO2 Intake & Output 04/05/22 04/06/22 04/06/22 18:59 06:59 18:59 Intake Total 2700 Output Total 1650 2600 Balance 1050 -2600 Intake: IV 1300 Sodium Chloride 0.9% 1, 1300 000 ml @ 100 mls/hr IV . Q10H [facility] Rx#:[id number] Intake, IV Titration 1400 Amount Sodium Chloride 0.9% 1, 1300 000 ml @ 100 mls/hr IV . Q10H [facility] Rx#:[id number] cefTRIAXone 2 gm In 100 Sodium Chloride 0.9% 50 ml @ 100 mls/hr IVPB Q24HR@1200 [facility] Rx#: [id number] Output: Urine 1650 2600 Other: Voiding Method Indwelling Catheter Indwelling Catheter - Exam GENERAL DESCRIPTION: Middle-aged female lying in bed, no distress. No tachypnea or accessory muscle of respiration use. LUNGS: Unlabored breathing. Decrease intensity of breath sounds HEART: S1, S2, regular rate and rhythm. No loud murmur ABDOMEN: Soft, no tenderness , guarding or rigidity, no organomegaly EXTREMITIES: No edema of feet. - Labs CBC & Chem 7: 04/09/22 07:03 04/09/22 07:03 Labs: Abnormal Lab Results - Last 24 Hours (Table) 04/05/22 04/05/22 04/06/22 Range/Units 16:38 21:46 06:17 WBC (3.8-10.6) k/uL Neutrophils # (1.3-7.7) k/uL Monocytes # (0-1.0) k/uL Sodium (137-145) mmol/L Potassium (3.5-5.1) mmol/L BUN (7-17) mg/dL Creatinine (0.52-1.04) mg/dL Glucose (74-99) mg/dL POC Glucose (mg/dL) 66 L 153 H 186 H (70-110) mg/dL Calcium (8.4-10.2) mg/dL 04/06/22 04/06/22 04/06/22 Range/Units 08:32 08:32 11:32 WBC 14.6 H (3.8-10.6) k/uL Neutrophils # 11.4 H (1.3-7.7) k/uL Monocytes # 1.3 H (0-1.0) k/uL Sodium 133 L (137-145) mmol/L Potassium 3.0 L (3.5-5.1) mmol/L BUN 4 L (7-17) mg/dL Creatinine 0.42 L (0.52-1.04) mg/dL Glucose 160 H (74-99) mg/dL POC Glucose (mg/dL) 146 H (70-110) mg/dL Calcium 7.6 L (8.4-10.2) mg/dL Microbiology - Last 24 Hours (Table) 04/02/22 20:34 Blood Culture - Preliminary Blood No Growth after 72 hours 04/02/22 20:15 Blood Culture - Preliminary Blood No Growth after 72 hours Assessment and Plan (1) Fever Current Visit: Yes Status: Acute Code(s): R50.9 - FEVER, UNSPECIFIED SNOM ED Code(s): 678594627 (2) Pneumonia Current Visit: Yes Status: Acute Code(s): J18.9 - PNEUMONIA, UNSPECIFIED ORGANISM SNOMED Code(s): 759952275 Plan: 1patient presented to hospital with sepsis in this patient had fever tachycardia elevated white count source likely right middle lobe pneumonia community-acquired. 2The patient blood culture has been negative so far urine for Legionella antigen negative sputum has not been collected. 3Patient has shown some clinical improvement with resolution of the fever, the patient will continue with Rocephin and Zithromax try to obtain a sputum and continue supportive care Time with Patient: Less than 30
--- NOTE | 2022-04-10 23:36 | P.PN ---
Subjective Progress Note Date: 04/07/22 Principal diagnosis: Fever/Pneumonia Patient is a 61-year-old female with multiple comorbidities including cervical cancer present hospitalized weakness did have a cough patient did have a evidence of right middle lobe pneumonia, patient has developed urinary retention requiring Vegas catheter placement. On today's evaluation that is 04/07/2022 the patient remains to be afebrile, the patient is breathing comfortably on room air , the patient denies having any chest pain no worsening cough or sputum production, the patient denies abdominal pain no diarrhea, has been complaining of some headache neurology has been consulted Objective - Vital Signs Vital signs: Vital Signs Temp 98.3 F 04/07/22 07:53 Pulse 74 04/07/22 07:53 Resp 18 04/07/22 07:53 BP 120/68 04/07/22 07:53 Pulse Ox 95 04/07/22 07:53 FiO2 Intake & Output 04/06/22 04/07/22 04/07/22 18:59 06:59 18:59 Output Total 2400 1800 Balance -2400 -1800 Output: Urine 2400 1800 Other: Voiding Method Indwelling Catheter Indwelling Catheter # Bowel Movements 0 - Exam GENERAL DESCRIPTION: Middle-aged female lying in bed, no distress. No tachypnea or accessory muscle of respiration use. LUNGS: Unlabored breathing. Decrease intensity of breath sounds HEART: S1, S2, regular rate and rhythm. No loud murmur ABDOMEN: Soft, no tenderness , guarding or rigidity, no organomegaly EXTREMITIES: No edema of feet. - Labs CBC & Chem 7: 04/09/22 07:03 04/09/22 07:03 Labs: Abnormal Lab Results - Last 24 Hours (Table) 04/06/22 04/06/22 04/07/22 Range/Units 16:50 19:37 06:41 WBC 15.33 H (4.50-10.00) X 10*3/uL Immature Gran # 0.19 H (0.00-0.04) X 10*3/uL Neutrophils # 10.56 H (1.80-7.70) X 10*3/uL Monocytes # 1.82 H (0.20-1.00) X 10*3/uL Potassium (3.5-5.5) mmol/L Carbon Dioxide (20.0-27.5) mmol/L BUN (9.0-27.0) mg/dL Creatinine (0.6-1.5) mg/dL POC Glucose (mg/dL) 138 H 177 H (70-110) mg/dL Calcium (8.7-10.3) mg/dL C-Reactive Protein (0.00-0.80) mg/dL 04/07/22 04/07/22 04/07/22 Range/Units 06:41 07:13 11:57 WBC (4.50-10.00) X 10*3/uL Immature Gran # (0.00-0.04) X 10*3/uL Neutrophils # (1.80-7.70) X 10*3/uL Monocytes # (0.20-1.00) X 10*3/uL Potassium 2.8 L (3.5-5.5) mmol/L Carbon Dioxide 27.7 H (20.0-27.5) mmol/L BUN 5.8 L (9.0-27.0) mg/dL Creatinine 0.4 L (0.6-1.5) mg/dL POC Glucose (mg/dL) 135 H 158 H (70-110) mg/dL Calcium 8.3 L (8.7-10.3) mg/dL C-Reactive Protein 25.20 H (0.00-0.80) mg/dL Microbiology - Last 24 Hours (Table) 04/02/22 20:15 Blood Culture - Preliminary Blood No Growth after 96 hours 04/02/22 20:34 Blood Culture - Preliminary Blood No Growth after 96 hours Assessment and Plan (1) Fever Current Visit: Yes Status: Acute Code(s): R50.9 - FEVER, UNSPECIFIED SNOMED Code(s): 020631184 (2) Pneumonia Current Visit: Yes Status: Acute Code(s): J18.9 - PNEUMONIA, UNSPECIFIED ORGANISM SNOMED Code(s): 299432769 Plan: 1patient presented to hospital with sepsis in this patient had fever tachycardia elevated white count source likely right middle lobe pneumonia community-acquired. 2The patient blood culture has been negative so far urine for Legionella antigen negative sputum has not been collected. 3Patient has shown some clinical improvement with resolution of the fever and the white count is trending down, will continue with Rocephin and Zithromax try to obtain a sputum and monitor clinical course closely Time with Patient: Less than 30
--- NOTE | 2022-04-10 23:38 | P.PN ---
Subjective Progress Note Date: 04/08/22 Principal diagnosis: Fever/Pneumonia Patient is a 61-year-old female with multiple comorbidities including cervical cancer present hospitalized weakness did have a cough patient did have a evidence of right middle lobe pneumonia, patient has developed urinary retention requiring Vegas catheter placement. On today's evaluation that is 04/08/2022 the patient continues to be afebrile, the patient is breathing comfortably on room air , the patient denies having any chest pain, the patient cough is decreased intensity not bringing up any sputum no nausea no vomiting no abdominal pain or diarrhea Objective - Vital Signs Vital signs: Vital Signs Temp 97.9 F 04/08/22 08:12 Pulse 69 04/08/22 08:12 Resp 18 04/08/22 08:12 BP 124/71 04/08/22 08:12 Pulse Ox 96 04/08/22 08:12 FiO2 Intake & Output 04/07/22 04/08/22 04/08/22 18:59 06:59 18:59 Output Total 1075 2425 1500 Balance -1075 -2425 -1500 Weight 74.843 kg Output: Urine 1075 2425 1500 Uretheral (Vegas) 1500 Other: Voiding Method Indwelling Catheter Indwelling Catheter Indwelling Catheter - Exam GENERAL DESCRIPTION: Middle-aged female lying in bed, no distress. No tachypnea or accessory muscle of respiration use. LUNGS: Unlabored breathing. Decrease intensity of breath sounds HEART: S1, S2, regular rate and rhythm. No loud murmur ABDOMEN: Soft, no tenderness , guarding or rigidity, no organomegaly EXTREMITIES: No edema of feet. - Labs CBC & Chem 7: 04/09/22 07:03 04/09/22 07:03 Labs: Abnormal Lab Results - Last 24 Hours (Table) 04/07/22 04/07/22 04/07/22 Range/Units 16:47 20:24 23:11 WBC (4.50-10.00) X 10*3/uL MPV (9.5-12.2) fL Immature Gran # (0.00-0.04) X 10*3/uL Monocytes # (0.20-1.00) X 10*3/uL Potassium 2.8 L (3.5-5.1) mmol/L BUN (9.0-27.0) mg/dL Creatinine (0.6-1.5) mg/dL Glucose (70-110) mg/dL POC Glucose (mg/dL) 122 H 175 H (70-110) mg/dL Calcium (8.7-10.3) mg/dL 04/08/22 04/08/22 04/08/22 Range/Units 06:10 06:34 06:34 WBC 11.83 H (4.50-10.00) X 10*3/uL MPV 9.2 L (9.5-12.2) fL Immature Gran # 0.23 H (0.00-0.04) X 10*3/uL Monocytes # 1.52 H (0.20-1.00) X 10*3/uL Potassium (3.5-5.1) mmol/L BUN 6.3 L (9.0-27.0) mg/dL Creatinine 0.4 L (0.6-1.5) mg/dL Glucose 115 H (70-110) mg/dL POC Glucose (mg/dL) 119 H (70-110) mg/dL Calcium 8.1 L (8.7-10.3) mg/dL 04/08/22 Range/Units 11:44 WBC (4.50-10.00) X 10*3/uL MPV (9.5-12.2) fL Immature Gran # (0.00-0.04) X 10*3/uL Monocytes # (0.20-1.00) X 10*3/uL Potassium (3.5-5.1) mmol/L BUN (9.0-27.0) mg/dL Creatinine (0.6-1.5) mg/dL Glucose (70-110) mg/dL POC Glucose (mg/dL) 112 H (70-110) mg/dL Calcium (8.7-10.3) mg/dL Microbiology - Last 24 Hours (Table) 04/02/22 20:34 Blood Culture - Preliminary Blood No Growth after 120 hours 04/02/22 20:15 Blood Culture - Preliminary Blood No Growth after 120 hours Assessment and Plan (1) Fever Current Visit: Yes Status: Acute Code(s): R50.9 - FEVER, UNSPECIFIED SNOMED Code(s): 798877024 (2) Pneumonia Current Visit: Yes Status: Acute Code(s): J18.9 - PNEUMONIA, UNSPECIFIED ORGANISM SNOMED Code(s): 150938207 Plan: 1patient presented to hospital with sepsis in this patient had fever tachycardia elevated white count source likely right middle lobe pneumonia community-acquired. 2The patient blood culture has been negative so far urine for Legionella antigen negative sputum has not been collected. 3Patient has shown clinical improvement with resolution of the fever., The patient continue with Rocephin and Zithromax and monitor clinical course closely Time with Patient: Less than 30
--- NOTE | 2022-04-10 23:41 | P.PN ---
Subjective Progress Note Date: 04/10/22 Principal diagnosis: Fever/Pneumonia Patient is a 61-year-old female with multiple comorbidities including cervical cancer present hospitalized weakness did have a cough patient did have a evidence of right middle lobe pneumonia, patient has developed urinary retention requiring Vegas catheter placement. The patient is status post left temporal artery biopsy completed on 04/09/2022 On today's evaluation that is 04/10/2022 the patient denies any fever or any chills, the patient is breathing comfortably on room air , the patient denies having any chest pain, the patient cough has decreased in intensity and not bringing up any sputum, no nausea no vomiting no abdominal pain or diarrhea patient mention feeling better Objective - Vital Signs Vital signs: Vital Signs Temp 97.3 F L 04/10/22 14:00 Pulse 61 04/10/22 14:00 Resp 17 04/10/22 14:00 BP 97/64 04/10/22 14:00 Pulse Ox 99 04/10/22 14:00 FiO2 Intake & Output 04/09/22 04/10/22 04/10/22 18:59 06:59 18:59 Intake Total 3300 Output Total 1655 Balance 1645 Weight 74.843 kg Intake: IV 2950 Sodium Chloride 0.9% 1, 1000 000 ml @ 100 mls/hr IV . Q10H [facility] Rx#:[id number] Intake, IV Titration 250 Amount IV Fluid Continuation 1, 0 000 ml @ 0 mls/hr IV .ST[facility] -[facility] Rx#:[id number] Lactated Ringers 1,000 ml 0 @ 0 mls/hr IV .STK[facility] Rx#:[id number] Sodium Chloride 0.9% 1, 0 000 ml @ 0 mls/hr IV .STK -[facility] Rx#:[id number] Sodium Chloride 0.9% 1, 200 000 ml @ 100 mls/hr IV . Q10H [facility] Rx#:[id number] cefTRIAXone 2 gm In 50 Sodium Chloride 0.9% 50 ml @ 100 mls/hr IVPB Q24HR@1200 [facility] Rx#: [id number] Oral 100 Output: Urine 1650 Estimated Blood Loss 5 Other: Voiding Method Indwelling Catheter Indwelling Catheter - Exam GENERAL DESCRIPTION: Middle-aged female lying in bed, no distress. No tachypnea or accessory muscle of respiration use. LUNGS: Unlabored breathing. Decrease intensity of breath sounds HEART: S1, S2, regular rate and rhythm. No loud murmur ABDOMEN: Soft, no tenderness , guarding or rigidity, no organomegaly EXTREMITIES: No edema of feet. - Labs CBC & Chem 7: 04/09/22 07:03 04/09/22 07:03 Labs: Abnormal Lab Results - Last 24 Hours (Table) 04/09/22 04/09/22 04/09/22 Range/Units 07:03 16:48 21:00 ESR 73 H (0-30) mm/Hr POC Glucose (mg/dL) 164 H 248 H (70-110) mg/dL 04/10/22 04/10/22 Range/Units 06:08 11:34 ESR (0-30) mm/Hr POC Glucose (mg/dL) 111 H 209 H (70-110) mg/dL Assessment and Plan (1) Fever Current Visit: Yes Status: Acute Code(s): R50.9 - FEVER, UNSPECIFIED SNOME D Code(s): 377569937 (2) Pneumonia Current Visit: Yes Status: Acute Code(s): J18.9 - PNEUMONIA, UNSPECIFIED ORGANISM SNOMED Code(s): 861316612 Plan: 1patient presented to hospital with sepsis in this patient had fever tachycardia elevated white count source likely right middle lobe pneumonia community-acquired. 2The patient blood culture has been negative so far urine for Legionella antigen negative sputum has not been collected. 3Patient has shown clinical improvement , fever has resolved white count Is almost normalized chest x-ray did shows better aeration patient to continue with the Rocephin finishing therapy with Ceftin Time with Patient: Less than 30
[2022-04-11 06:01] LABS: Glucose,Whole Blood 189 mg/dL (70-110)
[2022-04-11] MEDS: INSULIN ASPART (NovoLOG) 100 UNIT/ML VIAL SQ SCH ×4 (06:32→20:38)
[2022-04-11] MEDS: LEVOTHYROXINE 88 MCG TAB PO SCH (06:33)
[2022-04-11] MEDS: PANTOPRAZOLE 40 MG TABLET PO SCH ×2 (06:33→17:03)
[2022-04-11] MEDS: VENLAFAXINE HCL ER 75 MG CAP PO SCH (08:29)
[2022-04-11] MEDS: predniSONE 20 MG TAB PO SCH (08:29)
[2022-04-11] MEDS: amLODIPine 10 MG TAB PO SCH (08:29)
[2022-04-11] MEDS: NITROGLYCERIN 0.1MG/HR PATCH TRANSDERM SCH (08:29)
[2022-04-11] MEDS: ASPIRIN 81 MG PO SCH (08:29)
[2022-04-11] MEDS: GABAPENTIN 300 MG CAP PO SCH ×4 (08:29→20:38)
[2022-04-11] MEDS: FAMOTIDINE 20 MG TAB PO SCH ×2 (08:29→20:37)
[2022-04-11] MEDS: TAMSULOSIN 0.4 MG CAP.ER.24H PO SCH (08:29)
[2022-04-11] MEDS: CLOPIDOGREL 75 MG TAB PO SCH (08:29)
[2022-04-11] MEDS: METOPROLOL TARTRATE 25 MG TAB PO SCH ×2 (08:29→20:38)
[2022-04-11] MEDS: IPRATROPIUM-ALBUTEROL 3 ML NEB INHALATION SCH ×4 (08:36→20:23)
[2022-04-11] MEDS: SYMBICORT 160-4.5 MCG INHALER INHALATION SCH ×2 (08:36→20:23)
[2022-04-11 11:21] LABS: Basophils # (A) 0.09 X 10*3/uL (0.00-0.10); Basophils % (A) 0.4 %; Eosinophils # (A) 0.01 X 10*3/uL (0.04-0.35); Eosinophils % (A) 0 %; HCT 38.3 % (37.2-46.3); HGB 12.7 g/dL (12.0-15.0); Immature Grans, Automated 4.2 %; Lymphocytes # (A) 2.56 X 10*3/uL (0.90-5.00); MCH 28.9 pg (27.0-32.0); MCHC 33.2 g/dL (32.0-37.0); Mean Platelet Volume 8.5 fL (9.5-12.2); Monocytes % (A) 5.6 %; NRBC Per 100 WBC 0 /100 WBCS (0.0-0.0); Neutrophils # (A) 16.62 X 10*3/uL (1.80-7.70); Neutrophils % (A) 77.8 %; Platelet Count 462 X 10*3/uL (140-440); RDW 13.9 % (11.5-14.5); WBC 21.37 X 10*3/uL (4.50-10.00)
[2022-04-11 11:48] LABS: African American GFR (CKD) 128.5 (60.0-200.0); Anion Gap 9.4 mmol/L (10.00-18.00); BUN/Creat Ratio 29.5 Ratio (12.00-20.00); Blood Urea Nitrogen 11.8 mg/dL (9.0-27.0); Calcium 8.6 mg/dL (8.7-10.3); Carbon Dioxide 23.6 mmol/L (20.0-27.5); Non-African American GFR(CKD) 110.8 (60.0-200.0); Potassium 4.2 mmol/L (3.5-5.5)
[2022-04-11 11:57] LABS: Glucose,Whole Blood 203 mg/dL (70-110)
--- NOTE | 2022-04-11 12:36 | P.PN ---
Subjective Progress Note Date: 04/11/22 Principal diagnosis: Pneumonia. Pulmonary consult dated 04/08/2022. 61-year-old female who presented to the emergency department on April 02, with complaints of generalized weakness, cough, shortness of breath, and generally just feeling poorly for 2 days prior to admission. She was evaluated in the emergency room, and found to have a right lower lobe ammonia. In addition, the patient has smoked for 40 years, and likely has some underlying COPD. Her primary care provider is Dr. Leon in [place], [place]. Currently, the patient's on 2 L of oxygen. She received azithromycin and Rocephin as initiating antibiotics. The patient apparently is going to have a temporal artery biopsy, and they needed preoperative clearance by me. Again she's been in the hospital since the , and I was just consulted today. She has history of coronary disease, with previous heart catheterization and stent, diabetes, GERD, hyperlipidemia, hypertension, myocardial infarction, cervical cancer, and hypothyroidism. White count 11.83, hemoglobin 12.8, hematocrit 38.2, and platelet count 352,000 sodium, potassium, chloride, CO2, and anion gap are all normal. BUN is 6.3 with a creatinine of 0.4. Pro-calcitonin level is 0.6 in 0.5. TSH is normal. Urinary Legionella antigen is negative. Chest x-ray shows a right lower lobe/right middle lobe infiltrate. Progress note dated 04/09/2022. The patient was seen yesterday in consultation. She was admitted with a diagnosis of pneumonia. She is on 2 L. She's not receiving any IV fluids. The patient was scheduled to have a temporal artery biopsy. I did clear her for surgery yesterday. She did smoke a pack a day for 40 years. Clinically she is very stable. Currently, white count 11.04, hemoglobin 13.3, hematocrit 41.2, with a normal platelet count. Sodium 139, potassium 3.5, chlorides 103, CO2 27, BUN 11.5, with a creatinine of 0.5. Calcium is 8.2. Blood and urine cultures are thus far negative. Progress note dated 04/10/2022. 61-year-old female seen in room 464. She currently is on 2 L. She's getting saline at 100 mL an hour. She did have her temporal artery biopsy done on the left side yesterday, April 09. From the pulmonary standpoint, she is doing well. She states that her breathing is stable. She denies any cough, wheezing, or phlegm production. No new labs today. I did order a follow-up chest x-ray, which is yet to be done. Progress note dated 04/11/2022. The patient is seen today in room 464. The patient had a chest x-ray done, which shows improvement. The patient's on saline at 100 mL an hour, and O2 at 2 L. When I entered the room, the patient is doing a breathing treatment. Laboratory data, includes a white count of 21.4, hemoglobin 12.7, hematocrit 38, and platelet count of 462,000. Sodium 136, potassium 4.2, chlorides 103, CO2 24, anion gap 9, BUN 12, creatinine 0.4. Chest x-ray from yesterday does show improved aeration particularly at the right lung base. Objective - Vital Signs Vital signs: Vital Signs Temp 97.9 F 04/11/22 08:09 Pulse 76 04/11/22 11:49 Resp 16 04/11/22 08:09 BP 120/64 04/11/22 08:09 Pulse Ox 96 04/11/22 08:37 FiO2 Intake & Output 04/10/22 04/11/22 04/11/22 19:59 06:59 18:59 Output Total Balance Output: Urine Other: Voiding Method # Voids - Exam No acute distress, oriented 3. Currently on 2 L. No respiratory difficulty, conversational dyspnea, or use of accessory muscles. HEENT examination is grossly unremarkable. A bandage is over the left forehead area. Neck supple. Full range of motion. No adenopathy thyromegaly or neck vein distention. Cardiovascular examination reveals regular rhythm rate. S1-S2 normal. No S3 or S4. No discernible murmur noted. Heart sounds are distant. Heart rate 76 bpm. Lungs reveal bibasilar crackles, right greater than left. A few scattered rhonchi. No wheezes. Breath sounds are equal bilaterally. 2 L is 97 %. Abdomen soft bowel sounds are heard. No masses or tenderness. Extremities are intact. No cyanosis clubbing or edema. Skin is without rash or lesion. Neurologic examination is brief but nonfocal. - Labs CBC & Chem 7: 04/11/22 06:47 04/11/22 06:47 Labs: Abnormal Lab Results - Last 24 Hours (Table) 04/10/22 04/10/22 04/10/22 Range/Units 16:31 19:26 20:09 WBC (4.50-10.00) X 10*3/uL Plt Count (140-440) X 10*3/uL MPV (9.5-12.2) fL Immature Gran # (0.00-0.04) X 10*3/uL Neutrophils # (1.80-7.70) X 10*3/uL Monocytes # (0.20-1.00) X 10*3/uL Eosinophils # (0.04-0.35) X 10*3/uL Anion Gap (10.00-18.00) mmol/L Creatinine (0.6-1.5) mg/dL BUN/Creatinine Ratio (12.00-20.00) Ratio Glucose (70-110) mg/dL POC Glucose (mg/dL) 304 H 320 H 292 H (70-110) mg/dL Calcium (8.7-10.3) mg/dL 04/11/22 04/11/22 04/11/22 Range/Units 06:00 06:47 06:47 WBC 21.37 H (4.50-10.00) X 10*3/uL Plt Count 462 H (140-440) X 10*3/uL MPV 8.5 L (9.5-12.2) fL Immature Gran # 0.89 H (0.00-0.04) X 10*3/uL Neutrophils # 16.62 H (1.80-7.70) X 10*3/uL Monocytes # 1.20 H (0.20-1.00) X 10*3/uL Eosinophils # 0.01 L (0.04-0.35) X 10*3/uL Anion Gap 9.40 L (10.00-18.00) mmol/L Creatinine 0.4 L (0.6-1.5) mg/dL BUN/Creatinine Ratio 29.50 H (12.00-20.00) Ratio Glucose 196 H (70-110) mg/dL POC Glucose (mg/dL) 189 H (70-110) mg/dL Calcium 8.6 L (8.7-10.3) mg/dL 04/11/22 Range/Units 11:55 WBC (4.50-10.00) X 10*3/uL Plt Count (140-440) X 10*3/uL MPV (9.5-12.2) fL Immature Gran # (0.00-0.04) X 10*3/uL Neutrophils # (1.80-7.70) X 10*3/uL Monocytes # (0.20-1.00) X 10*3/uL Eosinophils # (0.04-0.35) X 10*3/uL Anion Gap (10.00-18.00) mmol/L Creatinine (0.6-1.5) mg/dL BUN/Creatinine Ratio (12.00-20.00) Ratio Glucose (70-110) mg/dL POC Glucose (mg/dL) 203 H (70-110) mg/dL Calcium (8.7-10.3) mg/dL Assessment and Plan Assessment: Right lower lobe pneumonia, community-acquired. S/P left temporal artery biopsy, 04/09/2022. Probable COPD from heavy tobacco use, for 40 years. CAD, with previous PCI, and stenting. History of uterine cancer. Diabetes mellitus. Gastroesophageal reflux disease. History of hyperlipidemia. History of hypertension. Prior history of myocardial infarction. Hypothyroidism. Plan: Plan dated 04/08/2022. The patient appears stable to me. She does have a significant consolidation in the right lower lobe/right middle lobe. She's on appropriate antibiotics. Labs, x-rays, medications are reviewed. The patient's on 2 L, and saturations are 98%. I will add some breathing treatments, and Symbicort. She will need outpatient evaluation once discharged. Additional recommendations and suggestions are forthcoming. Plan dated 04/09/2022. The patient was cleared for surgery. I relayed that to the nurse yesterday. Clinically, she is stable. She's on 2 L of oxygen with saturations of 99%. I did add some breathing treatments and Symbicort to her regimen. No additional recommendations are made. We will continue to follow. Prognosis is guarded. She's counseled about the importance of smoking cessation. Plan dated 04/10/2022. The patient is currently on 2 L of oxygen. She's getting saline at 100 mL an hour. Her left temporal artery biopsy was done yesterday, April 09. A repeat chest x-ray has been ordered. She is currently on Symbicort, ceftriaxone, and updrafts with albuterol sulfate and ipratropium bromide. We will continue to follow make recommendations along the way. Labs, x-rays, and medications are all reviewed. Plan dated 04/11/2022. The patient appears to be doing relatively well. Her chest x-ray from yesterday is improved. The patient's on 2 L of oxygen. The patient's also getting fluids at 100 mL an hour. Hopeful discharge soon. She is on appropriate medications including Symbicort, Rocephin, and updrafts. We will continue to follow the patient and make recommendations along the way. Prognosis is guarded. Time with Patient: Less than 30
[2022-04-11 16:41] LABS: Glucose,Whole Blood 338 mg/dL (70-110)
[2022-04-11 19:27] LABS: Glucose,Whole Blood 352 mg/dL (70-110)
[2022-04-11] MEDS: ATORVASTATIN 80 MG TAB PO SCH (20:37)
[2022-04-11] MEDS: INSULIN DETEMIR (LEVEMIR) 100 UNIT/ML SYR SQ SCH (20:45)
--- NOTE | 2022-04-12 00:46 | P.PN ---
Subjective Progress Note Date: 04/08/22 61-year-old female presents to the emergency department via EMS accompanied by her spouse for evaluation of generalized weakness. Patient's spouse states the patient has been complaining of feeling poorly for the past 2 days. Patient reports lack of appetite and generalized body aches. Complaints of intermittent nausea and frequent headache. Has had episodes of intermittent midsternal, nonradiating chest pain. No aggravating or alleviating factors. Has been taking her medications as prescribed. Has been unable to check her temperature at home but does feel warm to the touch. No dizziness, shortness of breath, abdominal pain, vomiting, diarrhea, dysuria, hematuria, or lower extremity edema. Chest x-ray was obtained and shows right middle lobe pneumonia. Laboratory studies were reviewed showing significant leukocytosis with a white blood count of 28.2 and hyponatremia. COVID is negative. Patient was given IV fluids, Tylenol for fever, and pain medicine with some improvement. Zithromax and Rocephin were given in the ED. Results were discussed with patient and spouse; they are agreeable to hospital admission for further evaluation and treatment. 04/05/2022 pt breathing is stable at rest she is saturating 95 % on ra, she is still on antibiotics as per ID team of ceftriaxone and zithromax, also she is s/p payne catheter and flomax for urinary retension and urologsit recommened outpatient follow up- this morning pt is complained from sever headache , 9/10 that is resolved with fiorocet, no neurological deficit and exam non focal with strenght 5/5 and senstation is intact she is hypoglycemic this mornign and through the day around 60-70, so lowered her levemir ( 30 u down to 15) and then helo it tonight lower iv fluid to 100 ml per hr 04/06/2022 Yesterday we added furosemide but still has severe headache today 8-9/10 in severity with no focal neurological deficit. CT of the brain is negative, ESR is pending. Neurology input is appreciated Also she remains on ceftriaxone And Zithromax for her pneumonia, she is saturating 90% on room air. We will keep monitoring 04-07-22 Patient still complained of from severe headache although this morning she reports improvement, in the morning and her headache was 5-6/10 in severity. No blurred vision or neurological deficits, no weakness or confusion or numbness. Vitals stable, afebrile, WBC is trending down to 15,000 She remains on ceftriaxone and Zithromax and aspirin and Plavix She confirms at home she takes metformin 750 mg and rybelsus , she confirms she was not on insulin at home. We stopped Levemir, also her diabetes pills are on hold for hypoglycemia, glucose currently is controlled. Hyperglycemia may be contributed to her headache. I discussed the case with neurology service today Dr. Burger, patient has elevated ESR and CRP, temporal artery biopsy is recommended, vascular surgery consult is placed, we made the patient nothing by mouth after midnight, I discussed the case with the bedside nurse to contact vascular surgery to see if hold antiplatelet in the morning, patient is an aspirin and Plavix. Also patient may need LP down the road if no improvement. As per recommendation from neurologist, we will hold for steroids until further workup. 04/08/2022 Patient is currently lying in bed. Awake alert and oriented. Headache is better today. Mainly in the bifrontal region. Extending to the temporal region. Denies any visual disturbance. Denied any jaw claudication. No focal neurological symptoms. Denied any chest pain or worsening shortness of breath. No nausea vomiting abdominal pain or diarrhea. No cough or sputum production. Patient is being continued on antibiotics in the form of ceftriaxone. ID and neurology is on board. Patient is being scheduled for temporal artery biopsy. Objective - Vital Signs Vital signs: Vital Signs Temp 97.3 F L 04/08/22 19:52 Pulse 60 04/08/22 19:52 Resp 16 04/08/22 19:52 BP 113/65 04/08/22 19:52 Pulse Ox 100 04/08/22 19:52 FiO2 Intake & Output 04/08/22 04/08/22 04/09/22 06:59 18:59 06:59 Intake Total 1400 Output Total 2425 1500 Balance -2424 -100 Weight 74.843 kg Intake: IV 1000 Sodium Chloride 0.9% 1, 1000 000 ml @ 100 mls/hr IV . Q10H [facility] Rx#:[id number] Intake, IV Titration 50 Amount cefTRIAXone 2 gm In 50 Sodium Chloride 0.9% 50 ml @ 100 mls/hr IVPB Q24HR@1200 [facility] Rx#: [id number] Oral 350 Output: Urine 2425 1500 Uretheral (Payne) 1500 Other: Voiding Method Indwelling Catheter Indwelling Catheter # Bowel Movements 0 - Exam - Exam GENERAL: The patient is alert and oriented x3, not in any acute distress. Well developed, well nourished. HEENT: Pupils are round and equally reacting to light. EOMI. No scleral icterus. No conjunctival pallor. Normocephalic, atraumatic. No pharyngeal erythema. No thyromegaly. CARDIOVASCULAR: S1 and S2 present. No murmurs, rubs, or gallops. PULMONARY: Chest is clear to auscultation, no wheezing or crackles. ABDOMEN: Soft, nontender, nondistended, normoactive bowel sounds. No palpable organomegaly. MUSCULOSKELETAL: No joint swelling or deformity. EXTREMITIES: No cyanosis, clubbing, or pedal edema. NEUROLOGICAL: Gross neurological examination did not reveal any focal deficits. SKIN: No rashes. no petechiae. - Labs CBC & Chem 7: 04/11/22 06:47 04/11/22 06:47 Labs: Abnormal Lab Results - Last 24 Hours (Table) 04/07/22 04/08/22 04/08/22 Range/Units 23:11 06:10 06:34 WBC (4.50-10.00) X 10*3/uL MPV (9.5-12.2) fL Immature Gran # (0.00-0.04) X 10*3/uL Monocytes # (0.20-1.00) X 10*3/uL Potassium 2.8 L (3.5-5.1) mmol/L BUN 6.3 L (9.0-27.0) mg/dL Creatinine 0.4 L (0.6-1.5) mg/dL Glucose 115 H (70-110) mg/dL POC Glucose (mg/dL) 119 H (70-110) mg/dL Calcium 8.1 L (8.7-10.3) mg/dL 04/08/22 04/08/22 04/08/22 Range/Units 06:34 11:44 16:50 WBC 11.83 H (4.50-10.00) X 10*3/uL MPV 9.2 L (9.5-12.2) fL Immature Gran # 0.23 H (0.00-0.04) X 10*3/uL Monocytes # 1.52 H (0.20-1.00) X 10*3/uL Potassium (3.5-5.1) mmol/L BUN (9.0-27.0) mg/dL Creatinine (0.6-1.5) mg/dL Glucose (70-110) mg/dL POC Glucose (mg/dL) 112 H 182 H (70-110) mg/dL Calcium (8.7-10.3) mg/dL 04/08/22 Range/Units 20:19 WBC (4.50-10.00) X 10*3/uL MPV (9.5-12.2) fL Immature Gran # (0.00-0.04) X 10*3/uL Monocytes # (0.20-1.00) X 10*3/uL Potassium (3.5-5.1) mmol/L BUN (9.0-27.0) mg/dL Creatinine (0.6-1.5) mg/dL Glucose (70-110) mg/dL POC Glucose (mg/dL) 180 H (70-110) mg/dL Calcium (8.7-10.3) mg/dL Microbiology - Last 24 Hours (Table) 04/02/22 20:34 Blood Culture - Preliminary Blood No Growth after 120 hours 04/02/22 20:15 Blood Culture - Preliminary Blood No Growth after 120 hours Assessment and Plan Assessment: 1 New onset bifrontal headache. No evidence of sinusitis. Rule out temporal arteritis. Lumbar puncture has been canceled. Patient is being on Plavix cannot be performed for 5 days. Unlikely intracranial infection and neurology is on board. Vascular surgery was consulted for temporal artery biopsy. will hold steroids until biopsy. 1. Right lower lobe pneumonia 2. Hyponatremia; resolved 4. diabetes mellitus with hypoglycemia; we will monitor Accu-Cheks Before meals and at bedtime with insulin sliding scale 5. Hypertension; metoprolol 25 mg twice a day amlodipine 10 mg daily; 6. Hyperlipidemia; Lipitor 80 mg by mouth daily at bedtime 7. Hypothyroidism; levothyroxine 175 MCG daily 8. Coronary artery disease; continue with aspirin, beta blockers, statin and nitroglycerin Time with Patient: Greater than 30
--- NOTE | 2022-04-12 00:48 | P.PN ---
Subjective Progress Note Date: 04/09/22 61-year-old female presents to the emergency department via EMS accompanied by her spouse for evaluation of generalized weakness. Patient's spouse states the patient has been complaining of feeling poorly for the past 2 days. Patient reports lack of appetite and generalized body aches. Complaints of intermittent nausea and frequent headache. Has had episodes of intermittent midsternal, nonradiating chest pain. No aggravating or alleviating factors. Has been taking her medications as prescribed. Has been unable to check her temperature at home but does feel warm to the touch. No dizziness, shortness of breath, abdominal pain, vomiting, diarrhea, dysuria, hematuria, or lower extremity edema. Chest x-ray was obtained and shows right middle lobe pneumonia. Laboratory studies were reviewed showing significant leukocytosis with a white blood count of 28.2 and hyponatremia. COVID is negative. Patient was given IV fluids, Tylenol for fever, and pain medicine with some improvement. Zithromax and Rocephin were given in the ED. Results were discussed with patient and spouse; they are agreeable to hospital admission for further evaluation and treatment. 04/05/2022 pt breathing is stable at rest she is saturating 95 % on ra, she is still on antibiotics as per ID team of ceftriaxone and zithromax, also she is s/p payne catheter and flomax for urinary retension and urologsit recommened outpatient follow up- this morning pt is complained from sever headache , 9/10 that is resolved with fiorocet, no neurological deficit and exam non focal with strenght 5/5 and senstation is intact she is hypoglycemic this mornign and through the day around 60-70, so lowered her levemir ( 30 u down to 15) and then helo it tonight lower iv fluid to 100 ml per hr 04/06/2022 Yesterday we added furosemide but still has severe headache today 8-9/10 in severity with no focal neurological deficit. CT of the brain is negative, ESR is pending. Neurology input is appreciated Also she remains on ceftriaxone And Zithromax for her pneumonia, she is saturating 90% on room air. We will keep monitoring 04-07-22 Patient still complained of from severe headache although this morning she reports improvement, in the morning and her headache was 5-6/10 in severity. No blurred vision or neurological deficits, no weakness or confusion or numbness. Vitals stable, afebrile, WBC is trending down to 15,000 She remains on ceftriaxone and Zithromax and aspirin and Plavix She confirms at home she takes metformin 750 mg and rybelsus , she confirms she was not on insulin at home. We stopped Levemir, also her diabetes pills are on hold for hypoglycemia, glucose currently is controlled. Hyperglycemia may be contributed to her headache. I discussed the case with neurology service today Dr. Burger, patient has elevated ESR and CRP, temporal artery biopsy is recommended, vascular surgery consult is placed, we made the patient nothing by mouth after midnight, I discussed the case with the bedside nurse to contact vascular surgery to see if hold antiplatelet in the morning, patient is an aspirin and Plavix. Also patient may need LP down the road if no improvement. As per recommendation from neurologist, we will hold for steroids until further workup. 04/08/2022 Patient is currently lying in bed. Awake alert and oriented. Headache is better today. Mainly in the bifrontal region. Extending to the temporal region. Denies any visual disturbance. Denied any jaw claudication. No focal neurological symptoms. Denied any chest pain or worsening shortness of breath. No nausea vomiting abdominal pain or diarrhea. No cough or sputum production. Patient is being continued on antibiotics in the form of ceftriaxone. ID and neurology is on board. Patient is being scheduled for temporal artery biopsy. 04/09/2022 Patient is currently lying in bed. Awake alert and oriented. Patient is schedu led for temporal artery biopsy. Headache is improving. Otherwise patient is being continued antibiotics for pneumonia with ceftriaxone. Azithromycin. Laboratory data showed WBC 11.0 hemoglobin 13.3 and platelets 412 Sodium 139 potassium 3.5 chloride 103 bicarb is 26.5 BUN 11.5 and creatinine 0.5 and blood sugar is 148. CRP 12.3. Current medications reviewed. Objective - Vital Signs Vital signs: Vital Signs Temp 97.5 F L 04/09/22 19: Pulse 68 04/09/22 19:22 Resp 16 04/09/22 19:22 BP 108/64 04/09/22 19:22 Pulse Ox 98 04/09/22 19:22 FiO2 Intake & Output 04/09/22 04/09/22 04/10/22 06:59 18:59 06:59 Intake Total 3300 Output Total 1500 1655 Balance -1500 1645 Weight 74.843 kg Intake: IV 2950 Sodium Chloride 0.9% 1, 1000 000 ml @ 100 mls/hr IV . Q10H [facility] Rx#:[id number] Intake, IV Titration 250 Amount IV Fluid Continuation 1, 0 000 ml @ 0 mls/hr IV [facility] Rx#:[id number] Lactated Ringers 1,000 ml 0 @ 0 mls/hr IV [facility] Rx#:[id number] Sodium Chloride 0.9% 1, 0 000 ml @ 0 mls/hr IV [facility] Rx#:[id number] Sodium Chloride 0.9% 1, 200 000 ml @ 100 mls/hr IV . Q10H [facility] Rx#:[id number] cefTRIAXone 2 gm In 50 Sodium Chloride 0.9% 50 ml @ 100 mls/hr IVPB Q24HR@1200 [facility] Rx#: [id number] Oral 100 Output: Urine 1500 1650 Estimated Blood Loss 5 Other: Voiding Method Indwelling Catheter - Exam - Exam GENERAL: The patient is alert and oriented x3, not in any acute distress. Well d eveloped, well nourished. HEENT: Pupils are round and equally reacting to light. EOMI. No scleral icterus. No conjunctival pallor. Normocephalic, atraumatic. No pharyngeal erythema. No thyromegaly. CARDIOVASCULAR: S1 and S2 present. No murmurs, rubs, or gallops. PULMONARY: Chest is clear to auscultation, no wheezing or crackles. ABDOMEN: Soft, nontender, nondistended, normoactive bowel sounds. No palpable organomegaly. MUSCULOSKELETAL: No joint swelling or deformity. EXTREMITIES: No cyanosis, clubbing, or pedal edema. NEUROLOGICAL: Gross neurological examination did not reveal any focal deficits. SKIN: No rashes. no petechiae. - Labs CBC & Chem 7: 04/11/22 06:47 04/11/22 06:47 Labs: Abnormal Lab Results - Last 24 Hours (Table) 04/09/22 04/09/22 04/09/22 Range/Units 06:13 07:03 07:03 WBC 11.04 H (4.50-10.00) X 10*3/uL MPV 8.8 L (9.5-12.2) fL Immature Gran # 0.34 H (0.00-0.04) X 10*3/uL Monocytes # 1.23 H (0.20-1.00) X 10*3/uL Eosinophils # 0.45 H (0.04-0.35) X 10*3/uL Basophils # 0.14 H (0.00-0.10) X 10*3/uL Anion Gap 9.50 L (10.00-18.00) mmol/L Creatinine 0.5 L (0.6-1.5) mg/dL BUN/Creatinine Ratio 23.00 H (12.00-20.00) Ratio Glucose 148 H (70-110) mg/dL POC Glucose (mg/dL) 137 H (70-110) mg/dL Calcium 8.2 L (8.7-10.3) mg/dL C-Reactive Protein (0.00-0.80) mg/dL 04/09/22 04/09/22 04/09/22 Range/Units 07:03 11:11 16:48 WBC (4.50-10.00) X 10*3/uL MPV (9.5-12.2) fL Immature Gran # (0.00-0.04) X 10*3/uL Monocytes # (0.20-1.00) X 10*3/uL Eosinophils # (0.04-0.35) X 10*3/uL Basophils # (0.00-0.10) X 10*3/uL Anion Gap (10.00-18.00) mmol/L Creatinine (0.6-1.5) mg/dL BUN/Creatinine Ratio (12.00-20.00) Ratio Glucose (70-110) mg/dL POC Glucose (mg/dL) 135 H 164 H (70-110) mg/dL Calcium (8.7-10.3) mg/dL C-Reactive Protein 12.30 H (0.00-0.80) mg/dL Microbiology - Last 24 Hours (Table) 04/02/22 20:34 Blood Culture - Final Blood No Growth after 144 hours 04/02/22 20:15 Blood Culture - Final Blood No Growth after 144 hours Assessment and Plan Assessment: 1 New onset bifrontal headache. No evidence of sinusitis. Rule out temporal arteritis. Lumbar puncture has been canceled. Patient is being on Plavix cannot be performed for 5 days. Unlikely intracranial infection and neurology is on board. Vascular surgery was consulted for temporal artery biopsy. will hold steroids until biopsy. 1. Right lower lobe pneumonia 2. Hyponatremia; resolved 4. diabetes mellitus with hypoglycemia; we will monitor Accu-Cheks Before meals and at bedtime with insulin sliding scale 5. Hypertension; metoprolol 25 mg twice a day amlodipine 10 mg daily; 6. Hyperlipidemia; Lipitor 80 mg by mouth daily at bedtime 7. Hypothyroidism; levothyroxine 175 MCG daily 8. Coronary artery disease; continue with aspirin, beta blockers, statin and nitroglycerin Time with Patient: Greater than 30
--- NOTE | 2022-04-12 00:51 | P.PN ---
Subjective Progress Note Date: 04/10/22 61-year-old female presents to the emergency department via EMS accompanied by her spouse for evaluation of generalized weakness. Patient's spouse states the patient has been complaining of feeling poorly for the past 2 days. Patient reports lack of appetite and generalized body aches. Complaints of intermittent nausea and frequent headache. Has had episodes of intermittent midsternal, nonradiating chest pain. No aggravating or alleviating factors. Has been taking her medications as prescribed. Has been unable to check her temperature at home but does feel warm to the touch. No dizziness, shortness of breath, abdominal pain, vomiting, diarrhea, dysuria, hematuria, or lower extremity edema. Chest x-ray was obtained and shows right middle lobe pneumonia. Laboratory studies were reviewed showing significant leukocytosis with a white blood count of 28.2 and hyponatremia. COVID is negative. Patient was given IV fluids, Tylenol for fever, and pain medicine with some improvement. Zithromax and Rocephin were given in the ED. Results were discussed with patient and spouse; they are agreeable to hospital admission for further evaluation and treatment. 04/05/2022 pt breathing is stable at rest she is saturating 95 % on ra, she is still on antibiotics as per ID team of ceftriaxone and zithromax, also she is s/p payne catheter and flomax for urinary retension and urologsit recommened outpatient follow up- this morning pt is complained from sever headache , 9/10 that is resolved with fiorocet, no neurological deficit and exam non focal with strenght 5/5 and senstation is intact she is hypoglycemic this mornign and through the day around 60-70, so lowered her levemir ( 30 u down to 15) and then helo it tonight lower iv fluid to 100 ml per hr 04/06/2022 Yesterday we added furosemide but still has severe headache today 8-9/10 in severity with no focal neurological deficit. CT of the brain is negative, ESR is pending. Neurology input is appreciated Also she remains on ceftriaxone And Zithromax for her pneumonia, she is saturating 90% on room air. We will keep monitoring 04-07-22 Patient still complained of from severe headache although this morning she reports improvement, in the morning and her headache was 5-6/10 in severity. No blurred vision or neurological deficits, no weakness or confusion or numbness. Vitals stable, afebrile, WBC is trending down to 15,000 She remains on ceftriaxone and Zithromax and aspirin and Plavix She confirms at home she takes metformin 750 mg and rybelsus , she confirms she was not on insulin at home. We stopped Levemir, also her diabetes pills are on hold for hypoglycemia, glucose currently is controlled. Hyperglycemia may be contributed to her headache. I discussed the case with neurology service today Dr. Burger, patient has elevated ESR and CRP, temporal artery biopsy is recommended, vascular surgery consult is placed, we made the patient nothing by mouth after midnight, I discussed the case with the bedside nurse to contact vascular surgery to see if hold antiplatelet in the morning, patient is an aspirin and Plavix. Also patient may need LP down the road if no improvement. As per recommendation from neurologist, we will hold for steroids until further workup. 04/08/2022 Patient is currently lying in bed. Awake alert and oriented. Headache is better today. Mainly in the bifrontal region. Extending to the temporal region. Denies any visual disturbance. Denied any jaw claudication. No focal neurological symptoms. Denied any chest pain or worsening shortness of breath. No nausea vomiting abdominal pain or diarrhea. No cough or sputum production. Patient is being continued on antibiotics in the form of ceftriaxone. ID and neurology is on board. Patient is being scheduled for temporal artery biopsy. 04/09/2022 Patient is currently lying in bed. Awake alert and oriented. Patient is schedu led for temporal artery biopsy. Headache is improving. Otherwise patient is being continued antibiotics for pneumonia with ceftriaxone. Azithromycin. Laboratory data showed WBC 11.0 hemoglobin 13.3 and platelets 412 Sodium 139 potassium 3.5 chloride 103 bicarb is 26.5 BUN 11.5 and creatinine 0.5 and blood sugar is 148. CRP 12.3. 04/10/2022 Patient is currently lying in bed. Awake alert and oriented x3. Requiring 2 L of oxygen via nasal cannula. Patient is tolerating oral diet. IV fluids will be discontinued. Denies any complaints of cough or sputum production. No nausea vomiting abdominal pain or diarrhea. Headache is better. Patient is status post biopsy temporal artery. On 04/09/2022. Patient was started on prednisone 60 mg daily as per neurology. Patient has been afebrile. Patient is being current antibiotics for pneumonia otherwise. Current medications reviewed. Objective - Vital Signs Vital signs: Vital Signs Temp 98.0 F 04/10/22 19:43 Pulse 61 04/10/22 19:43 Resp 17 04/10/22 19:43 BP 126/71 04/10/22 19:43 Pulse Ox 97 04/10/22 19:43 FiO2 Intake & Output 04/10/22 04/10/22 04/11/22 06:59 18:59 05:59 Output Total 700 Balance -700 Output: Urine 700 Other: Voiding Method Indwelling Catheter - Exam - Exam GENERAL: The patient is alert and oriented x3, not in any acute distress. Well developed, well nourished. HEENT: Pupils are round and equally reacting to light. EOMI. No scleral icterus. No conjunctival pallor. Normocephalic, atraumatic. No pharyngeal erythema. No thyromegaly. CARDIOVASCULAR: S1 and S2 present. No murmurs, rubs, or gallops. PULMONARY: Chest is clear to auscultation, no wheezing or crackles. ABDOMEN: Soft, nontender, nondistended, normoactive bowel sounds. No palpable organomegaly. MUSCULOSKELETAL: No joint swelling or deformity. EXTREMITIES: No cyanosis, clubbing, or pedal edema. NEUROLOGICAL: Gross neurological examination did not reveal any focal deficits. SKIN: No rashes. no petechiae. - Labs CBC & Chem 7: 04/11/22 06:47 04/11/22 06:47 Labs: Abnormal Lab Results - Last 24 Hours (Table) 04/09/22 04/09/22 04/10/22 Range/Units 07:03 21:00 06:08 ESR 73 H (0-30) mm/Hr POC Glucose (mg/dL) 248 H 111 H (70-110) mg/dL 04/10/22 04/10/22 04/10/22 Range/Units 11:34 16:31 19:26 ESR (0-30) mm/Hr POC Glucose (mg/dL) 209 H 304 H 320 H (70-110) mg/dL Assessment and Plan Assessment: 1 New onset bifrontal headache. improving. No evidence of sinusitis. Rule out temporal arteritis. Lumbar puncture has been canceled. Patient is being on Plavix cannot be performed for 5 days. Unlikely intracranial infection and neurology is on board. Patient is status post temporal artery biopsy on 04/09/2022 by vascular surgery. Started on prednisone 60 mg daily. 1. Right lower lobe pneumonia 2. Hyponatremia; resolved 4. diabetes mellitus with hypoglycemia; we will monitor Accu-Cheks Before meals and at bedtime with insulin sliding scale 5. Hypertension; metoprolol 25 mg twice a day amlodipine 10 mg daily; 6. Hyperlipidemia; Lipitor 80 mg by mouth daily at bedtime 7. Hypothyroidism; levothyroxine 175 MCG daily 8. Coronary artery disease; continue with aspirin, beta blockers, statin and nitroglycerin Time with Patient: Greater than 30
--- NOTE | 2022-04-12 00:53 | P.PN ---
Subjective Progress Note Date: 04/11/22 61-year-old female presents to the emergency department via EMS accompanied by her spouse for evaluation of generalized weakness. Patient's spouse states the patient has been complaining of feeling poorly for the past 2 days. Patient reports lack of appetite and generalized body aches. Complaints of intermittent nausea and frequent headache. Has had episodes of intermittent midsternal, nonradiating chest pain. No aggravating or alleviating factors. Has been taking her medications as prescribed. Has been unable to check her temperature at home but does feel warm to the touch. No dizziness, shortness of breath, abdominal pain, vomiting, diarrhea, dysuria, hematuria, or lower extremity edema. Chest x-ray was obtained and shows right middle lobe pneumonia. Laboratory studies were reviewed showing significant leukocytosis with a white blood count of 28.2 and hyponatremia. COVID is negative. Patient was given IV fluids, Tylenol for fever, and pain medicine with some improvement. Zithromax and Rocephin were given in the ED. Results were discussed with patient and spouse; they are agreeable to hospital admission for further evaluation and treatment. 04/05/2022 pt breathing is stable at rest she is saturating 95 % on ra, she is still on antibiotics as per ID team of ceftriaxone and zithromax, also she is s/p payne catheter and flomax for urinary retension and urologsit recommened outpatient follow up- this morning pt is complained from sever headache , 9/10 that is resolved with fiorocet, no neurological deficit and exam non focal with strenght 5/5 and senstation is intact she is hypoglycemic this mornign and through the day around 60-70, so lowered her levemir ( 30 u down to 15) and then helo it tonight lower iv fluid to 100 ml per hr 04/06/2022 Yesterday we added furosemide but still has severe headache today 8-9/10 in severity with no focal neurological deficit. CT of the brain is negative, ESR is pending. Neurology input is appreciated Also she remains on ceftriaxone And Zithromax for her pneumonia, she is saturating 90% on room air. We will keep monitoring 04-07-22 Patient still complained of from severe headache although this morning she reports improvement, in the morning and her headache was 5-6/10 in severity. No blurred vision or neurological deficits, no weakness or confusion or numbness. Vitals stable, afebrile, WBC is trending down to 15,000 She remains on ceftriaxone and Zithromax and aspirin and Plavix She confirms at home she takes metformin 750 mg and rybelsus , she confirms she was not on insulin at home. We stopped Levemir, also her diabetes pills are on hold for hypoglycemia, glucose currently is controlled. Hyperglycemia may be contributed to her headache. I discussed the case with neurology service today Dr. Burger, patient has elevated ESR and CRP, temporal artery biopsy is recommended, vascular surgery consult is placed, we made the patient nothing by mouth after midnight, I discussed the case with the bedside nurse to contact vascular surgery to see if hold antiplatelet in the morning, patient is an aspirin and Plavix. Also patient may need LP down the road if no improvement. As per recommendation from neurologist, we will hold for steroids until further workup. 04/08/2022 Patient is currently lying in bed. Awake alert and oriented. Headache is better today. Mainly in the bifrontal region. Extending to the temporal region. Denies any visual disturbance. Denied any jaw claudication. No focal neurological symptoms. Denied any chest pain or worsening shortness of breath. No nausea vomiting abdominal pain or diarrhea. No cough or sputum production. Patient is being continued on antibiotics in the form of ceftriaxone. ID and neurology is on board. Patient is being scheduled for temporal artery biopsy. 04/09/2022 Patient is currently lying in bed. Awake alert and oriented. Patient is schedu led for temporal artery biopsy. Headache is improving. Otherwise patient is being continued antibiotics for pneumonia with ceftriaxone. Azithromycin. Laboratory data showed WBC 11.0 hemoglobin 13.3 and platelets 412 Sodium 139 potassium 3.5 chloride 103 bicarb is 26.5 BUN 11.5 and creatinine 0.5 and blood sugar is 148. CRP 12.3. 04/10/2022 Patient is currently lying in bed. Awake alert and oriented x3. Requiring 2 L of oxygen via nasal cannula. Patient is tolerating oral diet. IV fluids will be discontinued. Denies any complaints of cough or sputum production. No nausea vomiting abdominal pain or diarrhea. Headache is better. Patient is status post biopsy temporal artery. On 04/09/2022. Patient was started on prednisone 60 mg daily as per neurology. Patient has been afebrile. Patient is being current antibiotics for pneumonia otherwise. 04/11/2022 Patient is currently resting in bed. Awake alert and oriented x3. No complaints of chest pain or shortness of breath. Patient is being titrated down to room air. No complaints of fever or chills. No nausea vomiting abdominal pain or diarrhea. Headache is almost resolved. Chest x-ray showed improved aeration particularly in the right lung bases. Patient is participating in incentive spirometry. Laboratory data showed WBC 21.3 hemoglobin 12.7 and platelets 462. Leukocytosis likely due to steroids. Sodium 136 potassium 4.2 chloride 103 bicarb is 22.6 BUN 11.8 and creatinine 0.4 and calcium 8.6. Pulmonary neurology and ID is on board. Patient is being continue ceftriaxone. Current medications reviewed. Objective - Vital Signs Vital signs: Vital Signs Temp 97.4 F L 04/11/22 14:00 Pulse 68 04/11/22 15:41 Resp 18 04/11/22 15:41 BP 136/69 04/11/22 14:00 Pulse Ox 94 L 04/11/22 15:30 FiO2 Intake & Output 04/10/22 04/11/22 04/11/22 19:59 06:59 18:59 Output Total Balance Output: Urine Other: Voiding Method # Voids - Exam - Exam GENERAL: The patient is alert and oriented x3, not in any acute distress. Well developed, well nourished. HEENT: Pupils are round and equally reacting to light. EOMI. No scleral icterus. No conjunctival pallor. Normocephalic, atraumatic. No pharyngeal erythema. No thyromegaly. CARDIOVASCULAR: S1 and S2 present. No murmurs, rubs, or gallops. PULMONARY: Chest is clear to auscultation, no wheezing or crackles. ABDOMEN: Soft, nontender, nondistended, normoactive bowel sounds. No palpable organomegaly. MUSCULOSKELETAL: No joint swelling or deformity. EXTREMITIES: No cyanosis, clubbing, or pedal edema. NEUROLOGICAL: Gross neurological examination did not reveal any focal deficits. SKIN: No rashes. no petechiae. - Labs CBC & Chem 7: 04/11/22 06:47 04/11/22 06:47 Labs: Abnormal Lab Results - Last 24 Hours (Table) 04/10/22 04/11/22 04/11/22 Range/Units 20:09 06:00 06:47 WBC 21.37 H (4.50-10.00) X 10*3/uL Plt Count 462 H (140-440) X 10*3/uL MPV 8.5 L (9.5-12.2) fL Immature Gran # 0.89 H (0.00-0.04) X 10*3/uL Neutrophils # 16.62 H (1.80-7.70) X 10*3/uL Monocytes # 1.20 H (0.20-1.00) X 10*3/uL Eosinophils # 0.01 L (0.04-0.35) X 10*3/uL Anion Gap (10.00-18.00) mmol/L Creatinine (0.6-1.5) mg/dL BUN/Creatinine Ratio (12.00-20.00) Ratio Glucose (70-110) mg/dL POC Glucose (mg/dL) 292 H 189 H (70-110) mg/dL Calcium (8.7-10.3) mg/dL 04/11/22 04/11/22 04/11/22 Range/Units 06:47 11:55 16:40 WBC (4.50-10.00) X 10*3/uL Plt Count (140-440) X 10*3/uL MPV (9.5-12.2) fL Immature Gran # (0.00-0.04) X 10*3/uL Neutrophils # (1.80-7.70) X 10*3/uL Monocytes # (0.20-1.00) X 10*3/uL Eosinophils # (0.04-0.35) X 10*3/uL Anion Gap 9.40 L (10.00-18.00) mmol/L Creatinine 0.4 L (0.6-1.5) mg/dL BUN/Creatinine Ratio 29.50 H (12.00-20.00) Ratio Glucose 196 H (70-110) mg/dL POC Glucose (mg/dL) 203 H 338 H (70-110) mg/dL Calcium 8.6 L (8.7-10.3) mg/dL Assessment and Plan Assessment: 1 New onset bifrontal headache. improving. No evidence of sinusitis. Rule out temporal arteritis. Lumbar puncture has been canceled. Patient is being on Plavix cannot be performed for 5 days. Unlikely intracranial infection and neurology is on board. Patient is status post temporal artery biopsy on 04/09/2022 by vascular surgery. Started on prednisone 60 mg daily. 1. Right lower lobe pneumonia 2. Hyponatremia; resolved 4. diabetes mellitus with hypoglycemia; we will monitor Accu-Cheks Before meals and at bedtime with insulin sliding scale 5. Hypertension; metoprolol 25 mg twice a day amlodipine 10 mg daily; 6. Hyperlipidemia; Lipitor 80 mg by mouth daily at bedtime 7. Hypothyroidism; levothyroxine 175 MCG daily 8. Coronary artery disease; continue with aspirin, beta blockers, statin and nitroglycerin Time with Patient: Greater than 30
[2022-04-12 06:12] LABS: Glucose,Whole Blood 175 mg/dL (70-110)
[2022-04-12] MEDS: INSULIN ASPART (NovoLOG) 100 UNIT/ML VIAL SQ SCH ×4 (06:26→22:37)
[2022-04-12] MEDS: PANTOPRAZOLE 40 MG TABLET PO SCH ×2 (06:26→17:02)
[2022-04-12] MEDS: LEVOTHYROXINE 88 MCG TAB PO SCH (06:26)
[2022-04-12] MEDS: IPRATROPIUM-ALBUTEROL 3 ML NEB INHALATION SCH ×4 (08:05→20:14)
[2022-04-12] MEDS: SYMBICORT 160-4.5 MCG INHALER INHALATION SCH ×2 (08:05→20:14)
[2022-04-12 08:42] LABS: Basophils # (A) 0.09 X 10*3/uL (0.00-0.10); Basophils % (A) 0.4 %; Eosinophils # (A) 0.02 X 10*3/uL (0.04-0.35); Eosinophils % (A) 0.1 %; HCT 39.5 % (37.2-46.3); HGB 13.1 g/dL (12.0-15.0); Immature Grans, Automated 2.6 %; Lymphocytes # (A) 3.91 X 10*3/uL (0.90-5.00); Lymphocytes % (A) 15.6 %; MCH 28.6 pg (27.0-32.0); MCHC 33.2 g/dL (32.0-37.0); MCV 86.2 fL (80.0-97.0); Mean Platelet Volume 8.7 fL (9.5-12.2); Monocytes # (A) 1.68 X 10*3/uL (0.20-1.00); Monocytes % (A) 6.7 %; NRBC Per 100 WBC 0 /100 WBCS (0.0-0.0); Neutrophils # (A) 18.72 X 10*3/uL (1.80-7.70); Neutrophils % (A) 74.6 %; Platelet Count 465 X 10*3/uL (140-440); RBC 4.58 X 10*6/uL (4.10-5.20); RDW 13.8 % (11.5-14.5); WBC 25.06 X 10*3/uL (4.50-10.00)
[2022-04-12 09:04] LABS: African American GFR (CKD) 119.4 (60.0-200.0); Anion Gap 10.6 mmol/L (10.00-18.00); BUN/Creat Ratio 27.2 Ratio (12.00-20.00); Blood Urea Nitrogen 13.6 mg/dL (9.0-27.0); Calcium 8.8 mg/dL (8.7-10.3); Carbon Dioxide 25.4 mmol/L (20.0-27.5)
[2022-04-12] MEDS: METOPROLOL TARTRATE 25 MG TAB PO SCH ×2 (09:20→22:37)
[2022-04-12] MEDS: GABAPENTIN 300 MG CAP PO SCH ×4 (09:20→22:37)
[2022-04-12] MEDS: NITROGLYCERIN 0.1MG/HR PATCH TRANSDERM SCH (09:20)
[2022-04-12] MEDS: CLOPIDOGREL 75 MG TAB PO SCH (09:20)
[2022-04-12] MEDS: amLODIPine 10 MG TAB PO SCH (09:20)
[2022-04-12] MEDS: ASPIRIN 81 MG PO SCH (09:20)
[2022-04-12] MEDS: VENLAFAXINE HCL ER 75 MG CAP PO SCH (09:20)
[2022-04-12] MEDS: TAMSULOSIN 0.4 MG CAP.ER.24H PO SCH (09:20)
[2022-04-12] MEDS: FAMOTIDINE 20 MG TAB PO SCH ×2 (09:20→22:37)
[2022-04-12] MEDS: predniSONE 20 MG TAB PO SCH (09:20)
[2022-04-12 11:36] LABS: Glucose,Whole Blood 276 mg/dL (70-110)
--- NOTE | 2022-04-12 13:20 | P.PN ---
Subjective Progress Note Date: 04/12/22 61-year-old female who presented to the emergency department on April 02, with complaints of generalized weakness, cough, shortness of breath, and generally just feeling poorly for 2 days prior to admission. She was evaluated in the emergency room, and found to have a right lower lobe ammonia. In addition, the patient has smoked for 40 years, and likely has some underlying COPD. Her primary care provider is Dr. Leon in [place], [place]. Currently, the patient's on 2 L of oxygen. She received azithromycin and Rocephin as initiating antibiotics. The patient apparently is going to have a temporal artery biopsy, and they needed preoperative clearance by me. Again she's been in the hospital since the , and I was just consulted today. She has history of coronary disease, with previous heart catheterization and stent, diabetes, GERD, hyperlipidemia, hypertension, myocardial infarction, cervical cancer, and hypothyroidism. White count 11.83, hemoglobin 12.8, hematocrit 38.2, and platel et count 352,000 sodium, potassium, chloride, CO2, and anion gap are all normal. BUN is 6.3 with a creatinine of 0.4. Pro-calcitonin level is 0.6 in 0.5. TSH is normal. Urinary Legionella antigen is negative. Chest x-ray shows a right lower lobe/right middle lobe infiltrate. Progress note dated 04/09/2022. The patient was seen yesterday in consultation. She was admitted with a diagnosis of pneumonia. She is on 2 L. She's not receiving any IV fluids. The patient was scheduled to have a temporal artery biopsy. I did clear her for surgery yesterday. She did smoke a pack a day for 40 years. Clinically she is very stable. Currently, white count 11.04, hemoglobin 13.3, hematocrit 41.2, with a normal platelet count. Sodium 139, potassium 3.5, chlorides 103, CO2 27, BUN 11.5, with a creatinine of 0.5. Calcium is 8.2. Blood and urine cultures are thus far negative. Progress note dated 04/10/2022. 61-year-old female seen in room 464. She currently is on 2 L. She's getting s sharath at 100 mL an hour. She did have her temporal artery biopsy done on the left side yesterday, April 09. From the pulmonary standpoint, she is doing well. She states that her breathing is stable. She denies any cough, wheezing, or phlegm production. No new labs today. I did order a follow-up chest x-ray, which is yet to be done. Progress note dated 04/11/2022. The patient is seen today in room 464. The patient had a chest x-ray done, which shows improvement. The patient's on saline at 100 mL an hour, and O2 at 2 L. When I entered the room, the patient is doing a breathing treatment. Laboratory data, includes a white count of 21.4, hemoglobin 12.7, hematocrit 38, and platelet count of 462,000. Sodium 136, potassium 4.2, chlorides 103, CO2 24, anion gap 9, BUN 12, creatinine 0.4. Chest x-ray from yesterday does show improved aeration particularly at the right lung base. The patient is seen today 04/12/2022 in follow-up on the regular medical floor. She is currently sitting up at the bedside. Awake and alert in no acute distress. Denies any worsening shortness of breath, cough or congestion. She is maintaining good O2 saturation the mid 90s on room air. Afebrile. Blood cultures reveal no growth. Urine culture revealed no growth. White count 25. Hemoglobin 13.1. Sodium 136. Potassium 4.0. BUN 13. Creatinine 0.5. Glucose 193. She is continued on Symbicort, DuoNeb inhalations, prednisone currently at 60 mg daily. Biopsies pending for possible temporal arteritis. Objective - Vital Signs Vital signs: Vital Signs Temp 97.8 F 04/12/22 09:12 Pulse 74 04/12/22 11:32 Resp 17 04/12/22 09:12 BP 166/84 04/12/22 09:12 Pulse Ox 95 04/12/22 09:12 FiO2 Intake & Output 04/11/22 04/12/22 04/12/22 18:59 06:59 18:59 Output Total 1500 Balance -1500 Output: Urine 1500 Other: Voiding Method Indwelling Catheter Indwelling Catheter - Exam GENERAL EXAM: Alert, active, comfortable in no apparent distress. HEAD: Normocephalic. EYES: Normal reaction of pupils, equal size. NOSE: Clear with pink turbinates. THROAT: No erythema or exudates. NECK: No masses, no JVD. CHEST: No chest wall deformity. LUNGS: Equal air entry with few scattered from. CVS: S1 and S2 normal with no audible murmur, regular rhythm. ABDOMEN: No hepatosplenomegaly, normal bowel sounds, no guarding or rigidity. SPINE: No scoliosis or deformity SKIN: No rashes CENTRAL NERVOUS SYSTEM: No focal deficits, tone is normal in all 4 extremities. EXTREMITIES: There is no peripheral edema. No clubbing, no cyanosis. Periphe ral pulses are intact. - Labs CBC & Chem 7: 04/12/22 04:38 04/12/22 04:38 Labs: Abnormal Lab Results - Last 24 Hours (Table) 04/11/22 04/11/22 04/12/22 Range/Units 16:40 19:26 04:38 WBC 25.06 H (4.50-10.00) X 10*3/uL Plt Count 465 H (140-440) X 10*3/uL MPV 8.7 L (9.5-12.2) fL Immature Gran # 0.64 H (0.00-0.04) X 10*3/uL Neutrophils # 18.72 H (1.80-7.70) X 10*3/uL Monocytes # 1.68 H (0.20-1.00) X 10*3/uL Eosinophils # 0.02 L (0.04-0.35) X 10*3/uL Creatinine (0.6-1.5) mg/dL BUN/Creatinine Ratio (12.00-20.00) Ratio Glucose (70-110) mg/dL POC Glucose (mg/dL) 338 H 352 H (70-110) mg/dL 04/12/22 04/12/22 04/12/22 Range/Units 04:38 06:11 11:34 WBC (4.50-10.00) X 10*3/uL Plt Count (140-440) X 10*3/uL MPV (9.5-12.2) fL Immature Gran # (0.00-0.04) X 10*3/uL Neutrophils # (1.80-7.70) X 10*3/uL Monocytes # (0.20-1.00) X 10*3/uL Eosinophils # (0.04-0.35) X 10*3/uL Creatinine 0.5 L (0.6-1.5) mg/dL BUN/Creatinine Ratio 27.20 H (12.00-20.00) Ratio Glucose 193 H (70-110) mg/dL POC Glucose (mg/dL) 175 H 276 H (70-110) mg/dL Assessment and Plan Assessment: Right lower lobe pneumonia, community-acquired. S/P left temporal artery biopsy, 04/09/2022. Probable COPD from heavy tobacco use, for 40 years. CAD, with previous PCI, and stenting. History of uterine cancer. Diabetes mellitus. Gastroesophageal reflux disease. History of hyperlipidemia. History of hypertension. Prior history of myocardial infarction. Hypothyroidism. Plan: The patient was seen and evaluated Stable and on room air Cleared for discharge from the pulmonary standpoint Continue Symbicort, albuterol HFA Steroids per neurology Follow-up in the office in 1 week I have personally seen and examined the patient, performed the documentation and the assessment and plan as written. Number of minutes spent on the visit: 10.
--- NOTE | 2022-04-12 14:35 | P.PN ---
Subjective Progress Note Date: 04/12/22 The patient is seen at bedside and continues not to have headache, visual disturbance, focal weakness. Denies any new neurological issues. Continues to be on prednisone. Pending biopsy report. Objective - Vital Signs Vital signs: Vital Signs Temp 97.8 F 04/12/22 09:12 Pulse 74 04/12/22 11:32 Resp 17 04/12/22 09:12 BP 166/84 04/12/22 09:12 Pulse Ox 95 04/12/22 09:12 FiO2 Intake & Output 04/11/22 04/12/22 04/12/22 18:59 06:59 18:59 Output Total 1500 Balance -1500 Output: Urine 1500 Other: Voiding Method Indwelling Catheter Indwelling Catheter - Exam GENERAL: The patient is lying in bed and is not in acute distress. NEUROLOGICAL: Higher mental function: The patient is awake, alert, oriented to self, place and time. Patient is following commands. No aphasia and no neglect. Cranial nerves: The pupils are round, equal and reactive to light. Visual brown are full to confrontation throughout. Extraocular movement is intact no nystagmus is noted. The facial strength is normal throughout. Tongue is midline and moved [id number] without any difficulty. No dysarthria is noted. Shoulder shrug is normal bilaterally. Motor: The strength is 5 over 5 throughout. Normal tone and bulk. Sensation: Sensation is normal to touch throughout. - Labs CBC & Chem 7: 04/12/22 04:38 04/12/22 04:38 Labs: Abnormal Lab Results - Last 24 Hours (Table) 04/11/22 04/11/22 04/12/22 Range/Units 16:40 19:26 04:38 WBC 25.06 H (4.50-10.00) X 10*3/uL Plt Count 465 H (140-440) X 10*3/uL MPV 8.7 L (9.5-12.2) fL Immature Gran # 0.64 H (0.00-0.04) X 10*3/uL Neutrophils # 18.72 H (1.80-7.70) X 10*3/uL Monocytes # 1.68 H (0.20-1.00) X 10*3/uL Eosinophils # 0.02 L (0.04-0.35) X 10*3/uL Creatinine (0.6-1.5) mg/dL BUN/Creatinine Ratio (12.00-20.00) Ratio Glucose (70-110) mg/dL POC Glucose (mg/dL) 338 H 352 H (70-110) mg/dL 04/12/22 04/12/22 04/12/22 Range/Units 04:38 06:11 11:34 WBC (4.50-10.00) X 10*3/uL Plt Count (140-440) X 10*3/uL MPV (9.5-12.2) fL Immature Gran # (0.00-0.04) X 10*3/uL Neutrophils # (1.80-7.70) X 10*3/uL Monocytes # (0.20-1.00) X 10*3/uL Eosinophils # (0.04-0.35) X 10*3/uL Creatinine 0.5 L (0.6-1.5) mg/dL BUN/Creatinine Ratio 27.20 H (12.00-20.00) Ratio Glucose 193 H (70-110) mg/dL POC Glucose (mg/dL) 175 H 276 H (70-110) mg/dL Assessment and Plan Assessment: * New onset bifrontal headache, unclear etiology. No evidence of sinusitis or any intracranial process. Has elevated ESR and CRP. Rule out temporal arteritis . No clinical evidence of intracranial infection. Neck is supple, white cells improving, no fever s/p left temporal biopsy. Headache has resolved for the past at least 3-4 days * Pneumonia * Diabetes * Hypertension * Tobacco use Plan: * Patient's headache has improved. Initial ESR is 96 and repeat is 73. Repeat CRP is 12.3 (previously 25.2). Will get repeat ESR and CRP. * I ordered CTA head and neck for her history of headache * Await temporal artery biopsy report. * Continue steroid 60mg PO daily and if negative will discontinue with steroids. * CT head without contrast showed no acute intracranial process. Minimal mucosal thickening/secretions most pronounced in the sphenoid sinuses. It does not appear very significant on my review of CT head. No obvious source of headache identified. * ID also on board. * Will defer sugar control to primary team The plan is discussed with patient and primary team. Time with Patient: Less than 30
--- NOTE | 2022-04-12 16:19 | CT ---
EXAMINATION TYPE: CT angio head neck DATE OF EXAM: 04/12/2022 HISTORY: headache COMPARISON: None. CT DLP: 1551 mGycm. Automated Exposure Control for Dose Reduction was Utilized. TECHNIQUE: CTA scan of the head and neck is performed without and with IV Contrast, patient injected with 65 mL of Isovue 370, axial images are obtained, coronal and sagittal reformatted images are rev iewed. 3D reconstructed images are created on an independent workstation and reviewed. FINDINGS: Carotid/Vascular Structures: Normal 3 vessel origins from the aortic arch. No significant focal steno sis is present. Mild to moderate peripheral plaque near this level. Focal moderate mixed plaque bilat eral carotid bulb level right greater than left without significant stenosis seen bilaterally. Patent external carotid arteries bilaterally without significant stenosis. Codominant vertebral arteries patent to basilar junction. Patent left posterior communicating artery filling the left P2 segment as there is hypoplastic left P1 segment. Hypoplastic right posterior comm unicating artery. No aneurysm in the posterior circulation. Patent small caliber anterior communicati ng artery. No significant focal stenosis or aneurysm in the anterior circulation Other: Noncontrast CT shows mild ventricular and sulcal prominence. No acute intracranial hemorrhage or midline shift. Barclay-white matter differentiation maintained. The globes are intact and the visuali zed sinuses are clear. Prominent but subcentimeter lymph nodes throughout the bilateral neck parenchyma. Small thyroid gland particularly right thyroid lobe. Correlate clinically. Mild to moderate emphysematous change of visu alized upper lungs. Prominent but subcentimeter mediastinal lymph nodes. IMPRESSION: Moderate atherosclerotic change bilaterally right greater than left without hemodynamical ly significant stenosis in common or internal carotid arteries bilaterally. Normal variant of lummi of Chung. No aneurysm or significant focal stenosis. NASCET criteria was used in interpretation of this exam?
[2022-04-12 16:41] LABS: Glucose,Whole Blood 441 mg/dL (70-110)
[2022-04-12] MEDS ORDERED: INSULIN ASPART (NovoLOG) 100 UNIT/ML VIAL SQ ONE (17:15)
[2022-04-12 20:02] LABS: Glucose,Whole Blood 389 mg/dL (70-110)
[2022-04-12 22:30] LABS: Glucose,Whole Blood 298 mg/dL (70-110)
[2022-04-12] MEDS: ATORVASTATIN 80 MG TAB PO SCH (22:37)
[2022-04-12] MEDS: INSULIN DETEMIR (LEVEMIR) 100 UNIT/ML SYR SQ SCH (22:37)
--- NOTE | 2022-04-12 23:29 | P.PN ---
Subjective Progress Note Date: 04/11/22 Principal diagnosis: Fever/Pneumonia Patient is a 61-year-old female with multiple comorbidities including cervical cancer present hospitalized weakness did have a cough patient did have a evidence of right middle lobe pneumonia, patient has developed urinary retention requiring Vegas catheter placement. The patient is status post left temporal artery biopsy completed on 04/09/2022 On today's evaluation that is 04/11/2022 the patient remains to be afebrile, the patient is breathing comfortably on room air , the patient denies having any chest pain, the patient cough has decreased in intensity and mostly dry in nature, no nausea no vomiting no abdominal pain or diarrhea Objective - Vital Signs Vital signs: Vital Signs Temp 97.4 F L 04/11/22 14:00 Pulse 68 04/11/22 15:41 Resp 18 04/11/22 15:41 BP 136/69 04/11/22 14:00 Pulse Ox 94 L 04/11/22 15:30 FiO2 Intake & Output 04/10/22 04/11/22 04/11/22 19:59 06:59 18:59 Output Total Balance Output: Urine Other: Voiding Method # Voids - Exam GENERAL DESCRIPTION: Middle-aged female lying in bed, no distress. No tachypnea or accessory muscle of respiration use. LUNGS: Unlabored breathing. Decrease intensity of breath sounds HEART: S1, S2, regular rate and rhythm. No loud murmur ABDOMEN: Soft, no tenderness , guarding or rigidity, no organomegaly EXTREMITIES: No edema of feet. - Labs CBC & Chem 7: 04/12/22 04:38 04/12/22 04:38 Labs: Abnormal Lab Results - Last 24 Hours (Table) 04/10/22 04/10/22 04/11/22 Range/Units 19:26 20:09 06:00 WBC (4.50-10.00) X 10*3/uL Plt Count (140-440) X 10*3/uL MPV (9.5-12.2) fL Immature Gran # (0.00-0.04) X 10*3/uL Neutrophils # (1.80-7.70) X 10*3/uL Monocytes # (0.20-1.00) X 10*3/uL Eosinophils # (0.04-0.35) X 10*3/uL Anion Gap (10.00-18.00) mmol/L Creatinine (0.6-1.5) mg/dL BUN/Creatinine Ratio (12.00-20.00) Ratio Glucose (70-110) mg/dL POC Glucose (mg/dL) 320 H 292 H 189 H (70-110) mg/dL Calcium (8.7-10.3) mg/dL 04/11/22 04/11/22 04/11/22 Range/Units 06:47 06:47 11:55 WBC 21.37 H (4.50-10.00) X 10*3/uL Plt Count 462 H (140-440) X 10*3/uL MPV 8.5 L (9.5-12.2) fL Immature Gran # 0.89 H (0.00-0.04) X 10*3/uL Neutrophils # 16.62 H (1.80-7.70) X 10*3/uL Monocytes # 1.20 H (0.20-1.00) X 10*3/uL Eosinophils # 0.01 L (0.04-0.35) X 10*3/uL Anion Gap 9.40 L (10.00-18.00) mmol/L Creatinine 0.4 L (0.6-1.5) mg/dL BUN/Creatinine Ratio 29.50 H (12.00-20.00) Ratio Glucose 196 H (70-110) mg/dL POC Glucose (mg/dL) 203 H (70-110) mg/dL Calcium 8.6 L (8.7-10.3) mg/dL 04/11/22 Range/Units 16:40 WBC (4.50-10.00) X 10*3/uL Plt Count (140-440) X 10*3/uL MPV (9.5-12.2) fL Immature Gran # (0.00-0.04) X 10*3/uL Neutrophils # (1.80-7.70) X 10*3/uL Monocytes # (0.20-1.00) X 10*3/uL Eosinophils # (0.04-0.35) X 10*3/uL Anion Gap (10.00-18.00) mmol/L Creatinine (0.6-1.5) mg/dL BUN/Creatinine Ratio (12.00-20.00) Ratio Glucose (70-110) mg/dL POC Glucose (mg/dL) 338 H (70-110) mg/dL Calcium (8.7-10.3) mg/dL Assessment and Plan (1) Fever Current Visit: Yes Status: Acute Code(s): R50.9 - FEVER, UNSPECIFIED SNOMED Code(s): 730252755 (2) Pneumonia Current Visit: Yes Status: Acute Code(s): J18.9 - PNEUMONIA, UNSPECIFIED ORGANISM SNOMED Code(s): 793643665 Plan: 1patient presented to hospital with sepsis in this patient had fever tachycardia elevated white count source likely right middle lobe pneumonia community-acquired. 2The patient blood culture has been negative so far urine for Legionella antigen negative sputum has not been collected. 3Patient is slowly clinically improving, fever has resolved white count Is almost normalized chest x-ray did shows better aeration patient to continue with the Rocephin and monitoring clinical course closely Time with Patient: Less than 30
--- NOTE | 2022-04-12 23:30 | P.PN ---
Subjective Progress Note Date: 04/12/22 Principal diagnosis: Fever/Pneumonia Patient is a 61-year-old female with multiple comorbidities including cervical cancer present hospitalized weakness did have a cough patient did have a evidence of right middle lobe pneumonia, patient has developed urinary retention requiring Vegas catheter placement. The patient is status post left temporal artery biopsy completed on 04/09/2022 On today's evaluation that is 04/12/2022 the patient continues to be afebrile, the patient is breathing comfortably on room air , the patient denies having any chest pain, the patient cough has decreased in intensity and not bringing up any sputum, patient denies nausea no vomiting no abdominal pain or diarrhea Objective - Vital Signs Vital signs: Vital Signs Temp 97.8 F 04/12/22 09:12 Pulse 74 04/12/22 15:21 Resp 17 04/12/22 09:12 BP 166/84 04/12/22 09:12 Pulse Ox 95 04/12/22 09:12 FiO2 Intake & Output 04/11/22 04/12/22 04/12/22 18:59 06:59 18:59 Output Total 1500 Balance -1500 Output: Urine 1500 Other: Voiding Method Indwelling Catheter Indwelling Catheter - Exam GENERAL DESCRIPTION: Middle-aged female lying in bed, no distress. No tachypnea or accessory muscle of respiration use. LUNGS: Unlabored breathing. Decrease intensity of breath sounds HEART: S1, S2, regular rate and rhythm. No loud murmur ABDOMEN: Soft, no tenderness , guarding or rigidity, no organomegaly EXTREMITIES: No edema of feet. - Labs CBC & Chem 7: 04/12/22 04:38 04/12/22 04:38 Labs: Abnormal Lab Results - Last 24 Hours (Table) 04/11/22 04/11/22 04/12/22 Range/Units 16:40 19:26 04:38 WBC 25.06 H (4.50-10.00) X 10*3/uL Plt Count 465 H (140-440) X 10*3/uL MPV 8.7 L (9.5-12.2) fL Immature Gran # 0.64 H (0.00-0.04) X 10*3/uL Neutrophils # 18.72 H (1.80-7.70) X 10*3/uL Monocytes # 1.68 H (0.20-1.00) X 10*3/uL Eosinophils # 0.02 L (0.04-0.35) X 10*3/uL Creatinine (0.6-1.5) mg/dL BUN/Creatinine Ratio (12.00-20.00) Ratio Glucose (70-110) mg/dL POC Glucose (mg/dL) 338 H 352 H (70-110) mg/dL 04/12/22 04/12/22 04/12/22 Range/Units 04:38 06:11 11:34 WBC (4.50-10.00) X 10*3/uL Plt Count (140-440) X 10*3/uL MPV (9.5-12.2) fL Immature Gran # (0.00-0.04) X 10*3/uL Neutrophils # (1.80-7.70) X 10*3/uL Monocytes # (0.20-1.00) X 10*3/uL Eosinophils # (0.04-0.35) X 10*3/uL Creatinine 0.5 L (0.6-1.5) mg/dL BUN/Creatinine Ratio 27.20 H (12.00-20.00) Ratio Glucose 193 H (70-110) mg/dL POC Glucose (mg/dL) 175 H 276 H (70-110) mg/dL Assessment and Plan (1) Fever Current Visit: Yes Status: Acute Code(s): R50.9 - FEVER, UNSPECIFIED SNOMED Code(s): 279966345 (2) Pneumonia Current Visit: Yes Status: Acute Code(s): J18.9 - PNEUMONIA, UNSPECIFIED ORGANISM SNOMED Code(s): 422781259 Plan: 1patient presented to hospital with sepsis in this patient had fever tachycardia elevated white count source likely right middle lobe pneumonia community-acquired. 2The patient blood culture has been negative so far urine for Legionella antigen negative sputum has not been collected. 3Patient #clinical improvement, fever has resolved white count Is almost normalized chest x-ray did shows better aeration patient to continue with the Rocephin and short course of Ceftin on discharge 4leukocytosis is more likely steroid related
--- NOTE | 2022-04-12 23:31 | P.PN ---
Subjective Progress Note Date: 04/09/22 Principal diagnosis: Fever/Pneumonia Patient is a 61-year-old female with multiple comorbidities including cervical cancer present hospitalized weakness did have a cough patient did have a evidence of right middle lobe pneumonia, patient has developed urinary retention requiring Vegas catheter placement. The patient is status post left temporal artery biopsy completed on 04/09/2022 On today's evaluation that is 04/09/2022 the patient remains to be afebrile, the patient is breathing comfortably on room air , the patient denies having any chest pain, the patient cough has decreased in intensity and is mostly dry in nature, no nausea no vomiting no abdominal pain or diarrhea Objective - Vital Signs Vital signs: Vital Signs Temp 96.6 F L 04/09/22 13:31 Pulse 66 04/09/22 13:31 Resp 16 04/09/22 13:31 BP 131/66 04/09/22 13:31 Pulse Ox 92 L 04/09/22 13:31 FiO2 Intake & Output 04/08/22 04/09/22 04/09/22 18:59 06:59 18:59 Intake Total 1400 900 Output Total 1500 1500 700 Balance -100 -1500 200 Weight 74.843 kg Intake: IV 1000 900 Sodium Chloride 0.9% 1, 1000 000 ml @ 100 mls/hr IV . Q10H LILIYA Rx#:[id number] Intake, IV Titration 50 Amount cefTRIAXone 2 gm In 50 Sodium Chloride 0.9% 50 ml @ 100 mls/hr IVPB Q24HR@1200 LILIYA Rx#: [id number] Oral 350 Output: Urine 1500 1500 700 Uretheral (Vegas) 1500 Other: Voiding Method Indwelling Catheter # Bowel Movements 0 - Exam GENERAL DESCRIPTION: Middle-aged female lying in bed, no distress. No tachypnea or accessory muscle of respiration use. LUNGS: Unlabored breathing. Decrease intensity of breath sounds HEART: S1, S2, regular rate and rhythm. No loud murmur ABDOMEN: Soft, no tenderness , guarding or rigidity, no organomegaly EXTREMITIES: No edema of feet. - Labs CBC & Chem 7: 04/09/22 07:03 04/09/22 07:03 Labs: Abnormal Lab Results - Last 24 Hours (Table) 04/08/22 04/08/22 04/09/22 Range/Units 16:50 20:19 06:13 WBC (4.50-10.00) X 10*3/uL MPV (9.5-12.2) fL Immature Gran # (0.00-0.04) X 10*3/uL Monocytes # (0.20-1.00) X 10*3/uL Eosinophils # (0.04-0.35) X 10*3/uL Basophils # (0.00-0.10) X 10*3/uL Anion Gap (10.00-18.00) mmol/L Creatinine (0.6-1.5) mg/dL BUN/Creatinine Ratio (12.00-20.00) Ratio Glucose (70-110) mg/dL POC Glucose (mg/dL) 182 H 180 H 137 H (70-110) mg/dL Calcium (8.7-10.3) mg/dL C-Reactive Protein (0.00-0.80) mg/dL 04/09/22 04/09/22 04/09/22 Range/Units 07:03 07:03 07:03 WBC 11.04 H (4.50-10.00) X 10*3/uL MPV 8.8 L (9.5-12.2) fL Immature Gran # 0.34 H (0.00-0.04) X 10*3/uL Monocytes # 1.23 H (0.20-1.00) X 10*3/uL Eosinophils # 0.45 H (0.04-0.35) X 10*3/uL Basophils # 0.14 H (0.00-0.10) X 10*3/uL Anion Gap 9.50 L (10.00-18.00) mmol/L Creatinine 0.5 L (0.6-1.5) mg/dL BUN/Creatinine Ratio 23.00 H (12.00-20.00) Ratio Glucose 148 H (70-110) mg/dL POC Glucose (mg/dL) (70-110) mg/dL Calcium 8.2 L (8.7-10.3) mg/dL C-Reactive Protein 12.30 H (0.00-0.80) mg/dL 04/09/22 Range/Units 11:11 WBC (4.50-10.00) X 10*3/uL MPV (9.5-12.2) fL Immature Gran # (0.00-0.04) X 10*3/uL Monocytes # (0.20-1.00) X 10*3/uL Eosinophils # (0.04-0.35) X 10*3/uL Basophils # (0.00-0.10) X 10*3/uL Anion Gap (10.00-18.00) mmol/L Creatinine (0.6-1.5) mg/dL BUN/Creatinine Ratio (12.00-20.00) Ratio Glucose (70-110) mg/dL POC Glucose (mg/dL) 135 H (70-110) mg/dL Calcium (8.7-10.3) mg/dL C-Reactive Protein (0.00-0.80) mg/dL Microbiology - Last 24 Hours (Table) 04/02/22 20:34 Blood Culture - Final Blood No Growth after 144 hours 04/02/22 20:15 Blood Culture - Final Blood No Growth after 144 hours Assessment and Plan (1) Fever Current Visit: Yes Status: Acute Code(s): R50.9 - FEVER, UNSPECIFIED SNOMED Code(s): 863885878 (2) Pneumonia Current Visit: Yes Status: Acute Code(s): J18.9 - PNEUMONIA, UNSPECIFIED ORGANISM SNOMED Code(s): 637830837 Plan: 1patient presented to hospital with sepsis in this patient had fever tachycardia elevated white count source likely right middle lobe pneumonia community-acquired. 2The patient blood culture has been negative so far urine for Legionella antigen negative sputum has not been collected. 3Patient has shown clinical improvement and is currently being treated with Rocephin and monitor clinical course closely Time with Patient: Less than 30
[2022-04-13] MEDS ORDERED: INSULIN DETEMIR (LEVEMIR) 100 UNIT/ML SYR SQ ONE (00:30)
[2022-04-13 02:43] LABS: Glucose,Whole Blood 219 mg/dL (70-110)
[2022-04-13 06:04] LABS: Glucose,Whole Blood 173 mg/dL (70-110)
[2022-04-13] MEDS: PANTOPRAZOLE 40 MG TABLET PO SCH ×2 (06:56→17:32)
[2022-04-13] MEDS: LEVOTHYROXINE 88 MCG TAB PO SCH (06:56)
[2022-04-13] MEDS: INSULIN ASPART (NovoLOG) 100 UNIT/ML VIAL SQ SCH ×5 (06:56→21:28)
[2022-04-13] MEDS: IPRATROPIUM-ALBUTEROL 3 ML NEB INHALATION SCH ×4 (07:18→20:53)
[2022-04-13] MEDS: SYMBICORT 160-4.5 MCG INHALER INHALATION SCH ×2 (07:18→20:53)
[2022-04-13] MEDS: CLOPIDOGREL 75 MG TAB PO SCH (09:24)
[2022-04-13] MEDS: amLODIPine 10 MG TAB PO SCH (09:24)
[2022-04-13] MEDS: ASPIRIN 81 MG PO SCH (09:24)
[2022-04-13] MEDS: TAMSULOSIN 0.4 MG CAP.ER.24H PO SCH (09:24)
[2022-04-13] MEDS: VENLAFAXINE HCL ER 75 MG CAP PO SCH (09:24)
[2022-04-13] MEDS: predniSONE 20 MG TAB PO SCH (09:24)
[2022-04-13] MEDS: GABAPENTIN 300 MG CAP PO SCH ×4 (09:24→20:57)
[2022-04-13] MEDS: FAMOTIDINE 20 MG TAB PO SCH ×2 (09:24→20:57)
[2022-04-13] MEDS: METOPROLOL TARTRATE 25 MG TAB PO SCH ×2 (09:25→20:59)
[2022-04-13] MEDS: NITROGLYCERIN 0.1MG/HR PATCH TRANSDERM SCH (09:25)
[2022-04-13 11:00] LABS: HCT 42.7 % (37.2-46.3); MCH 28.3 pg (27.0-32.0); MCHC 32.8 g/dL (32.0-37.0); MCV 86.4 fL (80.0-97.0); Mean Platelet Volume 8.6 fL (9.5-12.2); NRBC Per 100 WBC 0 /100 WBCS (0.0-0.0); Platelet Count 477 X 10*3/uL (140-440); RBC 4.94 X 10*6/uL (4.10-5.20); RDW 13.9 % (11.5-14.5)
[2022-04-13 11:12] LABS: Glucose,Whole Blood 211 mg/dL (70-110)
[2022-04-13 11:14] LABS: African American GFR (CKD) 119.4 (60.0-200.0); Anion Gap 13.2 mmol/L (10.00-18.00); BUN/Creat Ratio 32.8 Ratio (12.00-20.00); Blood Urea Nitrogen 16.4 mg/dL (9.0-27.0); Calcium 9.2 mg/dL (8.7-10.3); Carbon Dioxide 25.8 mmol/L (20.0-27.5); Potassium 4.3 mmol/L (3.5-5.5)
[2022-04-13 12:58] LABS: Basophils # (A) 0.08 X 10*3/uL (0.00-0.10); Basophils % (A) 0.3 %; Eosinophils # (A) 0.03 X 10*3/uL (0.04-0.35); Eosinophils % (A) 0.1 %; Immature Grans, Automated 1.9 %; Lymphocytes # (A) 7.15 X 10*3/uL (0.90-5.00); Lymphocytes % (A) 29.3 %; Monocytes # (A) 1.68 X 10*3/uL (0.20-1.00); Monocytes % (A) 6.9 %; Neutrophils % (A) 61.5 %
--- NOTE | 2022-04-13 14:19 | P.PN ---
Subjective Progress Note Date: 04/13/22 61-year-old female who presented to the emergency department on April 02, with complaints of generalized weakness, cough, shortness of breath, and generally just feeling poorly for 2 days prior to admission. She was evaluated in the emergency room, and found to have a right lower lobe ammonia. In addition, the patient has smoked for 40 years, and likely has some underlying COPD. Her primary care provider is Dr. Leon in [place], [place]. Currently, the patient's on 2 L of oxygen. She received azithromycin and Rocephin as initiating antibiotics. The patient apparently is going to have a temporal artery biopsy, and they needed preoperative clearance by me. Again she's been in the hospital since the , and I was just consulted today. She has history of coronary disease, with previous heart catheterization and stent, diabetes, GERD, hyperlipidemia, hypertension, myocardial infarction, cervical cancer, and hypothyroidism. White count 11.83, hemoglobin 12.8, hematocrit 38.2, and platel et count 352,000 sodium, potassium, chloride, CO2, and anion gap are all normal. BUN is 6.3 with a creatinine of 0.4. Pro-calcitonin level is 0.6 in 0.5. TSH is normal. Urinary Legionella antigen is negative. Chest x-ray shows a right lower lobe/right middle lobe infiltrate. Progress note dated 04/09/2022. The patient was seen yesterday in consultation. She was admitted with a diagnosis of pneumonia. She is on 2 L. She's not receiving any IV fluids. The patient was scheduled to have a temporal artery biopsy. I did clear her for surgery yesterday. She did smoke a pack a day for 40 years. Clinically she is very stable. Currently, white count 11.04, hemoglobin 13.3, hematocrit 41.2, with a normal platelet count. Sodium 139, potassium 3.5, chlorides 103, CO2 27, BUN 11.5, with a creatinine of 0.5. Calcium is 8.2. Blood and urine cultures are thus far negative. Progress note dated 04/10/2022. 61-year-old female seen in room 464. She currently is on 2 L. She's getting s sharath at 100 mL an hour. She did have her temporal artery biopsy done on the left side yesterday, April 09. From the pulmonary standpoint, she is doing well. She states that her breathing is stable. She denies any cough, wheezing, or phlegm production. No new labs today. I did order a follow-up chest x-ray, which is yet to be done. Progress note dated 04/11/2022. The patient is seen today in room 464. The patient had a chest x-ray done, which shows improvement. The patient's on saline at 100 mL an hour, and O2 at 2 L. When I entered the room, the patient is doing a breathing treatment. Laboratory data, includes a white count of 21.4, hemoglobin 12.7, hematocrit 38, and platelet count of 462,000. Sodium 136, potassium 4.2, chlorides 103, CO2 24, anion gap 9, BUN 12, creatinine 0.4. Chest x-ray from yesterday does show improved aeration particularly at the right lung base. The patient is seen today 04/12/2022 in follow-up on the regular medical floor. She is currently sitting up at the bedside. Awake and alert in no acute distress. Denies any worsening shortness of breath, cough or congestion. She is maintaining good O2 saturation the mid 90s on room air. Afebrile. Blood cultures reveal no growth. Urine culture revealed no growth. White count 25. Hemoglobin 13.1. Sodium 136. Potassium 4.0. BUN 13. Creatinine 0.5. Glucose 193. She is continued on Symbicort, DuoNeb inhalations, prednisone currently at 60 mg daily. Biopsies pending for possible temporal arteritis. The patient is seen today 04/13/2022 in follow-up on the regular medical floor. She is sitting up at the bedside. Awake and alert in no acute distress. Maintaining good O2 saturations in the 90s on room air. She denies any headache. CT angiogram of the head and neck revealed moderate atherosclerotic change bilaterally right greater than left without any hemodynamically sign ificant stenosis. Normal variant of enterprise of Chung. No aneurysm or significant focal stenosis. Pathology pending from temporal artery biopsy. Blood cultures reveal no growth. Urine cultures revealed no growth. White count 24.4. Hemogram 14.0. Platelets 477. Sodium 138. Potassium 4.3. BUN 16. Creatinine 0.5. Glucose 153. She is continued on prednisone 60 mg daily. Remains on Symbicort and DuoNeb inhalations. Objective - Vital Signs Vital signs: Vital Signs Temp 97.8 F 04/13/22 07:34 Pulse 70 04/13/22 10:38 Resp 16 04/13/22 08:00 BP 138/73 04/13/22 07:34 Pulse Ox 95 04/13/22 07:34 FiO2 Intake & Output 04/12/22 04/13/22 04/13/22 18:59 06:59 18:59 Output Total 1950 Balance -1950 Weight 74.843 kg Output: Urine 1950 Other: Voiding Method Indwelling Catheter Indwelling Catheter Indwelling Catheter # Voids 1 - Exam GENERAL EXAM: Alert, active, pleasant 61-year-old female, on room air, comfortable in no apparent distress. HEAD: Normocephalic. EYES: Normal reaction of pupils, equal size. NOSE: Clear with pink turbinates. THROAT: No erythema or exudates. NECK: No masses, no JVD. CHEST: No chest wall deformity. LUNGS: Equal air entry with few scattered rhonchi. CVS: S1 and S2 normal with no audible murmur, regular rhythm. ABDOMEN: No hepatosplenomegaly, normal bowel sounds, no guarding or rigidity. SPINE: No scoliosis or deformity SKIN: No rashes CENTRAL NERVOUS SYSTEM: No focal deficits, tone is normal in all 4 extremities. EXTREMITIES: There is no peripheral edema. No clubbing, no cyanosis. Peripheral pulses are intact. - Labs CBC & Chem 7: 04/13/22 07:36 04/13/22 07:36 Labs: Abnormal Lab Results - Last 24 Hours (Table) 04/12/22 04/12/22 04/12/22 Range/Units 04:38 04:38 16:40 WBC (4.50-10.00) X 10*3/uL Plt Count (140-440) X 10*3/uL Plt Count Comment MPV (9.5-12.2) fL Immature Gran # (0.00-0.04) X 10*3/uL Neutrophils # (1.80-7.70) X 10*3/uL Lymphocytes # (0.90-5.00) X 10*3/uL Monocytes # (0.20-1.00) X 10*3/uL Eosinophils # (0.04-0.35) X 10*3/uL ESR 51 H (0-30) mm/Hr Creatinine (0.6-1.5) mg/dL BUN/Creatinine Ratio (12.00-20.00) Ratio Glucose (70-110) mg/dL POC Glucose (mg/dL) 441 H (70-110) mg/dL C-Reactive Protein 1.40 H (0.00-0.80) mg/dL 04/12/22 04/12/22 04/13/22 Range/Units 20:01 22:29 02:41 WBC (4.50-10.00) X 10*3/uL Plt Count (140-440) X 10*3/uL Plt Count Comment MPV (9.5-12.2) fL Immature Gran # (0.00-0.04) X 10*3/uL Neutrophils # (1.80-7.70) X 10*3/uL Lymphocytes # (0.90-5.00) X 10*3/uL Monocytes # (0.20-1.00) X 10*3/uL Eosinophils # (0.04-0.35) X 10*3/uL ESR (0-30) mm/Hr Creatinine (0.6-1.5) mg/dL BUN/Creatinine Ratio (12.00-20.00) Ratio Glucose (70-110) mg/dL POC Glucose (mg/dL) 389 H 298 H 219 H (70-110) mg/dL C-Reactive Protein (0.00-0.80) mg/dL 04/13/22 04/13/22 04/13/22 Range/Units 06:03 07:36 07:36 WBC 24.40 H (4.50-10.00) X 10*3/uL Plt Count 477 H (140-440) X 10*3/uL Plt Count Comment INCREASED A MPV 8.6 L (9.5-12.2) fL Immature Gran # 0.46 H (0.00-0.04) X 10*3/uL Neutrophils # 15.00 H (1.80-7.70) X 10*3/uL Lymphocytes # 7.15 H (0.90-5.00) X 10*3/uL Monocytes # 1.68 H (0.20-1.00) X 10*3/uL Eosinophils # 0.03 L (0.04-0.35) X 10*3/uL ESR (0-30) mm/Hr Creatinine 0.5 L (0.6-1.5) mg/dL BUN/Creatinine Ratio 32.80 H (12.00-20.00) Ratio Glucose 153 H (70-110) mg/dL POC Glucose (mg/dL) 173 H (70-110) mg/dL C-Reactive Protein (0.00-0.80) mg/dL 04/13/22 Range/Units 11:10 WBC (4.50-10.00) X 10*3/uL Plt Count (140-440) X 10*3/uL Plt Count Comment MPV (9.5-12.2) fL Immature Gran # (0.00-0.04) X 10*3/uL Neutrophils # (1.80-7.70) X 10*3/uL Lymphocytes # (0.90-5.00) X 10*3/uL Monocytes # (0.20-1.00) X 10*3/uL Eosinophils # (0.04-0.35) X 10*3/uL ESR (0-30) mm/Hr Creatinine (0.6-1.5) mg/dL BUN/Creatinine Ratio (12.00-20.00) Ratio Glucose (70-110) mg/dL POC Glucose (mg/dL) 211 H (70-110) mg/dL C-Reactive Protein (0.00-0.80) mg/dL Assessment and Plan Assessment: Right lower lobe pneumonia, community-acquired. Completed antibiotics. Recovered S/P left temporal artery biopsy, 04/09/2022. CT angiogram of the head and neck revealed no acute findings Probable COPD from heavy tobacco use, for 40 years. CAD, with previous PCI, and stenting. History of uterine cancer. Diabetes mellitus. Gastroesophageal reflux disease. History of hyperlipidemia. History of hypertension. Prior history of myocardial infarction. Hypothyroidism. Plan: The patient was seen and evaluated Computed tomography scan, medications and labs reviewed Cleared for discharge from the pulmonary standpoint Continue Symbicort, albuterol HFA Prednisone per neurology regarding possible temporal arteritis Follow-up in the office in 1 week I have personally seen and examined the patient, performed the documentation and the assessment and plan as written. Number of minutes spent on the visit: 10.
--- NOTE | 2022-04-13 15:55 | P.PN ---
Subjective Progress Note Date: 04/13/22 She was seen at bedside and she states that she's doing well. Denies of any headache, any visual disturbance, any the difficulty with chewing. Denies of any focal weakness numbness. Objective - Vital Signs Vital signs: Vital Signs Temp 97.6 F 04/13/22 14:00 Pulse 63 04/13/22 15:49 Resp 17 04/13/22 14:00 BP 116/67 04/13/22 14:00 Pulse Ox 97 04/13/22 15:49 FiO2 Intake & Output 04/12/22 04/13/22 04/13/22 18:59 06:59 18:59 Output Total 1950 Balance -1949 Weight 74.843 kg Output: Urine 1949 Other: Voiding Method Indwelling Catheter Indwelling Catheter Indwelling Catheter # Voids 1 - Exam GENERAL: The patient is lying in bed and is not in acute distress. NEUROLOGICAL: Higher mental function: The patient is awake, alert, oriented to self, place and time. Patient is following commands. No aphasia and no neglect. Cranial nerves: The pupils are round, equal and reactive to light. Visual brown are full to confrontation throughout. Extraocular movement is intact no nystagmus is noted. The facial strength is normal throughout. Tongue is midline and moved [id number] without any difficulty. No dysarthria is noted. Shoulder shrug is normal bilaterally. Motor: The strength is 5 over 5 throughout. Normal tone and bulk. Sensation: Sensation is normal to touch throughout. - Labs CBC & Chem 7: 04/13/22 07:36 04/13/22 07:36 Labs: Abnormal Lab Results - Last 24 Hours (Table) 04/12/22 04/12/22 04/12/22 Range/Units 04:38 04:38 16:40 WBC (4.50-10.00) X 10*3/uL Plt Count (140-440) X 10*3/uL Plt Count Comment MPV (9.5-12.2) fL Immature Gran # (0.00-0.04) X 10*3/uL Neutrophils # (1.80-7.70) X 10*3/uL Lymphocytes # (0.90-5.00) X 10*3/uL Monocytes # (0.20-1.00) X 10*3/uL Eosinophils # (0.04-0.35) X 10*3/uL ESR 51 H (0-30) mm/Hr Creatinine (0.6-1.5) mg/dL BUN/Creatinine Ratio (12.00-20.00) Ratio Glucose (70-110) mg/dL POC Glucose (mg/dL) 441 H (70-110) mg/dL C-Reactive Protein 1.40 H (0.00-0.80) mg/dL 04/12/22 04/12/22 04/13/22 Range/Units 20:01 22:29 02:41 WBC (4.50-10.00) X 10*3/uL Plt Count (140-440) X 10*3/uL Plt Count Comment MPV (9.5-12.2) fL Immature Gran # (0.00-0.04) X 10*3/uL Neutrophils # (1.80-7.70) X 10*3/uL Lymphocytes # (0.90-5.00) X 10*3/uL Monocytes # (0.20-1.00) X 10*3/uL Eosinophils # (0.04-0.35) X 10*3/uL ESR (0-30) mm/Hr Creatinine (0.6-1.5) mg/dL BUN/Creatinine Ratio (12.00-20.00) Ratio Glucose (70-110) mg/dL POC Glucose (mg/dL) 389 H 298 H 219 H (70-110) mg/dL C-Reactive Protein (0.00-0.80) mg/dL 04/13/22 04/13/22 04/13/22 Range/Units 06:03 07:36 07:36 WBC 24.40 H (4.50-10.00) X 10*3/uL Plt Count 477 H (140-440) X 10*3/uL Plt Count Comment INCREASED A MPV 8.6 L (9.5-12.2) fL Immature Gran # 0.46 H (0.00-0.04) X 10*3/uL Neutrophils # 15.00 H (1.80-7.70) X 10*3/uL Lymphocytes # 7.15 H (0.90-5.00) X 10*3/uL Monocytes # 1.68 H (0.20-1.00) X 10*3/uL Eosinophils # 0.03 L (0.04-0.35) X 10*3/uL ESR (0-30) mm/Hr Creatinine 0.5 L (0.6-1.5) mg/dL BUN/Creatinine Ratio 32.80 H (12.00-20.00) Ratio Glucose 153 H (70-110) mg/dL POC Glucose (mg/dL) 173 H (70-110) mg/dL C-Reactive Protein (0.00-0.80) mg/dL 04/13/22 Range/Units 11:10 WBC (4.50-10.00) X 10*3/uL Plt Count (140-440) X 10*3/uL Plt Count Comment MPV (9.5-12.2) fL Immature Gran # (0.00-0.04) X 10*3/uL Neutrophils # (1.80-7.70) X 10*3/uL Lymphocytes # (0.90-5.00) X 10*3/uL Monocytes # (0.20-1.00) X 10*3/uL Eosinophils # (0.04-0.35) X 10*3/uL ESR (0-30) mm/Hr Creatinine (0.6-1.5) mg/dL BUN/Creatinine Ratio (12.00-20.00) Ratio Glucose (70-110) mg/dL POC Glucose (mg/dL) 211 H (70-110) mg/dL C-Reactive Protein (0.00-0.80) mg/dL Assessment and Plan Assessment: * New onset bifrontal headache, unclear etiology. No evidence of sinusitis or any intracranial process. Has elevated ESR and CRP (which both are trending down). Rule out temporal arteritis . No clinical evidence of intracranial infection. Neck is supple, white cells improving, no fever s/p left temporal biopsy. Headache has resolved for the past at least 5 days. * Pneumonia * Diabetes * Hypertension * Tobacco use Plan: * Patient's headache has improved. Initial ESR is 96 and most recent is 51. CRP is 1.40 (previously on presentation 25.2). * CTA head and neck for her history of headache: It is reported as moderate atherosclerotic changes bilaterally right greater than left without hemodynamic significant stenosis in the common or internal carotid arteries bi laterally. Normal variant of [place]. No aneurysm or significant focal stenosis. * Await temporal artery biopsy report. * Continue steroid 60mg PO daily and if negative will discontinue with steroids. * CT head without contrast showed no acute intracranial process. Minimal mucosal thickening/secretions most pronounced in the sphenoid sinuses. It does not appear very significant on my review of CT head. No obvious source of headache identified. * ID also on board. * Will defer sugar control to primary team The plan is discussed with patient. Time with Patient: Less than 30
[2022-04-13 16:37] LABS: Glucose,Whole Blood 409 mg/dL (70-110)
[2022-04-13 20:29] LABS: Glucose,Whole Blood 421 mg/dL (70-110)
[2022-04-13] MEDS: ATORVASTATIN 80 MG TAB PO SCH (20:57)
[2022-04-13] MEDS ORDERED: INSULIN DETEMIR (LEVEMIR) 100 UNIT/ML SYR SQ SCH (21:00)
[2022-04-14 06:08] LABS: Glucose,Whole Blood 181 mg/dL (70-110)
[2022-04-14] MEDS: INSULIN ASPART (NovoLOG) 100 UNIT/ML VIAL SQ SCH ×6 (06:35→17:23)
[2022-04-14] MEDS: LEVOTHYROXINE 88 MCG TAB PO SCH (06:35)
[2022-04-14] MEDS: PANTOPRAZOLE 40 MG TABLET PO SCH ×2 (06:35→17:23)
[2022-04-14] MEDS: SODIUM CHLORIDE 0.9% 1,000 ML IV SCH (06:50)
[2022-04-14] MEDS ORDERED: INSULIN ASPART (NovoLOG) 100 UNIT/ML VIAL SQ SCH ×2 (07:30)
[2022-04-14] MEDS: SYMBICORT 160-4.5 MCG INHALER INHALATION SCH (09:07)
[2022-04-14] MEDS: IPRATROPIUM-ALBUTEROL 3 ML NEB INHALATION SCH ×3 (09:07→16:43)
[2022-04-14] MEDS: TAMSULOSIN 0.4 MG CAP.ER.24H PO SCH (09:53)
[2022-04-14] MEDS: VENLAFAXINE HCL ER 75 MG CAP PO SCH (09:53)
[2022-04-14] MEDS: amLODIPine 10 MG TAB PO SCH (09:53)
[2022-04-14] MEDS: ASPIRIN 81 MG PO SCH (09:53)
[2022-04-14] MEDS: CLOPIDOGREL 75 MG TAB PO SCH (09:54)
[2022-04-14] MEDS: METOPROLOL TARTRATE 25 MG TAB PO SCH (09:54)
[2022-04-14] MEDS: FAMOTIDINE 20 MG TAB PO SCH (09:54)
[2022-04-14] MEDS: predniSONE 20 MG TAB PO SCH (09:54)
[2022-04-14] MEDS: GABAPENTIN 300 MG CAP PO SCH ×3 (09:54→17:23)
[2022-04-14] MEDS: NITROGLYCERIN 0.1MG/HR PATCH TRANSDERM SCH (10:21)
--- NOTE | 2022-04-14 10:50 | P.PN ---
Subjective Progress Note Date: 04/12/22 61-year-old female presents to the emergency department via EMS accompanied by her spouse for evaluation of generalized weakness. Patient's spouse states the patient has been complaining of feeling poorly for the past 2 days. Patient reports lack of appetite and generalized body aches. Complaints of intermittent nausea and frequent headache. Has had episodes of intermittent midsternal, nonradiating chest pain. No aggravating or alleviating factors. Has been taking her medications as prescribed. Has been unable to check her temperature at home but does feel warm to the touch. No dizziness, shortness of breath, abdominal pain, vomiting, diarrhea, dysuria, hematuria, or lower extremity edema. Chest x-ray was obtained and shows right middle lobe pneumonia. Laboratory studies were reviewed showing significant leukocytosis with a white blood count of 28.2 and hyponatremia. COVID is negative. Patient was given IV fluids, Tylenol for fever, and pain medicine with some improvement. Zithromax and Rocephin were given in the ED. Results were discussed with patient and spouse; they are agreeable to hospital admission for further evaluation and treatment. 04/05/2022 pt breathing is stable at rest she is saturating 95 % on ra, she is still on antibiotics as per ID team of ceftriaxone and zithromax, also she is s/p payne catheter and flomax for urinary retension and urologsit recommened outpatient follow up- this morning pt is complained from sever headache , 9/10 that is resolved with fiorocet, no neurological deficit and exam non focal with strenght 5/5 and senstation is intact she is hypoglycemic this mornign and through the day around 60-70, so lowered her levemir ( 30 u down to 15) and then helo it tonight lower iv fluid to 100 ml per hr 04/06/2022 Yesterday we added furosemide but still has severe headache today 8-9/10 in severity with no focal neurological deficit. CT of the brain is negative, ESR is pending. Neurology input is appreciated Also she remains on ceftriaxone And Zithromax for her pneumonia, she is saturating 90% on room air. We will keep monitoring 04-07-22 Patient still complained of from severe headache although this morning she reports improvement, in the morning and her headache was 5-6/10 in severity. No blurred vision or neurological deficits, no weakness or confusion or numbness. Vitals stable, afebrile, WBC is trending down to 15,000 She remains on ceftriaxone and Zithromax and aspirin and Plavix She confirms at home she takes metformin 750 mg and rybelsus , she confirms she was not on insulin at home. We stopped Levemir, also her diabetes pills are on hold for hypoglycemia, glucose currently is controlled. Hyperglycemia may be contributed to her headache. I discussed the case with neurology service today Dr. Burger, patient has elevated ESR and CRP, temporal artery biopsy is recommended, vascular surgery consult is placed, we made the patient nothing by mouth after midnight, I discussed the case with the bedside nurse to contact vascular surgery to see if hold antiplatelet in the morning, patient is an aspirin and Plavix. Also patient may need LP down the road if no improvement. As per recommendation from neurologist, we will hold for steroids until further workup. 04/08/2022 Patient is currently lying in bed. Awake alert and oriented. Headache is better today. Mainly in the bifrontal region. Extending to the temporal region. Denies any visual disturbance. Denied any jaw claudication. No focal neurological symptoms. Denied any chest pain or worsening shortness of breath. No nausea vomiting abdominal pain or diarrhea. No cough or sputum production. Patient is being continued on antibiotics in the form of ceftriaxone. ID and neurology is on board. Patient is being scheduled for temporal artery biopsy. 04/09/2022 Patient is currently lying in bed. Awake alert and oriented. Patient is schedu led for temporal artery biopsy. Headache is improving. Otherwise patient is being continued antibiotics for pneumonia with ceftriaxone. Azithromycin. Laboratory data showed WBC 11.0 hemoglobin 13.3 and platelets 412 Sodium 139 potassium 3.5 chloride 103 bicarb is 26.5 BUN 11.5 and creatinine 0.5 and blood sugar is 148. CRP 12.3. 04/10/2022 Patient is currently lying in bed. Awake alert and oriented x3. Requiring 2 L of oxygen via nasal cannula. Patient is tolerating oral diet. IV fluids will be discontinued. Denies any complaints of cough or sputum production. No nausea vomiting abdominal pain or diarrhea. Headache is better. Patient is status post biopsy temporal artery. On 04/09/2022. Patient was started on prednisone 60 mg daily as per neurology. Patient has been afebrile. Patient is being current antibiotics for pneumonia otherwise. 04/11/2022 Patient is currently resting in bed. Awake alert and oriented x3. No complaints of chest pain or shortness of breath. Patient is being titrated down to room air. No complaints of fever or chills. No nausea vomiting abdominal pain or diarrhea. Headache is almost resolved. Chest x-ray showed improved aeration particularly in the right lung bases. Patient is participating in incentive spirometry. Laboratory data showed WBC 21.3 hemoglobin 12.7 and platelets 462. Leukocytosis likely due to steroids. Sodium 136 potassium 4.2 chloride 103 bicarb is 22.6 BUN 11.8 and creatinine 0.4 and calcium 8.6. Pulmonary neurology and ID is on board. Patient is being continue ceftriaxone. 04/12/2022 Patient is lying in the bed. Able to sit up at bedside. No complaints of headache. Denied any complaints of chest pain or shortness breath. Currently on room air. No nausea vomiting or abdominal pain or diarrhea. Cultures showed no growth. Laboratory data showed WBC 25.0 likely due to steroids Hemoglobin 13.1, platelets 465, CRP 1.4 and pro calcitonin level is 0.08 Sodium 136 potassium 4.0 chloride 100 bicarb is 25.4 BUN 13.6 and creatinine 0.5 Awaiting temporal artery biopsy. Current medications reviewed. Objective - Vital Signs Vital signs: Vital Signs Temp 98.0 F 04/12/22 20:00 Pulse 74 04/12/22 20:30 Resp 17 04/12/22 20:00 BP 115/64 04/12/22 20:00 Pulse Ox 96 04/12/22 20:00 FiO2 Intake & Output 04/12/22 04/12/22 04/13/22 06:59 18:59 06:59 Output Total 1500 Balance -1500 Output: Urine 1500 Other: Voiding Method Indwelling Catheter Indwelling Catheter # Voids 1 - Exam - Exam GENERAL: The patient is alert and oriented x3, not in any acute distress. Well developed, well nourished. HEENT: Pupils are round and equally reacting to light. EOMI. No scleral icterus. No conjunctival pallor. Normocephalic, atraumatic. No pharyngeal erythema. No thyromegaly. CARDIOVASCULAR: S1 and S2 present. No murmurs, rubs, or gallops. PULMONARY: Chest is clear to auscultation, no wheezing or crackles. ABDOMEN: Soft, nontender, nondistended, normoactive bowel sounds. No palpable organomegaly. MUSCULOSKELETAL: No joint swelling or deformity. EXTREMITIES: No cyanosis, clubbing, or pedal edema. NEUROLOGICAL: Gross neurological examination did not reveal any focal deficits. SKIN: No rashes. no petechiae. - Labs CBC & Chem 7: 04/13/22 07:36 04/13/22 07:36 Labs: Abnormal Lab Results - Last 24 Hours (Table) 04/12/22 04/12/22 04/12/22 Range/Units 04:38 04:38 04:38 WBC 25.06 H (4.50-10.00) X 10*3/uL Plt Count 465 H (140-440) X 10*3/uL MPV 8.7 L (9.5-12.2) fL Immature Gran # 0.64 H (0.00-0.04) X 10*3/uL Neutrophils # 18.72 H (1.80-7.70) X 10*3/uL Monocytes # 1.68 H (0.20-1.00) X 10*3/uL Eosinophils # 0.02 L (0.04-0.35) X 10*3/uL ESR 51 H (0-30) mm/Hr Creatinine 0.5 L (0.6-1.5) mg/dL BUN/Creatinine Ratio 27.20 H (12.00-20.00) Ratio Glucose 193 H (70-110) mg/dL POC Glucose (mg/dL) (70-110) mg/dL C-Reactive Protein (0.00-0.80) mg/dL 04/12/22 04/12/22 04/12/22 Range/Units 04:38 06:11 11:34 WBC (4.50-10.00) X 10*3/uL Plt Count (140-440) X 10*3/uL MPV (9.5-12.2) fL Immature Gran # (0.00-0.04) X 10*3/uL Neutrophils # (1.80-7.70) X 10*3/uL Monocytes # (0.20-1.00) X 10*3/uL Eosinophils # (0.04-0.35) X 10*3/uL ESR (0-30) mm/Hr Creatinine (0.6-1.5) mg/dL BUN/Creatinine Ratio (12.00-20.00) Ratio Glucose (70-110) mg/dL POC Glucose (mg/dL) 175 H 276 H (70-110) mg/dL C-Reactive Protein 1.40 H (0.00-0.80) mg/dL 04/12/22 04/12/22 Range/Units 16:40 20:01 WBC (4.50-10.00) X 10*3/uL Plt Count (140-440) X 10*3/uL MPV (9.5-12.2) fL Immature Gran # (0.00-0.04) X 10*3/uL Neutrophils # (1.80-7.70) X 10*3/uL Monocytes # (0.20-1.00) X 10*3/uL Eosinophils # (0.04-0.35) X 10*3/uL ESR (0-30) mm/Hr Creatinine (0.6-1.5) mg/dL BUN/Creatinine Ratio (12.00-20.00) Ratio Glucose (70-110) mg/dL POC Glucose (mg/dL) 441 H 389 H (70-110) mg/dL C-Reactive Protein (0.00-0.80) mg/dL Assessment and Plan Assessment: 1 New onset bifrontal headache. improving. No evidence of sinusitis. Rule out temporal arteritis. Lumbar puncture has been canceled. Patient is being on Plavix cannot be performed for 5 days. Unlikely intracranial infection and neurology is on board. Patient is status post temporal artery biopsy on 04/09/2022 by vascular surgery. Started on prednisone 60 mg daily. Biopsies pending. 1. Right lower lobe pneumonia. Continue with ceftriaxone. 2. Hyponatremia; resolved 4. diabetes mellitus with hypoglycemia; we will monitor Accu-Cheks Before meals and at bedtime with insulin sliding scale 5. Hypertension; metoprolol 25 mg twice a day amlodipine 10 mg daily; 6. Hyperlipidemia; Lipitor 80 mg by mouth daily at bedtime 7. Hypothyroidism; levothyroxine 175 MCG daily 8. Coronary artery disease; continue with aspirin, beta blockers, statin and nitroglycerin
--- NOTE | 2022-04-14 10:52 | P.PN ---
Subjective Progress Note Date: 04/13/22 61-year-old female presents to the emergency department via EMS accompanied by her spouse for evaluation of generalized weakness. Patient's spouse states the patient has been complaining of feeling poorly for the past 2 days. Patient reports lack of appetite and generalized body aches. Complaints of intermittent nausea and frequent headache. Has had episodes of intermittent midsternal, nonradiating chest pain. No aggravating or alleviating factors. Has been taking her medications as prescribed. Has been unable to check her temperature at home but does feel warm to the touch. No dizziness, shortness of breath, abdominal pain, vomiting, diarrhea, dysuria, hematuria, or lower extremity edema. Chest x-ray was obtained and shows right middle lobe pneumonia. Laboratory studies were reviewed showing significant leukocytosis with a white blood count of 28.2 and hyponatremia. COVID is negative. Patient was given IV fluids, Tylenol for fever, and pain medicine with some improvement. Zithromax and Rocephin were given in the ED. Results were discussed with patient and spouse; they are agreeable to hospital admission for further evaluation and treatment. 04/05/2022 pt breathing is stable at rest she is saturating 95 % on ra, she is still on antibiotics as per ID team of ceftriaxone and zithromax, also she is s/p payne catheter and flomax for urinary retension and urologsit recommened outpatient follow up- this morning pt is complained from sever headache , 9/10 that is resolved with fiorocet, no neurological deficit and exam non focal with strenght 5/5 and senstation is intact she is hypoglycemic this mornign and through the day around 60-70, so lowered her levemir ( 30 u down to 15) and then helo it tonight lower iv fluid to 100 ml per hr 04/06/2022 Yesterday we added furosemide but still has severe headache today 8-9/10 in severity with no focal neurological deficit. CT of the brain is negative, ESR is pending. Neurology input is appreciated Also she remains on ceftriaxone And Zithromax for her pneumonia, she is saturating 90% on room air. We will keep monitoring 04-07-22 Patient still complained of from severe headache although this morning she reports improvement, in the morning and her headache was 5-6/10 in severity. No blurred vision or neurological deficits, no weakness or confusion or numbness. Vitals stable, afebrile, WBC is trending down to 15,000 She remains on ceftriaxone and Zithromax and aspirin and Plavix She confirms at home she takes metformin 750 mg and rybelsus , she confirms she was not on insulin at home. We stopped Levemir, also her diabetes pills are on hold for hypoglycemia, glucose currently is controlled. Hyperglycemia may be contributed to her headache. I discussed the case with neurology service today Dr. Burger, patient has elevated ESR and CRP, temporal artery biopsy is recommended, vascular surgery consult is placed, we made the patient nothing by mouth after midnight, I discussed the case with the bedside nurse to contact vascular surgery to see if hold antiplatelet in the morning, patient is an aspirin and Plavix. Also patient may need LP down the road if no improvement. As per recommendation from neurologist, we will hold for steroids until further workup. 04/08/2022 Patient is currently lying in bed. Awake alert and oriented. Headache is better today. Mainly in the bifrontal region. Extending to the temporal region. Denies any visual disturbance. Denied any jaw claudication. No focal neurological symptoms. Denied any chest pain or worsening shortness of breath. No nausea vomiting abdominal pain or diarrhea. No cough or sputum production. Patient is being continued on antibiotics in the form of ceftriaxone. ID and neurology is on board. Patient is being scheduled for temporal artery biopsy. 04/09/2022 Patient is currently lying in bed. Awake alert and oriented. Patient is schedu led for temporal artery biopsy. Headache is improving. Otherwise patient is being continued antibiotics for pneumonia with ceftriaxone. Azithromycin. Laboratory data showed WBC 11.0 hemoglobin 13.3 and platelets 412 Sodium 139 potassium 3.5 chloride 103 bicarb is 26.5 BUN 11.5 and creatinine 0.5 and blood sugar is 148. CRP 12.3. 04/10/2022 Patient is currently lying in bed. Awake alert and oriented x3. Requiring 2 L of oxygen via nasal cannula. Patient is tolerating oral diet. IV fluids will be discontinued. Denies any complaints of cough or sputum production. No nausea vomiting abdominal pain or diarrhea. Headache is better. Patient is status post biopsy temporal artery. On 04/09/2022. Patient was started on prednisone 60 mg daily as per neurology. Patient has been afebrile. Patient is being current antibiotics for pneumonia otherwise. 04/11/2022 Patient is currently resting in bed. Awake alert and oriented x3. No complaints of chest pain or shortness of breath. Patient is being titrated down to room air. No complaints of fever or chills. No nausea vomiting abdominal pain or diarrhea. Headache is almost resolved. Chest x-ray showed improved aeration particularly in the right lung bases. Patient is participating in incentive spirometry. Laboratory data showed WBC 21.3 hemoglobin 12.7 and platelets 462. Leukocytosis likely due to steroids. Sodium 136 potassium 4.2 chloride 103 bicarb is 22.6 BUN 11.8 and creatinine 0.4 and calcium 8.6. Pulmonary neurology and ID is on board. Patient is being continue ceftriaxone. 04/12/2022 Patient is lying in the bed. Able to sit up at bedside. No complaints of headache. Denied any complaints of chest pain or shortness breath. Currently on room air. No nausea vomiting or abdominal pain or diarrhea. Cultures showed no growth. Laboratory data showed WBC 25.0 likely due to steroids Hemoglobin 13.1, platelets 465, CRP 1.4 and pro calcitonin level is 0.08 Sodium 136 potassium 4.0 chloride 100 bicarb is 25.4 BUN 13.6 and creatinine 0.5 Awaiting temporal artery biopsy. 04/13/2022 Patient is currently resting that. Awake alert and oriented 3. No complaints of chest pain or shortness of breath. Breathing status is much improved. Patient has been afebrile and is saturating more than 90% on room air. CT an giogram Of the head and neck showed moderate atherosclerotic change bilaterally right greater than left without hemodynamically seen in place stenosis. Otherwise pressure was elevated. Patient was started on preprandial insulin and Levemir dose increased to 15 units at bedtime. And with insulin sliding scale. Awaiting temporal artery biopsy. Cultures showed no growth. Patient is on prednisone 60 mg daily. Current medications reviewed. Objective - Vital Signs Vital signs: Vital Signs Temp 97.9 F 04/13/22 19:23 Pulse 67 04/13/22 19:23 Resp 18 04/13/22 19:23 BP 118/66 04/13/22 19:23 Pulse Ox 97 04/13/22 19:23 FiO2 Intake & Output 04/13/22 04/13/22 04/14/22 06:59 18:59 06:59 Output Total 1950 900 Balance -1950 -900 Weight 74.843 kg Output: Urine 1949 Other: Voiding Method Indwelling Catheter Indwelling Catheter - Exam - Exam GENERAL: The patient is alert and oriented x3, not in any acute distress. Well developed, well nourished. HEENT: Pupils are round and equally reacting to light. EOMI. No scleral icterus. No conjunctival pallor. Normocephalic, atraumatic. No pharyngeal erythema. No thyromegaly. CARDIOVASCULAR: S1 and S2 present. No murmurs, rubs, or gallops. PULMONARY: Chest is clear to auscultation, no wheezing or crackles. ABDOMEN: Soft, nontender, nondistended, normoactive bowel sounds. No palpable organomegaly. MUSCULOSKELETAL: No joint swelling or deformity. EXTREMITIES: No cyanosis, clubbing, or pedal edema. NEUROLOGICAL: Gross neurological examination did not reveal any focal deficits. SKIN: No rashes. no petechiae. - Labs CBC & Chem 7: 04/13/22 07:36 04/13/22 07:36 Labs: Abnormal Lab Results - Last 24 Hours (Table) 04/12/22 04/13/22 04/13/22 Range/Units 22:29 02:41 06:03 WBC (4.50-10.00) X 10*3/uL Plt Count (140-440) X 10*3/uL Plt Count Comment MPV (9.5-12.2) fL Immature Gran # (0.00-0.04) X 10*3/uL Neutrophils # (1.80-7.70) X 10*3/uL Lymphocytes # (0.90-5.00) X 10*3/uL Monocytes # (0.20-1.00) X 10*3/uL Eosinophils # (0.04-0.35) X 10*3/uL Creatinine (0.6-1.5) mg/dL BUN/Creatinine Ratio (12.00-20.00) Ratio Glucose (70-110) mg/dL POC Glucose (mg/dL) 298 H 219 H 173 H (70-110) mg/dL 04/13/22 04/13/22 04/13/22 Range/Units 07:36 07:36 11:10 WBC 24.40 H (4.50-10.00) X 10*3/uL Plt Count 477 H (140-440) X 10*3/uL Plt Count Comment INCREASED A MPV 8.6 L (9.5-12.2) fL Immature Gran # 0.46 H (0.00-0.04) X 10*3/uL Neutrophils # 15.00 H (1.80-7.70) X 10*3/uL Lymphocytes # 7.15 H (0.90-5.00) X 10*3/uL Monocytes # 1.68 H (0.20-1.00) X 10*3/uL Eosinophils # 0.03 L (0.04-0.35) X 10*3/uL Creatinine 0.5 L (0.6-1.5) mg/dL BUN/Creatinine Ratio 32.80 H (12.00-20.00) Ratio Glucose 153 H (70-110) mg/dL POC Glucose (mg/dL) 211 H (70-110) mg/dL 04/13/22 Range/Units 16:36 WBC (4.50-10.00) X 10*3/uL Plt Count (140-440) X 10*3/uL Plt Count Comment MPV (9.5-12.2) fL Immature Gran # (0.00-0.04) X 10*3/uL Neutrophils # (1.80-7.70) X 10*3/uL Lymphocytes # (0.90-5.00) X 10*3/uL Monocytes # (0.20-1.00) X 10*3/uL Eosinophils # (0.04-0.35) X 10*3/uL Creatinine (0.6-1.5) mg/dL BUN/Creatinine Ratio (12.00-20.00) Ratio Glucose (70-110) mg/dL POC Glucose (mg/dL) 409 H (70-110) mg/dL Assessment and Plan Assessment: 1 New onset bifrontal headache. improving. No evidence of sinusitis. Rule out temporal arteritis. Lumbar puncture has been canceled. Patient is being on Plavix cannot be performed for 5 days. Unlikely intracranial infection and neurology is on board. Patient is status post temporal artery biopsy on 04/09/2022 by vascular surgery. Started on prednisone 60 mg daily. Biopsies pending. Neurology is following. 1. Right lower lobe pneumonia. Continue with ceftriaxone. 2. Hyponatremia; resolved 4. diabetes mellitus with hypoglycemia; hyperglycemia likely due to steroids. Added Levemir and NovoLog preprandial dose. we will monitor Accu-Cheks Before meals and at bedtime with insulin sliding scale 5. Hypertension; metoprolol 25 mg twice a day amlodipine 10 mg daily; 6. Hyperlipidemia; Lipitor 80 mg by mouth daily at bedtime 7. Hypothyroidism; levothyroxine 175 MCG daily 8. Coronary artery disease; continue with aspirin, beta blockers, statin and nitroglycerin Time with Patient: Greater than 30
[2022-04-14 11:53] LABS: Glucose,Whole Blood 286 mg/dL (70-110)
[2022-04-14 13:47] VITALS: BP 100/54; PULSE 75; RESP 18; TEMP 98.4
--- NOTE | 2022-04-14 14:22 | P.PN ---
Subjective Progress Note Date: 04/14/22 61-year-old female who presented to the emergency department on April 02, with complaints of generalized weakness, cough, shortness of breath, and generally just feeling poorly for 2 days prior to admission. She was evaluated in the emergency room, and found to have a right lower lobe ammonia. In addition, the patient has smoked for 40 years, and likely has some underlying COPD. Her primary care provider is Dr. Leon in [place], [place]. Currently, the patient's on 2 L of oxygen. She received azithromycin and Rocephin as initiating antibiotics. The patient apparently is going to have a temporal artery biopsy, and they needed preoperative clearance by me. Again she's been in the hospital since the , and I was just consulted today. She has history of coronary disease, with previous heart catheterization and stent, diabetes, GERD, hyperlipidemia, hypertension, myocardial infarction, cervical cancer, and hypothyroidism. White count 11.83, hemoglobin 12.8, hematocrit 38.2, and platel et count 352,000 sodium, potassium, chloride, CO2, and anion gap are all normal. BUN is 6.3 with a creatinine of 0.4. Pro-calcitonin level is 0.6 in 0.5. TSH is normal. Urinary Legionella antigen is negative. Chest x-ray shows a right lower lobe/right middle lobe infiltrate. Progress note dated 04/09/2022. The patient was seen yesterday in consultation. She was admitted with a diagnosis of pneumonia. She is on 2 L. She's not receiving any IV fluids. The patient was scheduled to have a temporal artery biopsy. I did clear her for surgery yesterday. She did smoke a pack a day for 40 years. Clinically she is very stable. Currently, white count 11.04, hemoglobin 13.3, hematocrit 41.2, with a normal platelet count. Sodium 139, potassium 3.5, chlorides 103, CO2 27, BUN 11.5, with a creatinine of 0.5. Calcium is 8.2. Blood and urine cultures are thus far negative. Progress note dated 04/10/2022. 61-year-old female seen in room 464. She currently is on 2 L. She's getting s sharath at 100 mL an hour. She did have her temporal artery biopsy done on the left side yesterday, April 09. From the pulmonary standpoint, she is doing well. She states that her breathing is stable. She denies any cough, wheezing, or phlegm production. No new labs today. I did order a follow-up chest x-ray, which is yet to be done. Progress note dated 04/11/2022. The patient is seen today in room 464. The patient had a chest x-ray done, which shows improvement. The patient's on saline at 100 mL an hour, and O2 at 2 L. When I entered the room, the patient is doing a breathing treatment. Laboratory data, includes a white count of 21.4, hemoglobin 12.7, hematocrit 38, and platelet count of 462,000. Sodium 136, potassium 4.2, chlorides 103, CO2 24, anion gap 9, BUN 12, creatinine 0.4. Chest x-ray from yesterday does show improved aeration particularly at the right lung base. The patient is seen today 04/12/2022 in follow-up on the regular medical floor. She is currently sitting up at the bedside. Awake and alert in no acute distress. Denies any worsening shortness of breath, cough or congestion. She is maintaining good O2 saturation the mid 90s on room air. Afebrile. Blood cultures reveal no growth. Urine culture revealed no growth. White count 25. Hemoglobin 13.1. Sodium 136. Potassium 4.0. BUN 13. Creatinine 0.5. Glucose 193. She is continued on Symbicort, DuoNeb inhalations, prednisone currently at 60 mg daily. Biopsies pending for possible temporal arteritis. The patient is seen today 04/13/2022 in follow-up on the regular medical floor. She is sitting up at the bedside. Awake and alert in no acute distress. Maintaining good O2 saturations in the 90s on room air. She denies any headache. CT angiogram of the head and neck revealed moderate atherosclerotic change bilaterally right greater than left without any hemodynamically sign ificant stenosis. Normal variant of [place] of Chung. No aneurysm or significant focal stenosis. Pathology pending from temporal artery biopsy. Blood cultures reveal no growth. Urine cultures revealed no growth. White count 24.4. Hemogram 14.0. Platelets 477. Sodium 138. Potassium 4.3. BUN 16. Creatinine 0.5. Glucose 153. She is continued on prednisone 60 mg daily. Remains on Symbicort and DuoNeb inhalations. The patient is seen today 04/14/2022 follow-up on the regular medical floor. Awake and alert in no acute distress. Maintaining good O2 saturations in the 90s on room air. She's sitting up in a chair at the bedside. No pulmonary complaints. Her temporal artery bypass was negative. Prednisone will be stopped per neurology. Blood cultures revealed no growth. Urine and sputum cultures revealed no growth. Glucose 181. Remains on Symbicort and DuoNeb inhalations. Antibiotics in the form of ceftriaxone. Objective - Vital Signs Vital signs: Vital Signs Temp 98.4 F 04/14/22 13:42 Pulse 75 04/14/22 13:42 Resp 18 04/14/22 13:42 BP 100/54 04/14/22 13:42 Pulse Ox 95 04/14/22 13:42 FiO2 Intake & Output 04/13/22 04/14/22 04/14/22 18:59 06:59 18:59 Output Total 900 900 Balance -900 -900 Weight 74.843 kg Output: Urine 900 900 Other: Voiding Method Indwelling Catheter Indwelling Catheter Indwelling Catheter - Exam GENERAL EXAM: Alert, pleasant 61-year-old female, on room air, comfortable in no apparent distress. HEAD: Normocephalic. EYES: Normal reaction of pupils, equal size. NOSE: Clear with pink turbinates. THROAT: No erythema or exudates. NECK: No masses, no JVD. CHEST: No chest wall deformity. LUNGS: Equal air entry with few scattered rhonchi. CVS: S1 and S2 normal with no audible murmur, regular rhythm. ABDOMEN: No hepatosplenomegaly, normal bowel sounds, no guarding or rigidity. SPINE: No scoliosis or deformity SKIN: No rashes CENTRAL NERVOUS SYSTEM: No focal deficits, tone is normal in all 4 extremities. EXTREMITIES: There is no peripheral edema. No clubbing, no cyanosis. Peripheral pulses are intact. - Labs CBC & Chem 7: 04/13/22 07:36 04/13/22 07:36 Labs: Abnormal Lab Results - Last 24 Hours (Table) 04/13/22 04/13/22 04/14/22 Range/Units 16:36 20:27 06:06 POC Glucose (mg/dL) 409 H 421 H 181 H (70-110) mg/dL 04/14/22 Range/Units 11:52 POC Glucose (mg/dL) 286 H (70-110) mg/dL Microbiology - Last 24 Hours (Table) 04/13/22 21:00 Gram Stain - Preliminary Sputum Sputum Culture - Preliminary Assessment and Plan Assessment: Right lower lobe pneumonia, community-acquired. Recovered S/P left temporal artery biopsy, 04/09/2022, negative. CT angiogram of the head and neck revealed no acute findings Probable COPD from heavy tobacco use, for 40 years. CAD, with previous PCI, and stenting. History of uterine cancer. Diabetes mellitus. Gastroesophageal reflux disease. History of hyperlipidemia. History of hypertension. Prior history of myocardial infarction. Hypothyroidism. Plan: The patient was seen and evaluated Cleared for discharge from the pulmonary standpoint Continue Symbicort, albuterol HFA Follow-up in the office in 1 week I have personally seen and examined the patient, performed the documentation and the assessment and plan as written. Number of minutes spent on the visit: 10.
[2022-04-14 15:37] LABS: Basophils % (A) 0 %; Eosinophils % (A) 0 %; HCT 42.6 % (34.0-46.0); HGB 13.9 gm/dL (11.4-16.0); Lymphocytes # (A) 1.7 k/uL (1.0-4.8); Lymphocytes % (A) 10 %; MCHC 32.5 g/dL (31.0-37.0); MCV 89.1 fL (80.0-100.0); Monocytes # (A) 0.5 k/uL (0-1.0); Monocytes % (A) 3 %; Neutrophils # (A) 14.9 k/uL (1.3-7.7); Neutrophils % (A) 87 %; Platelet Count 448 k/uL (150-450); RBC 4.78 m/uL (3.80-5.40); RDW 13.7 % (11.5-15.5); WBC 17.2 k/uL (3.8-10.6)
[2022-04-14 15:54] LABS: African American GFR (CKD) >90 (>60 ml/min/1.73 sqM); Anion Gap 7 mmol/L; Blood Urea Nitrogen 27 mg/dL (7-17); Calcium 8.5 mg/dL (8.4-10.2); Carbon Dioxide 26 mmol/L (22-30); Chloride 99 mmol/L (98-107); Glucose 367 mg/dL (74-99); Non-African American GFR(CKD) >90 (>60 ml/min/1.73 sqM); Potassium 4.8 mmol/L (3.5-5.1); Sodium 132 mmol/L (137-145)
[2022-04-14 17:10] LABS: Glucose,Whole Blood 386 mg/dL (70-110)
== END 2022-04-14 17:37 | disposition home health service (06) | DRG 853 ==
LOC: EC 16:22 → 4SSUR 23:05
PROVIDERS: ADMIT Hospitalist; ATTEND Hospitalist
PROC: 03BT0ZX Excision of Left Temporal Artery, Open Approach, Diagnostic (ICD-10-PCS; principal; 2022-04-09 08:40)
DX: A41.9 Sepsis, unspecified organism (principal); J18.9 Pneumonia, unspecified organism; E87.1 Hypo-osmolality and hyponatremia; J44.0 Chronic obstructive pulmonary disease with (acute) lower respiratory infection; N39.0 Urinary tract infection, site not specified; E03.9 Hypothyroidism, unspecified; E11.649 Type 2 diabetes mellitus with hypoglycemia without coma; E11.65 Type 2 diabetes mellitus with hyperglycemia; E78.5 Hyperlipidemia, unspecified; F17.210 Nicotine dependence, cigarettes, uncomplicated; F41.9 Anxiety disorder, unspecified; M31.6 Other giant cell arteritis; G25.81 Restless legs syndrome; I10 Essential (primary) hypertension; I25.10 Atherosclerotic heart disease of native coronary artery without angina pectoris; I25.2 Old myocardial infarction; K21.9 Gastro-esophageal reflux disease without esophagitis; R09.02 Hypoxemia; T38.0X5A Adverse effect of glucocorticoids and synthetic analogues, initial encounter; D72.829 Elevated white blood cell count, unspecified; Z20.822 Contact with and (suspected) exposure to COVID-19; Z79.02 Long term (current) use of antithrombotics/antiplatelets; Z79.4 Long term (current) use of insulin; Z79.82 Long term (current) use of aspirin; Z79.84 Long term (current) use of oral hypoglycemic drugs; Z79.890 Hormone replacement therapy; Z79.899 Other long term (current) drug therapy; Z82.49 Family history of ischemic heart disease and other diseases of the circulatory system; Z83.3 Family history of diabetes mellitus; Z85.41 Personal history of malignant neoplasm of cervix uteri; Z85.42 Personal history of malignant neoplasm of other parts of uterus; Z87.01 Personal history of pneumonia (recurrent); Z90.710 Acquired absence of both cervix and uterus; Z95.5 Presence of coronary angioplasty implant and graft
CPT/HCPCS: 36415; 70450; 70496; 70498; 71045; 71046; 80048; 80053; 81001; 83036; 83605; 83735; 83880; 84132; 84145; 84443; 84484; 85025; 85610; 85652; 85730; 86140; 87040; 87070; 87086; 87205; 87449; 87636; 88305; 93005; 94640; 94760; 96361; 96365; 96375; 99285

== ENCOUNTER 2022-04-19 12:08 | Emergency (ER) | payer MEDICARE, OTHER ==
[2022-04-19 12:22] VITALS: RESP 20
[2022-04-19] MEDS ORDERED: SODIUM CHLORIDE 0.9% 500 ML 500 ML IV STA (12:56)
--- NOTE | 2022-04-19 13:45 | ED ---
General Adult HPI - General Chief complaint: Urogenital Stated complaint: blood in urine Time Seen by Provider: 04/19/22 12:33 Source: patient, RN notes reviewed Mode of arrival: wheelchair Limitations: no limitations - History of Present Illness Initial comments: This a 61-year-old female presents emergency Department with chief complaint of blood in her Vegas catheter. Patient states she was having difficulty urinating, having bladder spasms so they placed a Vegas catheter on her admission she states has been there for 2 weeks should increasing pain in which home after nurse exchange the catheter over the weekend. She had some difficulty placing the. Patient noticed that blood and urine straight last night worse this morning and she reports she sees. She did contact urologist advised him come emergency department. She does complain of some lower abdominal pain right-sided abdominal pain - Related Data Home Medications Medication Instructions Recorded Confirmed Atorvastatin [Lipitor] 80 mg PO HS 04/04/18 04/19/22 Metoprolol Tartrate [Lopressor] 25 mg PO BID 04/04/18 04/19/22 Nitroglycerin Sl Tabs [Nitrostat] 0.4 mg SUBLINGUAL Q5M PRN 04/04/18 04/19/22 Venlafaxine HCl ER [Effexor XR] 75 mg PO DAILY 04/04/18 04/19/22 amLODIPine [Norvasc] 10 mg PO DAILY 04/04/18 04/19/22 Clopidogrel [Plavix] 75 mg PO DAILY 08/08/19 04/19/22 Levothyroxine Sodium [Synthroid] 175 mcg PO DAILY 08/08/19 04/19/22 metFORMIN HCL [Glucophage XR] 750 mg PO BID 08/08/19 04/19/22 Gabapentin [Neurontin] 600 mg PO BID PRN 12/14/20 04/19/22 Semaglutide [Rybelsus] 3 mg PO DIRECTED 04/05/22 04/19/22 Albuterol Inhaler [Ventolin Hfa 2 puff INHALATION Q6H PRN 04/19/22 04/19/22 Inhaler] Budesonide-Formot 160-4.5 Mcg 2 puff INHALATION RT-BID PRN 04/19/22 04/19/22 [Symbicort 160-4.5 Mcg Inhaler] Previous Rx's Medication Instructions Recorded Aspirin 81 mg PO DAILY chew 04/07/18 Insulin Detemir (Levemir) [Levemir] 10 unit SQ HS 30 Days #1 each 04/14/22 Tamsulosin [Flomax] 0.4 mg PO DAILY #30 cap 04/14/22 Cephalexin [Keflex] 500 mg PO Q8HR #21 cap 04/19/22 Phenazopyridine [Pyridium] 200 mg PO TID #6 tablet 04/19/22 Allergies Allergy/AdvReac Type Severity Reaction Status Date / Time nickel Allergy Rash/Hives Verified 04/19/22 14:24 Review of Systems ROS Statement: Those systems with pertinent positive or pertinent negative responses have been documented in the HPI. ROS Other: All systems not noted in ROS Statement are negative. Past Medical History Past Medical History: Coronary Artery Disease (CAD), Cancer, Diabetes Mellitus, GERD/Reflux, Hyperlipidemia, Hypertension, Myocardial Infarction (GA), Thyroid Disorder Additional Past Medical History / Comment(s): rls, hpv, cervical uterine ca(sx only), OBV 12/14-12/15/20 N/V/D Last Myocardial Infarction Date:: 04/04/2018 History of Any Multi-Drug Resistant Organisms: None Reported Past Surgical History: Bladder Surgery, Section, Heart Catheterization With Stent, Hernia Repair, Hysterectomy, Orthopedic Surgery Additional Past Surgical History / Comment(s): 04/04/18 heart cath with stent to distal lad . past hx heart cath w/ stents apr 2018 at [facility] .thryroidectomy, leep Procedure, , bladder supsension, rt knee sx, COLONOSCOPY 2015 Past Anesthesia/Blood Transfusion Reactions: No Reported Reaction Additional Past Anesthesia/Blood Transfusion Reaction / Comment(s): has never received blood. Date of Last Stent Placement:: 04/04/18 Past Psychological History: Anxiety Smoking Status: Current every day smoker Past Alcohol Use History: None Reported Past Drug Use History: None Reported - Past Family History Mother Family Medical History: Diabetes Mellitus, Hypertension Additional Family Medical History / Comment(s): diet controlled diabetic Father Family Medical History: Coronary Artery Disease (CAD), Myocardial Infarction (GA) Additional Family Medical History / Comment(s): "at age 38 [address] bypass" then at age 48 from [place] General Exam Limitations: no limitations General appearance: alert, in no apparent distress Head exam: Present: atraumatic, normocephalic, normal inspection Eye exam: Present: normal appearance, PERRL, EOMI. Absent: scleral icterus, conjunctival injection, periorbital swelling ENT exam: Present: normal exam, normal oropharynx, mucous membranes moist Neck exam: Present: normal inspection, full ROM. Absent: tenderness, meningismus, lymphadenopathy Respiratory exam: Present: normal lung sounds bilaterally. Absent: respiratory distress, wheezes, rales, rhonchi, stridor Cardiovascular Exam: Present: regular rate, normal rhythm, normal heart sounds. Absent: systolic murmur, diastolic murmur, rubs, gallop, clicks GI/Abdominal exam: Present: soft, tenderness, normal bowel sounds. Absent: di stended, guarding, rebound, rigid Back exam: Absent: CVA tenderness (R), CVA tenderness (L) Course Vital Signs 04/19/22 12:17 Temperature 97.7 F Pulse Rate 72 Respiratory 20 Rate Blood Pressure 113/66 O2 Sat by Pulse 99 Oximetry Medical Decision Making - Medical Decision Making 61-year-old female presented emergency from for the pain, bloating catheter. Patient does have noted blood, getting spasms from this. Patient has evidence urinary tract infection was started on oral antibiotics she will increase her fluids and be given Pyridium and will be discharged in stable condition. - Lab Data Result diagrams: 04/19/22 13:23 04/19/22 13:23 Lab Results 04/19/22 04/19/22 04/19/22 Range/Units 13:23 13:23 13:23 WBC 16.2 H (3.8-10.6) k/uL RBC 4.92 (3.80-5.40) m/uL Hgb 14.6 (11.4-16.0) gm/dL Hct 43.0 (34.0-46.0) % MCV 87.4 (80.0-100.0) fL MCH 29.7 (25.0-35.0) pg MCHC 34.0 (31.0-37.0) g/dL RDW 13.8 (11.5-15.5) % Plt Count 304 (150-450) k/uL MPV 7.2 Neutrophils % 66 % Lymphocytes % 24 % Monocytes % 6 % Eosinophils % 2 % Basophils % 1 % Neutrophils # 10.7 H (1.3-7.7) k/uL Lymphocytes # 3.8 (1.0-4.8) k/uL Monocytes # 1.0 (0-1.0) k/uL Eosinophils # 0.4 (0-0.7) k/uL Basophils # 0.1 (0-0.2) k/uL PT 10.3 (9.0-12.0) sec INR 0.9 (<1.2) APTT 23.4 (22.0-30.0) sec Sodium 135 L (137-145) mmol/L Potassium 4.7 (3.5-5.1) mmol/L Chloride 103 (98-107) mmol/L Carbon Dioxide 22 (22-30) mmol/L Anion Gap 10 mmol/L BUN 17 (7-17) mg/dL Creatinine 0.42 L (0.52-1.04) mg/dL Est GFR (CKD-EPI)AfAm >90 (>60 ml/min/1.73 sqM) Est GFR (CKD-EPI)NonAf >90 (>60 ml/min/1.73 sqM) Glucose 281 H (74-99) mg/dL Plasma Lactic Acid Javier (0.7-2.0) mmol/L Calcium 8.8 (8.4-10.2) mg/dL Total Bilirubin 0.8 (0.2-1.3) mg/dL AST 25 (14-36) U/L ALT 30 (4-34) U/L Alkaline Phosphatase 117 (38-126) U/L Total Protein 6.5 (6.3-8.2) g/dL Albumin 3.7 (3.5-5.0) g/dL Amylase 64 (30-110) U/L Lipase 70 (23-300) U/L Urine Color Urine RBC (0-5) /hpf Urine WBC (0-5) /hpf Ur Squamous Epith Cells (0-4) /hpf Urine Bacteria (None) /hpf Urine Mucus (None) /hpf Urine Yeast (Budding) (None) /hpf 04/19/22 04/19/22 Range/Units 13:23 14:09 WBC (3.8-10.6) k/uL RBC (3.80-5.40) m/uL Hgb (11.4-16.0) gm/dL Hct (34.0-46.0) % MCV (80.0-100.0) fL MCH (25.0-35.0) pg MCHC (31.0-37.0) g/dL RDW (11.5-15.5) % Plt Count (150-450) k/uL MPV Neutrophils % % Lymphocytes % % Monocytes % % Eosinophils % % Basophils % % Neutrophils # (1.3-7.7) k/uL Lymphocytes # (1.0-4.8) k/uL Monocytes # (0-1.0) k/uL Eosinophils # (0-0.7) k/uL Basophils # (0-0.2) k/uL PT (9.0-12.0) sec INR (<1.2) APTT (22.0-30.0) sec Sodium (137-145) mmol/L Potassium (3.5-5.1) mmol/L Chloride (98-107) mmol/L Carbon Dioxide (22-30) mmol/L Anion Gap mmol/L BUN (7-17) mg/dL Creatinine (0.52-1.04) mg/dL Est GFR (CKD-EPI)AfAm (>60 ml/min/1.73 sqM) Est GFR (CKD-EPI)NonAf (>60 ml/min/1.73 sqM) Glucose (74-99) mg/dL Plasma Lactic Acid Javier 2.3 H* (0.7-2.0) mmol/L Calcium (8.4-10.2) mg/dL Total Bilirubin (0.2-1.3) mg/dL AST (14-36) U/L ALT (4-34) U/L Alkaline Phosphatase (38-126) U/L Total Protein (6.3-8.2) g/dL Albumin (3.5-5.0) g/dL Amylase (30-110) U/L Lipase (23-300) U/L Urine Color Brown Urine RBC >182 H (0-5) /hpf Urine WBC 109 H (0-5) /hpf Ur Squamous Epith Cells 3 (0-4) /hpf Urine Bacteria Few H (None) /hpf Urine Mucus Many H (None) /hpf Urine Yeast (Budding) Few H (None) /hpf Disposition Clinical Impression: UTI (urinary tract infection), Hematuria Disposition: HOME SELF-CARE Condition: Stable Instructions (If sedation given, give patient instructions): Urinary Tract Infection in Women (ED) Additional Instructions: Please return to the Emergency Department if symptoms worsen or any other concerns. Prescriptions: Cephalexin [Keflex] 500 mg PO Q8HR #21 cap Phenazopyridine [Pyridium] 200 mg PO TID #6 tablet Is patient prescribed a controlled substance at d/c from ED?: No Referrals: Marni Leon MD [Primary Care Provider] - 1-2 days Time of Disposition: 14:40
[2022-04-19 13:55] LABS: Basophils # (A) 0.1 k/uL (0-0.2); Basophils % (A) 1 %; Eosinophils # (A) 0.4 k/uL (0-0.7); Eosinophils % (A) 2 %; HGB 14.6 gm/dL (11.4-16.0); Lymphocytes # (A) 3.8 k/uL (1.0-4.8); Lymphocytes % (A) 24 %; MCH 29.7 pg (25.0-35.0); MCV 87.4 fL (80.0-100.0); Mean Platelet Volume 7.2; Monocytes % (A) 6 %; Neutrophils # (A) 10.7 k/uL (1.3-7.7); Neutrophils % (A) 66 %; Platelet Count 304 k/uL (150-450); RBC 4.92 m/uL (3.80-5.40); RDW 13.8 % (11.5-15.5); WBC 16.2 k/uL (3.8-10.6)
[2022-04-19 14:05] LABS: INR 0.9 (<1.2); Partial Thromboplastin Time 23.4 sec (22.0-30.0); Prothrombin Time 10.3 sec (9.0-12.0)
[2022-04-19 14:13] LABS: ALT 30 U/L (4-34); African American GFR (CKD) >90 (>60 ml/min/1.73 sqM); Albumin 3.7 g/dL (3.5-5.0); Amylase 64 U/L (30-110); Anion Gap 10 mmol/L; Blood Urea Nitrogen 17 mg/dL (7-17); Calcium 8.8 mg/dL (8.4-10.2); Carbon Dioxide 22 mmol/L (22-30); Chloride 103 mmol/L (98-107); Glucose 281 mg/dL (74-99); Lipase 70 U/L (23-300); Non-African American GFR(CKD) >90 (>60 ml/min/1.73 sqM); Sodium 135 mmol/L (137-145); Total Bilirubin 0.8 mg/dL (0.2-1.3); Total Protein 6.5 g/dL (6.3-8.2)
[2022-04-19 14:14] LABS: AST 25 U/L (14-36); Alkaline Phosphatase 117 U/L (38-126); Potassium 4.7 mmol/L (3.5-5.1)
--- NOTE | 2022-04-19 14:15 | CT ---
EXAMINATION TYPE: CT abdomen pelvis wo con DATE OF EXAM: 04/19/2022 COMPARISON: 04/18/2021 HISTORY: 61-year-old female Abdominal pain, blood in urine x2 weeks, Hx uterine ca, bladder sx, C-sec tion, hernia repair, hysterectomy CT DLP: 506.7 mGycm. Automated exposure control for dose reduction was used. TECHNIQUE: Contiguous axial scanning of the abdomen and pelvis without IV contrast. Coronal and sagit carlos reconstructions performed. FINDINGS: Heart normal size of pericardial effusion. Dense LAD coronary artery calcifications are present. Some mosaic attenuation is noted in the lower lungs and could reflect small airways disease. No pleural e ffusion. Small hiatal hernia. The liver shows diffuse diminished attenuation compatible with fatty infiltration. No abnormal gallbl adder distention. Noncontrast appearance of the adrenal glands, kidneys, spleen, and pancreas show no gross abnormality . No nephrolithiasis or hydronephrosis is seen. A tiny phlebolith adjacent to the upper third right ure ter, axial image 78 was present previously as well. No dilated small bowel, free fluid, or free air. Normal appendix. Scattered minimal stool. Diverticulosis along the lower descending and sigmoid colon . There may be some mild wall thickening versus nondistention along the distal sigmoid colon and poss ible minimal fat stranding or pericolonic vessels, the latter is favored. Vegas catheter in place. The bladder is collapsed. Uterus surgically absent. Ovaries not clearly deli neated from adjacent bowel loops. Numerous pelvic phleboliths. No abnormal fluid collection in the pe lvis or pelvic lymphadenopathy. Coils from previous right lower quadrant abdominal wall mesh repair. Bones: Mild degenerative change of the hips. Mild degenerative disc disease upper lumbar spine. Scatt ered mild facet arthropathy. Degenerative grade 1 retrolisthesis L2-L3 and L3-L4. IMPRESSION: 1. Sigmoid diverticulosis. Mild wall thickening along the distal sigmoid colon could be secondary to mild inflammation from acute diverticulitis versus nondistention. The latter is favored. Further cli nical correlation recommended. No abscess or free air. 2. No nephrolithiasis or hydronephrosis. The bladder is collapsed with Vegas catheter in place. 3. Hepatic steatosis, small hiatal hernia, and some mosaic attenuation in the lower lungs which may reflect small airways disease.
[2022-04-19 14:22] LABS: Bacteria,Urine Few /hpf; Budding Yeast,Urine Few /hpf; Mucus,Urine Many /hpf; RBC,Urine >182 /hpf (0-5); Squamous Epithelial Cell,Urine 3 /hpf (0-4); WBC,Urine 109 /hpf (0-5)
[2022-04-19 14:35] LABS: Color,Urine Brown
[2022-04-19] MEDS ORDERED: PHENAZOPYRIDINE 200 MG TAB PO STA (14:38)
[2022-04-19] MEDS ORDERED: cefTRIAXone IN SWFI 1,000 MG/10 ML SYRINGE IVP STA (14:38)
[2022-04-19 15:45] VITALS: BP 116/68; PULSE 70; TEMP 97.6
== END 2022-04-19 15:44 | disposition home or self-care (01) ==
LOC: EC 12:08
DX: N39.0 Urinary tract infection, site not specified (principal); I10 Essential (primary) hypertension; I25.10 Atherosclerotic heart disease of native coronary artery without angina pectoris; E11.9 Type 2 diabetes mellitus without complications; K21.9 Gastro-esophageal reflux disease without esophagitis; E78.5 Hyperlipidemia, unspecified; I25.2 Old myocardial infarction; E03.9 Hypothyroidism, unspecified; F41.9 Anxiety disorder, unspecified; F17.200 Nicotine dependence, unspecified, uncomplicated; Z79.899 Other long term (current) drug therapy; Z79.890 Hormone replacement therapy; Z79.84 Long term (current) use of oral hypoglycemic drugs; Z79.4 Long term (current) use of insulin; Z79.82 Long term (current) use of aspirin
CPT/HCPCS: 36415; 80053; 82150; 83605; 83690; 85025; 85610; 85730; 87086; 74176; 99284; 96374; 96361; J0696

== ENCOUNTER → 2022-05-03 | Outpatient (CLI) | payer MEDICARE, OTHER ==
--- NOTE | 2022-05-03 10:01 | XR ---
EXAMINATION TYPE: XR thoracic spine 2V DATE OF EXAM: 05/03/2022 CLINICAL HISTORY: Mid back pain TECHNIQUE: Frontal, lateral, and swimmer's view of thoracic spine are obtained. COMPARISON: None. FINDINGS: Thoracic spine show dextroconvex scoliosis centered mid to lower thoracic spine without yury dence of acute fracture or dislocation. Vertebral body heights and disc space heights are preserved. Partial visualization of anterior fusion plate cervicothoracic junction. There is coronary stent in the LAD distribution noted. IMPRESSION: As above.
== END | disposition home or self-care (01) ==
LOC: RADXRMAIN 09:19
PROVIDERS: ATTEND Psychiatry & Neurology Neurology
DX: M54.6 Pain in thoracic spine (principal)
CPT/HCPCS: 72070

== ENCOUNTER → 2022-05-06 | Outpatient (CLI) | payer MEDICARE, OTHER ==
[2022-05-06 14:44] LABS: African American GFR (CKD) >90 (>60 ml/min/1.73 sqM); Blood Urea Nitrogen 11 mg/dL (7-17); Non-African American GFR(CKD) >90 (>60 ml/min/1.73 sqM)
--- NOTE | 2022-05-06 15:17 | CT ---
EXAMINATION TYPE: CT chest w con DATE OF EXAM: 05/06/2022 COMPARISON: none HISTORY: abnormal labs, no chest complaints today, hx of uterine ca CT DLP: 568 mGycm Automated exposure control for dose reduction was used. CONTRAST: CT scan of the chest is performed with IV Contrast, patient injected with 70cc mL of Isovue 300. FINDINGS: LUNGS: Cavitary nodule left upper lobe measures 1.8 cm. Additional small nodule left lower lobe 4.4 m m seen on image 43. No additional nodules are evident at this time. The remainder of the lungs are cl ear. No evidence for consolidation or volume loss. No pleural effusion. MEDIASTINUM: There are no greater than 1 cm hilar or mediastinal lymph nodes. No pericardial effusi on is seen. Thoracic aorta is of normal caliber. The heart is not enlarged. UPPER ABDOMEN: Hepatomegaly with hepatic steatosis. OTHER: No additional significant abnormality is seen. IMPRESSION: 1. Nonspecific cavitary nodule left upper lobe. This could be inflammatory/postinflammatory nature un derlying neoplasm is not excluded. Consider PET/CT correlation.
== END | disposition home or self-care (01) ==
LOC: RADCTMAIN 14:03
PROVIDERS: ATTEND Internal Medicine Hematology & Oncology
DX: C95.00 Acute leukemia of unspecified cell type not having achieved remission (principal); R91.1 Solitary pulmonary nodule
CPT/HCPCS: 82565; 84520; 71260; 36415; Q9967

== ENCOUNTER → 2022-05-21 | Outpatient (CLI) | payer MEDICARE, OTHER ==
--- NOTE | 2022-05-24 06:20 | PE ---
EXAMINATION TYPE: PET CT fusion skull to thigh DATE OF EXAM: 05/21/2022 COMPARISON: Most recent chest CT May 06, 2022 and older studies. HISTORY: Solitary pulmonary nodule left lung, abnormal CT. History of endometrial cancer 1995. TECHNIQUE: Following the intravenous administration of 10.96 mCi of F-18 FDG, whole body images are performed from the skull base to the midthigh. Images are reviewed on the computer in the coronal, a xial, and sagittal planes. Reconstructed rotating images are created on independent workstation and reviewed on the computer. A localization and attenuation correction CT is performed in conjunction with the PET scan. Blood glucose level equals 191. SCAN: Initial Scan FINDINGS: SKULL BASE AND NECK: No areas of abnormal hypermetabolic uptake. CHEST, MEDIASTINUM, AND HILAR REGION: Persistent thick walled cavitary lesion measuring 2.0 x 1.8 cm axial image 75 in the inferior posterior left upper lobe with abnormal hypermetabolic uptake, max SUV is 4.59. No additional areas of abnormal hypermetabolic uptake. No hypermetabolic thoracic adenopathy. ABDOMEN AND PELVIS: No adrenal masses. No areas of abnormal hypermetabolic uptake. OSSEOUS STRUCTURES: No areas of abnormal hypermetabolic uptake. OTHER CT: Mild to moderate calcified plaque bilateral carotid bulb level. There are severe calcificat ion and/or stents along the LAD redemonstrated. Liver is diffusely low dense consistent with fatty infiltrative hepatocellular disease. Surgical coil s from ventral hernia repair surgery in the right lower abdomen and pelvis anteriorly are noted. Uter us is surgically absent. IMPRESSION: Thick-walled 2.0 cm cavitary lesion left upper lobe has abnormal hypermetabolic uptake co uld reflect acute infectious process or pulmonary abscess. Differential includes neoplasm such as squ amous cell carcinoma. Other etiologies not excluded. Correlate clinically. Follow-up advised.
== END | disposition home or self-care (01) ==
LOC: RADPETMAIN 07:45
PROVIDERS: ATTEND Internal Medicine Hematology & Oncology
DX: R91.1 Solitary pulmonary nodule (principal); J98.4 Other disorders of lung; Z85.42 Personal history of malignant neoplasm of other parts of uterus
CPT/HCPCS: 78815; A9552

== ENCOUNTER 2022-06-03 10:34 | Day surgery (SDC) | payer MEDICARE, OTHER ==
[2022-06-02 10:03] VITALS: BMI 25.7
[~2022-06-03 10:34] MED LIST changes: +ATROPINE SULFATE 0.4 MG/ML 1 ML VIAL IM ONE; +LIDOCAINE VISCOUS 300 MG/15 ML CUP MUCOUS MEM ONE; +ONDANSETRON 4 MG/2 ML VIAL IVP ONE; +SODIUM CHLORIDE 0.9% 1,000 ML IV SCH; +fentaNYL (PF) 50 MCG/ML 2 ML AMP IV PRN
[2022-06-03 11:16] LABS: Glucose,Whole Blood 205 mg/dL (70-110)
[2022-06-03 11:54] LABS: Basophils # (A) 0.2 k/uL (0-0.2); Basophils % (A) 1 %; Eosinophils # (A) 0.3 k/uL (0-0.7); Eosinophils % (A) 2 %; HCT 43.9 % (34.0-46.0); HGB 15.3 gm/dL (11.4-16.0); Lymphocytes # (A) 4.8 k/uL (1.0-4.8); Lymphocytes % (A) 26 %; MCH 29.4 pg (25.0-35.0); MCHC 34.8 g/dL (31.0-37.0); MCV 84.6 fL (80.0-100.0); Mean Platelet Volume 7.7; Monocytes # (A) 1.2 k/uL (0-1.0); Monocytes % (A) 6 %; Neutrophils % (A) 65 %; Platelet Count 363 k/uL (150-450); RBC 5.19 m/uL (3.80-5.40); RDW 13.6 % (11.5-15.5); WBC 18.6 k/uL (3.8-10.6)
[2022-06-03] MEDS ORDERED: ROCURONIUM 10 MG/ML (5 ML VIAL) IV ONE (12:50)
[2022-06-03] MEDS ORDERED: PROPOFOL 10 MG/ML 20 ML VIAL IV ONE (12:50)
[2022-06-03] MEDS ORDERED: GLYCOPYRROLATE 0.2 MG/ML 2 ML VIAL ONE (12:50)
[2022-06-03] MEDS ORDERED: fentaNYL (PF) 50 MCG/ML 2 ML AMP ONE (12:50)
[2022-06-03] MEDS ORDERED: LIDOCAINE 2% INJ 20 MG/ML (2 ML VIAL) ONE (12:50)
[2022-06-03] MEDS ORDERED: MIDAZOLAM 2 MG/2 ML VIAL ONE (12:50)
[2022-06-03] MEDS ORDERED: NEOSTIGMINE 1 MG/ML 10 ML VIAL ONE (12:50)
[2022-06-03] MEDS ORDERED: SUCCINYLCHOLINE CHLORIDE 200 MG/10 ML VIAL IV ONE (12:50)
[2022-06-03] MEDS ORDERED: LIDOCAINE 4% LTA KIT (4 ML) TOPICAL ONE (12:50)
--- NOTE | 2022-06-03 13:36 | CT ---
EXAMINATION TYPE: CT Chest wo con Veran Protocol DATE OF EXAM: 06/03/2022 COMPARISON: PET/CT 05/21/2022 HISTORY: Bronchial navigation CT DLP: 563 mGycm Automated exposure control for dose reduction was used. FINDINGS: No evidence of lymphadenopathy. Mild hepatic steatosis. There is mildly enlarged. Atherosclerosis of the arterial vasculature. The left upper lobe peripheral cavitating lesion measuring up to 1.9 cm IMPRESSION: 1. CT Chest wo con Veran Protocol for bronchoscopy. 2. Left upper lobe 1.9 cm cavitating mass.
[2022-06-03 14:00] VITALS: TEMP 97.2
--- NOTE | 2022-06-03 15:01 | XR ---
EXAMINATION TYPE: XR chest 1V portable DATE OF EXAM: 06/03/2022 COMPARISON: 04/10/2022 INDICATION: Status post biopsy left upper lobe TECHNIQUE: Single frontal view of the chest is obtained. FINDINGS: The heart size is normal. The pulmonary vasculature is normal. Bibasilar infiltrates are present, greater at the left lung base. There appears to be some thickening to the bilateral lung apices greater on the left. No definite pne umothorax identified. Follow-up is recommended IMPRESSION: 1. Bibasilar infiltrates, greater on the left. 2. Biapical thickening. Pneumothorax is not identified. Follow-up is recommended.
[2022-06-03 15:03] VITALS: BP 116/71; PULSE 61; RESP 16
--- NOTE | 2022-06-03 21:07 | PCN ---
PROCEDURE NOTE PROCEDURE PERFORMED: Navigational bronchoscopy. PREOPERATIVE DIAGNOSIS: Left upper lobe cavitary lesion. POSTOPERATIVE DIAGNOSIS: Left upper lobe cavitary lesion, rule out cancer. OPERATORS: 1. Dr. Dean. 2. Dr. Huff. There were informed consent and universal time-out. The patient's procedure took place in room #1 [facility]. DESCRIPTION OF PROCEDURE: The patient had general anesthesia. It was provided by Anesthesiology. After the patient was under the effects of anesthesia and intubated, the bronchoscope was passed through the bronchoscope adapter connected to the endotracheal tube. Next, we used a navigational system to locate the lesion in the lingula. Despite multiple attempts at getting closer onto the lesion, we were only able to get to within about 11 or 12 mm of the lesion. We did multiple biopsies, maybe 5 or 6. I was not convinced that we had the lesion properly localized. Next, we did a wash in the lingula. The patient tolerated the procedure well. There was no bleeding. I did talk to the patient's daughter after the procedure and let her know that we had a difficult time localizing the lesion. Anyway, the procedure was done without difficulty. The patient was stable throughout the procedure. As mentioned, there was minimal bleeding. We made sure there was hemostasis before the bronchoscope was withdrawn. The patient will be recovered. There was no immediate complication. MMODL / IJN: [id number] /
[2022-06-03 23:20] LABS: Appearance,BF Cloudy
== END 2022-06-03 15:37 | disposition home or self-care (01) ==
LOC: ORWHC2ENDO 10:34
PROVIDERS: ATTEND Internal Medicine Critical Care Medicine
DX: R91.1 Solitary pulmonary nodule (principal); I10 Essential (primary) hypertension; E78.5 Hyperlipidemia, unspecified; I25.10 Atherosclerotic heart disease of native coronary artery without angina pectoris; Z95.5 Presence of coronary angioplasty implant and graft; E11.9 Type 2 diabetes mellitus without complications; E07.9 Disorder of thyroid, unspecified; F41.9 Anxiety disorder, unspecified; F32.A Depression, unspecified; K21.9 Gastro-esophageal reflux disease without esophagitis; Z79.899 Other long term (current) drug therapy
CPT/HCPCS: 87798 ×3; 87496; 87498; 87529; 89050; 85025; 87252; 87502; 87634; 87070; 87205; 87116; 87102; 87206; 71045; 71250; 31625; 31624; 31627; J2250; J0330; J0461; J2710; J2405; J3010; J2704; J2001; 88108; 88305

== ENCOUNTER → 2022-06-21 | Outpatient (CLI) | payer MEDICARE, OTHER ==
[2022-06-21 11:32] LABS: INR 0.9 (<1.2); Partial Thromboplastin Time 24.2 sec (22.0-30.0); Prothrombin Time 10.1 sec (9.0-12.0)
[2022-06-21 14:54] LABS: Anion Gap 14.2 mmol/L (10.00-18.00); Basophils # (A) 0.11 X 10*3/uL (0.00-0.10); Basophils % (A) 0.6 %; Blood Urea Nitrogen 18.9 mg/dL (9.0-27.0); Carbon Dioxide 21.3 mmol/L (20.0-27.5); Eosinophils # (A) 0.34 X 10*3/uL (0.04-0.35); HGB 15.3 g/dL (12.0-15.0); Immature Grans, Automated 0.6 %; Lymphocytes # (A) 5.29 X 10*3/uL (0.90-5.00); Lymphocytes % (A) 30.4 %; MCH 28.8 pg (27.0-32.0); MCHC 32.6 g/dL (32.0-37.0); MCV 88.5 fL (80.0-97.0); Mean Platelet Volume 10.1 fL (9.5-12.2); Monocytes # (A) 1.68 X 10*3/uL (0.20-1.00); Monocytes % (A) 9.7 %; NRBC Per 100 WBC 0 /100 WBCS (0.0-0.0); Neutrophils # (A) 9.87 X 10*3/uL (1.80-7.70); Neutrophils % (A) 56.7 %; Non-African American GFR(CKD) 93.2 (60.0-200.0); Platelet Count 283 X 10*3/uL (140-440); Potassium 4.3 mmol/L (3.5-5.5); RBC 5.31 X 10*6/uL (4.10-5.20); RDW 13.7 % (11.5-14.5)
[2022-06-21 17:47] LABS: Appearance,Urine Clear (Clear); Bilirubin,Urine Small (Negative); Blood,Urine Negative (Negative); Color,Urine Dark Yellow (Yellow); Ketones,Urine Trace mg/dL (Negative); Nitrite,Urine Positive (Negative); PH, Urine 5.5 (5.0-8.0); Specific Gravity,Urine 1.024 (1.001-1.030)
[2022-06-21 17:53] LABS: Bacteria,Urine 3+ /HPF (None Seen)
== END ==
LOC: LABPAT 10:11
PROVIDERS: ATTEND Thoracic Surgery (Cardiothoracic Vascular Surgery)
DX: C34.12 Malignant neoplasm of upper lobe, left bronchus or lung (principal); R53.83 Other fatigue
CPT/HCPCS: 80051; 81001; 82565; 82947; 84520; 85025; 85610; 85730; 87086

== ENCOUNTER → 2022-10-06 | Outpatient (CLI) | payer MEDICARE, OTHER ==
[2022-10-06 20:02] LABS: HCT 47.5 % (37.2-46.3); HGB 15.2 g/dL (12.0-15.0); MCH 27.2 pg (27.0-32.0); MCV 85.1 fL (80.0-97.0); Mean Platelet Volume 9.1 fL (9.5-12.2); NRBC Per 100 WBC 0 /100 WBCS (0.0-0.0); Platelet Count 318 X 10*3/uL (140-440); RBC 5.58 X 10*6/uL (4.10-5.20); WBC 19.11 X 10*3/uL (4.50-10.00)
[2022-10-06 20:38] LABS: Basophils # (A) 0.13 X 10*3/uL (0.00-0.10); Basophils % (A) 0.7 %; Eosinophils # (A) 0.76 X 10*3/uL (0.04-0.35); Immature Grans, Automated 0.6 %; Lymphocytes # (A) 5.93 X 10*3/uL (0.90-5.00); Monocytes % (A) 6.8 %; Neutrophils # (A) 10.87 X 10*3/uL (1.80-7.70); Neutrophils % (A) 56.9 %; RBC Morphology NORMAL
[2022-10-07 03:04] LABS: ALT 17 U/L (8-44); AST 18 U/L (13-35); African American GFR (CKD) 101.9 (60.0-200.0); Albumin 4.2 g/dL (3.8-4.9); Albumin/Globulin Ratio 1.52 (1.60-3.17); Alkaline Phosphatase 130 U/L (41-126); BUN/Creat Ratio 28.59 Ratio (12.00-20.00); Blood Urea Nitrogen 20.7 mg/dL (9.0-27.0); Calcium 9.6 mg/dL (8.7-10.3); Carbon Dioxide 19.5 mmol/L (20.0-27.5); Chloride 103 mmol/L (96-109); Chol/HDL Ratio 3.99 Ratio; Globulin 2.7 g/dL (1.6-3.3); Glucose 147 mg/dL (70-110); LDL Cholesterol,Calculated 57.8 mg/dL (0.0-131.0); Non-African American GFR(CKD) 87.9 (60.0-200.0); Potassium 4.4 mmol/L (3.5-5.5); Sodium 138 mmol/L (135-145); Total Protein 6.9 g/dL (6.2-8.2)
== END | disposition home or self-care (01) ==
LOC: LABWHC1 13:00
PROVIDERS: ATTEND Internal Medicine
DX: I10 Essential (primary) hypertension (principal); E03.9 Hypothyroidism, unspecified; E11.40 Type 2 diabetes mellitus with diabetic neuropathy, unspecified
CPT/HCPCS: 36415; 80053; 80061; 83036; 84443; 85025

== ENCOUNTER → 2022-11-05 | Outpatient (CLI) | payer MEDICARE, OTHER ==
[2022-11-05 16:24] LABS: HCT 44.7 % (37.2-46.3); HGB 14.6 g/dL (12.0-15.0); MCH 27.7 pg (27.0-32.0); MCHC 32.7 g/dL (32.0-37.0); MCV 84.8 fL (80.0-97.0); Mean Platelet Volume 9.2 fL (9.5-12.2); NRBC Per 100 WBC 0 /100 WBCS (0.0-0.0); Platelet Count 285 X 10*3/uL (140-440); RBC 5.27 X 10*6/uL (4.10-5.20); RDW 14.2 % (11.5-14.5); WBC 19.69 X 10*3/uL (4.50-10.00)
[2022-11-05 17:28] LABS: Basophils # (A) 0.16 X 10*3/uL (0.00-0.10); Basophils % (A) 0.8 %; Eosinophils % (A) 4.6 %; Immature Grans, Automated 0.9 %; Lymphocytes # (A) 4.84 X 10*3/uL (0.90-5.00); Lymphocytes % (A) 24.6 %; Monocytes # (A) 1.74 X 10*3/uL (0.20-1.00); Monocytes % (A) 8.8 %; Neutrophils # (A) 11.87 X 10*3/uL (1.80-7.70); Neutrophils % (A) 60.3 %
== END | disposition home or self-care (01) ==
LOC: LABWHC1 08:46
PROVIDERS: ATTEND Physician Assistant
DX: Z01.812 Encounter for preprocedural laboratory examination (principal)
CPT/HCPCS: 36415; 85025

== ENCOUNTER 2023-05-04 10:10 | Day surgery (SDC) | payer MEDICARE, OTHER ==
[2023-05-02 10:57] VITALS: BMI 25.7
[~2023-05-04 10:10] MED LIST changes: -ATROPINE SULFATE 0.4 MG/ML 1 ML VIAL IM ONE; -LIDOCAINE VISCOUS 300 MG/15 ML CUP MUCOUS MEM ONE; -ONDANSETRON 4 MG/2 ML VIAL IVP ONE; -SODIUM CHLORIDE 0.9% 1,000 ML IV SCH; -fentaNYL (PF) 50 MCG/ML 2 ML AMP IV PRN
[2023-05-04 12:38] VITALS: TEMP 96.9
[2023-05-04 12:52] LABS: Glucose,Whole Blood 98 mg/dL (70-110)
[2023-05-04] MEDS ORDERED: PROPOFOL 10 MG/ML 20 ML VIAL IV ONE (12:52)
--- NOTE | 2023-05-04 13:11 | P.PCN ---
Date of Procedure: 05/04/23 Procedure(s) Performed: BRIEF HISTORY: Patient is a 62-year-old pleasant white female scheduled for an elective colonoscopy as a part of screening for colon cancer. PROCEDURE PERFORMED: Colonoscopy with snare polypectomy. PREOPERATIVE DIAGNOSIS: Screening for colon cancer. IV sedation per Anesthesia. PROCEDURE: After informed consent was obtained, the patient, was brought into the endoscopy unit. IV sedation was administered by Anesthesia under continuous monitoring. Digital rectal examination was normal. Initially the Olympus CF-160 flexible video colonoscope was then inserted in the rectum, gradually advanced into the cecum without any difficulty. Careful examination was performed as the scope was gradually being withdrawn. Ileocecal valve and the appendiceal orifice were visualized and appeared normal. Prep was excellent. Mucosa of the cecum, appeared normal. Ascending colon there was a 3 mm and 1 cm polyps removed by snare polypectomy. Rest of the ascending colon, transverse colon, descending colon, sigmoid colon, and rectum appeared normal. In the proximal rectum there was a 5 mm polyp removed by snare polypectomy. Scattered small diverticulosis seen. Retroflexion was performed in the rectum and no lesions were seen. The patient tolerated the procedure well. IMPRESSION 3 mm and 1 cm ascending colon polyp status post polypectomy 5 mm rectal polyp status post snare polypectomy Scattered sigmoid diverticulosis RECOMMENDATIONS: Findings of this examination were discussed with the patientas well as a family. She was advised to follow with the biopsy results. If the biopsy report adenoma she can have a repeat colonoscopy in 3 years].
[2023-05-04 13:41] VITALS: BP 109/62; PULSE 70; RESP 16
== END 2023-05-04 14:23 | disposition home or self-care (01) ==
LOC: ORWHC2ENDO 10:10
PROVIDERS: ATTEND Internal Medicine Gastroenterology
DX: Z12.11 Encounter for screening for malignant neoplasm of colon (principal); K57.30 Diverticulosis of large intestine without perforation or abscess without bleeding; D12.2 Benign neoplasm of ascending colon; I25.10 Atherosclerotic heart disease of native coronary artery without angina pectoris; I10 Essential (primary) hypertension; E78.5 Hyperlipidemia, unspecified; I25.2 Old myocardial infarction; E11.9 Type 2 diabetes mellitus without complications; F41.9 Anxiety disorder, unspecified; F32.A Depression, unspecified; J44.9 Chronic obstructive pulmonary disease, unspecified; F17.200 Nicotine dependence, unspecified, uncomplicated; Z85.118 Personal history of other malignant neoplasm of bronchus and lung; Z95.5 Presence of coronary angioplasty implant and graft; Z79.4 Long term (current) use of insulin; Z79.84 Long term (current) use of oral hypoglycemic drugs; Z79.899 Other long term (current) drug therapy; Z79.02 Long term (current) use of antithrombotics/antiplatelets; Z79.51 Long term (current) use of inhaled steroids
CPT/HCPCS: 88305; 45385; J2704

== ENCOUNTER 2023-05-31 07:08 | Day surgery (SDC) | payer MEDICARE, OTHER ==
[2023-05-25 11:14] VITALS: BMI 24.5
[2023-05-31 07:28] VITALS: RESP 16; TEMP 97.5
[2023-05-31 07:36] LABS: Glucose,Whole Blood 124 mg/dL (70-110)
[2023-05-31] MEDS ORDERED: LACTATED RINGERS 1,000 ML IV ONE (07:36)
[2023-05-31] MEDS ORDERED: PROPOFOL 10 MG/ML 20 ML VIAL IV ONE (07:39)
[2023-05-31] MEDS ORDERED: LIDOCAINE 2% (PF) 20 MG/ML 5 ML VIAL ONE (07:39)
--- NOTE | 2023-05-31 07:49 | P.PCN ---
Date of Procedure: 05/31/23 Procedure(s) Performed: BRIEF HISTORY: Patient is a 63-year-old, pleasant, white female scheduled for an upper endoscopy as a part of evaluation of epigastric fullness, nausea and lumbar-like sensation in her throat for the last several months duration.. She has been on omeprazole 20 mg twice daily with no help. PROCEDURE PERFORMED: Esophagogastroduodenoscopy with biopsy. PREOPERATIVE DIAGNOSIS: Epigastric fullness, nausea, globus pharyngeus. IV sedation per anesthesia. PROCEDURE: After informed consent was obtained, the patient was brought into the endoscopy unit. IV sedation was administered by Anesthesia under continuous monitoring. Initially the Olympus GIF-140 video endoscope was inserted into the mouth. Esophagus intubated without any difficulty. It was gradually advanced into the stomach and duodenum and carefully examined. The bulb and the second part of the duodenum appeared normal. Biopsies were done from the duodenum throughout celiac disease. The scope at this time was withdrawn to the stomach, adequately insufflated with air, and upon careful examination, mucosa of the antrum, had mild gastritis and biopsies were done from this area. There was a moderately can fully the stomach suggestive of diabetic gastroparesis. The visualized mucosa of the body, cardia and the fundus appeared normal. The scope was then withdrawn into the esophagus. The GE junction was located at 39 cm from the incisors. The esophagus appeared normal. There were no erosions or ulcerations seen and the patient tolerated the procedure well. IMPRESSION: 1. Retained food in the stomach suggestive of diabetic gastroparesis. 2. Mild antral gastritis. RECOMMENDATIONS: The findings of this examination were discussed with the patient as well as a family. She was advised to be on small frequent meals, continue with omeprazole 20 mg twice daily and aggressive control of blood sugars. Follow with the biopsy results..
[2023-05-31 08:41] VITALS: BP 160/79; PULSE 72
== END 2023-05-31 08:43 | disposition home or self-care (01) ==
LOC: ORWHC2ENDO 07:08
PROVIDERS: ATTEND Internal Medicine Gastroenterology
DX: K29.50 Unspecified chronic gastritis without bleeding (principal); K29.80 Duodenitis without bleeding; K21.00 Gastro-esophageal reflux disease with esophagitis, without bleeding; K31.9 Disease of stomach and duodenum, unspecified; I25.2 Old myocardial infarction; I25.10 Atherosclerotic heart disease of native coronary artery without angina pectoris; I10 Essential (primary) hypertension; E78.5 Hyperlipidemia, unspecified; E11.9 Type 2 diabetes mellitus without complications; E03.9 Hypothyroidism, unspecified; Z95.5 Presence of coronary angioplasty implant and graft; F17.210 Nicotine dependence, cigarettes, uncomplicated; Z79.899 Other long term (current) drug therapy; Z79.890 Hormone replacement therapy; Z79.84 Long term (current) use of oral hypoglycemic drugs; Z98.890 Other specified postprocedural states; Z79.01 Long term (current) use of anticoagulants; Z98.891 History of uterine scar from previous surgery
CPT/HCPCS: 88305; 43239; J2704; J2001

== ENCOUNTER → 2023-08-18 | Outpatient (CLI) | payer MEDICARE, OTHER ==
--- NOTE | 2023-08-21 09:29 | PE ---
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 Images are reviewed on the computer in the coronal, ax ial, and sagittal planes. Reconstructed rotating images are created on independent workstation and r eviewed on the computer. A non-contrast CT is performed in conjunction with the PET scan. Glucose l evel was 6 mg/dL CT DLP: 08/01/2010 mGycm, Automated exposure control for dose reduction was used. COMPARISON: CT 06/03/2022, PET/CT 03/18/2023, FINDINGS: Mediastinal SUV mean is 2.3. Hepatic parenchyma SUV mean is 2.9. SKULL BASE AND NECK: * Focal uptake at the level of the vocal cords in the posterior right lateral aspect extending into the prevertebral space max SUV 5.6, previously 4.2. No definitive CT correlate. Possibly on the basis of prior surgery. CHEST, MEDIASTINUM, AND HILAR REGION: * Postsurgical changes left upper lobe thickening along the pleura along the medial and anterior asp ect. FDG activity anteriorly max SUV 3.4, previously 3.1. * Focal uptake within left lower lobe basilar pulmonary nodule measuring 11 mm previously not as wel l-defined measuring 8 mm. Max SUV 4.8, previously 1.4. ABDOMEN AND PELVIS: No suspicious radiotracer activity. Intense uptake throughout the colon. MUSCULOSKELETAL STRUCTURES: No suspicious radiotracer activity. OTHER CT: Mild to moderate calcified plaque bilateral carotid bifurcations. There are severe calcific ation and/or stents along the LAD redemonstrated. Liver is diffusely low dense consistent with fatty infiltrative hepatocellular disease. Scattered col onic diverticula. Surgical coils from ventral hernia repair surgery in the right lower abdomen and pe lvis anteriorly are noted. Uterus is surgically absent. IMPRESSION: 1. Enlarging left lower lobe pulmonary nodule with increasing FDG activity concerning for metastatic disease. 2. Postsurgical changes in the left upper lung with mild activity within the surgical bed likely rep resenting postsurgical change. No definitive evidence for local recurrence. 3. Mildly increasing uptake activity near the right posterior lateral larynx at the level of the voc al cords. Attention on short-term follow-up imaging. Consider direct visualization. 4. Intense uptake throughout the colon. While this may be physiologic correlate for colitis.
== END | disposition home or self-care (01) ==
LOC: RADPETMAIN 10:41
PROVIDERS: ATTEND Internal Medicine
DX: C34.12 Malignant neoplasm of upper lobe, left bronchus or lung (principal); R91.1 Solitary pulmonary nodule; Z98.890 Other specified postprocedural states
CPT/HCPCS: 78815; A9552

== ENCOUNTER → 2023-10-14 | Outpatient (CLI) | payer MEDICARE ==
--- NOTE | 2023-10-14 12:11 | FL ---
COMPARISON: NONE DATE OF EXAM: 10/14/2023 HISTORY: Dysphagia A number of thin and thick substances were ingested under the care of the department of speech pathol ogy. There is no evidence of aspiration or penetration. There is no evidence of obstruction. DAP are not provided. No images provided. IMPRESSION: 1. No evidence of aspiration or penetration.
== END | disposition home or self-care (01) ==
LOC: RADFLMAIN 10:52
PROVIDERS: ATTEND Otolaryngology
DX: R13.14 Dysphagia, pharyngoesophageal phase (principal)
CPT/HCPCS: 74230

== ENCOUNTER → 2023-12-29 | Outpatient (CLI) | payer MEDICARE ==
--- NOTE | 2024-01-04 14:06 | PE ---
EXAMINATION TYPE: PET CT fusion skull to thigh DATE OF EXAM: 12/29/2023 COMPARISON: No recent pertinent CT. Prior PET/CT: 08/18/2023 HISTORY: Lung cancer TECHNIQUE: Following the intravenous administration of 11.89 mCi of F-18 FDG, whole body images are performed from the skull base to the midthigh. Images are reviewed on the computer in the coronal, a xial, and sagittal planes. Reconstructed rotating images are created on independent workstation and reviewed on the computer. A localization and attenuation correction CT is performed in conjunction with the PET scan. DLP: 225.58 mGycm SCAN: Subsequent Blood glucose: 120 mg/dL Average Mediastinum SUV: 2.34 Average Liver SUV: 2.69 FINDINGS: NECK: There is a mild persistent focal uptake within the right posterior lateral focal cord level. C urrent SUV 3.29, image 47, previous SUV 3.76. THORAX: There is a focus of uptake within the posterior lateral left lung base measuring 5.05, image 102. This area correlates with the nodularity on CT ABDOMEN: No abnormal uptake PELVIS: There appears to be some ureteral radiotracer present. There is a focus of radiotracer within the right vaginal region of uncertain etiology. Contamination likely present. SUV 8.53, image 224 OSSEOUS STRUCTURES: No abnormal uptake LOCALIZATION CT: Posterior lateral lung nodule correlates with the abnormal uptake. Some mild pericar dial effusion may be present superiorly. COMPARISON: Left posterior lateral lung base Nodule has increased in SUV, previous SUV 4.43. IMPRESSION: 1. Increasing SUV within the posterior lateral left lung nodule. 2. Suspected contamination within the distal right vaginal vault. 3. Persistent uptake in the right posterior lateral focal cord level.
== END | disposition home or self-care (01) ==
LOC: RADPETMAIN 07:04
PROVIDERS: ATTEND Internal Medicine
DX: C34.12 Malignant neoplasm of upper lobe, left bronchus or lung (principal)
CPT/HCPCS: 78815; A9552

== ENCOUNTER → 2024-01-03 | Outpatient (CLI) | payer MEDICARE ==
[2024-01-03 10:27] LABS: African American GFR (CKD) >90 (>60 ml/min/1.73 sqM); Blood Urea Nitrogen 11 mg/dL (7-17); Non-African American GFR(CKD) >90 (>60 ml/min/1.73 sqM)
--- NOTE | 2024-01-05 17:04 | CT ---
EXAMINATION TYPE: CT chest w con CT DLP: 186.30 mGycm, Automated exposure control for dose reduction was used. DATE OF EXAM: 01/03/2024 10:57 AM COMPARISON: CT chest 06/03/2022 CLINICAL INDICATION:Female, 63 years old with history of C34.12 LUNG CANCER; [facility], lung cancer TECHNIQUE: Multiple axial images were obtained through the chest. Sagittal and coronal reformats were created for review. Contrast used:100 mL of Isovue 300 with IV Contrast (None if empty) Oral contrast used: (None if empty) FINDINGS: LUNGS/ PLEURA: Patchy scattered groundglass airspace disease. Volume loss on the left with shift o f mediastinal structures to the left suggesting partial left lobectomy. AIRWAY: Patent and unremarkable. HEART: Size within normal limits. MEDIASTINUM: Several small lymph nodes. Similar to previous. VASCULATURE: No aortic aneurysm. MUSCULOSKELETAL: No acute osseous abnormalities SOFT TISSUES/LYMPH NODES: Unremarkable. LOWER NECK: No significant findings. UPPER ABDOMEN: No significant findings. IMPRESSION: Status post surgical treatment for left lung cancer is suspected. No obvious recurrence in the left l chip. Stable mediastinal lymph nodes. No appreciable change compared to 06/03/2022. 12 mm pleural-based nodule in the left base as seen on series 4, image 39. A tiny nodule is seen angela r this location on the previous study of May 2022. Stable right hilar and stable small mediastinal lymph nodes.
== END | disposition home or self-care (01) ==
LOC: RADCTMAIN 09:53
PROVIDERS: ATTEND Internal Medicine Hematology & Oncology
DX: R91.1 Solitary pulmonary nodule (principal); C34.12 Malignant neoplasm of upper lobe, left bronchus or lung; I10 Essential (primary) hypertension; E78.5 Hyperlipidemia, unspecified; D72.829 Elevated white blood cell count, unspecified; I25.10 Atherosclerotic heart disease of native coronary artery without angina pectoris; E03.9 Hypothyroidism, unspecified; Z80.8 Family history of malignant neoplasm of other organs or systems
CPT/HCPCS: 82565; 84520; 71260; 36415; Q9967

== ENCOUNTER 2024-04-16 00:24 | Emergency (ER) | payer MEDICARE, OTHER ==
[2024-04-16 00:33] VITALS: RESP 16; TEMP 98.2
--- NOTE | 2024-04-16 01:18 | ED ---
Extremity Problem HPI - General Chief complaint: Extremity Problem,Nontraumatic Stated complaint: lt ankle, rt knee, rt thumb pain Time Seen by Provider: 04/16/24 00:44 Source: patient, RN notes reviewed Mode of arrival: wheelchair Limitations: no limitations - History of Present Illness Initial comments: 63-year-old female presenting to the ER for left ankle pain x 2 days. States she got out of bed yesterday and started noticing pain in the back of her left ankle. She noticed that the area is red and swollen. States the pain radiates up her calf. Denies known trauma or injury. Patient is a current smoker. She is currently being worked up for possible lung cancer. States she had a DVT that was provoked after a road trip 20 years ago but is not on blood thinners. - Related Data Home Medications Medication Instructions Recorded Confirmed Atorvastatin [Lipitor] 80 mg PO HS 04/04/18 05/31/23 Metoprolol Tartrate [Lopressor] 25 mg PO BID 04/04/18 05/31/23 Nitroglycerin Sl Tabs [Nitrostat] 0.4 mg SUBLINGUAL Q5M PRN 04/04/18 05/31/23 amLODIPine [Norvasc] 10 mg PO DAILY 04/04/18 05/31/23 Clopidogrel [Plavix] 75 mg PO DAILY 08/08/19 05/31/23 Levothyroxine Sodium [Synthroid] 150 mcg PO DAILY 08/08/19 05/31/23 metFORMIN HCL [Glucophage XR] 750 mg PO BID 08/08/19 05/31/23 Gabapentin [Neurontin] 300 mg PO TID 12/14/20 05/31/23 Albuterol Inhaler [Ventolin Hfa 2 puff INHALATION Q6H PRN 04/19/22 05/31/23 Inhaler] Budesonide-Formot 160-4.5 Mcg 2 puff INHALATION BID 04/19/22 05/31/23 [Symbicort 160-4.5 Mcg Inhaler] Sennosides/Docusate Sodium [Senna 1 each PO DAILY PRN 06/02/22 05/31/23 Plus 8.6-50 mg Tablet] Acetaminophen Tab [Tylenol] 650 mg PO DIRECTED PRN 05/02/23 05/31/23 Insulin Detemir (Levemir) [Levemir] 14 unit SQ HS 05/02/23 05/31/23 Insulin Detemir (Levemir) [Levemir] 20 unit SQ QAM 05/02/23 05/31/23 OXcarbazepine 150 mg PO BID 05/02/23 05/31/23 Omeprazole [PriLOSEC] 40 mg PO DAILY 05/02/23 05/31/23 Previous Rx's Medication Instructions Recorded Aspirin 81 mg PO DAILY chew 04/07/18 Allergies Allergy/AdvReac Type Severity Reaction Status Date / Time nickel Allergy Anaphylaxis Verified 04/16/24 00:30 Review of Systems ROS Statement: Those systems with pertinent positive or pertinent negative responses have been documented in the HPI. ROS Other: All systems not noted in ROS Statement are negative. Past Medical History Past Medical History: Coronary Artery Disease (CAD), Cancer, Diabetes Mellitus, GERD/Reflux, Hearing Disorder / Deafness, Hyperlipidemia, Hypertension, [place]ocardial Infarction ([place]), Pneumonia, Thyroid Disorder Additional Past Medical History / Comment(s): HAS BEEN HAVING ALOT OF BELCHING FOR PAST FEW MONTHS, hpv, cervical uterine ca (sx only), Stage 1 left lung cancer with left upper lobe removed., elevated wbc's for 25 years., states positive uptake on her pet scan in the colon., benji hearing loss. Last Myocardial Infarction Date:: 04/04/2018 History of Any Multi-Drug Resistant Organisms: None Reported Past Surgical History: Bladder Surgery, Section, Heart Catheterization With Stent, Hernia Repair, Hysterectomy, Orthopedic Surgery Additional Past Surgical History / Comment(s): 04/04/18 heart cath with 1 stent ([facility]), past hx heart cath w/ 3 stents apr 2017, at [facility], thryroidectomy, Leep Procedure, bladder supsension, rt knee sx, COLONOSCOPY 2015, cervical fusion, mass behind left eye surgery, Jun 2022 left lung wedge , and November 2022 left upper lobe removed ([facility]) COLONOSCOPY-05/04/23 Past Anesthesia/Blood Transfusion Reactions: No Reported Reaction, Motion Sickness Additional Past Anesthesia/Blood Transfusion Reaction / Comment(s): has never received blood. Date of Last Stent Placement:: 04/04/18 Past Psychological History: Anxiety, Depression Smoking Status: Current every day smoker Past Alcohol Use History: None Reported Past Drug Use History: Marijuana - Past Family History Mother Family Medical History: Diabetes Mellitus, Hypertension, Renal Disease Additional Family Medical History / Comment(s): . Father Family Medical History: Coronary Artery Disease (CAD), Myocardial Infarction ([place]) Additional Family Medical History / Comment(s): At age 40 had cabg & age 50 from a heart attack. Sister(s) Family Medical History: Cancer Additional Family Medical History / Comment(s): twin sister- breast cancer. sister- cervical cancer Daughter(s) Family Medical History: Cancer Additional Family Medical History / Comment(s): hpv cancer. another daughter positive for hpv General Exam Limitations: no limitations General appearance: alert, in no apparent distress Head exam: Present: atraumatic, normocephalic, normal inspection Eye exam: Present: normal appearance, PERRL, EOMI. Absent: scleral icterus, conjunctival injection, periorbital swelling Left Lower Leg exam: Present: normal inspection, full ROM. Absent: tenderness, swelling Ankle exam: Present: full ROM, tenderness, swelling. Absent: normal inspection (Area of warmth, erythema, and tenderness over posterior ankle.), abrasion, laceration, deformity, dislocation Foot/Toe exam: Present: normal inspection, full ROM. Absent: tenderness, swelling Neurovascular tendon exam: Present: no vascular compromise. Absent: pulse deficit, abnormal cap refill, motor deficit, sensory deficit Neurological exam: Present: alert, oriented X3 Psychiatric exam: Present: normal affect, normal mood Skin exam: Present: warm, dry, intact, normal color. Absent: rash Course Vital Signs 04/16/24 00:30 Temperature 98.2 F Pulse Rate 90 Respiratory 16 Rate Blood Pressure 179/79 O2 Sat by Pulse 98 Oximetry Procedures - Orthopedic Splinting/Casting Injury #1 Side: left Lower Extremity Injury Location: short leg Lower Extremity Immobilizer: posterior splint Additional Comments: Neurovascularly intact status post procedure Medical Decision Making - Medical Decision Making Was pt. sent in by a medical professional or institution (, PA, MEDICAL TECHNICIAN ASSISTANT, urgent care, hospital, or snf...) When possible be specific @ -No Did you speak to anyone other than the patient for history (EMS, parent, family, police, friend...)? What history was obtained from this source @ -No Did you review nursing and triage notes (agree or disagree)? Why? @ -I reviewed and agree with nursing and triage notes Were old charts reviewed (outside hosp., previous admission, EMS record, old EKG, old radiological studies, urgent care reports/EKG's, snf records)? Report findings @ -No old charts were reviewed Differential Diagnosis (chest pain, altered mental status, abdominal pain women, abdominal pain men, vaginal bleeding, weakness, fever, dyspnea, syncope, headache, dizziness, GI bleed, back pain, seizure, CVA, palpatations, mental health, musculoskeletal)? @ -Differential Musculoskeletal Muscular strain, contusion, ligament sprain, fracture, arthritis, septic arthritis, bursitis, cellulitis, muscle spasm, nerve compression, DVT, arterial occlusion, herpes zoster, electrolyte abnormality, tumor.... This is not meant to be in all inclusive list EKG interpreted by me (3pts min.). @ -None X-rays interpreted by me (1pt min.). @ -X-ray left ankle reveals no acute fracture or dislocation, posterior spur, calcific tendinopathy of Achilles tendon near its insertion CT interpreted by me (1pt min.). @ -None done U/S interpreted by me (1pt. min.). @ -Ultrasound left lower extremity What testing was considered but not performed or refused? (CT, X-rays, U/S, labs)? Why? @ -None What meds were considered but not given or refused? Why? @ -None Did you discuss the management of the patient with other professionals (professionals i.e. , PA, MEDICAL TECHNICIAN ASSISTANT, lab, RT, psych nurse, manager social media, power plant supervisor, teacher, corporate ethics officer, business case analyst)? Give summary @ -No Was smoking cessation discussed for >3mins.? @ -No Was critical care preformed (if so, how long)? @ -No Were there social determinants of health that impacted care today? How? (Homelessness, low income, unemployed, alcoholism, drug addiction, trans portation, low edu. Level, literacy, decrease access to med. care, intermediate, rehab)? @ -No Was there de-escalation of care discussed even if they declined (Discuss DNR or withdrawal of care, Hospice)? DNR status @ -No What co-morbidities impacted this encounter? (DM, HTN, Smoking, COPD, CAD, Cancer, CVA, ARF, Chemo, Hep., AIDS, mental health diagnosis, sleep apnea, morbid obesity)? @ -None Was patient admitted / discharged? Hospital course, mention meds given and route, prescriptions, significant lab abnormalities, going to OR and other pertinent info. @ -Discharged. This is a 63-year-old female presenting with left ankle pain x 2 days. Denies trauma or injury. Vital signs within acceptable limits. Upon examination, there is area of erythema, warmth, and tenderness on posterior left ankle. Neurovascularly intact. Patient was provided with Toradol. Ultrasound left lower extremity negative for DVT. X-ray left ankle reveals no acute fracture or dislocation, posterior spur, and calcific tendinopathy of Achilles tendon near its insertion. Discussed diagnosis of Achilles tendinitis with patient. Posterior splint applied. Advised to follow-up with Ortho within the week. Supportive care discussed as well as return precautions. Patient is agreeable to plan. Case was discussed with my ED attending Dr. Shanks. Patient discharged in stable condition. Undiagnosed new problem with uncertain prognosis? @ -No Drug Therapy requiring intensive monitoring for toxicity (Heparin, Nitro, Insulin, Cardizem)? @ -No Were any procedures done? @ -No Diagnosis/symptom? @ -Left Achilles tendinitis Acute, or Chronic, or Acute on Chronic? @ -Acute Uncomplicated (without systemic symptoms) or Complicated (systemic symptoms)? @ -Uncomplicated Side effects of treatment? @ -No Exacerbation, Progression, or Severe Exacerbation? @ -No Poses a threat to life or bodily function? How? (Chest pain, [place], [place], pneumonia, PE, COPD, DKA, ARF, appy, cholecystitis, CVA, Diverticulitis, Homicidal, Suici pietro, threat to staff... and all critical care pts) @ -No Disposition Clinical Impression: Left Achilles tendinitis Disposition: HOME SELF-CARE Condition: Stable Instructions (If sedation given, give patient instructions): Achilles Tendinitis (ED) Additional Instructions: Keep splint dry. Take ibuprofen or Tylenol as needed for pain. Follow-up with orthopedics within the week. Please return to the Emergency Department if symptoms worsen or any other concerns. Is patient prescribed a controlled substance at d/c from ED?: No Referrals: Marni Leon MD [Primary Care Provider] - 1-2 days Corwin Delgado MD [STAFF PHYSICIAN] - 1-2 days Time of Disposition: 02:34
[2024-04-16] MEDS: KETOROLAC 15 MG/ML 1 ML VIAL IM STA (01:28)
--- NOTE | 2024-04-16 02:14 | US ---
EXAM: US Duplex Left Lower Extremity Veins CLINICAL HISTORY: ITS.REASON US Reason: left lower leg redness/pain TECHNIQUE: Real-time duplex ultrasound scan of the left lower extremity veins integrating B-mode two-dimensional vascular structure, Doppler spectral analysis, color flow Doppler imaging and compression. COMPARISON: No previous studies. FINDINGS: Deep veins: Imaging of the left lower extremity deep venous system revealed no deep venous thrombosis including the left common femoral vein, left superficial femoral vein, left popliteal vein, and the proximal calf veins. Superficial veins: Unremarkable. No thrombus in the visualized great saphenous vein. Soft tissues: No acute findings. No Botello's cyst. IMPRESSION: 1. Limited evaluation of the calf veins. 2. No deep venous thrombosis of the visualized left lower extremity deep venous system.
--- NOTE | 2024-04-16 02:15 | XR ---
EXAM: XR Left Ankle Complete, 3 or More Views CLINICAL HISTORY: ITS.REASON XR Reason: left ankle pain TECHNIQUE: Frontal, lateral and oblique views of the left ankle. COMPARISON: No previous studies. FINDINGS: Bones/joints: Ankle mortise is preserved. Calcaneus is unremarkable. 0.3 cm posterior spur. No acute fracture or dislocation. Soft tissues: Calcific tendinopathy of the Achilles tendon near its insertion. IMPRESSION: 1. No acute fracture or dislocation. 2. Posterior spur. 3. Calcific tendinopathy of the Achilles tendon near its insertion is suggested.
[2024-04-16 03:09] VITALS: BP 151/82; PULSE 93
== END 2024-04-16 02:50 | disposition home or self-care (01) ==
LOC: EC 00:24
DX: M76.62 Achilles tendinitis, left leg (principal); F17.200 Nicotine dependence, unspecified, uncomplicated; Z91.048 Other nonmedicinal substance allergy status
CPT/HCPCS: 73610; 93971; 99284; 96372; 29515; J1885

== ENCOUNTER → 2024-04-26 | Outpatient (CLI) | payer MEDICARE ==
--- NOTE | 2024-04-27 14:54 | PE ---
EXAMINATION TYPE: PET CT fusion skull to thigh DATE OF EXAM: 04/26/2024 CLINICAL INDICATION:Female, 63 years old with history of C34.12 LUNG CANCER; TECHNIQUE: Following the intravenous administration of 12.51 mCi of F-18 FDG, whole body images are performed from the skull base to the midthigh. Images are reviewed on the computer in the coronal, axial, and sagittal planes. Reconstructed rotating images are created on independent workstation and reviewed on the computer. A non-contrast CT is performed in conjunction with the PET scan. Glucose level 137 mg/dL CT DLP: 308.5 to mGycm, Automated exposure control for dose reduction was used. COMPARISON: CT 01/03/2024, 06/03/2022, PET/CT 12/29/2023, 08/18/2023, 03/18/2023, 05/21/2022, MRI: None FINDINGS: Mediastinal SUV mean is 2.3. Hepatic parenchyma SUV mean is 2.9. SKULL BASE AND NECK: Redemonstration of FDG uptake identified within the posterior right lateral larynx at the level of th e vocal cords with a maximum SUV of 7.0, previously 4.0. CHEST, MEDIASTINUM, AND HILAR REGION: No suspicious radiotracer activity. Stable size of left lower lobe subpleural 1.3 cm solid pulmonary nodule with a maximum SUV of 7.0, pr eviously measured 1.3 cm on prior PET/CT with a maximum SUV of 5.5. ABDOMEN AND PELVIS: No suspicious radiotracer activity. MUSCULOSKELETAL STRUCTURES: No suspicious radiotracer activity. OTHER CT: Mild to moderate calcified plaque bilateral carotid bifurcations. There are severe calcific ation and/or stents along the LAD redemonstrated. Cardiomegaly. Trace pericardial effusion. Right upp er lobe paraseptal emphysematous changes. Post surgical changes of the left lung redemonstrated. Mode rate atherosclerotic calcification of the aorta and its branches. Scattered colonic diverticula. Surg ical gallbladder from ventral hernia repair surgery in the right lower abdomen and pelvis anteriorly are noted. Uterus is surgically absent. Surgical anterior fusion of the cervical spine. IMPRESSION: 1. Increasing radiotracer activity within a 1.3 cm left lower lobe pulmonary nodule highly concernin g for recurrence/metastasis. No other new sites of radiotracer uptake. 2. Increasing radiotracer uptake within the posterior lateral right vocal cord level without CT evid ence for abnormality when compared to prior CT. However there have been other PET CTs before with inc reased radiotracer uptake in this region. Probably physiologic. Attention on follow-up exam. [facility], , 04/27/2024 2:52 PM
== END | disposition home or self-care (01) ==
LOC: RADPETMAIN 06:58
PROVIDERS: ATTEND Internal Medicine
DX: C34.12 Malignant neoplasm of upper lobe, left bronchus or lung (principal); R91.1 Solitary pulmonary nodule; I70.0 Atherosclerosis of aorta; I31.39 Other pericardial effusion (noninflammatory); I51.7 Cardiomegaly
CPT/HCPCS: 78815; A9552

== ENCOUNTER → 2024-07-31 | Outpatient (CLI) | payer MEDICARE ==
--- NOTE | 2024-07-31 10:24 | MM ---
Reason for Exam: Screening (asymptomatic). Last mammogram was performed 1 year(s) and 3 month(s) ago. Patient History: Menarche at age 12. First Full-Term at age 15. Left ovary removed at age 36. Right ovary removed at age 36. Hysterectomy at age 36. Postmenopausal. 2008, Excisional Biopsy on the Right side. Sister had breast cancer, age 38. Risk Values: Gracie 5 year model risk: 3.4%. NCI Lifetime model risk: 11.8%. Prior Study Comparison: 04/06/2023 Bilateral Screening Mammogram, [facility]. Tissue Density: There are scattered areas of fibroglandular density. Findings: Analyzed By CAD. Right breast biopsy clip. Right breast: There is no suspicious group of microcalcifications or new suspicious mass. Left breast: There is no suspicious group of microcalcifications or new suspicious mass. Overall Assessment: Benign, BI-RAD 2 Management: Screening Mammogram of both breasts in [address] [facility] will attempt to contact patient to return for supplemental views and ultrasound if indicated. Patient should continue monthly self-breast exams. A clinical breast exam by your physician is recommended on an annual basis. This exam should not preclude additional follow-up of suspicious palpable abnormalities. Note on Gracie scores and lifetime risk: 1. A Gracie score greater than 3% is considered moderate risk. If this is the case, consider specialist referral to assess eligibility for a risk reducing agent. 2. If overall lifetime risk for the development of breast cancer is 20% or higher, the patient may qualify for future screening with alternating mammogram and breast MRI. [facility], , 07/31/2024 10:21 AM. Electronically signed and approved by: Greg Choudhary DO
== END | disposition home or self-care (01) ==
LOC: RADMAMWWP 09:44
PROVIDERS: ATTEND Internal Medicine
DX: Z12.31 Encounter for screening mammogram for malignant neoplasm of breast (principal); R92.323 Mammographic fibroglandular density, bilateral breasts; Z78.0 Asymptomatic menopausal state; Z80.3 Family history of malignant neoplasm of breast
CPT/HCPCS: 77063; 77067

== ENCOUNTER → 2024-08-31 | Outpatient (CLI) | payer MEDICARE, OTHER ==
--- NOTE | 2024-08-31 12:09 | PE ---
EXAMINATION TYPE: PET CT fusion skull to thigh DATE OF EXAM: 08/31/2024 CLINICAL INDICATION:Female, 64 years old with history of C34.12 Lung Ca; TECHNIQUE: Following the intravenous administration of 11.95 mCi of F-18 FDG, whole body images are performed from the skull base to the Mid thigh. Images are reviewed on the computer in the coronal, axial, and sagittal planes. Reconstructed rotating images are created on independent workstation an d reviewed on the computer. A non-contrast CT is performed in conjunction with the PET scan. Glucos e level 96 mg/dL CT DLP: 318 mGycm, Automated exposure control for dose reduction was used. COMPARISON: CT None, PET/CT 04/26/2024, MRI: None FINDINGS: Mediastinal SUV mean is 2.1. Hepatic parenchyma SUV mean is 2.6. SKULL BASE AND NECK: Redemonstration of FDG uptake identified within the posterior right lateral larynx at the level of th e vocal cords with a maximum SUV of 4.9 previously 7.0, 4.0. CHEST, MEDIASTINUM, AND HILAR REGION: Stable size of left lower lobe subpleural 1.3 cm solid pulmonary nodule with a maximum SUV of 10.9, p reviously 7.0, 5.5. ABDOMEN AND PELVIS: No suspicious radiotracer activity. MUSCULOSKELETAL STRUCTURES: No suspicious radiotracer activity. OTHER CT: Moderate carotid bifurcation calcifications. Atherosclerosis of the coronary arteries and/o r stent present. Mild Cardiomegaly. Right upper lobe paraseptal emphysematous changes. Post surgical changes of the left lung redemonstrated. Moderate atherosclerotic calcification of the aorta and its branches. Scattered colonic diverticula. Surgical gallbladder from ventral hernia repair surgery in the right lower abdomen and pelvis anteriorly are noted. Uterus is surgically absent. Surgical anteri or fusion of the cervical spine. IMPRESSION: 1. Again, interval increase in radiotracer activity within a 1.3 cm left lower lobe pulmonary nodule compatible with malignancy. FDG activity has now doubled compared to 01/04/2024. No other new sites o f radiotracer uptake. 2. Decrease in the posterior lateral larynx uptake compared to prior likely physiologic. [facility], , 08/31/2024 12:06 PM
== END | disposition home or self-care (01) ==
LOC: RADPETMAIN 08:22
PROVIDERS: ATTEND Internal Medicine
DX: C34.12 Malignant neoplasm of upper lobe, left bronchus or lung (principal); R91.1 Solitary pulmonary nodule; K57.30 Diverticulosis of large intestine without perforation or abscess without bleeding
CPT/HCPCS: 78815; A9552

== ENCOUNTER 2024-09-05 11:26 | Day surgery (SDC) | payer MEDICARE, OTHER ==
[~2024-09-05 11:26] MED LIST changes: +ALPRAZolam 0.25 MG TAB PO PRN; +ALPRAZolam 0.5 MG TAB PO PRN; -LACTATED RINGERS 1,000 ML IV SCH; -LIDOCAINE 1% (10MG/ML) FOR IV START INTRADERMA PRN; +NITROGLYCERIN SL TABS 0.4 MG TAB SUBLINGUAL PRN
[2024-09-05] MEDS: IV FLUID CONTINUATION 1,000 ML IV ONE (12:40)
[2024-09-05] MEDS: SODIUM CHLORIDE 0.9% 1,000 ML in EMPTY BAG 1 BAG IV SCH (12:40)
[2024-09-05 12:53] LABS: Basophils # (A) 0.1 k/uL (0-0.2); Basophils % (A) 1 %; Eosinophils # (A) 0.2 k/uL (0-0.7); Eosinophils % (A) 1 %; HCT 47.1 % (34.0-46.0); HGB 15.8 gm/dL (11.4-16.0); Lymphocytes # (A) 4.6 k/uL (1.0-4.8); Lymphocytes % (A) 25 %; MCH 28.7 pg (25.0-35.0); MCHC 33.4 g/dL (31.0-37.0); MCV 85.9 fL (80.0-100.0); Mean Platelet Volume 6.7; Monocytes # (A) 1.2 k/uL (0-1.0); Monocytes % (A) 6 %; Neutrophils # (A) 12.4 k/uL (1.3-7.7); Neutrophils % (A) 67 %; Platelet Count 268 k/uL (150-450); RBC 5.49 m/uL (3.80-5.40); WBC 18.6 k/uL (3.8-10.6)
[2024-09-05] MEDS: ASPIRIN 325 MG TAB PO STA (13:00)
[2024-09-05] MEDS: GABAPENTIN 300 MG CAP PO STA (13:01)
[2024-09-05 13:18] LABS: African American GFR (CKD) >90 (>60 ml/min/1.73 sqM); Anion Gap 8 mmol/L; Blood Urea Nitrogen 19 mg/dL (7-17); Calcium 9.3 mg/dL (8.4-10.2); Carbon Dioxide 25 mmol/L (22-30); Chloride 104 mmol/L (98-107); Glucose 105 mg/dL (74-99); Non-African American GFR(CKD) 83 (>60 ml/min/1.73 sqM); Potassium 4.2 mmol/L (3.5-5.1); Sodium 137 mmol/L (137-145)
[2024-09-05] MEDS: HEPARIN SODIUM,PORCINE (1 ML) 2,500 UNIT in SODIUM CHLORIDE 0.9% 250 ML IRRIGATION PRN (13:46)
[2024-09-05] MEDS: HEPARIN SODIUM,PORCINE 10,000 UNIT in SODIUM CHLORIDE 0.9% 1,000 ML IRRIGATION PRN (13:46)
[2024-09-05] MEDS: MIDAZOLAM 2 MG/2 ML VIAL IVP ONE (14:05)
[2024-09-05] MEDS: LIDOCAINE 1% INJ 10MG/ML (30 ML VIAL-PF) SQ ONE ×2 (14:10→14:11)
[2024-09-05] MEDS: VERAPAMIL SYRINGE (5 MG/10 ML) INTRAARTER ONE (14:14)
[2024-09-05] MEDS: HEPARIN SODIUM 1,000 UN/ML (10ML VL) IVP ONE (14:15)
[2024-09-05] MEDS: PRASUGREL 10 MG TAB PO ONE (14:35)
[2024-09-05] MEDS: fentaNYL (PF) 50 MCG/1 ML VIAL IVP ONE (14:38)
[2024-09-05] MEDS ORDERED: ACETAMINOPHEN TAB 325 MG TAB PO PRN (15:19)
[2024-09-05] MEDS ORDERED: ALBUTEROL NEBULIZED 2.5 MG/3 ML INHALATION PRN (15:19)
[2024-09-05] MEDS: IOPAMIDOL-300 100ML BTL INJ ONE (15:21)
[2024-09-05] MEDS ORDERED: ZOLPIDEM 5 MG TAB PO PRN (15:21)
[2024-09-05] MEDS ORDERED: ATROPINE SULFATE 0.1 MG/ML 10ML SYRINGE IV PRN (15:21)
[2024-09-05] MEDS ORDERED: MAG HYDROX/AL HYDROX/SIMETH 30 ML CUP PO PRN (15:21)
[2024-09-05] MEDS ORDERED: RX INFO: IV CONTRAST WAS GIVEN 1 EACH MISC MISCELLANE PRN (15:21)
[2024-09-05] MEDS: MORPHINE SULFATE 4 MG/ML SYRINGE IVP ONE (15:27)
--- NOTE | 2024-09-05 15:32 | P.PCN ---
Date of Procedure: 09/05/24 Operative Findings: CARDIAC CATHETERIZATION AND PERCUTANEOUS CORONARY INTERVENTION PERFORMING PHYSICIAN: Shashi Velasquez MD, [facility] PROCEDURE PERFORMED: 1. Selective right and left coronary angiogram and left heart catheterization 2. Successful stenting of proximal LAD using 3.0 x 28 mm Xience LALI with an excellent angiographic results and successful angioplasty of the mid and distal LAD 3. Adjunctive use of IVUS and lithotripsy balloon 4. Ultrasound-guided access of the right radial artery INDICATION: Unstable and COMPLICATION: None APPROACH: Right radial art LEVEL OF SEDATION: Moderate with the sedation time off 73 minutes PROCEDURE DESCRIPTION: After clinic and informed consent the patient was brought to the cardiac Metal Building Assembler with right radial artery was cannulated using micropuncture technique under ultrasound guidance a micropuncture wire passed easily then I placed a 6 Egyptian 11 cm sheath at the right radial artery and give the patient 2 mg of verapamil intra-arterial and 5000's of heparin intravenous with continuous ACT monitoring. Subsequently selective right and left groin angiogram performed using JR4 and JL 3.5 catheters with left heart catheterization was also performed. After that we decided to intervene on the LAD with anticoagulation was continued using heparin with continuous ACT monitoring subsequently I did engage the left main using a CLS 3.5 guiding catheter. Across the lesion in the LAD using a whisper wire with adjunctive use of a Corsair catheter. Subsequently I did IVUS which showed a diameter around 2.5 to 3 mm. I did balloon angioplasty initially using 1.0 mm balloon and subsequently 1.5 mm balloon and then 2.0 and then 2.5 mm score flex balloon after that I did lithotripsy of the mid to distal LAD which did not open well with the regular balloon and lithotripsy balloon was 3.0 mm x 12 mm balloon. After that I stented the proximal LAD using a 3.0 x 28 mm stent up to about 18 fady. Final angiogram showed good angiographic results with NENITA- 3 flow and the procedure was completed with no complication SELECTIVE CORONARY ANGIOGRAM: The right coronary artery: Large caliber vessel with severe disease involving the mid part Left main: Appears to be angiographically normal The left circumflex: Large caliber vessel with mild to moderate diffuse disease The left anterior descending artery: Is occluded with long area of in-stent occlusion and severe de jose disease involving the proximal portion HEMODYNAMICS: LVEDP was 12 mmHg with no significant gradient across aortic CONCLUSION: 1. Occluded LAD with in-stent occlusion. I did perform successful PCI of the 2. Severe disease involving the mid RCA 3. Mild to moderate disease involving the RCA 4. Normal left-sided filling pressure POSTPROCEDURE MANAGEMENT: 1. Dual antiplatelet therapy using aspirin and Effient for 6-12 month 2. Aggressive cholesterol control 3. Follow-up with the patient
[2024-09-05] MEDS: ATORVASTATIN 80 MG TAB PO STA (16:38)
[2024-09-05] MEDS ORDERED: ONDANSETRON 4 MG/2 ML VIAL IVP PRN (18:13)
[2024-09-05] MEDS: GABAPENTIN 300 MG CAP PO SCH (18:40)
[2024-09-05 20:10] VITALS: RESP 15
[2024-09-05] MEDS: PANTOPRAZOLE 40 MG TABLET PO SCH (20:21)
[2024-09-05] MEDS: OXcarbazepine 150 MG TAB PO SCH (20:21)
[2024-09-05] MEDS: ATORVASTATIN 80 MG TAB PO SCH (20:21)
[2024-09-05] MEDS: METOPROLOL TARTRATE 25 MG TAB PO SCH (20:21)
[2024-09-05] MEDS: SYMBICORT 160-4.5 MCG INHALER INHALATION SCH (21:13)
[2024-09-06] MEDS: LEVOTHYROXINE 75 MCG TAB PO SCH (05:07)
[2024-09-06 05:43] LABS: Basophils # (A) 0.1 k/uL (0-0.2); Basophils % (A) 1 %; Eosinophils # (A) 0.3 k/uL (0-0.7); Eosinophils % (A) 1 %; HCT 45.3 % (34.0-46.0); HGB 14.5 gm/dL (11.4-16.0); Lymphocytes # (A) 3.7 k/uL (1.0-4.8); Lymphocytes % (A) 19 %; MCH 27.8 pg (25.0-35.0); MCHC 32.1 g/dL (31.0-37.0); MCV 86.7 fL (80.0-100.0); Mean Platelet Volume 6.8; Monocytes # (A) 1.3 k/uL (0-1.0); Monocytes % (A) 6 %; Neutrophils # (A) 14.2 k/uL (1.3-7.7); Neutrophils % (A) 72 %; Platelet Count 264 k/uL (150-450); RBC 5.23 m/uL (3.80-5.40); RDW 14.3 % (11.5-15.5); WBC 19.6 k/uL (3.8-10.6)
[2024-09-06 05:54] LABS: African American GFR (CKD) >90 (>60 ml/min/1.73 sqM); Anion Gap 9 mmol/L; Blood Urea Nitrogen 11 mg/dL (7-17); Calcium 8.7 mg/dL (8.4-10.2); Carbon Dioxide 21 mmol/L (22-30); Chloride 106 mmol/L (98-107); Glucose 94 mg/dL (74-99); Non-African American GFR(CKD) >90 (>60 ml/min/1.73 sqM); Potassium 3.8 mmol/L (3.5-5.1); Sodium 136 mmol/L (137-145)
--- NOTE | 2024-09-06 08:10 | P.DS ---
Providers Attending physician: Shashi Velasquez Consults: 09/05/24 15:21 Consult Physician Routine Consulting Provider: [facility] Consult Reason/Comments: Post Interventional patient Do you want consulting provider notified?: Already Contacted Primary care physician: Marni Leon [facility] Course: The patient is a 64-year-old female patient who underwent yesterday a heart catheterization and PCI of the LAD She was seen and evaluated this morning she is asymptomatic and hemodynamically stable The patient will be discharged home later on today on dual antiplatelet therapy including aspirin and P2 Y12 and I will follow-up with the patient next week in the office Plan - Discharge Summary New Discharge Prescriptions: New Prasugrel [Effient] 10 mg PO DAILY #90 tablet Continue Nitroglycerin Sl Tabs [Nitrostat] 0.4 mg SUBLINGUAL Q5M PRN PRN Reason: Chest Pain Metoprolol Tartrate [Lopressor] 25 mg PO BID amLODIPine [Norvasc] 10 mg PO DAILY Atorvastatin [Lipitor] 80 mg PO HS Aspirin 81 mg PO DAILY chew Levothyroxine Sodium [Synthroid] 150 mcg PO DAILY Gabapentin [Neurontin] 300 mg PO TID Venlafaxine HCl ER [Effexor XR] 75 mg PO DAILY Albuterol Inhaler [Ventolin Hfa Inhaler] 2 puff INHALATION Q6H PRN PRN Reason: Shortness Of Breath Budesonide-Formot 160-4.5 Mcg [Symbicort 160-4.5 Mcg Inhaler] 2 puff IN HALATION BID Acetaminophen Tab [Tylenol] 650 mg PO DIRECTED PRN PRN Reason: Pain OXcarbazepine 150 mg PO BID Pantoprazole Sodium [Protonix] 20 mg PO BID Tirzepatide [Mounjaro] 2.5 mg SQ WEEKLY Discharge Medication List Atorvastatin [Lipitor] 80 mg PO HS 04/04/18 [History] Metoprolol Tartrate [Lopressor] 25 mg PO BID 04/04/18 [History] Nitroglycerin Sl Tabs [Nitrostat] 0.4 mg SUBLINGUAL Q5M PRN 04/04/18 [History] amLODIPine [Norvasc] 10 mg PO DAILY 04/04/18 [History] Aspirin 81 mg PO DAILY chew 04/07/18 [Rx] Levothyroxine Sodium [Synthroid] 150 mcg PO DAILY 08/08/19 [History] Gabapentin [Neurontin] 300 mg PO TID 12/14/20 [History] Albuterol Inhaler [Ventolin Hfa Inhaler] 2 puff INHALATION Q6H PRN 04/19/22 [History] Budesonide-Formot 160-4.5 Mcg [Symbicort 160-4.5 Mcg Inhaler] 2 puff INHALATION BID 04/19/22 [History] Acetaminophen Tab [Tylenol] 650 mg PO DIRECTED PRN 05/02/23 [History] OXcarbazepine 150 mg PO BID 05/02/23 [History] Pantoprazole Sodium [Protonix] 20 mg PO BID 09/04/24 [History] Tirzepatide [Mounjaro] 2.5 mg SQ WEEKLY 09/04/24 [History] Venlafaxine HCl ER [Effexor XR] 75 mg PO DAILY 09/04/24 [History] Prasugrel [Effient] 10 mg PO DAILY #90 tablet 09/06/24 [Rx] Follow up Appointment(s)/Referral(s): Shashi Velasquez MD [STAFF PHYSICIAN] - 1 Week (Office will call with appointment date and time) Patient Instructions/Handouts: Moderate Sedation (DC), After Radial Heart Catheterization (GEN), Left Heart Catheterization (DC), Right Heart Catheterization (DC)
[2024-09-06] MEDS: amLODIPine 10 MG TAB PO SCH (08:25)
[2024-09-06] MEDS: VENLAFAXINE HCL ER 75 MG CAP PO SCH (08:25)
[2024-09-06] MEDS: ASPIRIN 81 MG PO SCH (08:25)
[2024-09-06] MEDS: PRASUGREL 10 MG TAB PO SCH (08:26)
[2024-09-06 08:36] VITALS: BP 121/58; PULSE 62; TEMP 97.9
== END 2024-09-06 10:40 | disposition home or self-care (01) ==
LOC: CATHCVL 11:26 → 6NMEDSUR 15:24 → CATHCVL 09-06 10:40
PROVIDERS: ATTEND Internal Medicine Interventional Cardiology
DX: T82.855A Stenosis of coronary artery stent, initial encounter (principal); I25.10 Atherosclerotic heart disease of native coronary artery without angina pectoris; I25.2 Old myocardial infarction; I10 Essential (primary) hypertension; E11.9 Type 2 diabetes mellitus without complications; E78.2 Mixed hyperlipidemia; F17.210 Nicotine dependence, cigarettes, uncomplicated; Z79.890 Hormone replacement therapy; Z79.82 Long term (current) use of aspirin; Z79.85 Long-term (current) use of injectable non-insulin antidiabetic drugs; Z79.51 Long term (current) use of inhaled steroids; Z79.899 Other long term (current) drug therapy; Z85.118 Personal history of other malignant neoplasm of bronchus and lung; Z82.49 Family history of ischemic heart disease and other diseases of the circulatory system
CPT/HCPCS: 94640; 94760; 92978; 93458; 92972; 80048 ×2; 85025 ×2; C9600; C1769 ×2; C1894; C1725 ×6; C1753; C1751; C1761; J2250; J2270; J1644 ×3; J2003; Q9967; J3010

== ENCOUNTER 2024-09-28 06:54 | Day surgery (SDC) | payer MEDICARE, OTHER ==
[2024-09-28] MEDS: IV FLUID CONTINUATION 1,000 ML IV ONE ×2 (07:33→10:59)
[2024-09-28 07:36] LABS: Glucose,Whole Blood 138 mg/dL (70-110)
[2024-09-28] MEDS: HEPARIN SODIUM,PORCINE 10,000 UNIT in SODIUM CHLORIDE 0.9% 1,000 ML IRRIGATION PRN (07:47)
[2024-09-28] MEDS: HEPARIN SODIUM,PORCINE (1 ML) 2,500 UNIT in SODIUM CHLORIDE 0.9% 250 ML IRRIGATION PRN (07:47)
[2024-09-28] MEDS: MIDAZOLAM 2 MG/2 ML VIAL IVP ONE ×2 (08:13→08:46)
[2024-09-28] MEDS: LIDOCAINE 1% INJ 10MG/ML (20 ML MDV) SQ ONE (08:15)
[2024-09-28] MEDS: VERAPAMIL SYRINGE (5 MG/10 ML) INTRAARTER ONE (08:16)
[2024-09-28] MEDS: NITROGLYCERIN SL TABS 0.4 MG TAB SUBLINGUAL ONE (08:20)
[2024-09-28] MEDS: MORPHINE SULFATE 4 MG/ML SYRINGE IVP ONE (08:20)
[2024-09-28] MEDS: HEPARIN SODIUM 1,000 UN/ML (10ML VL) IV ONE ×3 (08:25→09:17)
[2024-09-28] MEDS: PHENYLEPHRINE-0.9% NACL SYG 1,000 MCG/10 ML SYRINGE IVP ONE (08:25)
[2024-09-28] MEDS: NOREPINEPHRINE 4 MG in SODIUM CHLORIDE 0.9% 250 ML IV ONE (08:37)
[2024-09-28] MEDS: fentaNYL (PF) 50 MCG/ML 2 ML AMP IVP ONE (08:38)
[2024-09-28] MEDS: NITROGLYCERIN 1000MCG/10ML SYRINGE INTRAARTER ONE (09:06)
[2024-09-28] MEDS: niCARdipine Syringe (1,000 mcg/10 mL) INTRAARTER ONE (09:08)
[2024-09-28] MEDS: IOPAMIDOL-370 100ML BTL INJ ONE (09:12)
[2024-09-28] MEDS ORDERED: ALBUTEROL NEBULIZED 2.5 MG/3 ML INHALATION PRN (09:15)
[2024-09-28] MEDS ORDERED: ACETAMINOPHEN TAB 325 MG TAB PO PRN (09:15)
[2024-09-28] MEDS ORDERED: ATROPINE SULFATE 0.1 MG/ML 10ML SYRINGE IV PRN (09:16)
[2024-09-28] MEDS ORDERED: NITROGLYCERIN SL TABS 0.4 MG TAB SUBLINGUAL PRN (09:16)
[2024-09-28] MEDS ORDERED: RX INFO: IV CONTRAST WAS GIVEN 1 EACH MISC MISCELLANE PRN (09:16)
[2024-09-28] MEDS ORDERED: MAG HYDROX/AL HYDROX/SIMETH 30 ML CUP PO PRN (09:16)
[2024-09-28] MEDS ORDERED: ZOLPIDEM 5 MG TAB PO PRN (09:16)
[2024-09-28] MEDS: TIROFIBAN 12.5MG-250ML NS 250 ML IV ONE (09:34)
[2024-09-28] MEDS: MORPHINE SULFATE 4 MG/ML SYRINGE IVP PRN (10:09)
--- NOTE | 2024-09-28 12:26 | PTCA ---
PERCUTANEOUSTRANS CORORONARY ANGIOGRAPHY PERFORMING PHYSICIAN: Shashi Velasquez MD. PROCEDURES PERFORMED: 1. Successful stenting of the mid and proximal right coronary artery using 3.0 x 48 and 4.0 x 28 mm Xience LALI with both stent postdilated using 4 mm noncompliant balloon with an excellent angiographic results and reduction of stenosis from 80% to 0% with adjunctive use of IVUS. 2. Right coronary artery angiogram. 3. Ultrasound-guided access of the right radial artery. INDICATION: Symptomatic 64-year-old female patient with known severe disease involving the RCA. APPROACH: Right radial artery. COMPLICATIONS: None. LEVEL OF SEDATION: Moderate, with sedation length of 56 minutes. PROCEDURE DESCRIPTION: After obtaining an informed consent, the patient was brought to the cardiac systems testing laboratory technician. The right radial artery was cannulated using micropuncture technique under ultrasound guidance, the micropuncture wire passed easily. Then, I placed a 6-Kinyarwanda 11 cm sheath at the right radial artery and subsequently I gave the patient 2 mg of verapamil intra- arterially and 5000 units of heparin intravenous with continuous ACT monitoring and additional heparin given throughout the procedure based on the ACT. I did engage the RCA using JR4 guiding catheter with side hole. I did wire the RCA from the get go using 2 wires including a run-through wire and whisper wire to straighten a very tortuous RCA. IVUS was performed and showed a diameter around 3 to 3.5 mm distally and 4 mm proximally. Predilatation was performed using 3 mm Scoreflex balloon before I deployed in the mid RCA 3.0 x 48 mm stent and proximally 4.0 x 28 mm stents. The stent was positioned to be protruding about 2 mm outside the ostial of the RCA. Postdilatation was initially performed using 4 mm NC balloon and subsequently 4.5 mm NC balloon. IVUS postprocedure and angiogram performed and showed good angiographic results with NENITA-2 flow, but the pressure was low and after the patient was given nicardipine and subsequently the pressure was supported, the flow was better. The patient tolerated the procedure very well with normal EKG at the end and asymptomatic status as well. POSTPROCEDURE MANAGEMENT: Hold any blood pressure medications at this point. Support the pressure if we have to through norepinephrine. Continue dual anti-platelet therapy and high intensity statin. Smoking cessation. Follow up with the patient. MMODL / IJN: [id number] /
[2024-09-28 12:55] LABS: Glucose,Whole Blood 164 mg/dL (70-110)
[2024-09-28] MEDS: SODIUM CHLORIDE 0.9% 1,000 ML in EMPTY BAG 1 BAG IV SCH ×2 (14:23→14:24)
[2024-09-28] MEDS: ASPIRIN 325 MG TAB PO STA (14:23)
[2024-09-28] MEDS: GABAPENTIN 300 MG CAP PO SCH (16:53)
[2024-09-28] MEDS: SYMBICORT 160-4.5 MCG INHALER INHALATION SCH (20:07)
[2024-09-28] MEDS: ATORVASTATIN 80 MG TAB PO SCH (20:12)
[2024-09-28] MEDS: OXcarbazepine 150 MG TAB PO SCH (20:12)
[2024-09-29 04:43] LABS: Basophils % (A) 0.5 %; Eosinophils # (A) 0.26 10*3/uL (0.04-0.35); Eosinophils % (A) 1.4 %; HCT 39.9 % (37.2-46.3); HGB 13.3 g/dL (12.0-15.0); Lymphocytes # (A) 4.69 10*3/uL (0.90-5.00); Lymphocytes % (A) 24.9 %; MCH 28.8 pg (27.0-32.0); MCHC 33.3 g/dL (32.0-37.0); MCV 86.4 fL (80.0-97.0); Mean Platelet Volume 8.8 fL (9.5-12.2); Monocytes # (A) 1.86 10*3/uL (0.20-1.00); Monocytes % (A) 9.9 %; Neutrophils # (A) 11.86 10*3/uL (1.80-7.70); Neutrophils % (A) 62.8 %; Platelet Count 245 10*3/uL (140-440); RBC 4.62 10*6/uL (4.10-5.20); RDW 13.9 % (11.5-14.5); WBC 18.86 10*3/uL (4.50-10.00)
[2024-09-29 05:01] LABS: African American GFR (CKD) >90 (>60 ml/min/1.73 sqM); Anion Gap 8 mmol/L; Blood Urea Nitrogen 13 mg/dL (7-17); Calcium 9.4 mg/dL (8.4-10.2); Carbon Dioxide 26 mmol/L (22-30); Chloride 105 mmol/L (98-107); Glucose 102 mg/dL (74-99); Non-African American GFR(CKD) >90 (>60 ml/min/1.73 sqM); Sodium 139 mmol/L (137-145)
[2024-09-29] MEDS: LEVOTHYROXINE 75 MCG TAB PO SCH (05:51)
[2024-09-29] MEDS: PANTOPRAZOLE 40 MG TABLET PO SCH (05:53)
[2024-09-29 07:08] VITALS: BP 126/73; PULSE 65; RESP 16; TEMP 98.3
[2024-09-29] MEDS: ASPIRIN 81 MG PO SCH (09:09)
[2024-09-29] MEDS: PRASUGREL 10 MG TAB PO SCH (09:09)
--- NOTE | 2024-09-29 09:43 | P.DS ---
Providers Date of admission: DISCHARGE DIAGNOSES: 1. #1 CAD with multivessel disease, #2 benign hypertension, #3 hypercholesterolemia, #4 bronchial asthma/COPD PROCEDURES: 1. #1 PTCA and stenting of proximal RCA along the tortuous lesion with drug- eluting stents and adjunctive intravascular ultrasound. Had LAD PCI in the first week of September HISTORY OF PRESENTATION: This lady has history of CAD and earlier in the month she presented to the hospital underwent stenting of LAD performed by Dr. eVlasquez she had a very tortuous RCA disease and was brought in electively for the PCI which was performed yesterday. 2 drug-eluting stents were deployed excellent angiographic result was achieved. Postprocedure course was uneventful HOSPITAL COURSE: Uneventful postprocedure course right radial procedure site is clean and dry with a good pulse. She is doing very well has no chest pain shortness of breath or palpitations. EKG and blood work today is unremarkable. Vitals are stable S1-S2 with a short systolic murmur is audible lungs are clear abdomen and lower extremity is exam is unremarkable Central nervous system grossly within normal limits DISCHARGE MEDICATIONS: Patient was already on appropriate medications prior to hospitalization because she had LAD PCI performed earlier this month. She was already on Effient, aspirin, statin and other antihypertensive medications. I reviewed all the medicines with her and advised that she should take all of them as advised and be compliant with them. She is feeling well this morning no sy mptoms she will be discharged and see Dr. Velasquez in 1 week. FOLLOW-UP: Appointment to see Dr. Velasquez in 1 week. Expected date of discharge: 09/29/24 Attending physician: Shashi Velasquez Consults: 09/28/24 09:16 Consult Physician Routine Consulting Provider: [facility] Consult Reason/Comments: Post Interventional patient Do you want consulting provider notified?: Already Contacted Primary care physician: Marni Leon Plan - Discharge Summary Discharge Rx Participant: No New Discharge Prescriptions: No Action Nitroglycerin Sl Tabs [Nitrostat] 0.4 mg SUBLINGUAL Q5M PRN PRN Reason: Chest Pain Metoprolol Tartrate [Lopressor] 25 mg PO BID amLODIPine [Norvasc] 10 mg PO DAILY Atorvastatin [Lipitor] 80 mg PO HS Aspirin 81 mg PO DAILY chew Levothyroxine Sodium [Synthroid] 150 mcg PO DAILY Gabapentin [Neurontin] 300 mg PO TID Venlafaxine HCl ER [Effexor XR] 75 mg PO DAILY Isosorbide Mononitrate ER [Imdur] 30 mg PO DAILY Albuterol Inhaler [Ventolin Hfa Inhaler] 2 puff INHALATION Q6H PRN PRN Reason: Shortness Of Breath Budesonide-Formot 160-4.5 Mcg [Symbicort 160-4.5 Mcg Inhaler] 2 puff INHALATION BID Acetaminophen Tab [Tylenol] 650 mg PO DIRECTED PRN PRN Reason: Pain OXcarbazepine 150 mg PO BID Pantoprazole Sodium [Protonix] 20 mg PO BID Tirzepatide [Mounjaro] 2.5 mg SQ WEEKLY Prasugrel [Effient] 10 mg PO DAILY #90 tablet Discharge Medication List Atorvastatin [Lipitor] 80 mg PO HS 04/04/18 [History] Metoprolol Tartrate [Lopressor] 25 mg PO BID 04/04/18 [History] Nitroglycerin Sl Tabs [Nitrostat] 0.4 mg SUBLINGUAL Q5M PRN 04/04/18 [History] amLODIPine [Norvasc] 10 mg PO DAILY 04/04/18 [History] Aspirin 81 mg PO DAILY chew 04/07/18 [Rx] Levothyroxine Sodium [Synthroid] 150 mcg PO DAILY 08/08/19 [History] Gabapentin [Neurontin] 300 mg PO TID 12/14/20 [History] Albuterol Inhaler [Ventolin Hfa Inhaler] 2 puff INHALATION Q6H PRN 04/19/22 [History] Budesonide-Formot 160-4.5 Mcg [Symbicort 160-4.5 Mcg Inhaler] 2 puff INHALATION BID 04/19/22 [History] Acetaminophen Tab [Tylenol] 650 mg PO DIRECTED PRN 05/02/23 [History] OXcarbazepine 150 mg PO BID 05/02/23 [History] Pantoprazole Sodium [Protonix] 20 mg PO BID 09/04/24 [History] Tirzepatide [Mounjaro] 2.5 mg SQ WEEKLY 09/04/24 [History] Venlafaxine HCl ER [Effexor XR] 75 mg PO DAILY 09/04/24 [History] Prasugrel [Effient] 10 mg PO DAILY #90 tablet 09/06/24 [Rx] Isosorbide Mononitrate ER [Imdur] 30 mg PO DAILY 09/27/24 [History] Follow up Appointment(s)/Referral(s): Shashi Velasquez MD [STAFF PHYSICIAN] - 10/11/24 8:45 am Patient Instructions/Handouts: Moderate Sedation (GEN), Coronary Intravascular Stent Placement (DC), After Radial Heart Catheterization (GEN) Activity/Diet/Wound Care/Special Instructions: *NO LIFTING, PUSHING, OR PULLING ANYTHING OVER 5 POUND FOR 5 DAYS *NO DRIVING FOR 3 DAYS *YOU CAN REMOVE YOUR DRESSING TOMORROW BUT DO NOT SUBMERSE YOUR PUNCTURE SITE IN WATER FOR A FEW DAYS TO PREVENT INFECTION - SO NO TUB BATHS, POOLS, HOT TUBS, DISHES...ETC *ANY SIGNS OF BLEEDING (HARDNESS, SWELLING, OR EXCESSIVE BRUISING) HOLD DIRECT PRESSURE ON YOUR PUNCTURE SITE AND COME TO THE NEAREST EMERGENCY ROOM TO GET YOUR PUNCTURE SITE LOOKED AT - DO NOT DRIVE YOURSELF! EITHER CALL EMS OR HAVE SOMEONE DRIVE YOU!
== END 2024-09-29 10:26 | disposition home or self-care (01) ==
LOC: CATHCVL 06:54 → 6NMEDSUR 11:54 → CATHCVL 09-29 10:26
PROVIDERS: ATTEND Internal Medicine Interventional Cardiology
DX: I25.10 Atherosclerotic heart disease of native coronary artery without angina pectoris (principal); E78.00 Pure hypercholesterolemia, unspecified; I10 Essential (primary) hypertension; J44.89 Other specified chronic obstructive pulmonary disease; Z79.02 Long term (current) use of antithrombotics/antiplatelets; Z79.82 Long term (current) use of aspirin; Z79.899 Other long term (current) drug therapy; Z79.51 Long term (current) use of inhaled steroids
CPT/HCPCS: 94640 ×3; 92978; 80048; 85025; 99152; 99153; C9600; C1769 ×2; C1894; C1753; C1874; C1725 ×3; J2250; J2270; J1644 ×3; J2003; J3010; J3246; Q9967; J2371; J2305; 93005

== ENCOUNTER → 2024-12-31 | Outpatient (CLI) | payer MEDICARE, OTHER ==
[2024-12-31 15:25] LABS: Basophils # (A) 0.10 X 10*3/uL (0.00-0.10); Basophils % (A) 0.6 %; Eosinophils # (A) 0.16 X 10*3/uL (0.04-0.35); Eosinophils % (A) 1.0 %; HCT 48.5 % (37.2-46.3); HGB 15.7 g/dL (12.0-15.0); Immature Grans, Automated 0.50 %; Lymphocytes # (A) 4.05 X 10*3/uL (0.90-5.00); Lymphocytes % (A) 26.1 %; MCH 27.8 pg (27.0-32.0); MCHC 32.4 g/dL (32.0-37.0); MCV 86.0 FL (80.0-97.0); Monocytes # (A) 1.16 X 10*3/uL (0.20-1.00); Monocytes % (A) 7.5 %; NRBC Per 100 WBC 0 X 10*3/uL (0.00-0.01); Neutrophils # (A) 9.98 X 10*3/uL (1.80-7.70); Neutrophils % (A) 64.3 %; Platelet Count 285 X 10*3/uL (140-440); RBC 5.64 X 10*6/uL (4.10-5.20); RDW 15.0 % (11.5-14.5); WBC 15.53 X 10*3/uL (4.50-10.00)
[2024-12-31 15:55] LABS: ALT 12 U/L (8-44); AST 15 U/L (13-35); Albumin 4.1 g/dL (3.8-4.9); Albumin/Globulin Ratio 1.58 Ratio (1.60-3.17); Alkaline Phosphatase 146 U/L (41-126); Anion Gap 11.20 mmol/L (4.00-12.00); BUN/Creat Ratio 16.25 Ratio (12.00-20.00); Blood Urea Nitrogen 13.0 mg/dL (9.0-27.0); Calcium 9.4 mg/dL (8.7-10.3); Carbon Dioxide 24.8 mmol/L (21.6-31.8); Chloride 102 mmol/L (96-109); Cholesterol 131.00 mg/dL (0.00-200.00); Globulin 2.6 g/dL (1.6-3.3); Glucose 158 mg/dL (70-110); HDL Cholesterol 35.40 mg/dL (40.00-60.00); LDL Cholesterol,Calculated 70.6 mg/dL (0.0-131.0); Potassium 4.1 mmol/L (3.5-5.5); Sodium 138 mmol/L (135-145); Total Protein 6.7 g/dL (6.2-8.2); Triglycerides 125.00 mg/dL (0.00-149.00); VLDL Calculation 25.00 mg/dL (5.00-40.00)
== END | disposition home or self-care (01) ==
LOC: LABWHC1 12:56
PROVIDERS: ATTEND Internal Medicine
DX: I13.10 Hypertensive heart and chronic kidney disease without heart failure, with stage 1 through stage 4 chronic kidney disease, or unspecified chronic kidney disease (principal); N18.9 Chronic kidney disease, unspecified; E11.40 Type 2 diabetes mellitus with diabetic neuropathy, unspecified; E03.9 Hypothyroidism, unspecified; E78.00 Pure hypercholesterolemia, unspecified; E55.9 Vitamin D deficiency, unspecified
CPT/HCPCS: 36415; 80053; 80061; 82306; 83036; 84443; 85025